=== PATIENT | female | born 1945 | race Caucasian/White ===

== ENCOUNTER 2018-02-07 07:47 | Day surgery (SDC) | payer MEDICARE ==
[2018-02-06 08:49] VITALS: BMI 29.5
--- NOTE | 2018-02-07 07:33 | P.GSHP ---
History of Present Illness H&P Date: 02/07/18 CHIEF COMPLAINT: Colon screen HISTORY OF PRESENT ILLNESS: The patient is a 72-year-old female who presents for colon screen. Lower endoscopy was offered for further evaluation and management. PAST MEDICAL HISTORY: Please see list. PAST SURGICAL HISTORY: Please see list. MEDICATIONS: Please see list. ALLERGIES: Please see list. SOCIAL HISTORY: No illicit drug use FAMILY HISTORY: No reports of Crohn disease or ulcerative colitis. REVIEW OF ORGAN SYSTEMS: CONSTITUTIONAL: No reports of fevers or chills. PHYSICAL EXAM: VITAL SIGNS: Stable GENERAL: Well-developed pleasant in no acute distress. HEENT: No scleral icterus. Extraocular movements grossly intact. Moist buccal mucosa. NECK: Supple without lymphadenopathy. CHEST: Unlabored respirations. Equal bilateral excursions. CARDIOVASCULAR: Regular rate and rhythm. Distal 2+ pulses. ABDOMEN: Soft, nontender, nondistended. MUSCULOSKELETAL: No clubbing, cyanosis, or edema. ASSESSMENT: 1. Colon screen. PLAN: 1. Recommend proceeding with a lower endoscopy Past Medical History Past Medical History: Atrial Fibrillation, Coronary Artery Disease (CAD), Cancer , Chest Pain / Angina, Heart Failure, Diabetes Mellitus, GI Bleed, Hyperlipidemia, Hypertension, Myocardial Infarction ([place]), Osteoarthritis (OA), Thyroid Disorder Additional Past Medical History / Comment(s): NSR since cardiac ablation for Afib, heart murmur, HODGKINS lymphoma with neck and chest radiation in 1977 and chemo in 1982, chronic kidney failure, IDDM type II, hypothyroid, colonic polyps , diverticulosis, GOUT bilateral feet, rare back pain, edema in legs particularly L leg Last Myocardial Infarction Date:: 01/25/16 History of Any Multi-Drug Resistant Organisms: None Reported Past Surgical History: Cardiac Ablation, Cholecystectomy, Coronary Bypass/CABG, Heart Catheterization, Heart Catheterization With Stent, Pacemaker, Tubal Ligation Additional Past Surgical History / Comment(s): 2003 PTCA with 1 stent, 2007 CABG -2 vessel, Aortic valve replaced,bilateral CATARACT, SINUS SURGERY, splenectomy d/t hodkins, colonoscopy, laparoscopy, D&C Past Anesthesia/Blood Transfusion Reactions: No Reported Reaction Additional Past Anesthesia/Blood Transfusion Reaction / Comment(s): Pt states with one of her surgeries her pulse went very low. She has received blood in the past without reaction. Date of Last Stent Placement:: 2003 Type of Cardiac Device: Permanent Pacemaker Device Placement Date:: 2015 Smoking Status: Never smoker - Past Family History Father Family Medical History: Myocardial Infarction ([place]) Additional Family Medical History / Comment(s): Father was healthy until he of a [place] at the age of 93 yrs. Mother Family Medical History: CVA/TIA Additional Family Medical History / Comment(s): Mother was healthy until the last couple yrs of her life. She of a CVA at the age of 94yrs. Medications and Allergies Home Medications Medication Instructions Recorded Confirmed Type Allopurinol [Zyloprim] 300 mg PO DAILY 01/19/16 02/06/18 History Aspirin 81 mg PO DAILY 01/19/16 02/06/18 History Cholecalciferol [Vitamin D3] 5,000 unit PO DAILY 01/19/16 02/06/18 History Fenofibrate Nanocrystallized 48 mg PO DAILY 01/19/16 02/06/18 History [Fenofibrate] Insulin Glargine [Lantus] 20 unit SQ BID 01/19/16 02/06/18 History Isosorbide Mononitrate ER [Imdur] 60 mg PO QAM 01/19/16 02/06/18 History Levothyroxine Sodium [Levoxyl] 112 mcg PO QAM 01/19/16 02/06/18 History Nitroglycerin Sl Tabs [Nitrostat] 0.4 mg SUBLINGUAL Q5M PRN 01/19/16 02/06/18 History Ubidecarenone [Co Q-10] 200 mg PO Q2D 01/19/16 02/06/18 History Vit C/E/Zn/Coppr/Lutein/Zeaxan 1 cap PO DAILY 01/19/16 02/06/18 History [Preservision Areds 2 Softgel] Insulin Glulisine [Apidra Solostar] 10 - 12 unit SQ AC-TID PRN 01/24/16 History Atorvastatin [Lipitor] 20 mg PO Q2D 02/14/16 02/06/18 History Docusate [Colace] 100 mg PO DAILY 02/14/16 02/06/18 History Torsemide [Demadex] 50 mg PO BID PRN 02/14/16 02/06/18 History Krill/Om-3/Dha/Epa/Phospho/Ast 1 each PO DAILY 02/06/18 02/06/18 History [[place]-3 Krill Oil 300 mg Sfgl] Lisinopril [Prinivil] 10 mg PO HS 02/06/18 02/06/18 History Metoprolol Tartrate [Lopressor] 50 mg PO TID 02/06/18 02/06/18 History cloNIDine HCL [Catapres] 0.1 mg PO TID 02/06/18 02/06/18 History hydrALAZINE HCL [Apresoline] 50 mg PO TID 02/06/18 02/06/18 History Allergies Allergy/AdvReac Type Severity Reaction Status Date / Time Iodinated Contrast- Oral and AdvReac renal Verified 02/06/18 08:33 IV Dye disease
[~2018-02-07 07:47] MED LIST: LACTATED RINGERS 1,000 ML IV SCH; LIDOCAINE 1% 20 ML VIAL (10MG/ML) FOR IV START INTRADERMA PRN; MIDAZOLAM 2 MG/2 ML VIAL IV PRN
[2018-02-07 08:54] VITALS: TEMP 97.9
[2018-02-07 09:11] LABS: Glucose,Whole Blood 114 mg/dL (75-99)
[2018-02-07] MEDS ORDERED: PROPOFOL 10 MG/ML 20 ML VIAL IV ONE (09:15)
[2018-02-07] MEDS ORDERED: ePHEDrine SULFATE/0.9% NACL/PF 50 MG/5 ML SYRINGE IV ONE (09:15)
[2018-02-07] MEDS ORDERED: LIDOCAINE 1% INJ 10MG/ML (20 ML MDV) ONE (09:15)
--- NOTE | 2018-02-07 09:57 | P.PCN ---
Date of Procedure: 02/07/18 Description of Procedure: PREOPERATIVE DIAGNOSIS: Personal history of colon polyps Ischemic cardiomyopathy POSTOPERATIVE DIAGNOSIS: Personal history of colon polyps Ischemic cardiomyopath Tubular adenoma, descending colon Hyperplastic colon, ascending colon Severe sigmoid diverticulosis Poor prep OPERATION: Colonoscopy to the ileocecal valve and appendiceal orifice. Colonoscopy with hot snare polypectomies Colonoscopy with cold forceps biopsies. SURGEON: Sonia Cunningham MD. ANESTHESIA: MAC. INDICATIONS: The patient is a 72-year-old female who presents for colonoscopy screening. Last colonoscopy was 5 years ago Benefits and risks were described and informed consent was obtained. DESCRIPTION OF PROCEDURE: The patient had undergone Gatorade, MiraLAX and Dulcolax prep. She had been brought into the operating room and laid in the left lateral decubitus position. After adequate intravenous sedation, the rectum was examined with 2% lidocaine jelly. No external hemorrhoids were encountered. The rectal tone was within normal limits. No lesions were palpated in the rectal vault. An Olympus colonoscope was advanced until the ileocecal valve and appendiceal orifice were clearly viewed. The prep was poor with solid stool obscuring the mucosal folds. Abdominal wall pressure was required to advance the scope to the ascending colon. Severe sigmoid diverticulosis was encountered with stool impaction in the diverticulum. Colonic polyps were found and cold forcep biopsy or snare polypectomy. No evidence of focal colitis was found. Retroflexion of the scope demonstrated no internal hemorrhoids. The colon was desufflated. The patient had tolerated the procedure well. Withdrawal time was over 6 minutes. FINDINGS: No internal hemorrhoids No external hemorrhoids Severe sigmoid diverticulosis with impacted stool of diverticula No arteriovenous malformations Poor prep with solid stool Tubular adenoma along sigmoid colon unable to retrieve due to tortuosity of the colon Removal of 2 polyps: - Snare polypectomy 40 cm from the anal verge, 10 mm tubulovillous adenoma polyp. - Cold forceps biopsy at ascending colon, 4 mm polyp. No focal colitis. RECOMMENDATIONS: Given severity of tubular adenomas, recommend repeat colonoscopy 1 year, 2019. Plan - Discharge Summary New Discharge Prescriptions: No Action Cholecalciferol [Vitamin D3] 5,000 unit PO DAILY Nitroglycerin Sl Tabs [Nitrostat] 0.4 mg SUBLINGUAL Q5M PRN PRN Reason: Pain Levothyroxine Sodium [Levoxyl] 112 mcg PO QAM Insulin Glargine [Lantus] 20 unit SQ BID Fenofibrate Nanocrystallized [Fenofibrate] 48 mg PO DAILY Ubidecarenone [Co Q-10] 200 mg PO Q2D Aspirin 81 mg PO DAILY Allopurinol [Zyloprim] 300 mg PO DAILY Isosorbide Mononitrate ER [Imdur] 60 mg PO QAM Vit C/E/Zn/Coppr/Lutein/Zeaxan [Preservision Areds 2 Softgel] 1 cap PO DAILY Insulin Glulisine [Apidra Solostar] 10 - 12 unit SQ AC-TID PRN PRN Reason: Blood Sugar - High Torsemide [Demadex] 50 mg PO BID PRN PRN Reason: Edema Atorvastatin [Lipitor] 20 mg PO Q2D Docusate [Colace] 100 mg PO DAILY cloNIDine HCL [Catapres] 0.1 mg PO TID hydrALAZINE HCL [Apresoline] 50 mg PO TID Krill/Om-3/Dha/Epa/Phospho/Ast [[place]-3 Krill Oil 300 mg Sfgl] 1 each PO DAILY Lisinopril [Prinivil] 10 mg PO HS Metoprolol Tartrate [Lopressor] 50 mg PO TID Discharge Medication List Allopurinol [Zyloprim] 300 mg PO DAILY 01/19/16 [History] Aspirin 81 mg PO DAILY 01/19/16 [History] Cholecalciferol [Vitamin D3] 5,000 unit PO DAILY 01/19/16 [History] Fenofibrate Nanocrystallized [Fenofibrate] 48 mg PO DAILY 01/19/16 [History] Insulin Glargine [Lantus] 20 unit SQ BID 01/19/16 [History] Isosorbide Mononitrate ER [Imdur] 60 mg PO QAM 01/19/16 [History] Levothyroxine Sodium [Levoxyl] 112 mcg PO QAM 01/19/16 [History] Nitroglycerin Sl Tabs [Nitrostat] 0.4 mg SUBLINGUAL Q5M PRN 01/19/16 [History] Ubidecarenone [Co Q-10] 200 mg PO Q2D 01/19/16 [History] Vit C/E/Zn/Coppr/Lutein/Zeaxan [Preservision Areds 2 Softgel] 1 cap PO DAILY [History] Insulin Glulisine [Apidra Solostar] 10 - 12 unit SQ AC-TID PRN 01/24/16 [History ] Atorvastatin [Lipitor] 20 mg PO Q2D 02/14/16 [History] Docusate [Colace] 100 mg PO DAILY 02/14/16 [History] Torsemide [Demadex] 50 mg PO BID PRN 02/14/16 [History] Krill/Om-3/Dha/Epa/Phospho/Ast [[place]-3 Krill Oil 300 mg Sfgl] 1 each PO DAILY 02/06/18 [History] Lisinopril [Prinivil] 10 mg PO HS 02/06/18 [History] Metoprolol Tartrate [Lopressor] 50 mg PO TID 02/06/18 [History] cloNIDine HCL [Catapres] 0.1 mg PO TID 02/06/18 [History] hydrALAZINE HCL [Apresoline] 50 mg PO TID 02/06/18 [History]
[2018-02-07 10:10] VITALS: BP 110/63; PULSE 60; RESP 18
[2018-02-07 10:19] LABS: Glucose,Whole Blood 111 mg/dL (75-99)
== END 2018-02-07 10:42 | disposition home or self-care (01) ==
LOC: ORWHC2ENDO 07:47
PROVIDERS: ATTEND Surgery Plastic and Reconstructive Surgery
DX: Z12.11 Encounter for screening for malignant neoplasm of colon (principal); D12.3 Benign neoplasm of transverse colon; D12.4 Benign neoplasm of descending colon; I13.0 Hypertensive heart and chronic kidney disease with heart failure and stage 1 through stage 4 chronic kidney disease, or unspecified chronic kidney disease; I25.5 Ischemic cardiomyopathy; K57.30 Diverticulosis of large intestine without perforation or abscess without bleeding; I48.91 Unspecified atrial fibrillation; I50.9 Heart failure, unspecified; E78.5 Hyperlipidemia, unspecified; I25.2 Old myocardial infarction; I25.119 Atherosclerotic heart disease of native coronary artery with unspecified angina pectoris; M19.90 Unspecified osteoarthritis, unspecified site; M10.9 Gout, unspecified; E03.9 Hypothyroidism, unspecified; E11.22 Type 2 diabetes mellitus with diabetic chronic kidney disease; N18.9 Chronic kidney disease, unspecified; Z79.4 Long term (current) use of insulin; Z79.82 Long term (current) use of aspirin; Z86.010 Personal history of colon polyps; Z85.72 Personal history of non-Hodgkin lymphomas; Z92.3 Personal history of irradiation; Z92.21 Personal history of antineoplastic chemotherapy; Z95.5 Presence of coronary angioplasty implant and graft; Z95.1 Presence of aortocoronary bypass graft; Z90.49 Acquired absence of other specified parts of digestive tract; Z95.0 Presence of cardiac pacemaker; Z95.2 Presence of prosthetic heart valve; Z82.49 Family history of ischemic heart disease and other diseases of the circulatory system; Z90.81 Acquired absence of spleen; Z79.899 Other long term (current) drug therapy
CPT/HCPCS: 88305; 45385; 45380; J2001; J2704

== ENCOUNTER → 2018-05-18 | Outpatient (CLI) | payer MEDICARE ==
--- NOTE | 2018-05-18 15:24 | CT ---
EXAMINATION TYPE: CT facial bones wo con DATE OF EXAM: 05/18/2018 COMPARISON: None HISTORY: sinusitis CT DLP: 532.[address] of the paranasal sinuses was performed in the axial and coronal planes. Bone and soft tissue settings are submitted. The paranasal sinuses demonstrate normal aeration and development. Mucoperiosteal thickening maxillary sinuses bilaterally is mild in degree. Changes of medial maxillar y antrectomy on the right and partial ethmoidectomy bilaterally. The osteal meatal units are patent bilaterally. The nasal septum is midline. No bony destructive changes are seen within the field of view. IMPRESSION: Chronic sinusitis. Postoperative changes as noted.
== END | disposition home or self-care (01) ==
LOC: RADCTMAIN 14:42
PROVIDERS: ATTEND Otolaryngology
DX: J32.9 Chronic sinusitis, unspecified (principal); R04.0 Epistaxis; Z98.890 Other specified postprocedural states
CPT/HCPCS: 70486

== ENCOUNTER 2019-11-24 08:32 | Inpatient (IN) | payer MEDICARE ==
[2019-11-24 12:16] LABS: Glucose,Whole Blood 187 mg/dL (75-99)
[2019-11-24] MEDS ORDERED: DOCUSATE 100 MG CAP PO PRN (13:59)
[2019-11-24] MEDS ORDERED: NITROGLYCERIN SL TABS 0.4 MG TAB SUBLINGUAL PRN (13:59)
--- NOTE | 2019-11-24 14:05 | P.NPCON ---
History of Present Illness - Reason for Consult chronic renal failure - History of Present Illness Reason for consultation: Chronic kidney disease History of present illness: Patient is a 74-year-old female seen in new consultation for chronic kidney disease. She has chronic kidney disease stage IV with baseline creatinine near 2 secondary to nephrosclerosis. Patient went to [facility] on Monday due to worsening shortness of breath and edema. Patient received IV Lasix and was subsequently transferred here due to worsening renal failure. Patient's creatinine this morning is 2.1. Patient also has long-standing history of diabetes mellitus. Patient states her edema has improved with IV diuresis. No hematuria or dysuria. Overall feels better today. She denies any fever or chills. She admits to a chronic cough with no recent changes. No vomiting or diarrhea. Oral intake has been good. She denies use of nonsteroidals. At home she does take torsemide 50 mg twice daily along with metolazone as needed. Vital signs are stable. General: The patient appeared well nourished and normally developed. HEENT: Head exam is unremarkable. Neck is without jugular venous distension. LUNGS: Lungs are clear to auscultation and percussion. Breath sounds decreased. HEART: Rate and Rhythm are regular. ABDOMEN: Abdominal exam reveals normal bowel sounds. Non-tender and non- distended. EXTREMITITES: No clubbing, cyanosis, or edema. Past Medical History Past Medical History: Atrial Fibrillation, Coronary Artery Disease (CAD), Cancer, Chest Pain / Angina, Heart Failure, Diabetes Mellitus, GI Bleed, Hyperlipidemia, Hypertension, Myocardial Infarction ([place]), Osteoarthritis (OA), Thyroid Disorder Additional Past Medical History / Comment(s): NSR since cardiac ablation for Afib, heart murmur, HODGKINS lymphoma with neck and chest radiation in 1977 and chemo in 1982, chronic kidney failure, IDDM type II, hypothyroid, colonic polyps, diverticulosis, GOUT bilateral feet, rare back pain, edema in legs particularly L leg Last Myocardial Infarction Date:: 01/25/16 History of Any Multi-Drug Resistant Organisms: None Reported Past Surgical History: Cardiac Ablation, Cholecystectomy, Coronary Bypass/CABG, Heart Catheterization, Heart Catheterization With Stent, Pacemaker, Tubal Ligation Additional Past Surgical History / Comment(s): 2003 PTCA with 1 stent, 2007 CABG-2 vessel, Aortic valve replaced,bilateral CATARACT, SINUS SURGERY, splenectomy d/t hodkins, colonoscopy, laparoscopy, D&C Past Anesthesia/Blood Transfusion Reactions: No Reported Reaction Additional Past Anesthesia/Blood Transfusion Reaction / Comment(s): Pt states with one of her surgeries her pulse went very low. She has received blood in the past without reaction. Date of Last Stent Placement:: 2003 Type of Cardiac Device: Permanent Pacemaker Device Placement Date:: 2015 Smoking Status: Never smoker - Past Family History Father Family Medical History: Myocardial Infarction ([place]) Additional Family Medical History / Comment(s): Father was healthy until he of a [place] at the age of 93 yrs. Mother Family Medical History: CVA/TIA Additional Family Medical History / Comment(s): Mother was healthy until the last couple yrs of her life. She of a CVA at the age of 94yrs. Medications and Allergies Home Medications Medication Instructions Recorded Confirmed Type Allopurinol [Zyloprim] 300 mg PO DAILY 01/19/16 11/24/19 History Aspirin 81 mg PO DAILY 01/19/16 11/24/19 History Cholecalciferol [Vitamin D3 (25 1,000 unit PO DAILY 01/19/16 11/24/19 History Mcg = 1000 Iu)] Fenofibrate Nanocrystallized 48 mg PO DAILY 01/19/16 11/24/19 History [Fenofibrate] Insulin Glargine [Lantus] 20 unit SQ DAILY 01/19/16 11/24/19 History Levothyroxine Sodium [Levoxyl] 112 mcg PO DAILY 01/19/16 11/24/19 History Nitroglycerin Sl Tabs [Nitrostat] 0.4 mg SUBLINGUAL Q5M PRN 01/19/16 11/24/19 History Ubidecarenone [Co Q-10] 100 mg PO MOWEFRSA 01/19/16 11/24/19 History Insulin Glulisine [Apidra Solostar] See Protocol SQ AC-TID 01/24/16 11/24/19 History Docusate [Colace] 100 mg PO DAILY PRN 02/14/16 11/24/19 History Torsemide [Demadex] 50 mg PO BID 02/14/16 11/24/19 History Krill/Om-3/Dha/Epa/Phospho/Ast 1 cap PO DAILY 02/06/18 11/24/19 History [[place]-3 Krill Oil 300 mg Sfgl] cloNIDine HCL [Catapres] 0.1 mg PO QID 02/06/18 11/24/19 History hydrALAZINE HCL [Apresoline] 50 mg PO QID 02/06/18 11/24/19 History Atorvastatin [Lipitor] 20 mg PO MOWEFRSA 11/24/19 11/24/19 History Insulin Glargine [Lantus] See Protocol SQ HS 11/24/19 11/24/19 History Isosorbide Mononitrate ER [Imdur] 60 mg PO DAILY 11/24/19 11/24/19 History Metolazone [Zaroxolyn] 5 mg PO DAILY PRN 11/24/19 11/24/19 History Metoprolol Succinate [Toprol XL] 50 mg PO BID 11/24/19 11/24/19 History Allergies Allergy/AdvReac Type Severity Reaction Status Date / Time Iodinated Contrast Media AdvReac renal Verified 02/06/18 08:33 disease Physical Exam Vitals: Vital Signs Temp Pulse Resp BP Pulse Ox 11/24/19 10:53 96.7 F L 67 16 145/68 99 Intake and Output 11/23/19 11/24/19 11/24/19 22:59 06:59 14:59 Other: Weight 79.4 kg Assessment and Plan Plan: Assessment: 1. Chronic kidney disease stage IV secondary to nephrosclerosis with baseline creatinine near 2. GFR near baseline. Creatinine 2.1 today. 2. Chronic diastolic CHF with moderate mitral regurgitation and pulmonary hypertension. 3. Fluid overload. Improved with IV diuresis. 4. Insulin-dependent diabetes mellitus. 5. Hyponatremia secondary to chronic kidney disease. Sodium level was 126 this morning. Plan: Hold off on diuretics today. 1500 mL free water restriction. Check urinalysis. Check serum and urine osmolality and urine sodium level. Repeat electrolytes in the morning. Thank you for the consultation. I will continue to follow the patient with you during her hospital stay.
--- NOTE | 2019-11-24 14:16 | P.HPIM ---
History of Present Illness 74-year-old pleasant female with the known history of heart failure probably diastolic dysfunction was transferred from in the hospital because of nonimprovement of her respiratory status as per the physician that requested transfer. Patient was admitted in [facility] for heart failure exacerbation was receiving 60 IV twice a day of Lasix appears to have been over diuresed baseline creatinine appears to be around 2 it went up to 2.4 because of which patient was transferred here for be evaluated by nephrology and cardio logy. Patient clinically appears to be hypovolemic doesn't have any JVD patient had elevated BNP on admission to [facility] along with pulmonary edema on the chest x-ray. Patient was requiring 2 days of lungs and presently not on any oxygen saturating well patient denied any fever chills nausea vomiting denied any chest pain. Patient does have history of chronic kidney disease stage III is actually on torsemide 50 twice a day along with metolazone as needed follows with cardiology and nephrology as an outpatient. Patient had adequate alert disease with moderate mitral regurgitation patient is status post right corneal replacement at one point of time in the previous echocardiogram patient up was low of 40-45% but the recent echocardiogram from [facility] showed normal ejection fraction. Patient appears to have moderate pulmonary hypertension. Patient presently doesn't have any symptoms of shortness of breath orthopnea or paroxysmal nocturnal dyspnea patient's serum sodium has gone down to 127. Review of Systems REVIEW OF SYSTEMS: CONSTITUTIONAL: No fever, no malaise, no fatigue. HEENT: No recent visual problems or hearing problems. Denied any sore throat. CARDIOVASCULAR: No chest pain, orthopnea, PND, no palpitations, no syncope. PULMONARY: No shortness of breath, no cough, no hemoptysis. GASTROINTESTINAL: No diarrhea, no nausea, no vomiting, no abdominal pain. NEUROLOGICAL: No headaches, no weakness, no numbness. HEMATOLOGICAL: Denies any bleeding or petechiae. GENITOURINARY: Denies any burning micturition, frequency, or urgency. MUSCULOSKELETAL/RHEUMATOLOGICAL: Denies any joint pain, swelling, or any muscle pain. ENDOCRINE: Denies any polyuria or polydipsia. The rest of the 14-point review of systems is negative. Past Medical History Past Medical History: Atrial Fibrillation, Coronary Artery Disease (CAD), Cancer, Chest Pain / Angina, Heart Failure, Diabetes Mellitus, GI Bleed, Hyperlipidemia, Hypertension, Myocardial Infarction ([place]), Osteoarthritis ([place]), Thyroid Disorder Additional Past Medical History / Comment(s): NSR since cardiac ablation for Afib, heart murmur, HODGKINS lymphoma with neck and chest radiation in 1977 and chemo in 1982, chronic kidney failure, IDDM type II, hypothyroid, colonic polyps, diverticulosis, GOUT bilateral feet, rare back pain, edema in legs particularly L leg Last Myocardial Infarction Date:: 01/25/16 History of Any Multi-Drug Resistant Organisms: None Reported Past Surgical History: Cardiac Ablation, Cholecystectomy, Coronary Bypass/CABG, Heart Catheterization, Heart Catheterization With Stent, Pacemaker, Tubal Ligation Additional Past Surgical History / Comment(s): 2003 PTCA with 1 stent, 2007 CABG-2 vessel, Aortic valve replaced,bilateral CATARACT, SINUS SURGERY, splenectomy d/t hodkins, colonoscopy, laparoscopy, D&C Past Anesthesia/Blood Transfusion Reactions: No Reported Reaction Additional Past Anesthesia/Blood Transfusion Reaction / Comment(s): Pt states with one of her surgeries her pulse went very low. She has received blood in the past without reaction. Date of Last Stent Placement:: 2003 Type of Cardiac Device: Permanent Pacemaker Device Placement Date:: 2015 Smoking Status: Never smoker - Past Family History Father Family Medical History: Myocardial Infarction ([place]) Additional Family Medical History / Comment(s): Father was healthy until he of a [place] at the age of 93 yrs. Mother Family Medical History: CVA/TIA Additional Family Medical History / Comment(s): Mother was healthy until the last couple yrs of her life. She of a CVA at the age of 94yrs. Medications and Allergies Home Medications Medication Instructions Recorded Confirmed Type Allopurinol [Zyloprim] 300 mg PO DAILY 01/19/16 11/24/19 History Aspirin 81 mg PO DAILY 01/19/16 11/24/19 History Cholecalciferol [Vitamin D3 (25 1,000 unit PO DAILY 01/19/16 11/24/19 History Mcg = 1000 Iu)] Fenofibrate Nanocrystallized 48 mg PO DAILY 01/19/16 11/24/19 History [Fenofibrate] Insulin Glargine [Lantus] 20 unit SQ DAILY 01/19/16 11/24/19 History Levothyroxine Sodium [Levoxyl] 112 mcg PO DAILY 01/19/16 11/24/19 History Nitroglycerin Sl Tabs [Nitrostat] 0.4 mg SUBLINGUAL Q5M PRN 01/19/16 11/24/19 History Ubidecarenone [Co Q-10] 100 mg PO MOWEFRSA 01/19/16 11/24/19 History Insulin Glulisine [Apidra Solostar] See Protocol SQ AC-TID 01/24/16 11/24/19 History Docusate [Colace] 100 mg PO DAILY PRN 02/14/16 11/24/19 History Torsemide [Demadex] 50 mg PO BID 02/14/16 11/24/19 History Krill/Om-3/Dha/Epa/Phospho/Ast 1 cap PO DAILY 02/06/18 11/24/19 History [[place]-3 Krill Oil 300 mg Sfgl] cloNIDine HCL [Catapres] 0.1 mg PO QID 02/06/18 11/24/19 History hydrALAZINE HCL [Apresoline] 50 mg PO QID 02/06/18 11/24/19 History Atorvastatin [Lipitor] 20 mg PO MOWEFRSA 11/24/19 11/24/19 History Insulin Glargine [Lantus] See Protocol SQ HS 11/24/19 11/24/19 History Isosorbide Mononitrate ER [Imdur] 60 mg PO DAILY 11/24/19 11/24/19 History Metolazone [Zaroxolyn] 5 mg PO DAILY PRN 11/24/19 11/24/19 History Metoprolol Succinate [Toprol XL] 50 mg PO BID 11/24/19 11/24/19 History Allergies Allergy/AdvReac Type Severity Reaction Status Date / Time Iodinated Contrast Media AdvReac renal Verified 02/06/18 08:33 disease Physical Exam Vitals: Vital Signs Temp Pulse Resp BP Pulse Ox 11/24/19 10:53 96.7 F L 67 16 145/68 99 Intake and Output 11/23/19 11/24/19 11/24/19 22:59 06:59 14:59 Other: Weight 79.4 kg PHYSICAL EXAMINATION: GENERAL: The patient is alert and oriented x3, not in any acute distress. Well developed, well nourished. HEENT: Pupils are round and equally reacting to light. EOMI. No scleral icterus. No conjunctival pallor. Normocephalic, atraumatic. No pharyngeal erythema. No thyromegaly. CARDIOVASCULAR: S1 and S2 present. No murmurs, rubs, or gallops. PULMONARY: Chest is clear to auscultation, no wheezing or crackles. ABDOMEN: Soft, nontender, nondistended, normoactive bowel sounds. No palpable organomegaly. MUSCULOSKELETAL: No joint swelling or deformity. EXTREMITIES: No cyanosis, clubbing, or pedal edema. NEUROLOGICAL: Gross neurological examination did not reveal any focal deficits. SKIN: No rashes. Results Labs: Abnormal Lab Results - Last 24 Hours (Table) 11/24/19 Range/Units 12:15 POC Glucose (mg/dL) 187 H (75-99) mg/dL Thrombosis Risk Factor Assmnt - Choose All That Apply Any of the Below Risk Factors Present?: Yes Each Factor Represents 1 point: Heart failure (<1month), Obesity (BMI >25), Swollen legs (current) Other Risk Factors: Yes Each Risk Factor Represents 3 Points: Age 75 years or older Thrombosis Risk Factor Assessment Total Risk Factor Score: 6 Thrombosis Risk Factor Assessment Level: High Risk Assessment and Plan Plan: -Hyponatremia was probably hypovolemic hyponatremia from excessive diuresis:hold Of on diuretic therapy today nephrology was consulted. -Acute renal failure on chronic kidney disease stage III: Regular failure secondary to prerenal azotemia holding of diuretics as mentioned above chronic kidney disease secondary to diabetic nephropathy -Congestive heart heart failure chronic diastolic dysfunction not in acute exacerbation patient is actually hypovolemic at this time. -Insulin-dependent diabetes mellitus continue her home regimen titrate insulin depending on her insulin requirements -Pulmonary hypertension -Carotid disease with CABG in the past -Hyperlipidemia -Hypertension -Hypothyroidism -History of aortic stenosis status post aortic valve replacement -DVT prophylaxis with subcutaneous heparin
[2019-11-24 16:50] LABS: Glucose,Whole Blood 252 mg/dL (75-99)
[2019-11-24] MEDS: INSULIN ASPART (NovoLOG) 100 UNIT/ML VIAL SQ SCH ×2 (17:18→20:28)
[2019-11-24] MEDS: hydrALAZINE HCL 50 MG TAB PO SCH ×2 (17:18→20:28)
[2019-11-24 20:11] LABS: Glucose,Whole Blood 167 mg/dL (75-99)
[2019-11-24 20:12] LABS: Appearance,Urine Cloudy (Clear); Bacteria,Urine Rare /hpf; Bilirubin,Urine Negative (Negative); Blood,Urine Negative (Negative); Color,Urine Yellow; Glucose,Urine (UA) Negative (Negative); Hyaline Casts,Urine 43 /lpf (0-2); Ketones,Urine Negative (Negative); Leukocyte Esterase,Urine Large (Negative); Mucus,Urine Rare /hpf; Nitrite,Urine Negative (Negative); Protein,Urine Negative (Negative); RBC,Urine 4 /hpf (0-5); Specific Gravity,Urine 1.014 (1.001-1.035); Squamous Epithelial Cell,Urine 1 /hpf (0-4); Urobilinogen,Urine <2.0 mg/dL (<2.0); WBC,Urine 90 /hpf (0-5)
[2019-11-24] MEDS: METOPROLOL SUCCINATE (ER) 50 MG TAB.ER.24H PO SCH (20:28)
[2019-11-24] MEDS: HEPARIN SODIUM,PORCINE 5,000 UNIT/ML 1 ML VIAL SQ SCH (20:29)
[2019-11-25 05:59] LABS: Glucose,Whole Blood 123 mg/dL (75-99)
[2019-11-25 07:06] LABS: Albumin 3.7 g/dL (3.5-5.0); Calcium 9.2 mg/dL (8.4-10.2); Magnesium 2.4 mg/dL (1.6-2.3); Potassium 4.9 mmol/L (3.5-5.1); Total Bilirubin 0.6 mg/dL (0.2-1.3); Total Protein 7.1 g/dL (6.3-8.2)
[2019-11-25] MEDS: LEVOTHYROXINE 112 MCG TAB PO SCH (07:07)
[2019-11-25] MEDS: INSULIN DETEMIR (LEVEMIR) 100 UNIT/ML SYR SQ SCH (07:07)
[2019-11-25] MEDS: INSULIN ASPART (NovoLOG) 100 UNIT/ML VIAL SQ SCH ×4 (07:08→20:54)
--- NOTE | 2019-11-25 07:45 | XR ---
EXAMINATION TYPE: XR chest 1V DATE OF EXAM: 11/25/2019 COMPARISON: Prior chest x-ray 02/14/2016 HISTORY: Congestive heart failure TECHNIQUE: Single frontal view of the chest is obtained. FINDINGS: Patient is post median sternotomy with some wire fractures, there is a generator in the le ft pectoral region, leads are present in the right atrium and ventricle. Heart is enlarged. Aorta is dense. No evident pneumothorax. Biapical pleural thickening is present. Wedge shaped area in the cale hilar location on the right shows increased attenuation within the lungs. There is blunting of the co stophrenic angle on the right. Interstitium is increased. IMPRESSION: Findings consistent with congestive heart failure. Follow-up is recommended. Difficult t o exclude small effusion. Additional findings above.
[2019-11-25] MEDS: FENOFIBRATE 54 MG TAB PO SCH (09:31)
[2019-11-25] MEDS: ALLOPURINOL 300 MG TAB PO SCH (09:31)
[2019-11-25] MEDS: ATORVASTATIN 20 MG TAB PO SCH (09:31)
[2019-11-25] MEDS: HEPARIN SODIUM,PORCINE 5,000 UNIT/ML 1 ML VIAL SQ SCH ×2 (09:32→20:55)
[2019-11-25] MEDS: hydrALAZINE HCL 50 MG TAB PO SCH ×4 (09:32→20:54)
[2019-11-25] MEDS: ASPIRIN 81 MG PO SCH (09:32)
[2019-11-25] MEDS: METOPROLOL SUCCINATE (ER) 50 MG TAB.ER.24H PO SCH ×2 (09:32→20:54)
[2019-11-25] MEDS: ISOSORBIDE MONONITRATE ER 60 MG TAB.ER.24H PO SCH (09:32)
--- NOTE | 2019-11-25 11:05 | P.CRDCN ---
History of Present Illness History of present illness: Staci Boston This is Dr. 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 She has a reduced ejection fraction from the pa st I would like to check her pacemaker to look at her pacing percentage Reassess her LV function HPI Patient transferred from [facility] with shortness of breath and edema Treated with IV Lasix Transferred here for worsening renal failure She has known chronic stage IV chronic kidney disease Long-standing history of diabetes ROS: No fever chills or rigors, no cough, phlegm or expectoration, no nausea, vomiting or diarrhea, no hematuria, dysuria, no musculoskeletal complaints, no strokes or seizures, no skin lesions. EXAMINATION: Blood pressure 136/66 mmHg pulse rate in the 60s afebrile Resting comfortably in bed no shortness of breath No lower extremity edema Ejection systolic murmur over the aortic area Breath sounds are reduced bilaterally occasional crackles at the bases REVIEW OF LABS, ECG & MEDICAL DATA Chest x-ray consistent with congestion Labs are reviewed sodium 128 BUN 86 creatinine 2.1 on GFR less than 30 ProBNP 8000 ECG from [place] shows AV sequential pacing History of coronary artery disease and prior coronary artery bypass grafting History of aortic stenosis status post TAVR Chronic kidney disease diabetes hypertension dyslipidemia Left radical ejection fraction 40-45% Prior ECG shows sinus rhythm right bundle branch block pattern left posterior fascicular block Past Medical History Past Medical History: Atrial Fibrillation, Coronary Artery Disease (CAD), Cancer, Chest Pain / Angina, Heart Failure, Diabetes Mellitus, GI Bleed, Hyperlipidemia, Hypertension, Myocardial Infarction (SD), Osteoarthritis (OA), Thyroid Disorder Additional Past Medical History / Comment(s): NSR since cardiac ablation for Afib, heart murmur, HODGKINS lymphoma with neck and chest radiation in 1977 and chemo in 1982, chronic kidney failure, IDDM type II, hypothyroid, colonic polyps, diverticulosis, GOUT bilateral feet, rare back pain, edema in legs particularly L leg Last Myocardial Infarction Date:: 01/25/16 History of Any Multi-Drug Resistant Organisms: None Reported Past Surgical History: Cardiac Ablation, Cholecystectomy, Coronary Bypass/CABG, Heart Catheterization, Heart Catheterization With Stent, Pacemaker, Tubal Ligation Additional Past Surgical History / Comment(s): 2003 PTCA with 1 stent, 2007 CABG-2 vessel, Aortic valve replaced,bilateral CATARACT, SINUS SURGERY, splenectomy d/t hodkins, colonoscopy, laparoscopy, D&C Past Anesthesia/Blood Transfusion Reactions: No Reported Reaction Additional Past Anesthesia/Blood Transfusion Reaction / Comment(s): Pt states with one of her surgeries her pulse went very low. She has received blood in the past without reaction. Date of Last Stent Placement:: 2003 Type of Cardiac Device: Permanent Pacemaker Device Placement Date:: 2015 Smoking Status: Never smoker - Past Family History Father Family Medical History: Myocardial Infarction (SD) Additional Family Medical History / Comment(s): Father was healthy until he of a SD at the age of 93 yrs. Mother Family Medical History: CVA/TIA Additional Family Medical History / Comment(s): Mother was healthy until the last couple yrs of her life. She of a CVA at the age of 94yrs. Medications and Allergies Home Medications Medication Instructions Recorded Confirmed Type Allopurinol [Zyloprim] 300 mg PO DAILY 01/19/16 11/24/19 History Aspirin 81 mg PO DAILY 01/19/16 11/24/19 History Cholecalciferol [Vitamin D3 (25 1,000 unit PO DAILY 01/19/16 11/24/19 History Mcg = 1000 Iu)] Fenofibrate Nanocrystallized 48 mg PO DAILY 01/19/16 11/24/19 History [Fenofibrate] Insulin Glargine [Lantus] 20 unit SQ DAILY 01/19/16 11/24/19 History Levothyroxine Sodium [Levoxyl] 112 mcg PO DAILY 01/19/16 11/24/19 History Nitroglycerin Sl Tabs [Nitrostat] 0.4 mg SUBLINGUAL Q5M PRN 01/19/16 11/24/19 H istory Ubidecarenone [Co Q-10] 100 mg PO MOWEFRSA 01/19/16 11/24/19 History Insulin Glulisine [Apidra Solostar] See Protocol SQ AC-TID 01/24/16 11/24/19 History Docusate [Colace] 100 mg PO DAILY PRN 02/14/16 11/24/19 History Torsemide [Demadex] 50 mg PO BID 02/14/16 11/24/19 History Krill/Om-3/Dha/Epa/Phospho/Ast 1 cap PO DAILY 02/06/18 11/24/19 History [[place]-3 Krill Oil 300 mg Sfgl] cloNIDine HCL [Catapres] 0.1 mg PO QID 02/06/18 11/24/19 History hydrALAZINE HCL [Apresoline] 50 mg PO QID 02/06/18 11/24/19 History Atorvastatin [Lipitor] 20 mg PO MOWEFRSA 11/24/19 11/24/19 History Insulin Glargine [Lantus] See Protocol SQ HS 11/24/19 11/24/19 History Isosorbide Mononitrate ER [Imdur] 60 mg PO DAILY 11/24/19 11/24/19 History Metolazone [Zaroxolyn] 5 mg PO DAILY PRN 11/24/19 11/24/19 History Metoprolol Succinate [Toprol XL] 50 mg PO BID 11/24/19 11/24/19 History Allergies Allergy/AdvReac Type Severity Reaction Status Date / Time Iodinated Contrast Media AdvReac renal Verified 02/06/18 08:33 disease Physical Exam Vitals: Vital Signs Temp Pulse Resp BP Pulse Ox 11/25/19 08:00 63 17 118/57 94 L 11/25/19 04:56 98.1 F 62 18 141/63 99 11/24/19 23:23 97.9 F 61 18 136/66 97 11/24/19 20:05 98.0 F 63 18 136/70 98 11/24/19 15:34 97.6 F 60 18 117/51 93 L Intake and Output 11/24/19 11/25/19 11/25/19 22:59 06:59 14:59 Intake Total 236 Output Total 100 500 Balance 136 -500 Intake: Oral 236 Output: Urine 100 500 Other: Voiding Method Toilet Toilet Toilet # Voids 2 Weight 79.8 kg Results 11/25/19 06:04 Cardiac Enzymes 11/25/19 Range/Units 06:04 AST 45 H (14-36) U/L Comprehensive Metabolic Panel 11/25/19 Range/Units 06:04 Sodium 128 L (137-145) mmol/L Potassium 4.9 (3.5-5.1) mmol/L Chloride 84 L (98-107) mmol/L Carbon Dioxide 33 H (22-30) mmol/L BUN 86 H (7-17) mg/dL Creatinine 2.11 H (0.52-1.04) mg/dL Glucose 114 H (74-99) mg/dL Calcium 9.2 (8.4-10.2) mg/dL AST 45 H (14-36) U/L ALT 15 (4-34) U/L Alkaline Phosphatase 61 (38-126) U/L Total Protein 7.1 (6.3-8.2) g/dL Albumin 3.7 (3.5-5.0) g/dL Current Medications Generic Name Dose Route Start Last Admin Trade Name Freq PRN Reason Stop Dose Admin Allopurinol 300 mg 11/25/19 09:00 11/25/19 09:31 Zyloprim PO 300 mg DAILY MORIS Administration Aspirin 81 mg 11/25/19 09:00 11/25/19 09:32 Aspirin PO 81 mg DAILY MORIS Administration Atorvastatin Calcium 20 mg 11/25/19 09:00 11/25/19 09:31 Lipitor PO 20 mg MOWEFRSA MORIS Administration Docusate Sodium 100 mg 11/24/19 13:59 Colace PO DAILY PRN Constipation Fenofibrate 54 mg 11/25/19 09:00 11/25/19 09:31 Lofibra PO 54 mg DAILY MORIS Administration Heparin Sodium (Porcine) 5,000 unit 11/24/19 21:00 11/25/19 09:32 Heparin SQ 5,000 unit Q12HR [facility] Administration Hydralazine HCl 50 mg 11/24/19 18:00 11/25/19 09:32 Apresoline PO 50 mg QID M[facility]IS Administration Insulin Aspart 0 unit 11/24/19 17:30 11/25/19 07:08 Novolog SQ Not Given ACHS [facility] Protocol Insulin Detemir 20 unit 11/25/19 07:00 05/25/20 07:07 Levemir SQ 20 unit DAILY@0700 [facility] Administration Isosorbide Mononitrate 60 mg 11/25/19 09:00 11/25/19 09:32 Imdur PO 60 mg DAILY [facility] Administration Levothyroxine Sodium 112 mcg 11/25/19 06:30 11/25/19 07:07 Synthroid PO 112 mcg DAILY@0630 [facility] Administration Metoprolol Succinate 50 mg 11/24/19 21:00 11/25/19 09:32 Toprol Xl PO 50 mg BID [facility] Administration Nitroglycerin 0.4 mg 11/24/19 13:59 Nitrostat SUBLINGUAL Q5M PRN Pain Intake and Output 11/24/19 11/25/19 11/25/19 22:59 06:59 14:59 Intake Total 236 Output Total 100 500 Balance 136 -500 Intake: Oral 236 Output: Urine 100 500 Other: Voiding Method Toilet Toilet Toilet # Voids 2 Weight 79.8 kg 11/25/19 06:04
[2019-11-25 11:29] LABS: Basophils # (A) 0.1 k/uL (0-0.2); Basophils % (A) 1 %; Eosinophils # (A) 0.3 k/uL (0-0.7); Eosinophils % (A) 3 %; HCT 31.9 % (34.0-46.0); HGB 10.1 gm/dL (11.4-16.0); Hypochromasia Moderate; Lymphocytes # (A) 1.7 k/uL (1.0-4.8); Lymphocytes % (A) 17 %; MCH 29.7 pg (25.0-35.0); MCHC 31.8 g/dL (31.0-37.0); MCV 93.3 fL (80.0-100.0); Mean Platelet Volume 11.4; Monocytes # (A) 0.8 k/uL (0-1.0); Monocytes % (A) 8 %; Neutrophils % (A) 70 %; Platelet Count 375 k/uL (150-450); RBC 3.42 m/uL (3.80-5.40); RDW 15.7 % (11.5-15.5); WBC 10.1 k/uL (3.8-10.6)
[2019-11-25 11:42] LABS: Glucose,Whole Blood 136 mg/dL (75-99)
[2019-11-25 11:54] VITALS: BMI 28.3
--- NOTE | 2019-11-25 12:22 | P.PN ---
Subjective 74-year-old female was transferred from [facility] after excessive diuresis for heart failure exacerbation. Patient's serum sodium was low yesterday still remains low at 128 mild improvement continue to hold diuretics monitor her basic metabolic profile no overnight events.. Constitutional: Denied any fatigue denied any fever. Cardio vascular: denied any chest pain, palpitations Gastrointestinal denied any nausea vomiting Pulmonary: Denied any shortness of breath cough Neurologic denied any new focal deficits All inpatient medications were reviewed and appropriate changes in these medications as dictated in the interval history and assessment and plan. Objective - Vital Signs Vital signs: Vital Signs Temp 98.1 F 11/25/19 04:56 Pulse 63 11/25/19 08:00 Resp 17 11/25/19 08:00 BP 118/57 11/25/19 08:00 Pulse Ox 94 L 11/25/19 08:00 Intake & Output 11/24/19 11/25/19 11/25/19 18:59 06:59 18:59 Intake Total 472 Output Total 600 Balance 472 -600 Weight 79.4 kg 79.8 kg 79.8 kg Intake: Oral 472 Output: Urine 600 Other: Voiding Method Toilet Toilet # Voids 2 - Exam PHYSICAL EXAMINATION: GENERAL: The patient is alert and oriented x3, not in any acute distress. Well developed, well nourished. HEENT: Pupils are round and equally reacting to light. EOMI. No scleral icterus. No conjunctival pallor. Normocephalic, atraumatic. No pharyngeal erythema. No thyromegaly. CARDIOVASCULAR: S1 and S2 present. No murmurs, rubs, or gallops. PULMONARY: Chest is clear to auscultation, no wheezing or crackles. ABDOMEN: Soft, nontender, nondistended, normoactive bowel sounds. No palpable organomegaly. MUSCULOSKELETAL: No joint swelling or deformity. EXTREMITIES: No cyanosis, clubbing, or pedal edema. NEUROLOGICAL: Gross neurological examination did not reveal any focal deficits. SKIN: No rashes. - Labs CBC & Chem 7: 11/25/19 06:04 11/25/19 06:04 Labs: Abnormal Lab Results - Last 24 Hours (Table) 11/24/19 11/24/19 11/24/19 Range/Units 16:49 19:55 20:10 RBC (3.80-5.40) m/uL Hgb (11.4-16.0) gm/dL Hct (34.0-46.0) % RDW (11.5-15.5) % Sodium (137-145) mmol/L Chloride (98-107) mmol/L Carbon Dioxide (22-30) mmol/L BUN (7-17) mg/dL Creatinine (0.52-1.04) mg/dL Glucose (74-99) mg/dL POC Glucose (mg/dL) 252 H 167 H (75-99) mg/dL Magnesium (1.6-2.3) mg/dL AST (14-36) U/L Urine Appearance Cloudy H (Clear) Ur Leukocyte Esterase Large H (Negative) Urine WBC 90 H (0-5) /hpf Urine Bacteria Rare H (None) /hpf Hyaline Casts 43 H (0-2) /lpf Urine Mucus Rare H (None) /hpf 11/25/19 11/25/19 11/25/19 Range/Units 05:58 06:04 06:04 RBC 3.42 L (3.80-5.40) m/uL Hgb 10.1 L (11.4-16.0) gm/dL Hct 31.9 L (34.0-46.0) % RDW 15.7 H (11.5-15.5) % Sodium 128 L (137-145) mmol/L Chloride 84 L (98-107) mmol/L Carbon Dioxide 33 H (22-30) mmol/L BUN 86 H (7-17) mg/dL Creatinine 2.11 H (0.52-1.04) mg/dL Glucose 114 H (74-99) mg/dL POC Glucose (mg/dL) 123 H (75-99) mg/dL Magnesium 2.4 H (1.6-2.3) mg/dL AST 45 H (14-36) U/L Urine Appearance (Clear) Ur Leukocyte Esterase (Negative) Urine WBC (0-5) /hpf Urine Bacteria (None) /hpf Hyaline Casts (0-2) /lpf Urine Mucus (None) /hpf 11/25/19 Range/Units 11:41 RBC (3.80-5.40) m/uL Hgb (11.4-16.0) gm/dL Hct (34.0-46.0) % RDW (11.5-15.5) % Sodium (137-145) mmol/L Chloride (98-107) mmol/L Carbon Dioxide (22-30) mmol/L BUN (7-17) mg/dL Creatinine (0.52-1.04) mg/dL Glucose (74-99) mg/dL POC Glucose (mg/dL) 136 H (75-99) mg/dL Magnesium (1.6-2.3) mg/dL AST (14-36) U/L Urine Appearance (Clear) Ur Leukocyte Esterase (Negative) Urine WBC (0-5) /hpf Urine Bacteria (None) /hpf Hyaline Casts (0-2) /lpf Urine Mucus (None) /hpf Assessment and Plan Plan: -Hyponatremia was probably hypovolemic hyponatremia from excessive diuresis:hold Of on diuretic therapy today nephrology evaluated the patient serum sodium is 138 continue to hold off diuretics -Acute renal failure on chronic kidney disease stage III: Regular failure secondary to prerenal azotemia holding of diuretics as mentioned above chronic kidney disease secondary to diabetic nephropathy -Congestive heart heart failure chronic diastolic dysfunction not in acute exacerbation patient is actually hypovolemic at this time. -Insulin-dependent diabetes mellitus continue her home regimen titrate insulin depending on her insulin requirements. Blood sugars are well controlled -Pulmonary hypertension -Carotid disease with CABG in the past -Hyperlipidemia -Hypertension -Hypothyroidism -History of aortic stenosis status post aortic valve replacement -DVT prophylaxis with subcutaneous heparin
--- NOTE | 2019-11-25 12:48 | P.PN ---
Subjective Patient is seen in follow-up for chronic kidney disease. Patient has chronic kidney disease stage IV with baseline creatinine near 2 secondary to n ephrosclerosis. She has no active complaints at this time. Denies chest pain or shortness of breath. Renal function is stable. Vital signs are stable. General: The patient appeared well nourished and normally developed. HEENT: Head exam is unremarkable. Neck is without jugular venous distension. LUNGS: Lungs are clear to auscultation and percussion. Breath sounds decreased. HEART: Rate and Rhythm are regular. ABDOMEN: Abdominal exam reveals normal bowel sounds. Non-tender and non-distended. EXTREMITITES: No clubbing, cyanosis, or edema. Objective - Vital Signs Vital signs: Vital Signs Temp 98.1 F 11/25/19 04:56 Pulse 60 11/25/19 12:00 Resp 17 11/25/19 12:00 BP 141/65 11/25/19 12:00 Pulse Ox 93 L 11/25/19 12:00 Intake & Output 11/24/19 11/25/19 11/25/19 18:59 06:59 18:59 Intake Total 472 Output Total 600 Balance 472 -600 Weight 79.4 kg 79.8 kg 79.8 kg Intake: Oral 472 Output: Urine 600 Other: Voiding Method Toilet Toilet # Voids 2 - Labs CBC & Chem 7: 11/25/19 06:04 11/25/19 06:04 Labs: Abnormal Lab Results - Last 24 Hours (Table) 11/24/19 11/24/19 11/24/19 Range/Units 16:49 19:55 20:10 RBC (3.80-5.40) m/uL Hgb (11.4-16.0) gm/dL Hct (34.0-46.0) % RDW (11.5-15.5) % Sodium (137-145) mmol/L Chloride (98-107) mmol/L Carbon Dioxide (22-30) mmol/L BUN (7-17) mg/dL Creatinine (0.52-1.04) mg/dL Glucose (74-99) mg/dL POC Glucose (mg/dL) 252 H 167 H (75-99) mg/dL Magnesium (1.6-2.3) mg/dL AST (14-36) U/L Urine Appearance Cloudy H (Clear) Ur Leukocyte Esterase Large H (Negative) Urine WBC 90 H (0-5) /hpf Urine Bacteria Rare H (None) /hpf Hyaline Casts 43 H (0-2) /lpf Urine Mucus Rare H (None) /hpf 11/25/19 11/25/19 11/25/19 Range/Units 05:58 06:04 06:04 RBC 3.42 L (3.80-5.40) m/uL Hgb 10.1 L (11.4-16.0) gm/dL Hct 31.9 L (34.0-46.0) % RDW 15.7 H (11.5-15.5) % Sodium 128 L (137-145) mmol/L Chloride 84 L (98-107) mmol/L Carbon Dioxide 33 H (22-30) mmol/L BUN 86 H (7-17) mg/dL Creatinine 2.11 H (0.52-1.04) mg/dL Glucose 114 H (74-99) mg/dL POC Glucose (mg/dL) 123 H (75-99) mg/dL Magnesium 2.4 H (1.6-2.3) mg/dL AST 45 H (14-36) U/L Urine Appearance (Clear) Ur Leukocyte Esterase (Negative) Urine WBC (0-5) /hpf Urine Bacteria (None) /hpf Hyaline Casts (0-2) /lpf Urine Mucus (None) /hpf 11/25/19 Range/Units 11:41 RBC (3.80-5.40) m/uL Hgb (11.4-16.0) gm/dL Hct (34.0-46.0) % RDW (11.5-15.5) % Sodium (137-145) mmol/L Chloride (98-107) mmol/L Carbon Dioxide (22-30) mmol/L BUN (7-17) mg/dL Creatinine (0.52-1.04) mg/dL Glucose (74-99) mg/dL POC Glucose (mg/dL) 136 H (75-99) mg/dL Magnesium (1.6-2.3) mg/dL AST (14-36) U/L Urine Appearance (Clear) Ur Leukocyte Esterase (Negative) Urine WBC (0-5) /hpf Urine Bacteria (None) /hpf Hyaline Casts (0-2) /lpf Urine Mucus (None) /hpf Assessment and Plan Plan: Assessment: 1. Chronic kidney disease stage IV secondary to nephrosclerosis with baseline creatinine near 2. GFR near baseline. Creatinine 2.1 today. No proteinuria on UA. 2. Chronic diastolic CHF with moderate mitral regurgitation and pulmonary hypertension. 3. Fluid overload. Improved with IV diuresis. 4. Insulin-dependent diabetes mellitus. 5. Hyponatremia secondary to chronic kidney disease. Sodium level was 128 this morning. Urine osmolality 329. Plan: Start Demadex 40 mg once daily. 1500 mL free water restriction. Repeat electrolytes in the morning.
[2019-11-25] MEDS: TORSEMIDE 20 MG TAB PO SCH (14:26)
[2019-11-25 16:39] LABS: Glucose,Whole Blood 225 mg/dL (75-99)
[2019-11-25 20:37] LABS: Glucose,Whole Blood 157 mg/dL (75-99)
[2019-11-26 06:25] LABS: Glucose,Whole Blood 128 mg/dL (75-99)
[2019-11-26] MEDS: INSULIN DETEMIR (LEVEMIR) 100 UNIT/ML SYR SQ SCH (06:46)
[2019-11-26] MEDS: LEVOTHYROXINE 112 MCG TAB PO SCH (06:46)
[2019-11-26] MEDS: INSULIN ASPART (NovoLOG) 100 UNIT/ML VIAL SQ SCH ×4 (07:01→21:46)
[2019-11-26 07:48] LABS: Calcium 8.9 mg/dL (8.4-10.2)
[2019-11-26] MEDS: FENOFIBRATE 54 MG TAB PO SCH (08:53)
[2019-11-26] MEDS: HEPARIN SODIUM,PORCINE 5,000 UNIT/ML 1 ML VIAL SQ SCH ×2 (08:53→21:46)
[2019-11-26] MEDS: ALLOPURINOL 300 MG TAB PO SCH (08:53)
[2019-11-26] MEDS: ASPIRIN 81 MG PO SCH (08:53)
[2019-11-26] MEDS: ISOSORBIDE MONONITRATE ER 60 MG TAB.ER.24H PO SCH (08:54)
[2019-11-26] MEDS: TORSEMIDE 20 MG TAB PO SCH (08:54)
[2019-11-26] MEDS: METOPROLOL SUCCINATE (ER) 50 MG TAB.ER.24H PO SCH ×2 (08:54→21:46)
[2019-11-26] MEDS: hydrALAZINE HCL 50 MG TAB PO SCH ×4 (08:54→21:45)
[2019-11-26 12:14] LABS: Glucose,Whole Blood 132 mg/dL (75-99)
[2019-11-26] MEDS ORDERED: FUROSEMIDE 10 MG/ML 4 ML VIAL IV STA (12:20)
--- NOTE | 2019-11-26 13:14 | P.PN ---
Subjective Patient is seen in follow-up for chronic kidney disease. Patient has chronic kidney disease stage IV with baseline creatinine near 2 secondary to n ephrosclerosis. She has no active complaints at this time. Denies chest pain or shortness of breath. Renal function is stable. Sodium level still low at 127. Vital signs are stable. General: The patient appeared well nourished and normally developed. HEENT: Head exam is unremarkable. Neck is without jugular venous distension. LUNGS: Lungs are clear to auscultation and percussion. Breath sounds decreased. HEART: Rate and Rhythm are regular. ABDOMEN: Abdominal exam reveals normal bowel sounds. Non-tender and non- distended. EXTREMITITES: Trace edema. Objective - Vital Signs Vital signs: Vital Signs Temp 97.7 F 11/26/19 08:00 Pulse 78 11/26/19 12:00 Resp 16 11/26/19 12:00 BP 156/70 11/26/19 12:00 Pulse Ox 90 L 11/26/19 12:00 Intake & Output 11/25/19 11/26/19 11/26/19 18:59 06:59 18:59 Intake Total 300 Output Total 800 Balance -500 Weight 79.8 kg 80 kg Intake: Oral 300 Output: Urine 800 Other: Voiding Method Toilet Toilet # Voids 1 0 # Bowel Movements 0 - Labs CBC & Chem 7: 11/25/19 06:04 11/26/19 06:41 Labs: Abnormal Lab Results - Last 24 Hours (Table) 11/25/19 11/25/19 11/26/19 Range/Units 16:38 20:22 06:24 Sodium (137-145) mmol/L Chloride (98-107) mmol/L BUN (7-17) mg/dL Creatinine (0.52-1.04) mg/dL Glucose (74-99) mg/dL POC Glucose (mg/dL) 225 H 157 H 128 H (75-99) mg/dL 11/26/19 11/26/19 Range/Units 06:41 12:08 Sodium 127 L (137-145) mmol/L Chloride 86 L (98-107) mmol/L BUN 91 H (7-17) mg/dL Creatinine 1.92 H (0.52-1.04) mg/dL Glucose 108 H (74-99) mg/dL POC Glucose (mg/dL) 132 H (75-99) mg/dL Assessment and Plan Plan: Assessment: 1. Chronic kidney disease stage IV secondary to nephrosclerosis with baseline creatinine near 2. GFR near baseline. Creatinine 1.92 today. No proteinuria on UA. 2. Chronic diastolic CHF with moderate mitral regurgitation and pulmonary hypertension. 3. Fluid overload. Improved with IV diuresis. 4. Insulin-dependent diabetes mellitus. 5. Hyponatremia secondary to chronic kidney disease. Sodium level was 127 this morning. Urine osmolality 329. Urine sodium less than 10. Plan: Maintain Demadex 40 mg once daily. Lasix 40 mg IV once today. 1500 mL free water restriction. Encouraged oral intake, particularly protein. Add ensure. Repeat electrolytes in the morning.
--- NOTE | 2019-11-26 15:40 | P.PN ---
Subjective Progress Note Date: 11/26/19 This is a 74-year-old patient transferred from [facility] with symptoms of shortness of breath and edema, IV Lasix was initiated, patient was transferred here because of worsening renal failure. She has known chronic stage IV chronic kidney disease and long-standing history of diabetes, hypertension, hyperlipidemia. Has a known history of coronary artery disease with prior bypass surgery as well as severe aortic stenosis status post TAVR. Patient also has a permanent pacemaker with reduced ejection fraction. Her device was interrogated today as requested by Dr. Sethi, to look at her pacing percentage and reassess her LV function. Overall the patient feels well, she is quite eager to be discharged home. Blood pressure 132/60 with a heart rate of 60, 98% on 2 L of oxygen. Sodium 127, potassium 5.0, BUN 91, creatinine 1.9. Patient was given a one-time dose of IV Lasix today by Dr. Rodriguez. Objective - Vital Signs Vital signs: Vital Signs Temp 97.7 F 11/26/19 08:00 Pulse 78 11/26/19 12:00 Resp 16 11/26/19 12:00 BP 156/70 11/26/19 12:00 Pulse Ox 90 L 11/26/19 12:00 Intake & Output 11/25/19 11/26/19 11/26/19 18:59 06:59 18:59 Intake Total 420 Output Total 800 Balance -380 Weight 79.8 kg 80 kg Intake: Oral 420 Output: Urine 800 Other: Voiding Method Toilet Toilet # Voids 1 0 # Bowel Movements 0 - Exam Vital signs are stable. General: The patient appeared well nourished and normally developed. HEENT: Head exam is unremarkable. Neck is without jugular venous distension. LUNGS: Lungs are clear to auscultation and percussion. Breath sounds decreased. HEART: Rate and Rhythm are regular. ABDOMEN: Abdominal exam reveals normal bowel sounds. Non-tender and non- distended. EXTREMITITES: Trace edema. - Labs CBC & Chem 7: 11/25/19 06:04 11/26/19 06:41 Labs: Abnormal Lab Results - Last 24 Hours (Table) 11/25/19 11/25/19 11/26/19 Range/Units 16:38 20:22 06:24 Sodium (137-145) mmol/L Chloride (98-107) mmol/L BUN (7-17) mg/dL Creatinine (0.52-1.04) mg/dL Glucose (74-99) mg/dL POC Glucose (mg/dL) 225 H 157 H 128 H (75-99) mg/dL 11/26/19 11/26/19 Range/Units 06:41 12:08 Sodium 127 L (137-145) mmol/L Chloride 86 L (98-107) mmol/L BUN 91 H (7-17) mg/dL Creatinine 1.92 H (0.52-1.04) mg/dL Glucose 108 H (74-99) mg/dL POC Glucose (mg/dL) 132 H (75-99) mg/dL Assessment and Plan Plan: Assessment: 1. Chronic kidney disease stage IV , creatinine 1.9 today 2. Chronic diastolic CHF with moderate mitral regurgitation and pulmonary hypertension. 3. Fluid overload. Improved with IV diuresis. 4. Insulin-dependent diabetes mellitus. 5. Hyponatremia secondary to chronic kidney disease. 6. Permanent pacemaker Plan We will review the patient's echocardiogram with Doppler study. Continue metoprolol and hydralazine along with atorvastatin, aspirin, and Imdur, her pa cemaker was interrogated today to look at her pacing percentage and reassess her LV function, we will speak with Dr. Sethi regarding the results. DNP note has been reviewed, I agree with a documented findings and plan of care. Patient was seen and examined.
[2019-11-26 17:07] LABS: Glucose,Whole Blood 182 mg/dL (75-99)
[2019-11-26 20:41] LABS: Glucose,Whole Blood 167 mg/dL (75-99)
[2019-11-27 05:43] LABS: Glucose,Whole Blood 132 mg/dL (75-99)
[2019-11-27] MEDS: LEVOTHYROXINE 112 MCG TAB PO SCH (06:21)
[2019-11-27] MEDS: INSULIN DETEMIR (LEVEMIR) 100 UNIT/ML SYR SQ SCH (06:21)
[2019-11-27] MEDS: INSULIN ASPART (NovoLOG) 100 UNIT/ML VIAL SQ SCH ×2 (06:22→11:58)
[2019-11-27 07:55] LABS: Calcium 9.2 mg/dL (8.4-10.2); Magnesium 2.5 mg/dL (1.6-2.3); Potassium 4.8 mmol/L (3.5-5.1)
[2019-11-27 08:35] VITALS: RESP 16; TEMP 97.4
[2019-11-27] MEDS: FENOFIBRATE 54 MG TAB PO SCH (08:35)
[2019-11-27] MEDS: ALLOPURINOL 300 MG TAB PO SCH (08:36)
[2019-11-27] MEDS: ISOSORBIDE MONONITRATE ER 60 MG TAB.ER.24H PO SCH (08:36)
[2019-11-27] MEDS: ASPIRIN 81 MG PO SCH (08:36)
[2019-11-27] MEDS: TORSEMIDE 20 MG TAB PO SCH (08:36)
[2019-11-27] MEDS: HEPARIN SODIUM,PORCINE 5,000 UNIT/ML 1 ML VIAL SQ SCH (08:36)
[2019-11-27] MEDS: METOPROLOL SUCCINATE (ER) 50 MG TAB.ER.24H PO SCH (08:36)
[2019-11-27] MEDS: hydrALAZINE HCL 50 MG TAB PO SCH ×2 (08:37→13:19)
[2019-11-27] MEDS: ATORVASTATIN 20 MG TAB PO SCH (10:33)
[2019-11-27 11:35] LABS: Glucose,Whole Blood 145 mg/dL (75-99)
[2019-11-27 11:58] VITALS: BP 124/69; PULSE 60
--- NOTE | 2019-11-27 12:29 | P.PN ---
Subjective Progress Note Date: 11/26/19 74-year-old female was transferred from [facility] after excessive diuresis for heart failure exacerbation. Patient's serum sodium was low yesterday still remains low at 128 mild improvement continue to hold diuretics monitor her basic metabolic profile no overnight events.. 11/26/2019 Patient's serum sodium remains low patient received IV Lasix today on Demadex as today. Because of unstable serum sodium and in and out of the CHF patient will need 1 more day of hospitalization and patient is agreeable to stay Constitutional: Denied any fatigue denied any fever. Cardio vascular: denied any chest pain, palpitations Gastrointestinal denied any nausea vomiting Pulmonary: Denied any shortness of breath cough Neurologic denied any new focal deficits All inpatient medications were reviewed and appropriate changes in these medications as dictated in the interval history and assessment and plan. Objective - Vital Signs Vital signs: Vital Signs Temp 97.4 F L 11/27/19 08:00 Pulse 60 11/27/19 11:52 Resp 16 11/27/19 11:52 BP 124/69 11/27/19 11:52 Pulse Ox 94 L 11/27/19 11:52 Intake & Output 11/26/19 11/27/19 11/27/19 18:59 06:59 18:59 Intake Total 540 740 225 Output Total 1600 Balance -1060 740 225 Weight 79.4 kg Intake: Oral 540 740 225 Output: Urine 1600 Other: # Voids 1 # Bowel Movements 0 - Exam PHYSICAL EXAMINATION: GENERAL: The patient is alert and oriented x3, not in any acute distress. Well developed, well nourished. HEENT: Pupils are round and equally reacting to light. EOMI. No scleral icterus. No conjunctival pallor. Normocephalic, atraumatic. No pharyngeal erythema. No thyromegaly. CARDIOVASCULAR: S1 and S2 present. No murmurs, rubs, or gallops. PULMONARY: Chest is clear to auscultation, no wheezing or crackles. ABDOMEN: Soft, nontender, nondistended, normoactive bowel sounds. No palpable organomegaly. MUSCULOSKELETAL: No joint swelling or deformity. EXTREMITIES: No cyanosis, clubbing, or pedal edema. NEUROLOGICAL: Gross neurological examination did not reveal any focal deficits. SKIN: No rashes. - Labs CBC & Chem 7: 11/25/19 06:04 11/27/19 07:04 Labs: Abnormal Lab Results - Last 24 Hours (Table) 11/26/19 11/26/19 11/27/19 Range/Units 17:04 20:40 05:42 Sodium (137-145) mmol/L Chloride (98-107) mmol/L Carbon Dioxide (22-30) mmol/L BUN (7-17) mg/dL Creatinine (0.52-1.04) mg/dL Glucose (74-99) mg/dL POC Glucose (mg/dL) 182 H 167 H 132 H (75-99) mg/dL Magnesium (1.6-2.3) mg/dL 11/27/19 11/27/19 Range/Units 07:04 11:34 Sodium 129 L (137-145) mmol/L Chloride 86 L (98-107) mmol/L Carbon Dioxide 32 H (22-30) mmol/L BUN 87 H (7-17) mg/dL Creatinine 1.84 H (0.52-1.04) mg/dL Glucose 136 H (74-99) mg/dL POC Glucose (mg/dL) 145 H (75-99) mg/dL Magnesium 2.5 H (1.6-2.3) mg/dL Assessment and Plan Plan: -Hyponatremia: nephrology evaluated the patient serum sodium 127 today patient was resumed on diuretics as patient is going back into heart failure patient initially has hypovolemic hyponatremia than hypervolemic hyponatremia -Acute renal failure on chronic kidney disease stage III: Regular failure secondary to prerenal azotemia holding of diuretics as mentioned above chronic kidney disease secondary to diabetic nephropathy, actually improving with diuretics -Congestive heart heart failure chronic diastolic dysfunction not in acute exacerbation patient is actually hypovolemic at this time. -Insulin-dependent diabetes mellitus continue her home regimen -Pulmonary hypertension -Carotid disease with CABG in the past -Hyperlipidemia -Hypertension -Hypothyroidism -History of aortic stenosis status post aortic valve replacement -DVT prophylaxis with subcutaneous heparin
--- NOTE | 2019-11-27 12:31 | P.DS ---
Providers Date of admission: 11/24/19 10:41 Attending physician: Liana Denson Consults: 11/24/19 12:44 Consult Physician Routine Consulting Provider: Jas Sethi Consult Reason/Comments: CHF Do you want consulting provider notified?: Yes Consult Physician Routine Consulting Provider: Johanny Reynolds Consult Reason/Comments: elevated BUN and CR, known to pt Do you want consulting provider notified?: Yes Primary care physician: Stated None Hospital Course: 74-year-old female was transferred from [facility] after excessive diuresis for heart failure exacerbation. Patient's serum sodium was low yesterday still remains low at 128 mild improvement continue to hold diuretics monitor her basic metabolic profile no overnight events.. 11/26/2019 Patient's serum sodium remains low patient received IV Lasix today on Demadex as today. Because of unstable serum sodium and in and out of the CHF patient will need 1 more day of hospitalization and patient is agreeable to stay 11/27/2019 Patient's serum sodium improved marginally to 128 discussed at length with nephrology and the patient will be discharged on 40 twice a day of Demadex and metolazone as needed will be discontinued repeat basic metabolic profile will be IN 3 DAYS, PATIENT FLUID BALANCE IS VERY LAB I'LL AND HIGH RISK FOR READMISSION PATIENT WILL NEED CLOSE FOLLOW-UP WITH THE HER MANAGER CULINARY AND CONTRACTING OFFICER AN OUTPATIENT. PHYSICAL EXAMINATION: GENERAL: The patient is alert and oriented x3, not in any acute distress. Well developed, well nourished. HEENT: Pupils are round and equally reacting to light. EOMI. No scleral icterus. No conjunctival pallor. Normocephalic, atraumatic. No pharyngeal erythema. No thyromegaly. CARDIOVASCULAR: S1 and S2 present. No murmurs, rubs, or gallops. PULMONARY: Chest is clear to auscultation, no wheezing or crackles. ABDOMEN: Soft, nontender, nondistended, normoactive bowel sounds. No palpable organomegaly. MUSCULOSKELETAL: No joint swelling or deformity. EXTREMITIES: No cyanosis, clubbing, or pedal edema. NEUROLOGICAL: Gross neurological examination did not reveal any focal deficits. SKIN: No rashes. Assessment and Plan Plan: -Hyponatremia: Improved marginally, initially hypovolemic than hypervolemic -Acute renal failure on chronic kidney disease stage III: Patient's serum creatinine is close to her baseline and is 1.7 now improved with diuretics. -Congestive heart heart failure chronic diastolic dysfunction not in acute exacerbation patient is fairly euvolemic at this time -Insulin-dependent diabetes mellitus continue her home regimen -Pulmonary hypertension -Carotid disease with CABG in the past -Hyperlipidemia -Hypertension -Hypothyroidism -History of aortic stenosis status post aortic valve replacement Plan - Discharge Summary Discharge Rx Participant: Yes New Discharge Prescriptions: New Torsemide [Demadex] 40 mg PO BID #60 tab Continue Cholecalciferol [Vitamin D3 (25 Mcg = 1000 Iu)] 1,000 unit PO DAILY Nitroglycerin Sl Tabs [Nitrostat] 0.4 mg SUBLINGUAL Q5M PRN PRN Reason: Pain Levothyroxine Sodium [Levoxyl] 112 mcg PO DAILY Insulin Glargine [Lantus] 20 unit SQ DAILY Fenofibrate Nanocrystallized [Fenofibrate] 48 mg PO DAILY Ubidecarenone [Co Q-10] 100 mg PO MOWEFRSA Aspirin 81 mg PO DAILY Allopurinol [Zyloprim] 300 mg PO DAILY Insulin Glulisine [Apidra Solostar] See Protocol SQ AC-TID Docusate [Colace] 100 mg PO DAILY PRN PRN Reason: Constipation hydrALAZINE HCL [Apresoline] 50 mg PO QID Krill/Om-3/Dha/Epa/Phospho/Ast [[place]-3 Krill Oil 300 mg Sfgl] 1 cap PO DAILY Metoprolol Succinate [Toprol XL] 50 mg PO BID Atorvastatin [Lipitor] 20 mg PO MOWEFRSA Insulin Glargine [Lantus] See Protocol SQ HS Isosorbide Mononitrate ER [Imdur] 60 mg PO DAILY Discontinued Torsemide [Demadex] 50 mg PO BID cloNIDine HCL [Catapres] 0.1 mg PO QID Metolazone [Zaroxolyn] 5 mg PO DAILY PRN PRN Reason: Edema Discharge Medication List Allopurinol [Zyloprim] 300 mg PO DAILY 01/19/16 [History] Aspirin 81 mg PO DAILY 01/19/16 [History] Cholecalciferol [Vitamin D3 (25 Mcg = 1000 Iu)] 1,000 unit PO DAILY 01/19/16 [History] Fenofibrate Nanocrystallized [Fenofibrate] 48 mg PO DAILY 01/19/16 [History] Insulin Glargine [Lantus] 20 unit SQ DAILY 01/19/16 [History] Levothyroxine Sodium [Levoxyl] 112 mcg PO DAILY 01/19/16 [History] Nitroglycerin Sl Tabs [Nitrostat] 0.4 mg SUBLINGUAL Q5M PRN 01/19/16 [History] Ubidecarenone [Co Q-10] 100 mg PO MOWEFRSA 01/19/16 [History] Insulin Glulisine [Apidra Solostar] See Protocol SQ AC-TID 01/24/16 [History] Docusate [Colace] 100 mg PO DAILY PRN 02/14/16 [History] Krill/Om-3/Dha/Epa/Phospho/Ast [[place]-3 Krill Oil 300 mg Sfgl] 1 cap PO DAILY 02/06/18 [History] hydrALAZINE HCL [Apresoline] 50 mg PO QID 02/06/18 [History] Atorvastatin [Lipitor] 20 mg PO MOWEFRSA 11/24/19 [History] Insulin Glargine [Lantus] See Protocol SQ HS 11/24/19 [History] Isosorbide Mononitrate ER [Imdur] 60 mg PO DAILY 11/24/19 [History] Metoprolol Succinate [Toprol XL] 50 mg PO BID 11/24/19 [History] Torsemide [Demadex] 40 mg PO BID #60 tab 11/27/19 [Rx] Follow up Appointment(s)/Referral(s): Johanny Reynolds MD [STAFF PHYSICIAN] - 1 Week (Unable to get through. Please call to schedule appointment) Nain Torres MD [STAFF PHYSICIAN] - 12/13/19 3:45 pm (Monday at [place] office) Elise Holly NPC [REFERRING] - 12/04/19 2:30 pm (Monday) Ambulatory/Diagnostic Orders: Basic Metabolic Panel [LAB.AMB] Time Frame: 3 Days, Location: None Selected Magnesium [LAB.AMB] Location: None Selected Patient Instructions/Handouts: Heart Failure (DC), Acute Kidney Injury (DC) Discharge Disposition: HOME SELF-CARE
--- NOTE | 2019-11-27 12:46 | P.PN ---
Subjective Patient is seen in follow-up for chronic kidney disease. Patient has chronic kidney disease stage IV with baseline creatinine near 2 secondary to n ephrosclerosis. She has no active complaints at this time. Denies chest pain or shortness of breath. Renal function is stable. Sodium level better. Vital signs are stable. General: The patient appeared well nourished and normally developed. HEENT: Head exam is unremarkable. Neck is without jugular venous distension. LUNGS: Lungs are clear to auscultation and percussion. Breath sounds decreased. HEART: Rate and Rhythm are regular. ABDOMEN: Abdominal exam reveals normal bowel sounds. Non-tender and non- distended. EXTREMITITES: Trace edema. Objective - Vital Signs Vital signs: Vital Signs Temp 97.4 F L 11/27/19 08:00 Pulse 60 11/27/19 11:52 Resp 16 11/27/19 11:52 BP 124/69 11/27/19 11:52 Pulse Ox 94 L 11/27/19 11:52 Intake & Output 11/26/19 11/27/19 11/27/19 18:59 06:59 18:59 Intake Total 540 740 225 Output Total 1600 Balance -1060 740 225 Weight 79.4 kg Intake: Oral 540 740 225 Output: Urine 1600 Other: # Voids 1 # Bowel Movements 0 - Labs CBC & Chem 7: 11/25/19 06:04 11/27/19 07:04 Labs: Abnormal Lab Results - Last 24 Hours (Table) 11/26/19 11/26/19 11/27/19 Range/Units 17:04 20:40 05:42 Sodium (137-145) mmol/L Chloride (98-107) mmol/L Carbon Dioxide (22-30) mmol/L BUN (7-17) mg/dL Creatinine (0.52-1.04) mg/dL Glucose (74-99) mg/dL POC Glucose (mg/dL) 182 H 167 H 132 H (75-99) mg/dL Magnesium (1.6-2.3) mg/dL 11/27/19 11/27/19 Range/Units 07:04 11:34 Sodium 129 L (137-145) mmol/L Chloride 86 L (98-107) mmol/L Carbon Dioxide 32 H (22-30) mmol/L BUN 87 H (7-17) mg/dL Creatinine 1.84 H (0.52-1.04) mg/dL Glucose 136 H (74-99) mg/dL POC Glucose (mg/dL) 145 H (75-99) mg/dL Magnesium 2.5 H (1.6-2.3) mg/dL Assessment and Plan Plan: Assessment: 1. Chronic kidney disease stage IV secondary to nephrosclerosis with baseline creatinine near 2. GFR near baseline. Creatinine 1.84 today. No proteinuria on UA. 2. Acute on chronic diastolic CHF with moderate mitral regurgitation and pulmonary hypertension. 3. Fluid overload. Improved with IV diuresis. 4. Insulin-dependent diabetes mellitus. 5. Hyponatremia secondary to chronic kidney disease. Sodium level was 129 this morning. Urine osmolality 329. Urine sodium less than 10. Plan: Maintain Demadex 40 mg once daily. Repeat Lasix 40 mg IV once today. 1500 mL free water restriction. Encouraged oral intake, particularly protein. Added ensure. Anticipate discharge soon. I have advised her to take Demadex to 40 mg twice daily at home. She was also advised to monitor her weight closely at home and to call if gains more than 3 pounds. Follow up outpatient in 1-2 weeks. Repeat BMP and magnesium level 2-3 days post discharge.
[2019-11-27] MEDS: FUROSEMIDE 10 MG/ML 4 ML VIAL IV STA ×2 (13:20→13:24)
--- NOTE | 2019-11-27 16:32 | P.PN ---
Subjective Progress Note Date: 11/27/19 This is a 74-year-old patient transferred from [facility] with symptoms of shortness of breath and edema, IV Lasix was initiated, patient was transferred here because of worsening renal failure. She has known chronic stage IV chronic kidney disease and long-standing history of diabetes, hypertension, hyperlipidemia. Has a known history of coronary artery disease with prior bypass surgery as well as severe aortic stenosis status post TAVR. Patient also has a permanent pacemaker with reduced ejection fraction. Her device was interrogated today as requested by Dr. Sethi, to look at her pacing percentage and reassess her LV function. Overall the patient feels well, she is quite eager to be discharged home. Blood pressure 132/60 with a heart rate of 60, 98% on 2 L of oxygen. Sodium 127, potassium 5.0, BUN 91, creatinine 1.9. Patient was given a one-time dose of IV Lasix today by Dr. Rodriguez. 02/27/2020 Patient seen and examined this morning, hemodynamically stable. Anticipating discharge home today. Objective - Vital Signs Vital signs: Vital Signs Temp 97.4 F L 11/27/19 08:00 Pulse 60 11/27/19 11:52 Resp 16 11/27/19 11:52 BP 124/69 11/27/19 11:52 Pulse Ox 94 L 11/27/19 11:52 Intake & Output 11/26/19 11/27/19 11/27/19 18:59 06:59 18:59 Intake Total 540 740 345 Output Total 1600 Balance -1060 740 345 Weight 79.4 kg Intake: Oral 540 740 345 Output: Urine 1600 Other: # Voids 1 3 # Bowel Movements 0 - Exam Vital signs are stable. General: The patient appeared well nourished and normally developed. HEENT: Head exam is unremarkable. Neck is without jugular venous distension. LUNGS: Lungs are clear to auscultation and percussion. Breath sounds decreased. HEART: Rate and Rhythm are regular. ABDOMEN: Abdominal exam reveals normal bowel sounds. Non-tender and non- distended. EXTREMITITES: Trace edema. - Labs CBC & Chem 7: 11/25/19 06:04 11/27/19 07:04 Labs: Abnormal Lab Results - Last 24 Hours (Table) 11/26/19 11/26/19 11/27/19 Range/Units 17:04 20:40 05:42 Sodium (137-145) mmol/L Chloride (98-107) mmol/L Carbon Dioxide (22-30) mmol/L BUN (7-17) mg/dL Creatinine (0.52-1.04) mg/dL Glucose (74-99) mg/dL POC Glucose (mg/dL) 182 H 167 H 132 H (75-99) mg/dL Magnesium (1.6-2.3) mg/dL 11/27/19 11/27/19 Range/Units 07:04 11:34 Sodium 129 L (137-145) mmol/L Chloride 86 L (98-107) mmol/L Carbon Dioxide 32 H (22-30) mmol/L BUN 87 H (7-17) mg/dL Creatinine 1.84 H (0.52-1.04) mg/dL Glucose 136 H (74-99) mg/dL POC Glucose (mg/dL) 145 H (75-99) mg/dL Magnesium 2.5 H (1.6-2.3) mg/dL Assessment and Plan Plan: Assessment: 1. Chronic kidney disease stage IV , creatinine 1.9 today 2. Chronic diastolic CHF with moderate mitral regurgitation and pulmonary hypertension. 3. Fluid overload. Improved with IV diuresis. 4. Insulin-dependent diabetes mellitus. 5. Hyponatremia secondary to chronic kidney disease. 6. Permanent pacemaker Plan Patient may be discharged home today from cardiology's perspective, we'll make her a follow-up appointment to see Dr. Ardon in the office post discharge. DNP note has been reviewed, I agree with a documented findings and plan of care. Patient was seen and examined.
--- NOTE | 2019-11-27 20:58 | ECHOF ---
Referral Reason:Shortness of breath MEASUREMENTS -------- HEIGHT: 167.6 cm WEIGHT: 79.8 kg BP: IVSd: 1.5 cm (0.6 - 1.1) LVIDd: 4.0 cm (3.9 - 5.3) LVPWd: 1.6 cm (0.6 - 1.1) IVSs: 2.0 cm LVIDs: 2.3 cm LVPWs: 1.9 cm RVIDd: 3.2 cm (< 3.3) LAESV Index (A-L): 22.25 ml/m EPSS: 0.7 cm MV E Mat: 1.50 m/s MV DecT: 340 ms MV A Mat: 0.57 m/s MV E/A Ratio: 2.66 RAP: 20.00 mmHg RVSP: 70.37 mmHg %FS: 0.00 % IVSd: 2.25 cm (0.6 - 1.1) MV EF SLOPE: 81.38 mm/s (70 - 150) MV EXCURSION: 12.04 mm (> 18.000) FINDINGS -------- Sinus rhythm. This was a technically difficult study with suboptimal apical views. The left ventricular size is normal. There is moderate concentric left ventricular hypertrophy. O verall left ventricular systolic function is mildly impaired with, an EF between 45 - 50 %. Septal wall motion is delayed and consistent with prior cardiac surgery. The right ventricle is mildly enlarged. Normal LA size by volume 22+/-6 ml/m2. The right atrium was not well visualized. Lumason used Interatrial and interventricular septum intact. Peak/mean gradient across the Aortic Valve is {AV maxPG} / {AV meanPG}. Normally functioning biopro sthetic valve. Moderate mitral annular calcification present. Mild mitral regurgitation is present. [id number] rate mitral stenosis , with a MVA of 2.1cm (by PHT) Moderate to severe tricuspid regurgitation present. There is severe pulmonary hypertension. The r ight ventricular systolic pressure, as measured by Doppler, is 70.37mmHg. Trace/mild (physiologic) pulmonic regurgitation. The aortic root size is normal. The inferior vena cava is dilated with no significant inspiratory collapse which is consistent estima adrián right atrial pressure of >20 mmHg. There is no pericardial effusion. CONCLUSIONS -------- 1. Sinus rhythm. 2. This was a technically difficult study with suboptimal apical views. 3. The left ventricular size is normal. 4. There is moderate concentric left ventricular hypertrophy. 5. Overall left ventricular systolic function is mildly impaired with, an EF between 45 - 50 %. 6. Septal wall motion is delayed and consistent with prior cardiac surgery. 7. The right ventricle is mildly enlarged. 8. Normal LA size by volume 22+/-6 ml/m2. 9. The right atrium was not well visualized. 10. Lumason used 11. Interatrial and interventricular septum intact. 12. Peak/mean gradient across the Aortic Valve is {AV maxPG} / {AV meanPG}. 13. Normally functioning bioprosthetic valve. 14. Moderate mitral annular calcification present. 15. Mild mitral regurgitation is present. 16. [id number]-yobqyclq mitral stenosis. 17. , with a MVA of 2.1cm (by PHT) 18. Moderate to severe tricuspid regurgitation present. 19. There is severe pulmonary hypertension. 20. The right ventricular systolic pressure, as measured by Doppler, is 70.37mmHg. 21. Trace/mild (physiologic) pulmonic regurgitation. 22. The aortic root size is normal. 23. The inferior vena cava is dilated with no significant inspiratory collapse which is consistent es timated right atrial pressure of >20 mmHg. 24. There is no pericardial effusion. REFRIGERATION REPAIR SUPERVISOR: Althea Harmon RDCS
== END 2019-11-27 14:37 | disposition home or self-care (01) | DRG 640 ==
LOC: 3SCARD 10:41
PROVIDERS: ADMIT Internal Medicine; ATTEND Internal Medicine
DX: E87.1 Hypo-osmolality and hyponatremia (principal); I50.33 Acute on chronic diastolic (congestive) heart failure; N17.9 Acute kidney failure, unspecified; I13.0 Hypertensive heart and chronic kidney disease with heart failure and stage 1 through stage 4 chronic kidney disease, or unspecified chronic kidney disease; N18.4 Chronic kidney disease, stage 4 (severe); I45.2 Bifascicular block; I27.29 Other secondary pulmonary hypertension; E11.22 Type 2 diabetes mellitus with diabetic chronic kidney disease; I48.91 Unspecified atrial fibrillation; Z79.4 Long term (current) use of insulin; I25.10 Atherosclerotic heart disease of native coronary artery without angina pectoris; E86.1 Hypovolemia; E78.5 Hyperlipidemia, unspecified; I34.0 Nonrheumatic mitral (valve) insufficiency; M19.90 Unspecified osteoarthritis, unspecified site; E03.9 Hypothyroidism, unspecified; M10.9 Gout, unspecified; K57.90 Diverticulosis of intestine, part unspecified, without perforation or abscess without bleeding; I25.2 Old myocardial infarction; Z71.3 Dietary counseling and surveillance; Z79.899 Other long term (current) drug therapy; Z79.82 Long term (current) use of aspirin; Z79.890 Hormone replacement therapy; Z98.42 Cataract extraction status, left eye; Z98.41 Cataract extraction status, right eye; Z90.81 Acquired absence of spleen; Z94.7 Corneal transplant status; Z87.19 Personal history of other diseases of the digestive system; Z92.3 Personal history of irradiation; Z92.21 Personal history of antineoplastic chemotherapy; Z85.71 Personal history of Hodgkin lymphoma; Z90.49 Acquired absence of other specified parts of digestive tract; Z98.890 Other specified postprocedural states; Z95.1 Presence of aortocoronary bypass graft; Z95.5 Presence of coronary angioplasty implant and graft; Z98.51 Tubal ligation status; Z95.0 Presence of cardiac pacemaker; Z95.2 Presence of prosthetic heart valve; Z91.041 Radiographic dye allergy status; Z82.49 Family history of ischemic heart disease and other diseases of the circulatory system; Z82.3 Family history of stroke
CPT/HCPCS: 71045; 80048; 80053; 81001; 83735; 83880; 83930; 83935; 84300; 84443; 85025; 93306

== ENCOUNTER 2019-12-23 00:29 | Inpatient (IN) | payer MEDICARE ==
--- NOTE | 2019-12-23 00:40 | ED ---
SOB HPI - General Chief Complaint: Shortness of Breath Stated Complaint: SOB Time Seen by Provider: 12/23/19 00:35 Source: patient, EMS Mode of arrival: EMS - History of Present Illness Initial Comments: This patient is 74-year-old woman with history of congestive heart failure, hypertension, diabetes who presents with complaint that she has been having worsening shortness of breath and edema for probably a bit over a week. I addition the patient had been admitted here in the hospital, being discharged November 26 with a CHF exacerbation. The patient had gone to [facility] which is local to her home for these symptoms and then the workup showed that she was having another CHF exacerbation and patient transferred here. She denies any chest pain. No fever or chills noted. She has had a little bit of cough with some clear sputum. Patient also has had bilateral leg and hand edema. She thinks that she has gained about 11 pounds since her discharge. Patient's studies from the other hospital revealed white count 9.7 thousand, hemoglobin 10, platelets 390 BUN 108, creatinine 2.6. Glucose 109. The BNP was 9120. Troponin 0.062. MD Complaint: shortness of breath Onset/Timin -: week(s) Severity scale (1-10): 0 Consistency: constant Improves With: oxygen Worsens With: lying flat Known History Of: congestive heart failure Associated Symptoms: cough, other (Edema) Treatments Prior to Arrival: diuretics - Related Data Home Oxygen Therapy: No Home Medications Medication Instructions Recorded Confirmed Allopurinol [Zyloprim] 300 mg PO DAILY 01/19/16 12/23/19 Aspirin 81 mg PO DAILY 01/19/16 12/23/19 Cholecalciferol [Vitamin D3 (25 1,000 unit PO DAILY 01/19/16 12/23/19 Mcg = 1000 Iu)] Fenofibrate Nanocrystallized 48 mg PO DAILY 01/19/16 12/23/19 [Fenofibrate] Levothyroxine Sodium [Levoxyl] 112 mcg PO DAILY 01/19/16 12/23/19 Nitroglycerin Sl Tabs [Nitrostat] 0.4 mg SUBLINGUAL Q5M PRN 01/19/16 12/23/19 Ubidecarenone [Co Q-10] 100 mg PO MOWEFR 01/19/16 12/23/19 Docusate [Colace] 100 mg PO DAILY 02/14/16 12/23/19 Krill/Om-3/Dha/Epa/Phospho/Ast 1 cap PO DAILY 02/06/18 12/23/19 [[place]-3 Krill Oil 300 mg Sfgl] hydrALAZINE HCL [Apresoline] 50 mg PO QID 02/06/18 12/23/19 Atorvastatin [Lipitor] 20 mg PO MOWEFRSA 11/24/19 12/23/19 Isosorbide Mononitrate ER [Imdur] 60 mg PO DAILY 11/24/19 12/23/19 Metoprolol Succinate [Toprol XL] 50 mg PO BID 11/24/19 12/23/19 Metolazone [Zaroxolyn] 5 mg PO DIRECTED 12/23/19 12/23/19 Previous Rx's Medication Instructions Recorded Famotidine [Pepcid] 20 mg PO DAILY #30 tab 01/01/20 Insulin Glargine [Lantus] 20 unit SQ DAILY #0 01/01/20 Insulin Glulisine [Apidra] 3 unit SQ AC-TID #0 01/01/20 Torsemide [Demadex] 40 mg PO BID #60 tablet 01/01/20 Allergies Allergy/AdvReac Type Severity Reaction Status Date / Time Iodinated Contrast Media AdvReac renal Verified 12/23/19 06:27 disease Review of Systems ROS Statement: Those systems with pertinent positive or pertinent negative responses have been documented in the HPI. ROS Other: All systems not noted in ROS Statement are negative. Constitutional: Denies: fever, chills Respiratory: Reports: cough, dyspnea. Denies: wheezes, hemoptysis Cardiovascular: Reports: orthopnea, edema. Denies: chest pain, palpitations, syncope Gastrointestinal: Denies: abdominal pain, vomiting, diarrhea, melena, hematochezia Genitourinary: Denies: dysuria, hematuria Musculoskeletal: Denies: back pain Skin: Denies: rash Neurological: Denies: headache, weakness, numbness Past Medical History Past Medical History: Atrial Fibrillation, Coronary Artery Disease (CAD), Cancer, Chest Pain / Angina, Heart Failure, Diabetes Mellitus, GI Bleed, Hyperlipidemia, Hypertension, Myocardial Infarction (PR), Osteoarthritis (OA), Thyroid Disorder Additional Past Medical History / Comment(s): NSR since cardiac ablation for Afib, heart murmur, HODGKINS lymphoma with neck and chest radiation in 1977 and chemo in 1982, chronic kidney failure, IDDM type II, hypothyroid, colonic polyps, diverticulosis, GOUT bilateral feet, rare back pain, edema in legs particularly L leg Last Myocardial Infarction Date:: 01/25/16 History of Any Multi-Drug Resistant Organisms: None Reported Past Surgical History: Cardiac Ablation, Cholecystectomy, Coronary Bypass/CABG, Heart Catheterization, Heart Catheterization With Stent, Pacemaker, Tubal Ligation Additional Past Surgical History / Comment(s): 2003 PTCA with 1 stent, 2007 CABG-2 vessel, Aortic valve replaced,bilateral CATARACT, SINUS SURGERY, splenectomy d/t hodkins, colonoscopy, laparoscopy, D&C Past Anesthesia/Blood Transfusion Reactions: No Reported Reaction Additional Past Anesthesia/Blood Transfusion Reaction / Comment(s): Pt states with one of her surgeries her pulse went very low. She has received blood in the past without reaction. Date of Last Stent Placement:: 2003 Type of Cardiac Device: Permanent Pacemaker Device Placement Date:: 2015 Past Psychological History: No Psychological Hx Reported Smoking Status: Never smoker Past Alcohol Use History: None Reported Past Drug Use History: None Reported - Past Family History Father Family Medical History: Myocardial Infarction (PR) Additional Family Medical History / Comment(s): Father was healthy until he of a PR at the age of 93 yrs. Mother Family Medical History: CVA/TIA Additional Family Medical History / Comment(s): Mother was healthy until the las t couple yrs of her life. She of a CVA at the age of 94yrs. General Exam General appearance: alert, in no apparent distress Head exam: Present: atraumatic, normocephalic Eye exam: Present: normal appearance. Absent: scleral icterus, conjunctival injection ENT exam: Present: normal oropharynx Neck exam: Present: normal inspection Respiratory exam: Present: rales (Bilateral bases). Absent: respiratory distress, wheezes, rhonchi, stridor, accessory muscle use Cardiovascular Exam: Present: regular rate, normal rhythm, systolic murmur. Absent: diastolic murmur, rubs, gallop GI/Abdominal exam: Present: soft. Absent: distended, tenderness, guarding, rebound, rigid, mass Extremities exam: Present: normal capillary refill, pedal edema. Absent: calf tenderness Back exam: Present: normal inspection. Absent: CVA tenderness (R), CVA tenderness (L) Neurological exam: Present: alert Skin exam: Present: warm, dry, intact, normal color. Absent: rash Course Vital Signs 12/23/19 12/23/19 12/23/19 00:30 00:39 04:30 Temperature 97.6 F 97.5 F L Pulse Rate 84 61 Respiratory 16 16 16 Rate Blood Pressure 152/81 132/55 O2 Sat by Pulse 97 97 Oximetry 12/23/19 12/23/19 12/23/19 06:52 08:26 09:37 Temperature Pulse Rate 60 60 60 Respiratory 16 18 18 Rate Blood Pressure 110/41 140/58 119/54 O2 Sat by Pulse 96 97 Oximetry 12/23/19 12/23/19 10:59 13:00 Temperature Pulse Rate 60 60 Respiratory 18 16 Rate Blood Pressure 127/58 126/56 O2 Sat by Pulse 97 98 Oximetry Medical Decision Making - Lab Data Result diagrams: 01/01/20 06:35 01/01/20 06:35 - EKG Data -: EKG Interpreted by Me EKG shows normal: axis (Consistent with paced rhythm), intervals (UT interval 184 ms, QRS duration 218 ms, QTC 587 ms), QRS complexes (Consistent with paced rhythm), ST-T waves (Consistent with paced rhythm) Interpretation: other (Patient has an AV paced rhythm rate 76 bpm) Critical Care Time Critical Care Time: Yes (35 minutes) Disposition Clinical Impression: CHF (congestive heart failure), Chronic kidney disease, Myocardial infarction Disposition: ADMITTED IP TO THIS [facility] Condition: Serious
[2019-12-23] MEDS ORDERED: NITROGLYCERIN SL TABS 0.4 MG TAB SUBLINGUAL PRN (01:27)
[2019-12-23] MEDS ORDERED: DOCUSATE 100 MG CAP PO PRN (01:27)
[2019-12-23] MEDS ORDERED: NON FORMULARY DRUG (Ubidecarenone [Co Q-10] 100 MG) PO SCH (01:30)
[2019-12-23] MEDS: FUROSEMIDE 10 MG/ML 4 ML VIAL IV SCH ×2 (01:51→13:02)
[2019-12-23 08:32] LABS: Glucose,Whole Blood 121 mg/dL (75-99)
[2019-12-23] MEDS: INSULIN DETEMIR (LEVEMIR) 100 UNIT/ML SYR SQ SCH (08:33)
[2019-12-23] MEDS: LEVOTHYROXINE 112 MCG TAB PO SCH (08:33)
[2019-12-23] MEDS ORDERED: ALLOPURINOL 300 MG TAB PO SCH (09:00)
[2019-12-23] MEDS: ATORVASTATIN 20 MG TAB PO SCH (09:39)
[2019-12-23] MEDS: ASPIRIN 81 MG PO SCH (09:39)
[2019-12-23] MEDS: CHOLECALCIFEROL 1,000 UNIT TAB PO SCH (09:39)
[2019-12-23] MEDS: hydrALAZINE HCL 50 MG TAB PO SCH ×4 (09:40→20:43)
[2019-12-23] MEDS: FENOFIBRATE 54 MG TAB PO SCH (09:40)
[2019-12-23] MEDS: METOPROLOL SUCCINATE (ER) 50 MG TAB.ER.24H PO SCH ×2 (09:40→20:43)
[2019-12-23] MEDS: TORSEMIDE 20 MG TAB PO SCH ×2 (09:41→21:15)
[2019-12-23] MEDS: NITROGLYCERIN OINT 1 INCH/GM PACKET TOPICAL SCH ×4 (09:43→20:44)
[2019-12-23] MEDS: ISOSORBIDE MONONITRATE ER 60 MG TAB.ER.24H PO SCH (10:59)
[2019-12-23 11:48] LABS: Anisocytosis Slight; Basophils % (A) 1 %; Eosinophils # (A) 0.2 k/uL (0-0.7); Eosinophils % (A) 2 %; HCT 30.5 % (34.0-46.0); HGB 9.6 gm/dL (11.4-16.0); Hypochromasia Marked; Lymphocytes # (A) 1.5 k/uL (1.0-4.8); Lymphocytes % (A) 18 %; MCH 28.7 pg (25.0-35.0); MCHC 31.4 g/dL (31.0-37.0); MCV 91.4 fL (80.0-100.0); Mean Platelet Volume 10.9; Monocytes # (A) 0.5 k/uL (0-1.0); Monocytes % (A) 6 %; Neutrophils # (A) 6.3 k/uL (1.3-7.7); Neutrophils % (A) 72 %; Platelet Count 346 k/uL (150-450); Poikilocytosis Slight; RBC 3.33 m/uL (3.80-5.40); RDW 16.1 % (11.5-15.5); WBC 8.7 k/uL (3.8-10.6)
--- NOTE | 2019-12-23 12:05 | P.HPIM ---
History of Present Illness this is a pleasant 74 years old female with past medical history of heart failure, atrial fibrillation status post pacemaker, coronary artery disease, diabetes mellitus, hypertension, hyperlipidemia, osteoarthritis, hypothyroidism, GI bleed, CKD stage III, she follows up with Dr. 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 Reynolds for her kidney disease. Presents because of worsening dyspnea over one month, about that time she was discharged from the hospital for acute CHF exacerbation as well. Also she complained from leg swelling and increased weight. No chest pain or abdominal pain, no nausea vomiting. Also she is coughing and have some atrial flutter She denies smoking alcohol or illicit drugs vitals are stable and she is saturating 96% to 97% on 2 L oxygen via nasal cannula, troponin is elevated at 0.669 and proBNP is elevated at 7910. Review of Systems CONSTITUTIONAL: No fever, no malaise, no fatigue. HEENT: No recent visual problems or hearing problems. Denied any sore throat. CARDIOVASCULAR: no palpitations, no syncope. PULMONARY: no hemoptysis. GASTROINTESTINAL: No diarrhea, no nausea, no vomiting, no abdominal pain. Normoactive bowel sounds. NEUROLOGICAL: No headaches, no weakness, no numbness. HEMATOLOGICAL: Denies any bleeding or petechiae. GENITOURINARY: Denies any burning micturition, frequency, or urgency. MUSCULOSKELETAL/RHEUMATOLOGICAL: Denies any joint pain, swelling, or any muscle pain. ENDOCRINE: Denies any polyuria or polydipsia. Past Medical History Past Medical History: Atrial Fibrillation, Coronary Artery Disease (CAD), Cancer, Chest Pain / Angina, Heart Failure, Diabetes Mellitus, GI Bleed, Hyperlipidemia, Hypertension, Myocardial Infarction (NH), Osteoarthritis (OA), Renal Disease, Thyroid Disorder Additional Past Medical History / Comment(s): Pt recently admitted to [facility] on 11/24/19 with exacerbation CHF/hyponatremia. Other hx: IDDM type II, neuropathy bilateral hands/feet, CKD stage III, bilateral leg edema and pt has L arm/hand edema at this time as well, cardiac murmur, 1977 hodgkins lymphoma tx with radiation to chest/neck, 1982 chemotherapy, lower GI bleed, benign colon polyps, diverticular disease, arthritis in R knee and bilateral hands/fingers, gout in bilateral feet, hypothyroid, pt states current sore on L leg. Last Myocardial Infarction Date:: 01/25/16 History of Any Multi-Drug Resistant Organisms: None Reported Past Surgical History: Cardiac Ablation, Cardiac Valve Replacement, Cholecystectomy, Coronary Bypass/CABG, Heart Catheterization, Heart Catheterization With Stent, Pacemaker, Tubal Ligation Additional Past Surgical History / Comment(s): 2003 PTCA with 1 stent, 2007 CABG-2 vessel, LUCY, 2015 Aortic valve replaced/pacemaker insertion, ,bilateral cataract removal/lens implants,sinus surgery, splenectomy d/t hodkins, colonoscopy/polypectomy, laparoscopy, D&C Past Anesthesia/Blood Transfusion Reactions: No Reported Reaction Additional Past Anesthesia/Blood Transfusion Reaction / Comment(s): Pt states with one of her surgeries her pulse went very low. She has received blood in the past without reaction. Date of Last Stent Placement:: 2003 Type of Cardiac Device: Permanent Pacemaker Device Placement Date:: 2015 Smoking Status: Never smoker - Past Family History Father Family Medical History: Myocardial Infarction (NH) Additional Family Medical History / Comment(s): Father was healthy until he of a NH at the age of 93 yrs. Mother Family Medical History: CVA/TIA Additional Family Medical History / Comment(s): Mother was healthy until the la st couple yrs of her life. She of a CVA at the age of 94yrs. Medications and Allergies Home Medications Medication Instructions Recorded Confirmed Type Allopurinol [Zyloprim] 300 mg PO DAILY 01/19/16 12/23/19 History Aspirin 81 mg PO DAILY 01/19/16 12/23/19 History Cholecalciferol [Vitamin D3 (25 1,000 unit PO DAILY 01/19/16 12/23/19 History Mcg = 1000 Iu)] Fenofibrate Nanocrystallized 48 mg PO DAILY 01/19/16 12/23/19 History [Fenofibrate] Insulin Glargine [Lantus] 25 unit SQ DAILY 01/19/16 12/23/19 History Levothyroxine Sodium [Levoxyl] 112 mcg PO DAILY 01/19/16 12/23/19 History Nitroglycerin Sl Tabs [Nitrostat] 0.4 mg SUBLINGUAL Q5M PRN 01/19/16 12/23/19 History Ubidecarenone [Co Q-10] 100 mg PO MOWEFR 01/19/16 12/23/19 History Docusate [Colace] 100 mg PO DAILY 02/14/16 12/23/19 History Krill/Om-3/Dha/Epa/Phospho/Ast 1 cap PO DAILY 02/06/18 12/23/19 History [[place]-3 Krill Oil 300 mg Sfgl] hydrALAZINE HCL [Apresoline] 50 mg PO QID 02/06/18 12/23/19 History Atorvastatin [Lipitor] 20 mg PO MOWEFRSA 11/24/19 12/23/19 History Isosorbide Mononitrate ER [Imdur] 60 mg PO DAILY 11/24/19 12/23/19 History Metoprolol Succinate [Toprol XL] 50 mg PO BID 11/24/19 12/23/19 History Insulin Glulisine [Apidra] 20 unit SQ AC-TID 12/23/19 12/23/19 History Metolazone [Zaroxolyn] 5 mg PO DIRECTED 12/23/19 12/23/19 History Torsemide [Demadex] 50 mg PO BID 12/23/19 12/23/19 History Allergies Allergy/AdvReac Type Severity Reaction Status Date / Time Iodinated Contrast Media AdvReac renal Verified 12/23/19 06:27 disease Physical Exam Vitals: Vital Signs Temp Pulse Resp BP Pulse Ox 12/23/19 10:59 60 18 127/58 97 12/23/19 09:37 60 18 119/54 12/23/19 08:26 60 18 140/58 97 12/23/19 06:52 60 16 110/41 96 12/23/19 04:30 97.5 F L 61 16 132/55 97 12/23/19 00:39 16 12/23/19 00:30 97.6 F 84 16 152/81 97 Intake and Output 12/22/19 12/23/19 12/23/19 22:59 06:59 14:59 Other: Weight 85.729 kg 85.729 kg GENERAL: The patient is alert and oriented x3, not in any acute distress. Well developed, well nourished. HEENT: Pupils are round and equally reacting to light. EOMI. No scleral icterus. No conjunctival pallor. Normocephalic, atraumatic. No pharyngeal erythema. No thyromegaly. CARDIOVASCULAR: S1 and S2 present. No murmurs, rubs, or gallops. -PULMONARY: Chest is clear to auscultation, no wheezing. Bilateral basal crepitation ABDOMEN: Soft, nontender, nondistended, normoactive bowel sounds. No palpable organomegaly. MUSCULOSKELETAL: No joint swelling or deformity. -EXTREMITIES: No cyanosis, clubbing,. Bilateral leg edema. NEUROLOGICAL: Gross neurological examination did not reveal any focal deficits. SKIN: No rashes. No petechiae Results CBC & Chem 7: 12/23/19 07:43 Labs: Abnormal Lab Results - Last 24 Hours (Table) 12/23/19 12/23/19 Range/Units 07:43 08:30 POC Glucose (mg/dL) 121 H (75-99) mg/dL Troponin I 0.669 H* (0.000-0.034) ng/mL Thrombosis Risk Factor Assmnt - Choose All That Apply Any of the Below Risk Factors Present?: Yes Each Factor Represents 1 point: Heart failure (<1month), Obesity (BMI >25), Swollen legs (current) Other Risk Factors: Yes Each Risk Factor Represents 2 Points: Malignancy Each Risk Factor Represents 3 Points: Age 75 years or older Other congenital or acquired thrombophilia - If yes, enter type in comment: No Thrombosis Risk Factor Assessment Total Risk Factor Score: 8 Thrombosis Risk Factor Assessment Level: High Risk Assessment and Plan Assessment: acute on chronic heart failure atrial fibrillation,status post pacemaker. not on anticoagulation diabetes mellitus Hypertension Hyperlipidemia CTD, stage III Osteoarthritis Hypothyroidism History of GI bleed Plan: this is a pleasant 74 years old female who presents with CHF. Continue with diuretics. Cardiology consult. Monitor electrolytes, weight and kidney function Labs and medication were reviewed.. Continue same treatment. Continue with symptomatic treatment. Resume home medication. Monitor lytes and vitals. DVT and GI prophylaxis. Further recommendations of the clinical course of the patient DVT prophylaxis: Subcutaneous heparin GI Prophylaxis: Pepcid PT/OT: Pending Prognosis is guarded
[2019-12-23 12:19] LABS: Calcium 8.6 mg/dL (8.4-10.2); Potassium 3.1 mmol/L (3.5-5.1)
[2019-12-23] MEDS: HEPARIN SODIUM,PORCINE 5,000 UNIT/ML 1 ML VIAL SQ SCH ×2 (13:02→20:43)
[2019-12-23] MEDS ORDERED: Potassium Replacement Protocol 1 EACH MISC MISCELLANE PRN ×2 (14:33→18:30)
--- NOTE | 2019-12-23 14:50 | CONS ---
CONSULTATION CHIEF COMPLAINT: Shortness of breath, leg edema and weight gain. Staci is a 74-year-old lady with history of coronary artery disease, status post CABG, severe aortic stenosis, status post MR, chronic diastolic heart failure and chronic renal insufficiency and sick sinus syndrome status post permanent pacemaker, who presented to hospital complaining of bilateral leg edema and shortness of breath. She was discharged home on November 26 following admission at that time and in fact had been seen by me not too long ago. She comes in complaining of worsening shortness of breath and leg edema for a week's duration. When I last evaluated her a little over a week ago, I added Zaroxolyn to the Demadex that she was on. Patient tells me that the Zaroxolyn did not make any difference. If anything, her symptoms have gotten worse. Her admission BNP is elevated at 9120. Troponin is at 0.062. Hemoglobin was 10. EKG showed paced rhythm. The patient at the time of her admission was on Demadex 50 mg b.i.d., Toprol-XL 50 b.i.d., Zaroxolyn, Imdur, insulin, Lipitor and aspirin. The patient's clinical presentation is consistent with acute exacerbation of chronic congestive heart failure which is due to a combination of systolic and diastolic dysfunction. Recent echocardiogram showed an ejection fraction of 45-50 percent and fairly normally functioning bioprosthetic valve in aortic position. There was severe pulmonary hypertension and mitral stenosis. PAST MEDICAL HISTORY: Significant for coronary artery disease status post CABG, aortic stenosis, status post aortic valve replacement, hypertension, diabetes, hypothyroidism and dyslipidemia. CURRENT MEDICATIONS: Include aspirin, Zyloprim, Lipitor 20 daily, fenofibrate, insulin, Imdur 60 daily, Toprol-XL 50 b.i.d., hydralazine 50 q.i.d., Demadex 50 b.i.d. The patient is allergic to IV dye. FAMILY HISTORY: Negative for premature coronary artery disease. SOCIAL HISTORY: Negative for current smoking, EtOH abuse, or drug abuse. REVIEW OF SYSTEMS: HEENT is unremarkable. Cardiac as described above. Respiratory as described above. GI negative. Genitourinary negative. Allergy none. Skin negative. Musculoskeletal significant for arthritis. Psychosocial negative. Endocrine: Negative. DERM: Negative. ONCOLOGICAL: Negative INTEGRATED MARKETING MANAGER negative. Rest of the system review is not relevant. EXAM: Patient is comfortable at rest. O2 saturation is 97% on 2 L. Afebrile. Heart rate is 60 beats per minute. Blood pressure is 117/62. Respirations 18. There is no jugular venous distention. Chest exam reveals good air entry bilaterally. Heart exam reveals first and second heart sounds. No gallop. Has an ejection systolic murmur in the aortic area. ABDOMEN: Soft. Exam of extremities reveals bilateral 1+ edema. ASSESSMENT: 1. Acute exacerbation of chronic congestive heart failure due to combination of systolic and diastolic dysfunction. 2. Coronary artery disease, status post coronary artery bypass grafting. 3. Aortic stenosis status post aortic valve replacement. 4. Status post permanent pacemaker. 5. Mild troponin elevation. PLAN: I am going to obtain CBC, lytes, creatinine. The elevated troponin could be related to the renal insufficiency that she had. I will treat the patient with IV Lasix. Continue her current medications for optimal blood pressure control including the hydralazine and Toprol. I will adjust her medications as needed depending upon how she responds. MMODL / IJN: [id number] /
[2019-12-23 16:43] LABS: Glucose,Whole Blood 157 mg/dL (75-99)
[2019-12-23] MEDS: POTASSIUM CHLORIDE ER 20 MEQ TAB.ER PO SCH ×2 (16:55→17:44)
[2019-12-23] MEDS ORDERED: Magnesium Replacement Protocol 1 EACH MISC MISCELLANE PRN (18:30)
[2019-12-23 20:37] LABS: Glucose,Whole Blood 223 mg/dL (75-99)
[2019-12-23] MEDS: FAMOTIDINE 20 MG/2 ML VIAL IV SCH (20:43)
[2019-12-23] MEDS ORDERED: FAMOTIDINE 20 MG/2 ML VIAL IV SCH (21:00)
[2019-12-24] MEDS: FUROSEMIDE 10 MG/ML 4 ML VIAL IV SCH ×3 (02:05→20:22)
[2019-12-24 06:15] LABS: Glucose,Whole Blood 142 mg/dL (75-99)
[2019-12-24] MEDS: LEVOTHYROXINE 112 MCG TAB PO SCH (06:15)
[2019-12-24] MEDS: INSULIN DETEMIR (LEVEMIR) 100 UNIT/ML SYR SQ SCH (06:15)
[2019-12-24] MEDS: FAMOTIDINE 20 MG/2 ML VIAL IV SCH (08:14)
[2019-12-24] MEDS: HEPARIN SODIUM,PORCINE 5,000 UNIT/ML 1 ML VIAL SQ SCH ×2 (08:14→20:22)
[2019-12-24] MEDS: ATORVASTATIN 20 MG TAB PO SCH (08:15)
[2019-12-24] MEDS: NITROGLYCERIN OINT 1 INCH/GM PACKET TOPICAL SCH ×4 (08:15→20:22)
[2019-12-24] MEDS: ALLOPURINOL 100 MG TAB PO SCH (08:15)
[2019-12-24] MEDS: METOPROLOL SUCCINATE (ER) 50 MG TAB.ER.24H PO SCH ×2 (08:15→20:22)
[2019-12-24] MEDS: ASPIRIN 81 MG PO SCH (08:15)
[2019-12-24] MEDS: ISOSORBIDE MONONITRATE ER 60 MG TAB.ER.24H PO SCH (08:15)
[2019-12-24] MEDS: hydrALAZINE HCL 50 MG TAB PO SCH ×4 (08:16→20:22)
[2019-12-24] MEDS: FENOFIBRATE 54 MG TAB PO SCH (08:16)
[2019-12-24] MEDS: CHOLECALCIFEROL 1,000 UNIT TAB PO SCH (08:16)
--- NOTE | 2019-12-24 08:54 | P.PN ---
Subjective Patient is a 86-year-old male with a known history of hypertension, hyperlipidemia, emphysema, previous history of smoking quit several years ago, h istory of prostate cancer and had prostate seeded came to ER with the complaints of coughing up bright red blood which he noticed that this morning. Patient was also having exertional dyspnea which is getting worse. Denies any sputum production. No fever no chills. Denies any hematemesis or melena. No headache or dizziness or lightheadedness. no leg swelling. Patient states that he lost about 15 to 20 pounds in the last couple of months. Chest x-ray showed interval development of a large right-sided pleural effusion KUB x-ray showed increased opacity of the right hemothorax keeping with the right-sided effusion. No definite acute intra-abdominal abnormality. EKG showed sinus rhythm with first-degree AV block Chest ultrasound was done complex right pleural effusion Laboratory data reviewed BUN 18 and creatinine 1.4 troponin less than 0.012 and proBNP 731 UA negative 12/22/2019 Patient is currently lying in bed comfortably. Blood pressure is uncontrolled and will be started on lisinopril and Lasix 20 mg daily. Patient was seen by pulmonary and is status post right thoracentesis CT chest was ordered. No complaints of chest pain or worsening shortness of air. No nausea vomiting or abdominal pain. No diarrhea. No other acute overnight issues. Follow-up fluid analysis and cytology. Subjective 12/23/2019 This is a pleasant 86 years old male who presents on 12/20 because of hemoptysis and coughing. He underwent thoracocentesis by Dr. Harrison yesterday. Also CAT scan of the chest was showing right main bronchus occlusion with a mucous/lesion, with possible right lung mass and mediastinal lymphadenopathy This morning he is alert and awake, no dyspnea. Little cough. No other complaints. Vitals are stable, blood pressure on the high side 172/74 Creatinine is 1.4. Odontogenic labs this morning. His on Cardizem 180 mg, lisinopril 20 mg, we going to add hydralazine, no beta saad because of bradycardia 12/24/2019 Patient is breathing quietly, no other symptoms, no chest pain or dyspnea. This fully awake and oriented. His CAT scan showing right lung mass and is planned to go for bronchoscopy today, his aspirin and Plavix are on hold. Urine culture is growing enterococci however no signs symptoms of UTI, no UTI. Urine analysis, it looks like colonization and no need for antibiotic. Blood pressure still on the high side 181/84, we going to increase his hydralazine to 50 mg twice daily Cytology for pleural fluid is a still pending Objective - Vital Signs Vital signs: Vital Signs Temp 97.2 F L 12/24/19 03:19 Pulse 64 12/24/19 03:19 Resp 18 12/24/19 03:19 BP 138/62 12/24/19 03:19 Pulse Ox 98 12/24/19 07:21 Intake & Output 12/23/19 12/24/19 12/24/19 18:59 06:59 18:59 Intake Total 360 240 Output Total 400 600 300 Balance -40 -600 -60 Weight 85.729 kg 87.3 kg Intake: Oral 360 240 Output: Urine 400 600 300 Other: Voiding Method Bedside Commode # Voids 1 2 # Bowel Movements 1 - Exam GENERAL: The patient is alert and oriented x3, not in any acute distress. Well developed, well nourished. HEENT: Pupils are round and equally reacting to light. EOMI. No scleral icterus. No conjunctival pallor. Normocephalic, atraumatic. No pharyngeal erythema. No thyromegaly. CARDIOVASCULAR: S1 and S2 present. No murmurs, rubs, or gallops. PULMONARY: Chest is clear to auscultation, no wheezing or crackles. ABDOMEN: Soft, nontender, nondistended, normoactive bowel sounds. No palpable organomegaly. MUSCULOSKELETAL: No joint swelling or deformity. EXTREMITIES: No cyanosis, clubbing, or pedal edema. NEUROLOGICAL: Gross neurological examination did not reveal any focal deficits. SKIN: No rashes. no petechiae. - Labs CBC & Chem 7: 12/23/19 07:43 12/23/19 07:43 Labs: Abnormal Lab Results - Last 24 Hours (Table) 12/23/19 12/23/19 12/23/19 Range/Units 07:43 07:43 13:13 RBC 3.33 L (3.80-5.40) m/uL Hgb 9.6 L (11.4-16.0) gm/dL Hct 30.5 L (34.0-46.0) % RDW 16.1 H (11.5-15.5) % Sodium 134 L (137-145) mmol/L Potassium 3.1 L (3.5-5.1) mmol/L Chloride 92 L (98-107) mmol/L Carbon Dioxide 32 H (22-30) mmol/L BUN 111 H* (7-17) mg/dL Creatinine 2.34 H (0.52-1.04) mg/dL Glucose 116 H (74-99) mg/dL POC Glucose (mg/dL) (75-99) mg/dL Troponin I 0.740 H* (0.000-0.034) ng/mL 12/23/19 12/23/19 12/24/19 Range/Units 16:41 20:33 06:12 RBC (3.80-5.40) m/uL Hgb (11.4-16.0) gm/dL Hct (34.0-46.0) % RDW (11.5-15.5) % Sodium (137-145) mmol/L Potassium (3.5-5.1) mmol/L Chloride (98-107) mmol/L Carbon Dioxide (22-30) mmol/L BUN (7-17) mg/dL Creatinine (0.52-1.04) mg/dL Glucose (74-99) mg/dL POC Glucose (mg/dL) 157 H 223 H 142 H (75-99) mg/dL Troponin I (0.000-0.034) ng/mL Assessment and Plan Assessment: acute on chronic heart failure atrial fibrillation,status post pacemaker. not on anticoagulation diabetes mellitus Hypertension Hyperlipidemia CTD, stage III Osteoarthritis Hypothyroidism History of GI bleed Plan: this is a pleasant 74 years old female who presents with CHF. Continue with diuretics. Cardiology consult. Monitor electrolytes, weight and kidney function Labs and medication were reviewed.. Continue same treatment. Continue with symptomatic treatment. Resume home medication. Monitor lytes and vitals. DVT and GI prophylaxis. Further recommendations of the clinical course of the patient DVT prophylaxis: Subcutaneous heparin GI Prophylaxis: Pepcid PT/OT: Pending Prognosis is guarded
[2019-12-24 09:00] LABS: Anisocytosis Slight; Basophils % (A) 0 %; Eosinophils # (A) 0.1 k/uL (0-0.7); Eosinophils % (A) 2 %; HCT 30.3 % (34.0-46.0); HGB 9.5 gm/dL (11.4-16.0); Hypochromasia Marked; Lymphocytes # (A) 1.3 k/uL (1.0-4.8); Lymphocytes % (A) 17 %; MCH 28.5 pg (25.0-35.0); MCHC 31.3 g/dL (31.0-37.0); MCV 90.9 fL (80.0-100.0); Mean Platelet Volume 9.9; Monocytes # (A) 0.4 k/uL (0-1.0); Monocytes % (A) 5 %; Neutrophils # (A) 6.1 k/uL (1.3-7.7); Neutrophils % (A) 75 %; Platelet Count 373 k/uL (150-450); Poikilocytosis Slight; RBC 3.33 m/uL (3.80-5.40); RDW 16.1 % (11.5-15.5); WBC 8.1 k/uL (3.8-10.6)
[2019-12-24 09:14] LABS: Calcium 8.7 mg/dL (8.4-10.2); Magnesium 2.4 mg/dL (1.6-2.3); Potassium 4.1 mmol/L (3.5-5.1)
--- NOTE | 2019-12-24 09:32 | P.NPCON ---
History of Present Illness - Reason for Consult acute renal failure, chronic renal failure - History of Present Illness Reason for consultation: Acute kidney injury on chronic kidney disease History of present illness: The patient is a 74-year-old female seen in renal consultation for acute kidney injury on chronic kidney disease. Patient has chronic kidney disease stage IV with baseline creatinine in the range of 1.8-2. Etiology is nephrosclerosis and cardiorenal syndrome. Patient states she was t aking Demadex 50 mg orally twice daily at home but came to the hospital due to progressive worsening of swelling in the lower extremities. Patient states she has gained about 10-15 pounds in the last month or so. She admits to good urine output. No vomiting or diarrhea. Denies use of nonsteroidals. Patient states blood sugars have been fairly controlled. No chest pain but does admit to dyspn ea especially with exertion. No fever or chills. Denies cough. Recent echocardiogram revealed ejection fraction of 45-50% with mild to moderate mitral stenosis and moderate to severe tricuspid regurgitation. She was also noted to have severe pulmonary hypertension. Vital signs are stable. General: The patient appeared well nourished and normally developed. HEENT: Head exam is unremarkable. Neck is without jugular venous distension. LUNGS: Lungs are clear to auscultation and percussion. Breath sounds decreased. HEART: Rate and Rhythm are regular. Murmur present. ABDOMEN: Soft, nontender. EXTREMITITES: 2+ edema. Past Medical History Past Medical History: Atrial Fibrillation, Coronary Artery Disease (CAD), Cancer, Chest Pain / Angina, Heart Failure, Diabetes Mellitus, GI Bleed, Hyperlipidemia, Hypertension, Myocardial Infarction (NE), Osteoarthritis (OA), Renal Disease, Thyroid Disorder Additional Past Medical History / Comment(s): Pt recently admitted to [facility] on 11/24/19 with exacerbation CHF/hyponatremia. Other hx: IDDM type II, neuropathy bilateral hands/feet, CKD stage III, bilateral leg edema and pt has L arm/hand edema at this time as well, cardiac murmur, 1977 hodgkins lymphoma tx with radiation to chest/neck, 1982 chemotherapy, lower GI bleed, benign colon polyps, diverticular disease, arthritis in R knee and bilateral hands/fingers, gout in bilateral feet, hypothyroid, pt states current sore on L leg. Last Myocardial Infarction Date:: 01/25/16 History of Any Multi-Drug Resistant Organisms: None Reported Past Surgical History: Cardiac Ablation, Cardiac Valve Replacement, Cholecystectomy, Coronary Bypass/CABG, Heart Catheterization, Heart Catheterization With Stent, Pacemaker, Tubal Ligation Additional Past Surgical History / Comment(s): 2003 PTCA with 1 stent, 2007 CABG-2 vessel, LUCY, 2015 Aortic valve replaced/pacemaker insertion, ,bilateral cataract removal/lens implants,sinus surgery, splenectomy d/t hodkins, colonoscopy/polypectomy, laparoscopy, D&C Past Anesthesia/Blood Transfusion Reactions: No Reported Reaction Additional Past Anesthesia/Blood Transfusion Reaction / Comment(s): Pt states with one of her surgeries her pulse went very low. She has received blood in the past without reaction. Date of Last Stent Placement:: 2003 Type of Cardiac Device: Permanent Pacemaker Device Placement Date:: 2015 Smoking Status: Never smoker - Past Family History Father Family Medical History: Myocardial Infarction (NE) Additional Family Medical History / Comment(s): Father was healthy until he of a NE at the age of 93 yrs. Mother Family Medical History: CVA/TIA Additional Family Medical History / Comment(s): Mother was healthy until the last couple yrs of her life. She of a CVA at the age of 94yrs. Medications and Allergies Home Medications Medication Instructions Recorded Confirmed Type Allopurinol [Zyloprim] 300 mg PO DAILY 01/19/16 12/23/19 History Aspirin 81 mg PO DAILY 01/19/16 12/23/19 History Cholecalciferol [Vitamin D3 (25 1,000 unit PO DAILY 01/19/16 12/23/19 History Mcg = 1000 Iu)] Fenofibrate Nanocrystallized 48 mg PO DAILY 01/19/16 12/23/19 History [Fenofibrate] Insulin Glargine [Lantus] 25 unit SQ DAILY 01/19/16 12/23/19 History Levothyroxine Sodium [Levoxyl] 112 mcg PO DAILY 01/19/16 12/23/19 History Nitroglycerin Sl Tabs [Nitrostat] 0.4 mg SUBLINGUAL Q5M PRN 01/19/16 12/23/19 History Ubidecarenone [Co Q-10] 100 mg PO MOWEFR 01/19/16 12/23/19 History Docusate [Colace] 100 mg PO DAILY 02/14/16 12/23/19 History Krill/Om-3/Dha/Epa/Phospho/Ast 1 cap PO DAILY 02/06/18 12/23/19 History [[place]-3 Krill Oil 300 mg Sfgl] hydrALAZINE HCL [Apresoline] 50 mg PO QID 02/06/18 12/23/19 History Atorvastatin [Lipitor] 20 mg PO MOWEFRSA 11/24/19 12/23/19 History Isosorbide Mononitrate ER [Imdur] 60 mg PO DAILY 11/24/19 12/23/19 History Metoprolol Succinate [Toprol XL] 50 mg PO BID 11/24/19 12/23/19 History Insulin Glulisine [Apidra] 20 unit SQ AC-TID 12/23/19 12/23/19 History Metolazone [Zaroxolyn] 5 mg PO DIRECTED 12/23/19 12/23/19 History Torsemide [Demadex] 50 mg PO BID 12/23/19 12/23/19 History Allergies Allergy/AdvReac Type Severity Reaction Status Date / Time Iodinated Contrast Media AdvReac renal Verified 12/23/19 06:27 disease Physical Exam Vitals: Vital Signs Temp Pulse Pulse Pulse Resp BP BP 12/24/19 07:21 12/24/19 03:19 97.2 F L 64 68 18 138/62 12/23/19 23:11 64 62 18 142/55 12/23/19 20:00 97.5 F L 64 60 18 151/74 12/23/19 16:45 98.4 F 58 L 19 146/50 12/23/19 13:45 97.5 F L 64 64 19 116/47 12/23/19 13:00 60 16 126/56 12/23/19 10:59 60 18 127/58 12/23/19 09:37 60 18 119/54 Pulse Ox 12/24/19 07:21 98 12/24/19 03:19 97 12/23/19 23:11 96 12/23/19 20:00 97 12/23/19 16:45 97 12/23/19 13:45 98 12/23/19 13:00 98 12/23/19 10:59 97 12/23/19 09:37 Intake and Output 12/23/19 12/24/19 12/24/19 22:59 06:59 14:59 Intake Total 360 240 Output Total 400 600 300 Balance -40 -600 -60 Intake: Oral 360 240 Output: Urine 400 600 300 Other: Voiding Method Bedside Commode # Voids 1 2 # Bowel Movements 1 Weight 87.3 kg Results - Lab Results Most recent lab results Calcium 8.6 mg/dL (8.4-10.2) 12/23/19 07:43 12/24/19 08:17 12/23/19 07:43 Assessment and Plan Plan: Assessment: 1. Acute kidney injury mostly prerenal secondary to cardiorenal syndrome. Creatinine 2.34 on admission. 2. Chronic kidney disease stage IV secondary to nephrosclerosis and cardiorenal syndrome with baseline creatinine near 2. 3. Volume overload. 4. Acute on chronic systolic CHF ejection fraction of 45-50% with multiple moderate mitral stenosis, moderate to severe tricuspid regurgitation. 5. Severe pulmonary hypertension. 6. Hypokalemia secondary to diuresis. 7. Insulin-dependent diabetes mellitus. 8. Anemia of chronic kidney disease. Rule out iron deficiency. Plan: I will increase Lasix to 60 mg IV twice daily. Add metolazone 5 mg once daily. Potassium was replaced. Morning labs pending. 1200 mL fluid restriction and low-salt diet. Check iron studies. Daily weights. Follow-up echocardiogram. Thank you for the consultation. I will continue to follow the patient with you during her hospital stay.
[2019-12-24] MEDS: METOLAZONE 5 MG TAB PO SCH (10:31)
--- NOTE | 2019-12-24 10:47 | P.PN ---
Subjective this is a pleasant 74 years old female with past medical history of heart failure, atrial fibrillation status post pacemaker, coronary artery disease, diabetes mellitus, hypertension, hyperlipidemia, osteoarthritis, hypothyroidism, GI bleed, CKD stage III, she follows up with Dr. Galvan operator control room and Dr. Reynolds for her kidney disease. Presents because of worsening dyspnea over one month, about that time she was discharged from the hospital for acute CHF exacerbation as well. Also she complained from leg swelling and increased weight. No chest pain or abdominal pain, no nausea vomiting. Also she is coughing and have some atrial flutter She denies smoking alcohol or illicit drugs vitals are stable and she is saturating 96% to 97% on 2 L oxygen via nasal cannula, troponin is elevated at 0.669 and proBNP is elevated at 7910. 12/24/2019 Patient is slightly improving she still feeling dyspnea with no chest pain, she still have some coughing. no fever and she is saturating 95% in 2 L oxygen, she presents rate of 16-18/m, she is afebrile. CBC and BMP is stable, creatinine 2.3 and BUN is 106. She is currently on Lasix 40 mg IV twice daily, also she is on torsemide 40 mg twice daily Cardiology and nephrology consult Review of Systems CONSTITUTIONAL: No fever, no malaise, no fatigue. HEENT: No recent visual problems or hearing problems. Denied any sore throat. CARDIOVASCULAR: no palpitations, no syncope. PULMONARY: no hemoptysis. GASTROINTESTINAL: No diarrhea, no nausea, no vomiting, no abdominal pain. Normoactive bowel sounds. NEUROLOGICAL: No headaches, no weakness, no numbness. HEMATOLOGICAL: Denies any bleeding or petechiae. GENITOURINARY: Denies any burning micturition, frequency, or urgency. MUSCULOSKELETAL/RHEUMATOLOGICAL: Denies any joint pain, swelling, or any muscle pain. ENDOCRINE: Denies any polyuria or polydipsia. Active Medications Generic Name Dose Route Start Last Admin Trade Name Freq PRN Reason Stop Dose Admin Allopurinol 200 mg 12/24/19 09:00 12/24/19 08:15 Zyloprim PO 200 mg DAILY MORIS Administration Aspirin 81 mg 12/23/19 09:00 12/24/19 08:15 Aspirin PO 81 mg DAILY MORIS Administration Atorvastatin Calcium 20 mg 12/23/19 09:00 12/24/19 08:15 Lipitor PO 20 mg [id number]@0900 MORIS Administration Cholecalciferol 1,000 unit 12/23/19 09:00 12/24/19 08:16 Vitamin D3 (25 Mcg = 1000 Iu) PO 1,000 unit DAILY MORIS Administration Docusate Sodium 100 mg 12/23/19 01:27 Colace PO DAILY PRN Constipation Famotidine 20 mg 12/23/19 21:00 12/24/19 08:14 Pepcid IV 20 mg DAILY MORIS Administration Fenofibrate 54 mg 12/23/19 09:00 12/24/19 08:16 Lofibra PO 54 mg DAILY MORIS Administration Furosemide 60 mg 12/24/19 09:30 12/24/19 10:24 Lasix IV 60 mg Q12H [facility] Administration Heparin Sodium (Porcine) 5,000 unit 12/23/19 12:15 12/24/19 08:14 Heparin SQ 5,000 unit Q12HR MORIS Administration Hydralazine HCl 50 mg 12/23/19 09:00 12/24/19 08:16 Apresoline PO 50 mg QID [facility] Administration Insulin Detemir 20 unit 12/23/19 07:00 12/24/19 06:15 Levemir SQ 20 unit DAILY@0700 [facility] Administration Isosorbide Mononitrate 60 mg 12/23/19 09:00 12/24/19 08:15 Imdur PO 60 mg DAILY [facility] Administration Levothyroxine Sodium 112 mcg 12/23/19 06:30 12/24/19 06:15 Synthroid PO 112 mcg DAILY@0630 [facility] Administration Metolazone 5 mg 12/24/19 09:30 12/24/19 10:31 Zaroxolyn PO Not Given DAILY [facility] Metoprolol Succinate 50 mg 12/23/19 09:00 12/24/19 08:15 Toprol Xl PO 50 mg BID MORIS Administration Miscellaneous Information 1 each 12/23/19 14:33 Potassium Per Protocol MISCELLANE DAILY PRN Per Protocol Protocol Miscellaneous Information 1 each 12/23/19 18:30 Potassium Per Protocol MISCELLANE DAILY PRN Per Protocol Protocol Miscellaneous Information 1 each 12/23/19 18:30 Magnesium Per Protocol MISCELLANE DAILY PRN Per Protocol Protocol Nitroglycerin 0.5 inch 12/23/19 09:00 12/24/19 08:15 Nitro-Bid Oint TOPICAL 0.5 inch QID MORIS Administration Nitroglycerin 0.4 mg 12/23/19 01:27 Nitrostat SUBLINGUAL Q5M PRN Pain Sodium Chloride 10 ml 12/23/19 09:00 12/24/19 08:33 Saline Flush IV 10 ml BID MORIS Administration Objective - Vital Signs Vital signs: Vital Signs Temp 97.4 F L 12/24/19 08:00 Pulse 62 12/24/19 08:00 Resp 16 12/24/19 08:00 BP 145/75 12/24/19 08:00 Pulse Ox 95 12/24/19 08:00 Intake & Output 12/23/19 12/24/19 12/24/19 18:59 06:59 18:59 Intake Total 360 240 Output Total 400 600 300 Balance -40 -600 -60 Weight 85.729 kg 87.3 kg Intake: Oral 360 240 Output: Urine 400 600 300 Other: Voiding Method Bedside Commode # Voids 1 2 # Bowel Movements 1 - Exam GENERAL: The patient is alert and oriented x3, not in any acute distress. Well developed, well nourished. HEENT: Pupils are round and equally reacting to light. EOMI. No scleral icterus. No conjunctival pallor. Normocephalic, atraumatic. No pharyngeal erythema. No thyromegaly. CARDIOVASCULAR: S1 and S2 present. No murmurs, rubs, or gallops. PULMONARY: Chest is clear to auscultation, no wheezing bilateral basal crepitation ABDOMEN: Soft, nontender, nondistended, normoactive bowel sounds. No palpable organomegaly. MUSCULOSKELETAL: No joint swelling or deformity. EXTREMITIES: No cyanosis, clubbing,. Bilateral leg edema NEUROLOGICAL: Gross neurological examination did not reveal any focal deficits. SKIN: No rashes. no petechiae. - Labs CBC & Chem 7: 12/24/19 08:17 12/24/19 08:17 Labs: Abnormal Lab Results - Last 24 Hours (Table) 12/23/19 12/23/19 12/23/19 Range/Units 07:43 07:43 13:13 RBC 3.33 L (3.80-5.40) m/uL Hgb 9.6 L (11.4-16.0) gm/dL Hct 30.5 L (34.0-46.0) % RDW 16.1 H (11.5-15.5) % Sodium 134 L (137-145) mmol/L Potassium 3.1 L (3.5-5.1) mmol/L Chloride 92 L (98-107) mmol/L Carbon Dioxide 32 H (22-30) mmol/L BUN 111 H* (7-17) mg/dL Creatinine 2.34 H (0.52-1.04) mg/dL Glucose 116 H (74-99) mg/dL POC Glucose (mg/dL) (75-99) mg/dL Magnesium (1.6-2.3) mg/dL Troponin I 0.740 H* (0.000-0.034) ng/mL 12/23/19 12/23/19 12/24/19 Range/Units 16:41 20:33 06:12 RBC (3.80-5.40) m/uL Hgb (11.4-16.0) gm/dL Hct (34.0-46.0) % RDW (11.5-15.5) % Sodium (137-145) mmol/L Potassium (3.5-5.1) mmol/L Chloride (98-107) mmol/L Carbon Dioxide (22-30) mmol/L BUN (7-17) mg/dL Creatinine (0.52-1.04) mg/dL Glucose (74-99) mg/dL POC Glucose (mg/dL) 157 H 223 H 142 H (75-99) mg/dL Magnesium (1.6-2.3) mg/dL Troponin I (0.000-0.034) ng/mL 12/24/19 12/24/19 Range/Units 08:17 08:17 RBC 3.33 L (3.80-5.40) m/uL Hgb 9.5 L (11.4-16.0) gm/dL Hct 30.3 L (34.0-46.0) % RDW 16.1 H (11.5-15.5) % Sodium 134 L (137-145) mmol/L Potassium (3.5-5.1) mmol/L Chloride 91 L (98-107) mmol/L Carbon Dioxide 34 H (22-30) mmol/L BUN 106 H* (7-17) mg/dL Creatinine 2.38 H (0.52-1.04) mg/dL Glucose 187 H (74-99) mg/dL POC Glucose (mg/dL) (75-99) mg/dL Magnesium 2.4 H (1.6-2.3) mg/dL Troponin I (0.000-0.034) ng/mL Assessment and Plan Assessment: acute on chronic heart failure atrial fibrillation,status post pacemaker. not on anticoagulation diabetes mellitus Hypertension Hyperlipidemia CTD, stage III Osteoarthritis Hypothyroidism History of GI bleed Plan: this is a pleasant 74 years old female who presents with CHF. Continue with diuretics. Cardiology consult. Monitor electrolytes, weight and kidney function Labs and medication were reviewed.. Continue same treatment. Continue with symptomatic treatment. Resume home medication. Monitor lytes and vitals. DVT and GI prophylaxis. Further recommendations of the clinical course of the patient DVT prophylaxis: Subcutaneous heparin GI Prophylaxis: Pepcid PT/OT: Pending Prognosis is guarded
--- NOTE | 2019-12-24 11:37 | P.PN ---
Subjective Progress Note Date: 12/24/19 This is a 74-year-old female with history of coronary artery disease and prior bypass surgery, severe aortic stenosis,s/p AVR, chronic diastolic congestive heart failure, chronic renal insufficiency, sick sinus syndrome status post prior pacemaker who initially presented to the hospital with symptoms of pr ogressively worsening shortness of breath and bilateral lower extremity edema. She was initiated on IV Lasix and diuresed moderately well through the night last night, continues to have bilateral lower extremity edema, left greater than the right and decreased breath sounds bilaterally. Her echocardiogram with Doppler study has been performed but is yet pending. She did have a recent echo which showed an ejection fraction of 45-50% with fairly normally functioning bioprosthetic valve in the aortic position. There was severe pulmonary hypertension and mitral stenosis. Blood pressure 144/70 with a heart rate in the 60s, 95% on 2 L of oxygen. White blood cell count 8.1, hemoglobin 9.5, pl atelet count 373. Sodium 134, potassium 4.1, BUN 106, creatinine 2.3. Magnesium 2.4 today, TSH 1.7. Objective - Vital Signs Vital signs: Vital Signs Temp 97.4 F L 12/24/19 08:00 Pulse 62 12/24/19 08:00 Resp 16 12/24/19 08:00 BP 145/75 12/24/19 08:00 Pulse Ox 95 12/24/19 08:00 Intake & Output 12/23/19 12/24/19 12/24/19 18:59 06:59 18:59 Intake Total 360 240 Output Total 400 600 300 Balance -40 -600 -60 Weight 85.729 kg 87.3 kg Intake: Oral 360 240 Output: Urine 400 600 300 Other: Voiding Method Bedside Commode # Voids 1 2 # Bowel Movements 1 - Exam PHYSICAL EXAMINATION: GENERAL: 74-year-old female patient in no acute distress at the time of my examination HEENT: Head is atraumatic, normocephalic. Pupils equal, round. Sclera anicteric. Conjunctiva are clear. Mucous membranes of the mouth are moist. Neck is supple. There is no elevated jugular venous pressure.No carotid bruit is heard. HEART EXAMINATION: Heart S1 and S2 systolic ejection murmur is heard in the aortic area CHEST EXAMINATION:'s reveal diminished air entry bilaterally ABDOMEN: Soft, nontender. Bowel sounds are heard. No organomegaly noted. EXTREMITIES: 2+ peripheral pulses with 1+ evidence of peripheral edema and no calf tenderness noted. NEUROLOGIC patient is awake, alert and oriented 3 . . - Labs CBC & Chem 7: 12/24/19 08:17 12/24/19 08:17 Labs: Abnormal Lab Results - Last 24 Hours (Table) 12/23/19 12/23/19 12/23/19 Range/Units 07:43 07:43 13:13 RBC 3.33 L (3.80-5.40) m/uL Hgb 9.6 L (11.4-16.0) gm/dL Hct 30.5 L (34.0-46.0) % RDW 16.1 H (11.5-15.5) % Sodium 134 L (137-145) mmol/L Potassium 3.1 L (3.5-5.1) mmol/L Chloride 92 L (98-107) mmol/L Carbon Dioxide 32 H (22-30) mmol/L BUN 111 H* (7-17) mg/dL Creatinine 2.34 H (0.52-1.04) mg/dL Glucose 116 H (74-99) mg/dL POC Glucose (mg/dL) (75-99) mg/dL Magnesium (1.6-2.3) mg/dL Troponin I 0.740 H* (0.000-0.034) ng/mL 12/23/19 12/23/19 12/24/19 Range/Units 16:41 20:33 06:12 RBC (3.80-5.40) m/uL Hgb (11.4-16.0) gm/dL Hct (34.0-46.0) % RDW (11.5-15.5) % Sodium (137-145) mmol/L Potassium (3.5-5.1) mmol/L Chloride (98-107) mmol/L Carbon Dioxide (22-30) mmol/L BUN (7-17) mg/dL Creatinine (0.52-1.04) mg/dL Glucose (74-99) mg/dL POC Glucose (mg/dL) 157 H 223 H 142 H (75-99) mg/dL Magnesium (1.6-2.3) mg/dL Troponin I (0.000-0.034) ng/mL 12/24/19 12/24/19 Range/Units 08:17 08:17 RBC 3.33 L (3.80-5.40) m/uL Hgb 9.5 L (11.4-16.0) gm/dL Hct 30.3 L (34.0-46.0) % RDW 16.1 H (11.5-15.5) % Sodium 134 L (137-145) mmol/L Potassium (3.5-5.1) mmol/L Chloride 91 L (98-107) mmol/L Carbon Dioxide 34 H (22-30) mmol/L BUN 106 H* (7-17) mg/dL Creatinine 2.38 H (0.52-1.04) mg/dL Glucose 187 H (74-99) mg/dL POC Glucose (mg/dL) (75-99) mg/dL Magnesium 2.4 H (1.6-2.3) mg/dL Troponin I (0.000-0.034) ng/mL Assessment and Plan Plan: Assessment and plan #1 congestive heart failure, combination of systolic and diastolic, acute on chronic. #2 acute on chronic kidney disease stage IV #3 severe pulmonary hypertension #4 diabetes #5 hypertension #6 anemia of chronic disease #7 severe aortic stenosis status post aortic valve replacement #8 coronary artery disease with prior bypass surgery #9 hyperlipidemia #10 hypothyroidism Plan From cardiology's perspective, we'll recommend to continue current dose of IV Lasix, continue to monitor intake and output along with daily weights and daily lytes BUN and creatinine. DNP note has been reviewed, I agree with a documented findings and plan of care. Patient was seen and examined.
[2019-12-24 12:00] LABS: Glucose,Whole Blood 145 mg/dL (75-99)
[2019-12-24 16:49] LABS: Glucose,Whole Blood 206 mg/dL (75-99)
[2019-12-24 17:52] LABS: % Iron Saturation 11.5 (12.00-45.00)
[2019-12-24 18:00] LABS: Ferritin 29.4 ng/mL (10.0-291.0)
[2019-12-24 20:45] LABS: Glucose,Whole Blood 188 mg/dL (75-99)
[2019-12-25 06:07] LABS: Glucose,Whole Blood 142 mg/dL (75-99)
[2019-12-25] MEDS: LEVOTHYROXINE 112 MCG TAB PO SCH (06:12)
[2019-12-25] MEDS: INSULIN DETEMIR (LEVEMIR) 100 UNIT/ML SYR SQ SCH (06:13)
[2019-12-25 07:50] LABS: Calcium 8.7 mg/dL (8.4-10.2); Magnesium 2.4 mg/dL (1.6-2.3); Potassium 4.2 mmol/L (3.5-5.1)
[2019-12-25] MEDS: ALLOPURINOL 100 MG TAB PO SCH (10:08)
[2019-12-25] MEDS: ISOSORBIDE MONONITRATE ER 60 MG TAB.ER.24H PO SCH (10:08)
[2019-12-25] MEDS: FENOFIBRATE 54 MG TAB PO SCH (10:08)
[2019-12-25] MEDS: CHOLECALCIFEROL 1,000 UNIT TAB PO SCH (10:09)
[2019-12-25] MEDS: METOLAZONE 5 MG TAB PO SCH ×2 (10:09→12:57)
[2019-12-25] MEDS: NITROGLYCERIN OINT 1 INCH/GM PACKET TOPICAL SCH ×4 (10:09→21:15)
[2019-12-25] MEDS: METOPROLOL SUCCINATE (ER) 50 MG TAB.ER.24H PO SCH ×2 (10:09→21:05)
[2019-12-25] MEDS: ASPIRIN 81 MG PO SCH (10:09)
[2019-12-25] MEDS: FAMOTIDINE 20 MG TAB PO SCH (10:09)
[2019-12-25] MEDS: hydrALAZINE HCL 50 MG TAB PO SCH ×4 (10:09→21:05)
[2019-12-25] MEDS: FUROSEMIDE 10 MG/ML 4 ML VIAL IV SCH ×2 (10:10→21:05)
--- NOTE | 2019-12-25 10:45 | P.PN ---
Subjective this is a pleasant 74 years old female with past medical history of heart failure, atrial fibrillation status post pacemaker, coronary artery disease, diabetes mellitus, hypertension, hyperlipidemia, osteoarthritis, hypothyroidism, GI bleed, CKD stage III, she follows up with Dr. Galvan color specialist and Dr. Reynolds for her kidney disease. Presents because of worsening dyspnea over one month, about that time she was discharged from the hospital for acute CHF exacerbation as well. Also she complained from leg swelling and increased weight. No chest pain or abdominal pain, no nausea vomiting. Also she is coughing and have some atrial flutter She denies smoking alcohol or illicit drugs vitals are stable and she is saturating 96% to 97% on 2 L oxygen via nasal cannula, troponin is elevated at 0.669 and proBNP is elevated at 7910. 12/24/2019 Patient is slightly improving she still feeling dyspnea with no chest pain, she still have some coughing. no fever and she is saturating 95% in 2 L oxygen, she presents rate of 16-18/m, she is afebrile. CBC and BMP is stable, creatinine 2.3 and BUN is 106. She is currently on Lasix 40 mg IV twice daily, also she is on torsemide 40 mg twice daily Cardiology and nephrology consult 12/25/2019 Patient is fully awake and oriented. Her dyspnea is significantly improved although she is little bit still short of breath, leg swelling is improving but not resolved completely. She still have some basal crepitation. Hemodynamically she is a stable period and labs are stable, creatinine went up s lightly 2.3 up to 2.7, sugars controlled. Nephrology on the case. She is currently on Lasix 60 mg twice daily and metolazone 5 mg daily with fluid restriction 1200 per day. She has good urine output yesterday more than 2 L. She saturating 96% on 2 L oxygen via nasal cannula. TSH is within normal limits at 1.7. Physical therapy: Pending Objective - Vital Signs Vital signs: Vital Signs Temp 97.6 F 12/25/19 03:35 Pulse 64 12/25/19 03:35 Resp 18 12/25/19 03:35 BP 138/62 12/25/19 03:35 Pulse Ox 96 12/25/19 03:35 Intake & Output 12/24/19 12/25/19 12/25/19 18:59 06:59 18:59 Intake Total 370 Output Total 300 2300 Balance 70 -2300 Weight 87.3 kg 86 kg Intake: IV 10 0.9 10 Oral 360 Output: Urine 300 2300 - Exam GENERAL: The patient is alert and oriented x3, not in any acute distress. Well developed, well nourished. HEENT: Pupils are round and equally reacting to light. EOMI. No scleral icterus. No conjunctival pallor. Normocephalic, atraumatic. No pharyngeal erythema. No thyromegaly. CARDIOVASCULAR: S1 and S2 present. No murmurs, rubs, or gallops. PULMONARY: Chest is clear to auscultation, no wheezing bilateral basal crepitation ABDOMEN: Soft, nontender, nondistended, normoactive bowel sounds. No palpable organomegaly. MUSCULOSKELETAL: No joint swelling or deformity. EXTREMITIES: No cyanosis, clubbing,. Bilateral leg edema NEUROLOGICAL: Gross neurological examination did not reveal any focal deficits. SKIN: No rashes. no petechiae. - Labs CBC & Chem 7: 12/24/19 08:17 12/25/19 06:08 Labs: Abnormal Lab Results - Last 24 Hours (Table) 12/24/19 12/24/19 12/24/19 Range/Units 08:17 11:53 16:46 Sodium (137-145) mmol/L Chloride (98-107) mmol/L Carbon Dioxide (22-30) mmol/L BUN (7-17) mg/dL Creatinine (0.52-1.04) mg/dL Glucose (74-99) mg/dL POC Glucose (mg/dL) 145 H 206 H (75-99) mg/dL Magnesium (1.6-2.3) mg/dL TIBC 487 H (228-460) ug/dL % Saturation 11.50 L (12.00-45.00) 12/24/19 12/25/19 12/25/19 Range/Units 20:44 06:05 06:08 Sodium 135 L (137-145) mmol/L Chloride 92 L (98-107) mmol/L Carbon Dioxide 33 H (22-30) mmol/L BUN 116 H* (7-17) mg/dL Creatinine 2.76 H (0.52-1.04) mg/dL Glucose 123 H (74-99) mg/dL POC Glucose (mg/dL) 188 H 142 H (75-99) mg/dL Magnesium 2.4 H (1.6-2.3) mg/dL TIBC (228-460) ug/dL % Saturation (12.00-45.00) Assessment and Plan Assessment: acute on chronic heart failure atrial fibrillation,status post pacemaker. not on anticoagulation diabetes mellitus Hypertension Hyperlipidemia CTD, stage III Osteoarthritis Hypothyroidism History of GI bleed Plan: this is a pleasant 74 years old female who presents with CHF. Continue with diuretics. Cardiology consult. Monitor electrolytes, weight and kidney function Labs and medication were reviewed.. Continue same treatment. Continue with symptomatic treatment. Resume home medication. Monitor lytes and vitals. DVT and GI prophylaxis. Further recommendations of the clinical course of the patient DVT prophylaxis: Subcutaneous heparin GI Prophylaxis: Pepcid PT/OT: Pending Prognosis is guarded
[2019-12-25 11:36] LABS: Glucose,Whole Blood 209 mg/dL (75-99)
--- NOTE | 2019-12-25 11:36 | ECHOF ---
Referral Reason:chf MEASUREMENTS -------- HEIGHT: 167.6 cm WEIGHT: 87.1 kg BP: 138/62 RVIDd: 3.5 cm (< 3.3) IVSd: 1.1 cm (0.6 - 1.1) LVIDd: 3.9 cm (3.9 - 5.3) LVPWd: 1.4 cm (0.6 - 1.1) IVSs: 1.7 cm LVIDs: 2.3 cm LVPWs: 1.9 cm LAESV Index (A-L): 31.01 ml/m MV EXCURSION: 14.056 mm (> 18.000) MV EF SLOPE: 54 mm/s (70 - 150) EPSS: 0.6 cm RAP: 5.00 mmHg RVSP: 47.69 mmHg FINDINGS -------- This was a technically difficult study with suboptimal apical views. The left ventricular size is normal. There is mild concentric left ventricular hypertrophy. Overa ll left ventricular systolic function is low-normal with, an EF between 50 - 55 %. Septal wall brittni on is delayed and consistent with prior cardiac surgery. The right ventricle is mildly enlarged. LA is midly dilated 29-33ml/m2. The right atrium was not well visualized. xx ml of Lumason was utilized for enhancement of images. Interatrial and interventricular septum intact. Normally functioning bioprosthetic valve. Mild mitral regurgitation is present. Moderate to severe tricuspid regurgitation present. There is moderate pulmonary hypertension. The right ventricular systolic pressure, as measured by Doppler, is 47.69mmHg. The pulmonic valve was not well visualized. The aortic root size is normal. IVC Not well visulized. There is no pericardial effusion. CONCLUSIONS -------- 1. This was a technically difficult study with suboptimal apical views. 2. The left ventricular size is normal. 3. There is mild concentric left ventricular hypertrophy. 4. Overall left ventricular systolic function is low-normal with, an EF between 50 - 55 %. 5. Septal wall motion is delayed and consistent with prior cardiac surgery. 6. The right ventricle is mildly enlarged. 7. LA is midly dilated 29-33ml/m2. 8. The right atrium was not well visualized. 9. xx ml of Lumason was utilized for enhancement of images. 10. Interatrial and interventricular septum intact. 11. Normally functioning bioprosthetic valve. 12. Mild mitral regurgitation is present. 13. Moderate to severe tricuspid regurgitation present. 14. There is moderate pulmonary hypertension. 15. The right ventricular systolic pressure, as measured by Doppler, is 47.69mmHg. 16. The pulmonic valve was not well visualized. 17. The aortic root size is normal. 18. IVC Not well visulized. 19. There is no pericardial effusion. [employer]KER: Althea Harmon RDCS
--- NOTE | 2019-12-25 12:22 | P.PN ---
Subjective Progress Note Date: 12/25/19 This is a 74-year-old female with history of coronary artery disease and prior bypass surgery, severe aortic stenosis,s/p AVR, chronic diastolic congestive heart failure, chronic renal insufficiency, sick sinus syndrome status post prior pacemaker who initially presented to the hospital with symptoms of pr ogressively worsening shortness of breath and bilateral lower extremity edema. She was initiated on IV Lasix and diuresed moderately well through the night last night, continues to have bilateral lower extremity edema, left greater than the right and decreased breath sounds bilaterally. Her echocardiogram with Doppler study has been performed but is yet pending. She did have a recent echo which showed an ejection fraction of 45-50% with fairly normally functioning bioprosthetic valve in the aortic position. There was severe pulmonary hypertension and mitral stenosis. Blood pressure 144/70 with a heart rate in the 60s, 95% on 2 L of oxygen. White blood cell count 8.1, hemoglobin 9.5, pl atelet count 373. Sodium 134, potassium 4.1, BUN 106, creatinine 2.3. Magnesium 2.4 today, TSH 1.7. 12/25/2019 Patient was seen and examined this morning, breathing is improving, continues to have peripheral edema. Creatinine today is 2.7. Her weight is down 1 kg. Spoke with nephrology this morning, recommendation is to continue current dose of IV Lasix. Objective - Vital Signs Vital signs: Vital Signs Temp 97.6 F 12/25/19 08:15 Pulse 67 12/25/19 08:15 Resp 18 12/25/19 08:15 BP 130/59 12/25/19 08:15 Pulse Ox 91 L 12/25/19 08:15 Intake & Output 12/24/19 12/25/19 12/25/19 18:59 06:59 18:59 Intake Total 370 Output Total 300 2300 Balance 70 -2300 Weight 87.3 kg 86 kg Intake: IV 10 0.9 10 Oral 360 Output: Urine 300 2300 - Exam PHYSICAL EXAMINATION: GENERAL: 74-year-old female patient in no acute distress at the time of my examination HEENT: Head is atraumatic, normocephalic. Pupils equal, round. Sclera anicteric. Conjunctiva are clear. Mucous membranes of the mouth are moist. Neck is supple. There is no elevated jugular venous pressure.No carotid bruit is heard. HEART EXAMINATION: Heart S1 and S2 systolic ejection murmur is heard in the aortic area CHEST EXAMINATION:'s reveal diminished air entry bilaterally ABDOMEN: Soft, nontender. Bowel sounds are heard. No organomegaly noted. EXTREMITIES: 2+ peripheral pulses with 1+ evidence of peripheral edema and no calf tenderness noted. NEUROLOGIC patient is awake, alert and oriented 3 . . - Labs CBC & Chem 7: 12/24/19 08:17 12/25/19 06:08 Labs: Abnormal Lab Results - Last 24 Hours (Table) 12/24/19 12/24/19 12/24/19 Range/Units 08:17 16:46 20:44 Sodium (137-145) mmol/L Chloride (98-107) mmol/L Carbon Dioxide (22-30) mmol/L BUN (7-17) mg/dL Creatinine (0.52-1.04) mg/dL Glucose (74-99) mg/dL POC Glucose (mg/dL) 206 H 188 H (75-99) mg/dL Magnesium (1.6-2.3) mg/dL TIBC 487 H (228-460) ug/dL % Saturation 11.50 L (12.00-45.00) 12/25/19 12/25/19 12/25/19 Range/Units 06:05 06:08 11:34 Sodium 135 L (137-145) mmol/L Chloride 92 L (98-107) mmol/L Carbon Dioxide 33 H (22-30) mmol/L BUN 116 H* (7-17) mg/dL Creatinine 2.76 H (0.52-1.04) mg/dL Glucose 123 H (74-99) mg/dL POC Glucose (mg/dL) 142 H 209 H (75-99) mg/dL Magnesium 2.4 H (1.6-2.3) mg/dL TIBC (228-460) ug/dL % Saturation (12.00-45.00) Assessment and Plan Plan: Assessment and plan #1 congestive heart failure, combination of systolic and diastolic, acute on chronic. #2 acute on chronic kidney disease stage IV #3 severe pulmonary hypertension #4 diabetes #5 hypertension #6 anemia of chronic disease #7 severe aortic stenosis status post aortic valve replacement #8 coronary artery disease with prior bypass surgery #9 hyperlipidemia #10 hypothyroidism Plan From cardiology's perspective, we'll recommend to continue current dose of IV Lasix, continue to monitor intake and output along with daily weights and daily lytes BUN and creatinine. DNP note has been reviewed, I agree with a documented findings and plan of care. Patient was seen and examined.
[2019-12-25] MEDS: METOLAZONE 2.5 MG TAB PO SCH (12:34)
[2019-12-25] MEDS: HEPARIN SODIUM,PORCINE 5,000 UNIT/ML 1 ML VIAL SQ SCH ×2 (12:34→21:14)
[2019-12-25 16:35] LABS: Glucose,Whole Blood 204 mg/dL (75-99)
--- NOTE | 2019-12-25 16:49 | P.PN ---
Subjective Patient is seen in follow for acute kidney injury on chronic kidney disease. Patient has chronic kidney disease stage IV with baseline creatinine in the range of 1.8-2. Renal function a little worse today which is due to diuresis. Urine output near 2 L in the last 24 hours. Edema improving. Vital signs are stable. General: The patient appeared well nourished and normally developed. HEENT: Head exam is unremarkable. Neck is without jugular venous distension. LUNGS: Lungs are clear to auscultation and percussion. Breath sounds decreased. HEART: Rate and Rhythm are regular. ABDOMEN: Soft, nontender. EXTREMITITES: 2+ edema. Objective - Vital Signs Vital signs: Vital Signs Temp 97.8 F 12/25/19 16:00 Pulse 67 12/25/19 16:00 Resp 18 12/25/19 16:00 BP 111/49 12/25/19 16:00 Pulse Ox 92 L 12/25/19 16:00 Intake & Output 12/24/19 12/25/19 12/25/19 18:59 06:59 18:59 Intake Total 370 240 Output Total 300 2300 250 Balance 70 -2300 -10 Weight 87.3 kg 86 kg Intake: IV 10 0.9 10 Oral 360 240 Output: Urine 300 2300 250 - Labs CBC & Chem 7: 12/24/19 08:17 12/25/19 06:08 Labs: Abnormal Lab Results - Last 24 Hours (Table) 12/24/19 12/24/19 12/24/19 Range/Units 08:17 16:46 20:44 Sodium (137-145) mmol/L Chloride (98-107) mmol/L Carbon Dioxide (22-30) mmol/L BUN (7-17) mg/dL Creatinine (0.52-1.04) mg/dL Glucose (74-99) mg/dL POC Glucose (mg/dL) 206 H 188 H (75-99) mg/dL Magnesium (1.6-2.3) mg/dL TIBC 487 H (228-460) ug/dL % Saturation 11.50 L (12.00-45.00) 12/25/19 12/25/19 12/25/19 Range/Units 06:05 06:08 11:34 Sodium 135 L (137-145) mmol/L Chloride 92 L (98-107) mmol/L Carbon Dioxide 33 H (22-30) mmol/L BUN 116 H* (7-17) mg/dL Creatinine 2.76 H (0.52-1.04) mg/dL Glucose 123 H (74-99) mg/dL POC Glucose (mg/dL) 142 H 209 H (75-99) mg/dL Magnesium 2.4 H (1.6-2.3) mg/dL TIBC (228-460) ug/dL % Saturation (12.00-45.00) 12/25/19 Range/Units 16:34 Sodium (137-145) mmol/L Chloride (98-107) mmol/L Carbon Dioxide (22-30) mmol/L BUN (7-17) mg/dL Creatinine (0.52-1.04) mg/dL Glucose (74-99) mg/dL POC Glucose (mg/dL) 204 H (75-99) mg/dL Magnesium (1.6-2.3) mg/dL TIBC (228-460) ug/dL % Saturation (12.00-45.00) Assessment and Plan Plan: Assessment: 1. Acute kidney injury mostly prerenal secondary to cardiorenal syndrome. Creatinine 2.34 on admission and is 2.76 today. Renal function little worse due to diuresis. 2. Chronic kidney disease stage IV secondary to nephrosclerosis and cardiorenal syndrome with baseline creatinine near 2. 3. Volume overload. 4. Acute on chronic diastolic CHF with moderate to severe tricuspid regurgitation and moderate pulmonary hypertension. 5. Severe pulmonary hypertension. 6. Hypokalemia secondary to diuresis. Better. 7. Insulin-dependent diabetes mellitus. 8. Anemia of chronic kidney disease. Iron deficiency noted. Plan: Maintain Lasix 60 mg IV twice daily. Patient refused metolazone yesterday but is willing to try 2.5 mg today. 1200 mL fluid restriction and low-salt diet. IV iron 3 doses. First dose today. Daily weights.
[2019-12-25] MEDS: SODIUM FERRIC GLUCONAT-SUCROSE 125 MG in SODIUM CHLORIDE 0.9% 100 ML IVPB SCH (18:47)
[2019-12-25 20:36] LABS: Glucose,Whole Blood 233 mg/dL (75-99)
[2019-12-26 06:20] LABS: Glucose,Whole Blood 147 mg/dL (75-99)
[2019-12-26] MEDS: INSULIN DETEMIR (LEVEMIR) 100 UNIT/ML SYR SQ SCH (06:44)
[2019-12-26] MEDS: LEVOTHYROXINE 112 MCG TAB PO SCH (06:44)
[2019-12-26 08:06] LABS: Calcium 8.6 mg/dL (8.4-10.2); Magnesium 2.5 mg/dL (1.6-2.3); Potassium 3.7 mmol/L (3.5-5.1)
[2019-12-26] MEDS: FAMOTIDINE 20 MG TAB PO SCH (09:00)
[2019-12-26] MEDS: ASPIRIN 81 MG PO SCH (09:00)
[2019-12-26] MEDS: CHOLECALCIFEROL 1,000 UNIT TAB PO SCH (09:00)
[2019-12-26] MEDS: hydrALAZINE HCL 50 MG TAB PO SCH ×4 (09:01→21:05)
[2019-12-26] MEDS: ALLOPURINOL 100 MG TAB PO SCH (09:01)
[2019-12-26] MEDS: METOLAZONE 2.5 MG TAB PO SCH (09:01)
[2019-12-26] MEDS: METOPROLOL SUCCINATE (ER) 50 MG TAB.ER.24H PO SCH ×2 (09:01→21:05)
[2019-12-26] MEDS: ISOSORBIDE MONONITRATE ER 60 MG TAB.ER.24H PO SCH (09:01)
[2019-12-26] MEDS: HEPARIN SODIUM,PORCINE 5,000 UNIT/ML 1 ML VIAL SQ SCH ×2 (09:01→21:06)
[2019-12-26] MEDS: FENOFIBRATE 54 MG TAB PO SCH (09:01)
[2019-12-26] MEDS: FUROSEMIDE 10 MG/ML 4 ML VIAL IV SCH (09:02)
[2019-12-26] MEDS: NITROGLYCERIN OINT 1 INCH/GM PACKET TOPICAL SCH ×4 (09:02→21:05)
[2019-12-26] MEDS: SODIUM FERRIC GLUCONAT-SUCROSE 125 MG in SODIUM CHLORIDE 0.9% 100 ML IVPB SCH (09:14)
--- NOTE | 2019-12-26 09:16 | P.PN ---
Subjective this is a pleasant 74 years old female with past medical history of heart failure, atrial fibrillation status post pacemaker, coronary artery disease, diabetes mellitus, hypertension, hyperlipidemia, osteoarthritis, hypothyroidism, GI bleed, CKD stage III, she follows up with Dr. Galvan social work program coordinator and Dr. Reynolds for her kidney disease. Presents because of worsening dyspnea over one month, about that time she was discharged from the hospital for acute CHF exacerbation as well. Also she complained from leg swelling and increased weight. No chest pain or abdominal pain, no nausea vomiting. Also she is coughing and have some atrial flutter She denies smoking alcohol or illicit drugs vitals are stable and she is saturating 96% to 97% on 2 L oxygen via nasal cannula, troponin is elevated at 0.669 and proBNP is elevated at 7910. 12/24/2019 Patient is slightly improving she still feeling dyspnea with no chest pain, she still have some coughing. no fever and she is saturating 95% in 2 L oxygen, she presents rate of 16-18/m, she is afebrile. CBC and BMP is stable, creatinine 2.3 and BUN is 106. She is currently on Lasix 40 mg IV twice daily, also she is on torsemide 40 mg twice daily Cardiology and nephrology consult 12/25/2019 Patient is fully awake and oriented. Her dyspnea is significantly improved although she is little bit still short of breath, leg swelling is improving but not resolved completely. She still have some basal crepitation. Hemodynamically she is a stable period and labs are stable, creatinine went up s lightly 2.3 up to 2.7, sugars controlled. Nephrology on the case. She is currently on Lasix 60 mg twice daily and metolazone 5 mg daily with fluid restriction 1200 per day. She has good urine output yesterday more than 2 L. She saturating 96% on 2 L oxygen via nasal cannula. TSH is within normal limits at 1.7. Physical therapy: Pending 12/26/2019 Patient with no dyspnea, she still have some leg swelling but is improving. She is walking to the restroom [id number] with no difficulty or exertional dyspnea. No chest pain or coughing. Patient herself thinks she can go home today. Her vitals are stable. Her creatinine is slightly worse at 3.3, knees and 2.5, yesterday she has a negative villous about 1.8 L. Patient remains on Lasix 60 mg twice daily and metolazone and fluid restriction. Objective - Vital Signs Vital signs: Vital Signs Temp 97.2 F L 12/26/19 04:00 Pulse 62 12/26/19 04:00 Resp 18 12/26/19 04:00 BP 133/60 12/26/19 04:00 Pulse Ox 97 12/26/19 04:00 Intake & Output 12/25/19 12/26/19 12/26/19 18:59 06:59 18:59 Intake Total 480 300 240 Output Total 250 240 Balance 230 60 240 Weight 87.815 kg Intake: Oral 480 300 240 Output: Urine 250 240 Other: Voiding Method Toilet Bedside Commode - Exam GENERAL: The patient is alert and oriented x3, not in any acute distress. Well developed, well nourished. HEENT: Pupils are round and equally reacting to light. EOMI. No scleral icterus. No conjunctival pallor. Normocephalic, atraumatic. No pharyngeal erythema. No thyromegaly. CARDIOVASCULAR: S1 and S2 present. No murmurs, rubs, or gallops. PULMONARY: Chest is clear to auscultation, no wheezing bilateral basal crepitation ABDOMEN: Soft, nontender, nondistended, normoactive bowel sounds. No palpable organomegaly. MUSCULOSKELETAL: No joint swelling or deformity. EXTREMITIES: No cyanosis, clubbing,. Bilateral leg edema NEUROLOGICAL: Gross neurological examination did not reveal any focal deficits. SKIN: No rashes. no petechiae. - Labs CBC & Chem 7: 12/24/19 08:17 12/26/19 06:33 Labs: Abnormal Lab Results - Last 24 Hours (Table) 12/25/19 12/25/19 12/25/19 Range/Units 11:34 16:34 20:35 Sodium (137-145) mmol/L Chloride (98-107) mmol/L Carbon Dioxide (22-30) mmol/L BUN (7-17) mg/dL Creatinine (0.52-1.04) mg/dL Glucose (74-99) mg/dL POC Glucose (mg/dL) 209 H 204 H 233 H (75-99) mg/dL Magnesium (1.6-2.3) mg/dL 06/25/20 06/25/20 Range/Units 06:19 06:33 Sodium 135 L (137-145) mmol/L Chloride 93 L (98-107) mmol/L Carbon Dioxide 33 H (22-30) mmol/L BUN 115 H* (7-17) mg/dL Creatinine 3.37 H (0.52-1.04) mg/dL Glucose 135 H (74-99) mg/dL POC Glucose (mg/dL) 147 H (75-99) mg/dL Magnesium 2.5 H (1.6-2.3) mg/dL Assessment and Plan Assessment: acute on chronic heart failure atrial fibrillation,status post pacemaker. not on anticoagulation diabetes mellitus Hypertension Hyperlipidemia CTD, stage III Osteoarthritis Hypothyroidism History of GI bleed Plan: this is a pleasant 74 years old female who presents with CHF. Continue with diuretics. Cardiology consult. Monitor electrolytes, weight and kidney function Labs and medication were reviewed.. Continue same treatment. Continue with s ymptomatic treatment. Resume home medication. Monitor lytes and vitals. DVT and GI prophylaxis. Further recommendations of the clinical course of the patient DVT prophylaxis: Subcutaneous heparin GI Prophylaxis: Pepcid PT/OT: Pending Prognosis is guarded
--- NOTE | 2019-12-26 10:18 | P.PN ---
Subjective Patient is seen in follow for acute kidney injury on chronic kidney disease. Patient has chronic kidney disease stage IV with baseline creatinine in the range of 1.8-2. Renal function continues to worsen. Creatinine 3.37 today. Remains edematous. Urine output 2.6 L in the last 24 hours. Vital signs are stable. General: The patient appeared well nourished and normally developed. HEENT: Head exam is unremarkable. Neck is without jugular venous distension. LUNGS: Lungs are clear to auscultation and percussion. Breath sounds decreased. HEART: Rate and Rhythm are regular. ABDOMEN: Soft, nontender. EXTREMITITES: 2+ edema. Objective - Vital Signs Vital signs: Vital Signs Temp 97.6 F 12/26/19 08:00 Pulse 63 12/26/19 08:00 Resp 16 12/26/19 08:00 BP 116/50 12/26/19 08:00 Pulse Ox 97 12/26/19 08:00 Intake & Output 12/25/19 12/26/19 12/26/19 18:59 06:59 18:59 Intake Total 480 300 240 Output Total 250 240 200 Balance 230 60 40 Weight 87.815 kg Intake: Oral 480 300 240 Output: Urine 250 240 200 Other: Voiding Method Toilet Toilet Bedside Commode Bedside Commode - Labs CBC & Chem 7: 12/24/19 08:17 12/26/19 06:33 Labs: Abnormal Lab Results - Last 24 Hours (Table) 12/25/19 12/25/19 12/25/19 Range/Units 11:34 16:34 20:35 Sodium (137-145) mmol/L Chloride (98-107) mmol/L Carbon Dioxide (22-30) mmol/L BUN (7-17) mg/dL Creatinine (0.52-1.04) mg/dL Glucose (74-99) mg/dL POC Glucose (mg/dL) 209 H 204 H 233 H (75-99) mg/dL Magnesium (1.6-2.3) mg/dL 12/26/19 12/26/19 Range/Units 06:19 06:33 Sodium 135 L (137-145) mmol/L Chloride 93 L (98-107) mmol/L Carbon Dioxide 33 H (22-30) mmol/L BUN 115 H* (7-17) mg/dL Creatinine 3.37 H (0.52-1.04) mg/dL Glucose 135 H (74-99) mg/dL POC Glucose (mg/dL) 147 H (75-99) mg/dL Magnesium 2.5 H (1.6-2.3) mg/dL Assessment and Plan Plan: Assessment: 1. Acute kidney injury mostly prerenal secondary to cardiorenal syndrome. Creatinine 2.34 on admission and is 3.37 today. 2. Chronic kidney disease stage IV secondary to nephrosclerosis and cardiorenal syndrome with baseline creatinine near 2. 3. Volume overload. 4. Acute on chronic diastolic CHF with moderate to severe tricuspid regurgitation and moderate pulmonary hypertension. 5. Severe pulmonary hypertension. 6. Hypokalemia secondary to diuresis. Better. 7. Insulin-dependent diabetes mellitus. 8. Anemia of chronic kidney disease. Iron deficiency noted. Plan: Stop IV push Lasix. Start Lasix drip at 10 mL an hour. Maintain metolazone. 1200 mL fluid restriction and low-salt diet. IV iron 3 doses. Second dose today. Daily weights. I did discuss with patient the potential need to start renal replacement therapy at this admission if no improvement in renal function and volume status. Patient is reluctant but will think about it.
[2019-12-26 11:37] LABS: Glucose,Whole Blood 170 mg/dL (75-99)
[2019-12-26] MEDS: FUROSEMIDE 100 MG in SODIUM CHLORIDE 0.9% 90 ML IV SCH ×2 (11:59→21:06)
--- NOTE | 2019-12-26 12:18 | P.PN ---
Subjective Progress Note Date: 12/26/19 This is a 74-year-old female with history of coronary artery disease and prior bypass surgery, severe aortic stenosis,s/p AVR, chronic diastolic congestive heart failure, chronic renal insufficiency, sick sinus syndrome status post prior pacemaker who initially presented to the hospital with symptoms of pr ogressively worsening shortness of breath and bilateral lower extremity edema. She was initiated on IV Lasix and diuresed moderately well through the night last night, continues to have bilateral lower extremity edema, left greater than the right and decreased breath sounds bilaterally. Her echocardiogram with Doppler study has been performed but is yet pending. She did have a recent echo which showed an ejection fraction of 45-50% with fairly normally functioning bioprosthetic valve in the aortic position. There was severe pulmonary hypertension and mitral stenosis. Blood pressure 144/70 with a heart rate in the 60s, 95% on 2 L of oxygen. White blood cell count 8.1, hemoglobin 9.5, pl atelet count 373. Sodium 134, potassium 4.1, BUN 106, creatinine 2.3. Magnesium 2.4 today, TSH 1.7. 12/25/2019 Patient was seen and examined this morning, breathing is improving, continues to have peripheral edema. Creatinine today is 2.7. Her weight is down 1 kg. Spoke with nephrology this morning, recommendation is to continue current dose of IV Lasix. 12/26/2019 Patient was seen and examined this morning, sitting up in the chair at bedside, she continues to have significant bilateral lower extremity edema but her lungs today are clear. She also has persistent swelling in the left hand. IV push Lasix was discontinued today by nephrology and the patient was started on a Lasix drip at 10 mg per hour, we're also continuing the metolazone at this time. She will receive IV iron 3 doses. Blood pressure 116/50 with a heart rate of 60, 97% on 2 L of oxygen. Sodium 135, potassium 3.7, BUN 1:15, creatinine 3.3, magnesium 2.5 Objective - Vital Signs Vital signs: Vital Signs Temp 97.6 F 12/26/19 08:00 Pulse 63 12/26/19 08:00 Resp 16 12/26/19 08:00 BP 116/50 12/26/19 08:00 Pulse Ox 97 12/26/19 08:00 Intake & Output 12/25/19 12/26/19 12/26/19 18:59 06:59 18:59 Intake Total 480 300 240 Output Total 250 240 400 Balance 230 60 -160 Weight 87.815 kg Intake: Oral 480 300 240 Output: Urine 250 240 400 Other: Voiding Method Toilet Toilet Bedside Commode Bedside Commode - Exam PHYSICAL EXAMINATION: GENERAL: 74-year-old female patient in no acute distress at the time of my examination HEENT: Head is atraumatic, normocephalic. Pupils equal, round. Sclera anicteric. Conjunctiva are clear. Mucous membranes of the mouth are moist. Neck is supple. There is no elevated jugular venous pressure.No carotid bruit is heard. HEART EXAMINATION: Heart S1 and S2 systolic ejection murmur is heard in the ao rtic area CHEST EXAMINATION: Lungs are clear to auscultation ABDOMEN: Soft, nontender. Bowel sounds are heard. No organomegaly noted. EXTREMITIES: 2+ peripheral pulses with 2+ evidence of peripheral edema and no calf tenderness noted. Significant swelling of the left hand also noted. NEUROLOGIC patient is awake, alert and oriented 3 . . - Labs CBC & Chem 7: 12/24/19 08:17 12/26/19 06:33 Labs: Abnormal Lab Results - Last 24 Hours (Table) 12/25/19 12/25/19 12/26/19 Range/Units 16:34 20:35 06:19 Sodium (137-145) mmol/L Chloride (98-107) mmol/L Carbon Dioxide (22-30) mmol/L BUN (7-17) mg/dL Creatinine (0.52-1.04) mg/dL Glucose (74-99) mg/dL POC Glucose (mg/dL) 204 H 233 H 147 H (75-99) mg/dL Magnesium (1.6-2.3) mg/dL 12/26/19 12/26/19 Range/Units 06:33 11:35 Sodium 135 L (137-145) mmol/L Chloride 93 L (98-107) mmol/L Carbon Dioxide 33 H (22-30) mmol/L BUN 115 H* (7-17) mg/dL Creatinine 3.37 H (0.52-1.04) mg/dL Glucose 135 H (74-99) mg/dL POC Glucose (mg/dL) 170 H (75-99) mg/dL Magnesium 2.5 H (1.6-2.3) mg/dL Assessment and Plan Plan: Assessment and plan #1 congestive heart failure, combination of systolic and diastolic, acute on chronic. #2 acute on chronic kidney disease stage IV #3 severe pulmonary hypertension #4 diabetes #5 hypertension #6 anemia of chronic disease #7 severe aortic stenosis status post aortic valve replacement #8 coronary artery disease with prior bypass surgery #9 hyperlipidemia #10 hypothyroidism Plan From cardiology's perspective, IV Lasix was discontinued today by nephrology and patient was initiated on an IV Lasix drip. We will continue to monitor the patient's intake and output along with daily weights.Daily BMP. DNP note has been reviewed, I agree with a documented findings and plan of care. Patient was seen and examined.
[2019-12-26 16:52] LABS: Glucose,Whole Blood 188 mg/dL (75-99)
[2019-12-26 20:08] LABS: Glucose,Whole Blood 185 mg/dL (75-99)
[2019-12-27 06:08] LABS: Glucose,Whole Blood 142 mg/dL (75-99)
[2019-12-27] MEDS: LEVOTHYROXINE 112 MCG TAB PO SCH (07:08)
[2019-12-27] MEDS: FUROSEMIDE 100 MG in SODIUM CHLORIDE 0.9% 90 ML IV SCH ×4 (07:08→21:06)
[2019-12-27 07:15] LABS: Glucose,Whole Blood 127 mg/dL (75-99)
[2019-12-27 07:49] LABS: Albumin 3.2 g/dL (3.5-5.0); Calcium 8.7 mg/dL (8.4-10.2); Magnesium 2.5 mg/dL (1.6-2.3); Potassium 4.1 mmol/L (3.5-5.1); Total Bilirubin 0.5 mg/dL (0.2-1.3); Total Protein 6.4 g/dL (6.3-8.2)
--- NOTE | 2019-12-27 08:18 | P.PN ---
Subjective this is a pleasant 74 years old female with past medical history of heart failure, atrial fibrillation status post pacemaker, coronary artery disease, diabetes mellitus, hypertension, hyperlipidemia, osteoarthritis, hypothyroidism, GI bleed, CKD stage III, she follows up with Dr. Galvan administrative dietitian and Dr. Reynolds for her kidney disease. Presents because of worsening dyspnea over one month, about that time she was discharged from the hospital for acute CHF exacerbation as well. Also she complained from leg swelling and increased weight. No chest pain or abdominal pain, no nausea vomiting. Also she is coughing and have some atrial flutter She denies smoking alcohol or illicit drugs vitals are stable and she is saturating 96% to 97% on 2 L oxygen via nasal cannula, troponin is elevated at 0.669 and proBNP is elevated at 7910. 12/24/2019 Patient is slightly improving she still feeling dyspnea with no chest pain, she still have some coughing. no fever and she is saturating 95% in 2 L oxygen, she presents rate of 16-18/m, she is afebrile. CBC and BMP is stable, creatinine 2.3 and BUN is 106. She is currently on Lasix 40 mg IV twice daily, also she is on torsemide 40 mg twice daily Cardiology and nephrology consult 12/25/2019 Patient is fully awake and oriented. Her dyspnea is significantly improved although she is little bit still short of breath, leg swelling is improving but not resolved completely. She still have some basal crepitation. Hemodynamically she is a stable period and labs are stable, creatinine went up s lightly 2.3 up to 2.7, sugars controlled. Nephrology on the case. She is currently on Lasix 60 mg twice daily and metolazone 5 mg daily with fluid restriction 1200 per day. She has good urine output yesterday more than 2 L. She saturating 96% on 2 L oxygen via nasal cannula. TSH is within normal limits at 1.7. Physical therapy: Pending 12/26/2019 Patient with no dyspnea, she still have some leg swelling but is improving. She is walking to the restroom [id number] with no difficulty or exertional dyspnea. No chest pain or coughing. Patient herself thinks she can go home today. Her vitals are stable. Her creatinine is slightly worse at 3.3, knees and 2.5, yesterday she has a negative villous about 1.8 L. Patient remains on Lasix 60 mg twice daily and metolazone and fluid restriction. 12/27/2019 Patient awake, she is breathing quietly. No basal crepitation. Patient has orthopnea when she lies down she has breathing difficulty. However she still have significant leg swelling Yesterday she was started on Lasix drip. Her creatinine is stable since yesterday at 3.4. She weights this morning 88 kg compared to 87 kg 3 days ago, yesterday has negative pollens about 350 mL per records Continue with Lasix drip for now Objective - Vital Signs Vital signs: Vital Signs Temp 97.9 F 12/27/19 04:00 Pulse 61 12/27/19 04:00 Resp 17 12/27/19 04:00 BP 111/53 12/27/19 04:00 Pulse Ox 97 12/27/19 04:00 Intake & Output 12/26/19 12/27/19 12/27/19 18:59 06:59 18:59 Intake Total 240 91.167 100 Output Total 600 500 Balance -360 -408.833 100 Weight 81.3 kg 88.36 kg Intake: Intake, IV Titration 91.167 100 Amount Furosemide 100 mg In 91.167 100 Sodium Chloride 0.9% 90 ml @ 10 MG/HR 10 mls/hr IV .Q10H [facility] Rx#: [id number] Oral 240 Output: Urine 600 500 Other: Voiding Method Toilet Toilet Bedside Commode # Voids 2 # Bowel Movements 1 - Exam GENERAL: The patient is alert and oriented x3, not in any acute distress. Well developed, well nourished. HEENT: Pupils are round and equally reacting to light. EOMI. No scleral icterus. No conjunctival pallor. Normocephalic, atraumatic. No pharyngeal erythema. No thyromegaly. CARDIOVASCULAR: S1 and S2 present. No murmurs, rubs, or gallops. PULMONARY: Chest is clear to auscultation, no wheezing bilateral basal crepitation ABDOMEN: Soft, nontender, nondistended, normoactive bowel sounds. No palpable organomegaly. MUSCULOSKELETAL: No joint swelling or deformity. EXTREMITIES: No cyanosis, clubbing,. Bilateral leg edema NEUROLOGICAL: Gross neurological examination did not reveal any focal deficits. SKIN: No rashes. no petechiae. - Labs CBC & Chem 7: 06/23/20 08:17 12/27/19 06:59 Labs: Abnormal Lab Results - Last 24 Hours (Table) 12/26/19 12/26/19 12/26/19 Range/Units 06:33 11:35 16:51 Sodium 135 L (137-145) mmol/L Chloride 93 L (98-107) mmol/L Carbon Dioxide 33 H (22-30) mmol/L BUN 115 H* (7-17) mg/dL Creatinine 3.37 H (0.52-1.04) mg/dL Glucose 135 H (74-99) mg/dL POC Glucose (mg/dL) 170 H 188 H (75-99) mg/dL Magnesium 2.5 H (1.6-2.3) mg/dL Albumin (3.5-5.0) g/dL 12/26/19 12/27/19 12/27/19 Range/Units 20:07 06:06 06:59 Sodium 135 L (137-145) mmol/L Chloride 92 L (98-107) mmol/L Carbon Dioxide 31 H (22-30) mmol/L BUN 119 H* (7-17) mg/dL Creatinine 3.42 H (0.52-1.04) mg/dL Glucose 120 H (74-99) mg/dL POC Glucose (mg/dL) 185 H 142 H (75-99) mg/dL Magnesium 2.5 H (1.6-2.3) mg/dL Albumin 3.2 L (3.5-5.0) g/dL 12/27/19 Range/Units 07:10 Sodium (137-145) mmol/L Chloride (98-107) mmol/L Carbon Dioxide (22-30) mmol/L BUN (7-17) mg/dL Creatinine (0.52-1.04) mg/dL Glucose (74-99) mg/dL POC Glucose (mg/dL) 127 H (75-99) mg/dL Magnesium (1.6-2.3) mg/dL Albumin (3.5-5.0) g/dL Assessment and Plan Assessment: acute on chronic heart failure atrial fibrillation,status post pacemaker. not on anticoagulation diabetes mellitus Hypertension Hyperlipidemia CTD, stage III Osteoarthritis Hypothyroidism History of GI bleed Plan: this is a pleasant 74 years old female who presents with CHF. Continue with diuretics. Cardiology consult. Monitor electrolytes, weight and kidney function Labs and medication were reviewed.. Continue same treatment. Continue with symptomatic treatment. Resume home medication. Monitor lytes and vitals. DVT and GI prophylaxis. Further recommendations of the clinical course of the adela ent DVT prophylaxis: Subcutaneous heparin GI Prophylaxis: Pepcid PT/OT: Pending Prognosis is guarded
[2019-12-27] MEDS: INSULIN DETEMIR (LEVEMIR) 100 UNIT/ML SYR SQ SCH (08:26)
[2019-12-27] MEDS: CHOLECALCIFEROL 1,000 UNIT TAB PO SCH (08:27)
[2019-12-27] MEDS: FAMOTIDINE 20 MG TAB PO SCH (08:27)
[2019-12-27] MEDS: hydrALAZINE HCL 50 MG TAB PO SCH ×4 (08:27→20:49)
[2019-12-27] MEDS: METOPROLOL SUCCINATE (ER) 50 MG TAB.ER.24H PO SCH ×2 (08:27→20:50)
[2019-12-27] MEDS: METOLAZONE 2.5 MG TAB PO SCH (08:27)
[2019-12-27] MEDS: FENOFIBRATE 54 MG TAB PO SCH (08:27)
[2019-12-27] MEDS: ISOSORBIDE MONONITRATE ER 60 MG TAB.ER.24H PO SCH (08:27)
[2019-12-27] MEDS: ALLOPURINOL 100 MG TAB PO SCH (08:27)
[2019-12-27] MEDS: ASPIRIN 81 MG PO SCH (08:28)
[2019-12-27] MEDS: HEPARIN SODIUM,PORCINE 5,000 UNIT/ML 1 ML VIAL SQ SCH ×2 (08:28→20:49)
[2019-12-27] MEDS: ATORVASTATIN 20 MG TAB PO SCH (08:28)
[2019-12-27] MEDS: NITROGLYCERIN OINT 1 INCH/GM PACKET TOPICAL SCH ×4 (08:28→20:50)
[2019-12-27] MEDS: SODIUM FERRIC GLUCONAT-SUCROSE 125 MG in SODIUM CHLORIDE 0.9% 100 ML IVPB SCH (09:11)
--- NOTE | 2019-12-27 10:01 | P.PN ---
Subjective Patient is seen in follow for acute kidney injury on chronic kidney disease. Patient has chronic kidney disease stage IV with baseline creatinine in the range of 1.8-2. Renal function is fairly stable. Remains edematous. Also complains of shortness of breath. Vital signs are stable. General: The patient appeared well nourished and normally developed. HEENT: Head exam is unremarkable. Neck is without jugular venous distension. LUNGS: Lungs are clear to auscultation and percussion. Breath sounds decreased. HEART: Rate and Rhythm are regular. ABDOMEN: Soft, nontender. EXTREMITITES: 2+ edema. Objective - Vital Signs Vital signs: Vital Signs Temp 97.9 F 12/27/19 08:00 Pulse 61 12/27/19 08:00 Resp 17 12/27/19 08:00 BP 139/61 12/27/19 08:00 Pulse Ox 95 12/27/19 08:00 Intake & Output 12/26/19 12/27/19 12/27/19 18:59 06:59 18:59 Intake Total 240 91.167 100 Output Total 600 500 Balance -360 -408.833 100 Weight 81.3 kg 88.36 kg Intake: Intake, IV Titration 91.167 100 Amount Furosemide 100 mg In 91.167 100 Sodium Chloride 0.9% 90 ml @ 10 MG/HR 10 mls/hr IV .Q10H [facility] Rx#: [id number] Oral 240 Output: Urine 600 500 Other: Voiding Method Toilet Toilet Toilet Bedside Commode # Voids 2 # Bowel Movements 1 - Labs CBC & Chem 7: 12/24/19 08:17 12/27/19 06:59 Labs: Abnormal Lab Results - Last 24 Hours (Table) 12/26/19 12/26/19 12/26/19 Range/Units 11:35 16:51 20:07 Sodium (137-145) mmol/L Chloride (98-107) mmol/L Carbon Dioxide (22-30) mmol/L BUN (7-17) mg/dL Creatinine (0.52-1.04) mg/dL Glucose (74-99) mg/dL POC Glucose (mg/dL) 170 H 188 H 185 H (75-99) mg/dL Magnesium (1.6-2.3) mg/dL Albumin (3.5-5.0) g/dL 12/27/19 12/27/19 12/27/19 Range/Units 06:06 06:59 07:10 Sodium 135 L (137-145) mmol/L Chloride 92 L (98-107) mmol/L Carbon Dioxide 31 H (22-30) mmol/L BUN 119 H* (7-17) mg/dL Creatinine 3.42 H (0.52-1.04) mg/dL Glucose 120 H (74-99) mg/dL POC Glucose (mg/dL) 142 H 127 H (75-99) mg/dL Magnesium 2.5 H (1.6-2.3) mg/dL Albumin 3.2 L (3.5-5.0) g/dL Assessment and Plan Plan: Assessment: 1. Acute kidney injury mostly prerenal secondary to cardiorenal syndrome. Creatinine 2.34 on admission - fairly stable at 3.42 today. 2. Chronic kidney disease stage IV secondary to nephrosclerosis and cardiorenal syndrome with baseline creatinine near 2. 3. Volume overload. 4. Acute on chronic diastolic CHF with moderate to severe tricuspid regurgitation and moderate pulmonary hypertension. 5. Severe pulmonary hypertension. 6. Hypokalemia secondary to diuresis. Better. 7. Insulin-dependent diabetes mellitus. 8. Anemia of chronic kidney disease. Iron deficiency noted. Plan: Increase Lasix drip to 15 mL an hour. Maintain metolazone. 1200 mL fluid restriction and low-salt diet. IV iron 3 doses. Third dose today. Daily weights. I did discuss with patient the potential need to start renal replacement therapy at this admission if no improvement in renal function and volume status. She is agreeable now. Consult vascular surgery for dialysis catheter placement. Plan for first treatment of hemodialysis tomorrow. Check chest x-ray. franchise manager to help facilitate outpatient hemodialysis set up.
--- NOTE | 2019-12-27 10:24 | XR ---
EXAMINATION TYPE: XR chest 1V DATE OF EXAM: 12/27/2019 COMPARISON: 11/25/2019 INDICATION: Short of breath TECHNIQUE: Single frontal view of the chest is obtained. FINDINGS: The heart size is moderately prominent. The pulmonary vasculature is slightly prominent. Small right pleural effusion is present. There is thickening along the minor fissure on the right whi ch may be related to fluid. Left lower lobe infiltrate is present. Left diaphragm is not well visuali zed. Some minimal left pleural effusion is present. Pacemaker overlies left chest. Sternotomy wires are present from prior cardiac valve surgery. IMPRESSION: 1. Clinical correlation recommended for congestive heart failure. 2. Bilateral pleural effusions, greater on the right
--- NOTE | 2019-12-27 11:03 | P.PN ---
Subjective Progress Note Date: 12/27/19 This is a 74-year-old female with history of coronary artery disease and prior bypass surgery, severe aortic stenosis,s/p AVR, chronic diastolic congestive heart failure, chronic renal insufficiency, sick sinus syndrome status post prior pacemaker who initially presented to the hospital with symptoms of pr ogressively worsening shortness of breath and bilateral lower extremity edema. She was initiated on IV Lasix and diuresed moderately well through the night last night, continues to have bilateral lower extremity edema, left greater than the right and decreased breath sounds bilaterally. Her echocardiogram with Doppler study has been performed but is yet pending. She did have a recent echo which showed an ejection fraction of 45-50% with fairly normally functioning bioprosthetic valve in the aortic position. There was severe pulmonary hypertension and mitral stenosis. Blood pressure 144/70 with a heart rate in the 60s, 95% on 2 L of oxygen. White blood cell count 8.1, hemoglobin 9.5, pl atelet count 373. Sodium 134, potassium 4.1, BUN 106, creatinine 2.3. Magnesium 2.4 today, TSH 1.7. 12/25/2019 Patient was seen and examined this morning, breathing is improving, continues to have peripheral edema. Creatinine today is 2.7. Her weight is down 1 kg. Spoke with nephrology this morning, recommendation is to continue current dose of IV Lasix. 12/26/2019 Patient was seen and examined this morning, sitting up in the chair at bedside, she continues to have significant bilateral lower extremity edema but her lungs today are clear. She also has persistent swelling in the left hand. IV push Lasix was discontinued today by nephrology and the patient was started on a Lasix drip at 10 mg per hour, we're also continuing the metolazone at this time. She will receive IV iron 3 doses. Blood pressure 116/50 with a heart rate of 60, 97% on 2 L of oxygen. Sodium 135, potassium 3.7, BUN 1:15, creatinine 3.3, magnesium 2.5. 12/27/2019 Patient was seen and examined this morning, she does feel more short of breath today. Dr. Rodriguez did have a discussion with the patient and the plan is to start her on hemodialysis. She will go for a port placement either today or tomorrow. Objective - Vital Signs Vital signs: Vital Signs Temp 97.9 F 12/27/19 08:00 Pulse 61 12/27/19 08:00 Resp 17 12/27/19 08:00 BP 139/61 12/27/19 08:00 Pulse Ox 95 12/27/19 08:00 Intake & Output 12/26/19 12/27/19 12/27/19 18:59 06:59 18:59 Intake Total 240 91.167 100 Output Total 600 500 Balance -360 -408.833 100 Weight 81.3 kg 88.36 kg Intake: Intake, IV Titration 91.167 100 Amount Furosemide 100 mg In 91.167 100 Sodium Chloride 0.9% 90 ml @ 10 MG/HR 10 mls/hr IV .Q10H [facility] Rx#: [id number] Oral 240 Output: Urine 600 500 Other: Voiding Method Toilet Toilet Toilet Bedside Commode # Voids 2 # Bowel Movements 1 - Exam PHYSICAL EXAMINATION: GENERAL: 74-year-old female patient in no acute distress at the time of my examination HEENT: Head is atraumatic, normocephalic. Pupils equal, round. Sclera anicteric. Conjunctiva are clear. Mucous membranes of the mouth are moist. Neck is supple. There is no elevated jugular venous pressure.No carotid bruit is heard. HEART EXAMINATION: Heart S1 and S2 systolic ejection murmur is heard in the aortic area CHEST EXAMINATION: Lungs reveal fine rales to bilateral bases ABDOMEN: Soft, nontender. Bowel sounds are heard. No organomegaly noted. EXTREMITIES: 2+ peripheral pulses with 2+ evidence of peripheral edema and no calf tenderness noted. Significant swelling of the left hand also noted. NEUROLOGIC patient is awake, alert and oriented 3 . . - Labs CBC & Chem 7: 12/24/19 08:17 12/27/19 06:59 Labs: Abnormal Lab Results - Last 24 Hours (Table) 12/26/19 12/26/19 12/26/19 Range/Units 11:35 16:51 20:07 Sodium (137-145) mmol/L Chloride (98-107) mmol/L Carbon Dioxide (22-30) mmol/L BUN (7-17) mg/dL Creatinine (0.52-1.04) mg/dL Glucose (74-99) mg/dL POC Glucose (mg/dL) 170 H 188 H 185 H (75-99) mg/dL Magnesium (1.6-2.3) mg/dL Albumin (3.5-5.0) g/dL 12/27/19 12/27/19 12/27/19 Range/Units 06:06 06:59 07:10 Sodium 135 L (137-145) mmol/L Chloride 92 L (98-107) mmol/L Carbon Dioxide 31 H (22-30) mmol/L BUN 119 H* (7-17) mg/dL Creatinine 3.42 H (0.52-1.04) mg/dL Glucose 120 H (74-99) mg/dL POC Glucose (mg/dL) 142 H 127 H (75-99) mg/dL Magnesium 2.5 H (1.6-2.3) mg/dL Albumin 3.2 L (3.5-5.0) g/dL Assessment and Plan Plan: Assessment and plan #1 congestive heart failure, combination of systolic and diastolic, acute on chronic. #2 acute on chronic kidney disease stage IV #3 severe pulmonary hypertension #4 diabetes #5 hypertension #6 anemia of chronic disease #7 severe aortic stenosis status post aortic valve replacement #8 coronary artery disease with prior bypass surgery #9 hyperlipidemia #10 hypothyroidism Plan Patient has agreed to be initiated on dialysis, she will go for a port placement either today or tomorrow. DNP note has been reviewed, I agree with a documented findings and plan of care. Patient was seen and examined.
[2019-12-27 11:41] LABS: Glucose,Whole Blood 219 mg/dL (75-99)
[2019-12-27] MEDS ORDERED: SODIUM CHLORIDE 0.9% 250 ML IV ONE (14:00)
[2019-12-27] MEDS ORDERED: MIDAZOLAM 2 MG/2 ML VIAL IV ONE (14:07)
[2019-12-27] MEDS ORDERED: LIDOCAINE 1% INJ 10MG/ML (20 ML MDV) SQ ONE ×2 (14:09)
--- NOTE | 2019-12-27 14:34 | P.GSCN ---
History of Present Illness History of present illness: 74-year-old white female, I was consulted for placement dialysis catheter, patient has history of chronic renal failure, congestive heart failure, pulmonary hypertension, atrial fibrillation, patient also has a history of pacemaker placement Neck examination neck is supple no bruit appreciated Chest chest is clear good entry both lungs Abdomen abdomen soft nontender Vascular brachial radial femoral pulses are present Plan is placement of a dialysis catheter risk and complication discussed Past Medical History Past Medical History: Atrial Fibrillation, Coronary Artery Disease (CAD), Cancer, Chest Pain / Angina, Heart Failure, Diabetes Mellitus, GI Bleed, Hyperlipidemia, Hypertension, Myocardial Infarction (AZ), Osteoarthritis (OA), Renal Disease, Thyroid Disorder Additional Past Medical History / Comment(s): Pt recently admitted to [facility] on 11/24/19 with exacerbation CHF/hyponatremia. Other hx: IDDM type II, neuropathy bilateral hands/feet, CKD stage III, bilateral leg edema and pt has L arm/hand edema at this time as well, cardiac murmur, 1977 hodgkins lymphoma tx with radiation to chest/neck, 1982 chemotherapy, lower GI bleed, benign colon polyps, diverticular disease, arthritis in R knee and bilateral hands/fingers, gout in bilateral feet, hypothyroid, pt states current sore on L leg. Last Myocardial Infarction Date:: 01/25/16 History of Any Multi-Drug Resistant Organisms: None Reported Past Surgical History: Cardiac Ablation, Cardiac Valve Replacement, Cholecystectomy, Coronary Bypass/CABG, Heart Catheterization, Heart Catheterization With Stent, Pacemaker, Tubal Ligation Additional Past Surgical History / Comment(s): 2003 PTCA with 1 stent, 2007 CABG-2 vessel, LUCY, 2015 Aortic valve replaced/pacemaker insertion, ,bilateral cataract removal/lens implants,sinus surgery, splenectomy d/t hodkins, colonoscopy/polypectomy, laparoscopy, D&C Past Anesthesia/Blood Transfusion Reactions: No Reported Reaction Additional Past Anesthesia/Blood Transfusion Reaction / Comm: Pt states with one of her surgeries her pulse went very low. She has received blood in the past without reaction. Date of Last Stent Placement:: 2003 Type of Cardiac Device: Permanent Pacemaker Device Placement Date:: 2015 Smoking Status: Never smoker - Past Family History Father Family Medical History: Myocardial Infarction (AZ) Additional Family Medical History / Comment(s): Father was healthy until he of a AZ at the age of 93 yrs. Mother Family Medical History: CVA/TIA Additional Family Medical History / Comment(s): Mother was healthy until the last couple yrs of her life. She of a CVA at the age of 94yrs. Medications and Allergies Home Medications Medication Instructions Recorded Confirmed Type Allopurinol [Zyloprim] 300 mg PO DAILY 01/19/16 12/23/19 History Aspirin 81 mg PO DAILY 01/19/16 12/23/19 History Cholecalciferol [Vitamin D3 (25 1,000 unit PO DAILY 01/19/16 12/23/19 History Mcg = 1000 Iu)] Fenofibrate Nanocrystallized 48 mg PO DAILY 01/19/16 12/23/19 History [Fenofibrate] Insulin Glargine [Lantus] 25 unit SQ DAILY 01/19/16 12/23/19 History Levothyroxine Sodium [Levoxyl] 112 mcg PO DAILY 01/19/16 12/23/19 History Nitroglycerin Sl Tabs [Nitrostat] 0.4 mg SUBLINGUAL Q5M PRN 01/19/16 12/23/19 History Ubidecarenone [Co Q-10] 100 mg PO MOWEFR 01/19/16 12/23/19 History Docusate [Colace] 100 mg PO DAILY 02/14/16 12/23/19 History Krill/Om-3/Dha/Epa/Phospho/Ast 1 cap PO DAILY 02/06/18 12/23/19 History [[place]-3 Krill Oil 300 mg Sfgl] hydrALAZINE HCL [Apresoline] 50 mg PO QID 02/06/18 12/23/19 History Atorvastatin [Lipitor] 20 mg PO MOWEFRSA 11/24/19 12/23/19 History Isosorbide Mononitrate ER [Imdur] 60 mg PO DAILY 11/24/19 12/23/19 History Metoprolol Succinate [Toprol XL] 50 mg PO BID 11/24/19 12/23/19 History Insulin Glulisine [Apidra] 20 unit SQ AC-TID 12/23/19 12/23/19 History Metolazone [Zaroxolyn] 5 mg PO DIRECTED 12/23/19 12/23/19 History Torsemide [Demadex] 50 mg PO BID 12/23/19 12/23/19 History Allergies Allergy/AdvReac Type Severity Reaction Status Date / Time Iodinated Contrast Media AdvReac renal Verified 12/23/19 06:27 disease Surgical - Exam Vital Signs Temp Pulse Resp BP Pulse Ox 97.6 F 84 16 152/81 97 12/23/19 00:30 12/23/19 00:30 12/23/19 00:30 12/23/19 00:30 12/23/19 00:30 Results - Labs 12/24/19 08:17 12/27/19 06:59 Abnormal Lab Results - Last 24 Hours (Table) 12/26/19 12/26/19 12/27/19 Range/Units 16:51 20:07 06:06 Sodium (137-145) mmol/L Chloride (98-107) mmol/L Carbon Dioxide (22-30) mmol/L BUN (7-17) mg/dL Creatinine (0.52-1.04) mg/dL Glucose (74-99) mg/dL POC Glucose (mg/dL) 188 H 185 H 142 H (75-99) mg/dL Magnesium (1.6-2.3) mg/dL Albumin (3.5-5.0) g/dL 12/27/19 12/27/19 12/27/19 Range/Units 06:59 07:10 11:40 Sodium 135 L (137-145) mmol/L Chloride 92 L (98-107) mmol/L Carbon Dioxide 31 H (22-30) mmol/L BUN 119 H* (7-17) mg/dL Creatinine 3.42 H (0.52-1.04) mg/dL Glucose 120 H (74-99) mg/dL POC Glucose (mg/dL) 127 H 219 H (75-99) mg/dL Magnesium 2.5 H (1.6-2.3) mg/dL Albumin 3.2 L (3.5-5.0) g/dL Diabetes panel 12/27/19 Range/Units 06:59 Sodium 135 L (137-145) mmol/L Potassium 4.1 (3.5-5.1) mmol/L Chloride 92 L (98-107) mmol/L Carbon Dioxide 31 H (22-30) mmol/L BUN 119 H* (7-17) mg/dL Creatinine 3.42 H (0.52-1.04) mg/dL Glucose 120 H (74-99) mg/dL Calcium 8.7 (8.4-10.2) mg/dL AST 35 (14-36) U/L ALT 12 (4-34) U/L Alkaline Phosphatase 51 (38-126) U/L Total Protein 6.4 (6.3-8.2) g/dL Albumin 3.2 L (3.5-5.0) g/dL Calcium panel 12/27/19 Range/Units 06:59 Calcium 8.7 (8.4-10.2) mg/dL Albumin 3.2 L (3.5-5.0) g/dL Pituitary panel 12/27/19 Range/Units 06:59 Sodium 135 L (137-145) mmol/L Potassium 4.1 (3.5-5.1) mmol/L Chloride 92 L (98-107) mmol/L Carbon Dioxide 31 H (22-30) mmol/L BUN 119 H* (7-17) mg/dL Creatinine 3.42 H (0.52-1.04) mg/dL Glucose 120 H (74-99) mg/dL Calcium 8.7 (8.4-10.2) mg/dL Adrenal panel 12/27/19 Range/Units 06:59 Sodium 135 L (137-145) mmol/L Potassium 4.1 (3.5-5.1) mmol/L Chloride 92 L (98-107) mmol/L Carbon Dioxide 31 H (22-30) mmol/L BUN 119 H* (7-17) mg/dL Creatinine 3.42 H (0.52-1.04) mg/dL Glucose 120 H (74-99) mg/dL Calcium 8.7 (8.4-10.2) mg/dL Total Bilirubin 0.5 (0.2-1.3) mg/dL AST 35 (14-36) U/L ALT 12 (4-34) U/L Alkaline Phosphatase 51 (38-126) U/L Total Protein 6.4 (6.3-8.2) g/dL Albumin 3.2 L (3.5-5.0) g/dL
--- NOTE | 2019-12-27 14:36 | P.PCN ---
Description of Procedure: Preoperative diagnoses is acute chronic renal failure posterior gravis same Procedure placement of a dialysis catheter ultrasound-guided 23 cm jugular approach #2 is ulceration time is 25 minutes Procedure patient brought to the Technology Development Intern right side of the chest and neck was prepped and draped applied sterile manner under local IV sedation ultrasound guided micropuncture introduced right jugular vein micropuncture guidewire was passed without any resistance. After that tendon was created We Brought 23 Same Dialysis Catheter to the Neck Area and Sheath Was Advanced on the Top of Guidewire to Guide Was Parked in the Inferior Vena Cava Then We Introduced the Os Calcis through the Sheath and Sheath Was Removed Tip of Catheter the Superior Vena Cava and [place] Flush with Heparin Saline and Hep-Lock Secured with 3-year-old Nylon Applied Patient for the Procedure Well Thank You
--- NOTE | 2019-12-27 15:05 | XR ---
EXAMINATION TYPE: XR chest 1V portable DATE OF EXAM: 12/27/2019 COMPARISON: 12/27/2019 INDICATION: Post dialysis catheter insertion TECHNIQUE: Single frontal view of the chest is obtained. FINDINGS: The heart size is mildly prominent. The pulmonary vasculature is normal. There is streak opacity through the right perihilar region. Small right pleural effusion is present. Minimal left pleural effusion is present. Double-lumen catheter is present on the right with the tips in the superior vena cava region. No pneu mothorax is evident. IMPRESSION: 1. Small right pleural effusion with minimal left pleural effusion. 2. Cardiomegaly
--- NOTE | 2019-12-27 15:11 | IR ---
EXAMINATION TYPE: IR cvc insert central tunneled DATE OF EXAM: 12/27/2019 COMPARISON: NONE HISTORY: Fluoroscopy time. Fluoroscopy was provided to the referring clinician.
[2019-12-27 16:31] LABS: Hepatitis B Surface Antigen Non-Reactive (Non-Reactive)
[2019-12-27 16:54] LABS: Glucose,Whole Blood 112 mg/dL (75-99)
[2019-12-27 20:17] LABS: Glucose,Whole Blood 150 mg/dL (75-99)
[2019-12-28] MEDS ORDERED: ALBUTEROL NEBULIZED 2.5 MG/3 ML INHALATION SCH
[2019-12-28] MEDS ORDERED: ALBUTEROL NEBULIZED 2.5 MG/3 ML INHALATION PRN (01:14)
[2019-12-28] MEDS: FUROSEMIDE 100 MG in SODIUM CHLORIDE 0.9% 90 ML IV SCH (02:25)
[2019-12-28 05:59] LABS: Glucose,Whole Blood 124 mg/dL (75-99)
[2019-12-28] MEDS: INSULIN DETEMIR (LEVEMIR) 100 UNIT/ML SYR SQ SCH (06:34)
[2019-12-28] MEDS: LEVOTHYROXINE 112 MCG TAB PO SCH (06:34)
[2019-12-28] MEDS: hydrALAZINE HCL 50 MG TAB PO SCH ×4 (08:06→21:24)
[2019-12-28] MEDS: ALBUTEROL NEBULIZED 2.5 MG/3 ML INHALATION SCH ×4 (08:15→20:32)
[2019-12-28] MEDS: ASPIRIN 81 MG PO SCH (08:32)
[2019-12-28] MEDS: ALLOPURINOL 100 MG TAB PO SCH (08:33)
[2019-12-28] MEDS: METOPROLOL SUCCINATE (ER) 50 MG TAB.ER.24H PO SCH ×2 (08:33→21:23)
[2019-12-28] MEDS: CHOLECALCIFEROL 1,000 UNIT TAB PO SCH (08:35)
[2019-12-28] MEDS: FAMOTIDINE 20 MG TAB PO SCH (08:35)
[2019-12-28] MEDS: ATORVASTATIN 20 MG TAB PO SCH (08:35)
[2019-12-28] MEDS: METOLAZONE 2.5 MG TAB PO SCH (08:35)
[2019-12-28] MEDS: FENOFIBRATE 54 MG TAB PO SCH (08:35)
[2019-12-28] MEDS: ISOSORBIDE MONONITRATE ER 60 MG TAB.ER.24H PO SCH (08:35)
[2019-12-28] MEDS: HEPARIN SODIUM,PORCINE 5,000 UNIT/ML 1 ML VIAL SQ SCH ×2 (08:37→21:23)
--- NOTE | 2019-12-28 08:37 | P.PN ---
Subjective Patient is seen in follow for acute kidney injury on chronic kidney disease. Patient has chronic kidney disease stage IV with baseline creatinine in the range of 1.8-2. Renal function has been fairly stable. Remains edematous. dyspnea stable. She is maintained on Lasix drip. Urine output about 2 L in the last 24 hours. Permacath was placed yesterday. Vital signs are stable. General: The patient appeared well nourished and normally developed. HEENT: Head exam is unremarkable. Neck is without jugular venous distension. LUNGS: Lungs are clear to auscultation and percussion. Breath sounds decreased. HEART: Rate and Rhythm are regular. ABDOMEN: Soft, nontender. EXTREMITITES: 2+ edema. Objective - Vital Signs Vital signs: Vital Signs Temp 97.2 F L 12/28/19 07:54 Pulse 61 12/28/19 08:15 Resp 18 12/28/19 07:54 BP 123/60 12/28/19 07:54 Pulse Ox 96 12/28/19 07:54 Intake & Output 12/27/19 12/28/19 12/28/19 18:59 06:59 18:59 Intake Total 952.667 136.583 120 Output Total 600 150 250 Balance 352.667 -13.417 -130 Weight 88.2 kg Intake: IV 50 Intake, IV Titration 282.667 136.583 Amount Furosemide 100 mg In 182.667 136.583 Sodium Chloride 0.9% 90 ml @ 15 MG/HR 15 mls/hr IV .Q6H40M [facility] Rx#: [id number] Sodium Ferric Gluconat- 100 Sucrose 125 mg In Sodium Chloride 0.9% 100 ml @ 100 mls/hr IVPB DAILY [facility] Rx#:[id number] Oral 620 120 Output: Urine 600 150 250 Other: Voiding Method Toilet Toilet # Voids 2 - Labs CBC & Chem 7: 12/24/19 08:17 12/27/19 06:59 Labs: Abnormal Lab Results - Last 24 Hours (Table) 12/27/19 12/27/19 12/27/19 Range/Units 11:40 16:53 20:14 POC Glucose (mg/dL) 219 H 112 H 150 H (75-99) mg/dL 12/28/19 Range/Units 05:58 POC Glucose (mg/dL) 124 H (75-99) mg/dL Assessment and Plan Plan: Assessment: 1. Acute kidney injury mostly prerenal secondary to cardiorenal syndrome. Creatinine 2.34 on admission - fairly stable at 3.42 as of yesterday. 2. Chronic kidney disease stage IV secondary to nephrosclerosis and cardiorenal syndrome with baseline creatinine near 2. 3. Volume overload. 4. Acute on chronic diastolic CHF with moderate to severe tricuspid regurgitation and moderate pulmonary hypertension. 5. Severe pulmonary hypertension. 6. Hypokalemia secondary to diuresis. Better. 7. Insulin-dependent diabetes mellitus. 8. Anemia of chronic kidney disease. Iron deficiency noted - status post 3 doses of IV iron and completed December 26. Plan: Discontinue Lasix drip. Lasix 80 mg orally twice daily. Maintain metolazone. 1200 mL fluid restriction and low-salt diet. Despite Lasix drip, no significant improvement and volume status. Permacath placed December 26. Plan for first treatment of hemodialysis today. Second treatment tomorrow. Check phosphorus level. truck rental manager to help facilitate outpatient hemodialysis set up.
[2019-12-28] MEDS: NITROGLYCERIN OINT 1 INCH/GM PACKET TOPICAL SCH ×4 (08:48→21:23)
[2019-12-28 09:03] LABS: Calcium 8.5 mg/dL (8.4-10.2); Magnesium 2.5 mg/dL (1.6-2.3); Potassium 4.8 mmol/L (3.5-5.1)
[2019-12-28] MEDS: SODIUM FERRIC GLUCONAT-SUCROSE 125 MG in SODIUM CHLORIDE 0.9% 100 ML IVPB SCH (11:31)
[2019-12-28] MEDS: FUROSEMIDE 80 MG TAB PO SCH ×2 (11:31→16:32)
--- NOTE | 2019-12-28 11:33 | P.PN ---
Subjective this is a pleasant 74 years old female with past medical history of heart failure, atrial fibrillation status post pacemaker, coronary artery disease, diabetes mellitus, hypertension, hyperlipidemia, osteoarthritis, hypothyroidism, GI bleed, CKD stage III, she follows up with Dr. Galvan regulatory submissions specialist and Dr. Reynolds for her kidney disease. Presents because of worsening dyspnea over one month, about that time she was discharged from the hospital for acute CHF exacerbation as well. Also she complained from leg swelling and increased weight. No chest pain or abdominal pain, no nausea vomiting. Also she is coughing and have some atrial flutter She denies smoking alcohol or illicit drugs vitals are stable and she is saturating 96% to 97% on 2 L oxygen via nasal cannula, troponin is elevated at 0.669 and proBNP is elevated at 7910. 12/24/2019 Patient is slightly improving she still feeling dyspnea with no chest pain, she still have some coughing. no fever and she is saturating 95% in 2 L oxygen, she presents rate of 16-18/m, she is afebrile. CBC and BMP is stable, creatinine 2.3 and BUN is 106. She is currently on Lasix 40 mg IV twice daily, also she is on torsemide 40 mg twice daily Cardiology and nephrology consult 12/25/2019 Patient is fully awake and oriented. Her dyspnea is significantly improved although she is little bit still short of breath, leg swelling is improving but not resolved completely. She still have some basal crepitation. Hemodynamically she is a stable period and labs are stable, creatinine went up s lightly 2.3 up to 2.7, sugars controlled. Nephrology on the case. She is currently on Lasix 60 mg twice daily and metolazone 5 mg daily with fluid restriction 1200 per day. She has good urine output yesterday more than 2 L. She saturating 96% on 2 L oxygen via nasal cannula. TSH is within normal limits at 1.7. Physical therapy: Pending 12/26/2019 Patient with no dyspnea, she still have some leg swelling but is improving. She is walking to the restroom [id number] with no difficulty or exertional dyspnea. No chest pain or coughing. Patient herself thinks she can go home today. Her vitals are stable. Her creatinine is slightly worse at 3.3, knees and 2.5, yesterday she has a negative villous about 1.8 L. Patient remains on Lasix 60 mg twice daily and metolazone and fluid restriction. 12/27/2019 Patient awake, she is breathing quietly. No basal crepitation. Patient has orthopnea when she lies down she has breathing difficulty. However she still have significant leg swelling Yesterday she was started on Lasix drip. Her creatinine is stable since yesterday at 3.4. She weights this morning 88 kg compared to 87 kg 3 days ago, yesterday has negative pollens about 350 mL per records Continue with Lasix drip for now Patient is awake and alert, no respiratory distress however she still have significant in tense bilateral leg swelling. She is in the fluid overload status that failed Lasix therapy and her Lasix drip was stopped, dialysis catheter was placed in the right upper chest and she planned for hemodialysis upon recommendation and management by manager of sustainability. I discussed with the patient and looks like she agreeable to go for dialysis. Vitals and labs are stable. Creatinine 3.4 She is currently on by mouth Lasix 80 mg twice daily and metolazone had fluid restriction Objective - Vital Signs Vital signs: Vital Signs Temp 97.2 F L 12/28/19 07:54 Pulse 62 12/28/19 08:25 Resp 18 12/28/19 07:54 BP 123/60 12/28/19 07:54 Pulse Ox 96 12/28/19 07:54 Intake & Output 12/27/19 12/28/19 12/28/19 18:59 06:59 18:59 Intake Total 952.667 136.583 120 Output Total 600 150 250 Balance 352.667 -13.417 -130 Weight 88.2 kg Intake: IV 50 Intake, IV Titration 282.667 136.583 Amount Furosemide 100 mg In 182.667 136.583 Sodium Chloride 0.9% 90 ml @ 15 MG/HR 15 mls/hr IV .Q6H40M [facility] Rx#: [id number] Sodium Ferric Gluconat- 100 Sucrose 125 mg In Sodium Chloride 0.9% 100 ml @ 100 mls/hr IVPB DAILY [facility] Rx#:[id number] Oral 620 120 Output: Urine 600 150 250 Other: Voiding Method Toilet Toilet # Voids 2 - Exam GENERAL: The patient is alert and oriented x3, not in any acute distress. Well developed, well nourished. HEENT: Pupils are round and equally reacting to light. EOMI. No scleral icterus. No conjunctival pallor. Normocephalic, atraumatic. No pharyngeal erythema. No thyromegaly. CARDIOVASCULAR: S1 and S2 present. No murmurs, rubs, or gallops. PULMONARY: Chest is clear to auscultation, no wheezing bilateral basal crepitation ABDOMEN: Soft, nontender, nondistended, normoactive bowel sounds. No palpable organomegaly. MUSCULOSKELETAL: No joint swelling or deformity. EXTREMITIES: No cyanosis, clubbing,. Bilateral leg edema NEUROLOGICAL: Gross neurological examination did not reveal any focal deficits. SKIN: No rashes. no petechiae. - Labs CBC & Chem 7: 12/24/19 08:17 12/28/19 07:51 Labs: Abnormal Lab Results - Last 24 Hours (Table) 12/27/19 12/27/19 12/27/19 Range/Units 11:40 16:53 20:14 Sodium (137-145) mmol/L Chloride (98-107) mmol/L BUN (7-17) mg/dL Creatinine (0.52-1.04) mg/dL Glucose (74-99) mg/dL POC Glucose (mg/dL) 219 H 112 H 150 H (75-99) mg/dL Magnesium (1.6-2.3) mg/dL 12/28/19 12/28/19 Range/Units 05:58 07:51 Sodium 134 L (137-145) mmol/L Chloride 91 L (98-107) mmol/L BUN 126 H* (7-17) mg/dL Creatinine 3.48 H (0.52-1.04) mg/dL Glucose 132 H (74-99) mg/dL POC Glucose (mg/dL) 124 H (75-99) mg/dL Magnesium 2.5 H (1.6-2.3) mg/dL Assessment and Plan Assessment: Fluid overload secondary to advanced kidney disease, stage IV, going into stage V. Failed Lasix therapy and started on hemodialysis. atrial fibrillation,status post pacemaker. not on anticoagulation diabetes mellitus Hypertension Hyperlipidemia CTD, stage III Osteoarthritis Hypothyroidism History of GI bleed Plan: this is a pleasant 74 years old female who presents with CHF. Continue with diuretics. Cardiology consult. Monitor electrolytes, weight and kidney function. Patient is an oral Lasix. Patient initiated by hemodialysis by nephrology team Labs and medication were reviewed.. Continue same treatment. Continue with symptomatic treatment. Resume home medication. Monitor lytes and vitals. DVT and GI prophylaxis. Further recommendations of the clinical course of the patient DVT prophylaxis: Subcutaneous heparin GI Prophylaxis: Pepcid PT/OT: Pending Prognosis is guarded
[2019-12-28 11:59] LABS: Glucose,Whole Blood 159 mg/dL (75-99)
--- NOTE | 2019-12-28 12:18 | P.PN ---
Subjective Progress Note Date: 12/28/19 This is a 74-year-old female with history of coronary artery disease and prior bypass surgery, severe aortic stenosis,s/p AVR, chronic diastolic congestive heart failure, chronic renal insufficiency, sick sinus syndrome status post prior pacemaker who initially presented to the hospital with symptoms of pr ogressively worsening shortness of breath and bilateral lower extremity edema. She was initiated on IV Lasix and diuresed moderately well through the night last night, continues to have bilateral lower extremity edema, left greater than the right and decreased breath sounds bilaterally. Her echocardiogram with Doppler study has been performed but is yet pending. She did have a recent echo which showed an ejection fraction of 45-50% with fairly normally functioning bioprosthetic valve in the aortic position. There was severe pulmonary hypertension and mitral stenosis. Blood pressure 144/70 with a heart rate in the 60s, 95% on 2 L of oxygen. White blood cell count 8.1, hemoglobin 9.5, pl atelet count 373. Sodium 134, potassium 4.1, BUN 106, creatinine 2.3. Magnesium 2.4 today, TSH 1.7. 12/25/2019 Patient was seen and examined this morning, breathing is improving, continues to have peripheral edema. Creatinine today is 2.7. Her weight is down 1 kg. Spoke with nephrology this morning, recommendation is to continue current dose of IV Lasix. 12/26/2019 Patient was seen and examined this morning, sitting up in the chair at bedside, she continues to have significant bilateral lower extremity edema but her lungs today are clear. She also has persistent swelling in the left hand. IV push Lasix was discontinued today by nephrology and the patient was started on a Lasix drip at 10 mg per hour, we're also continuing the metolazone at this time. She will receive IV iron 3 doses. Blood pressure 116/50 with a heart rate of 60, 97% on 2 L of oxygen. Sodium 135, potassium 3.7, BUN 1:15, creatinine 3.3, magnesium 2.5. 12/27/2019 Patient was seen and examined this morning, she does feel more short of breath today. Dr. Rodriguez did have a discussion with the patient and the plan is to start her on hemodialysis. She will go for a port placement either today or tomorrow. 12/28/2019 Patient seen and examined this morning, sitting up in chair bedside, overall doing well. She did have a port placed and is scheduled to undergo dialysis at some point today. Her BUN today is 126 with a creatinine of 3.4. Objective - Vital Signs Vital signs: Vital Signs Temp 97.2 F L 12/28/19 07:54 Pulse 62 12/28/19 08:25 Resp 18 12/28/19 07:54 BP 123/60 12/28/19 07:54 Pulse Ox 96 12/28/19 07:54 Intake & Output 12/27/19 12/28/19 12/28/19 18:59 06:59 18:59 Intake Total 952.667 136.583 120 Output Total 600 150 350 Balance 352.667 -13.417 -230 Weight 88.2 kg Intake: IV 50 Intake, IV Titration 282.667 136.583 Amount Furosemide 100 mg In 182.667 136.583 Sodium Chloride 0.9% 90 ml @ 15 MG/HR 15 mls/hr IV .Q6H40M [facility] Rx#: [id number] Sodium Ferric Gluconat- 100 Sucrose 125 mg In Sodium Chloride 0.9% 100 ml @ 100 mls/hr IVPB DAILY [facility] Rx#:[id number] Oral 620 120 Output: Urine 600 150 350 Other: Voiding Method Toilet Toilet # Voids 2 - Exam PHYSICAL EXAMINATION: GENERAL: 74-year-old female patient in no acute distress at the time of my examination HEENT: Head is atraumatic, normocephalic. Pupils equal, round. Sclera anicteric. Conjunctiva are clear. Mucous membranes of the mouth are moist. Neck is supple. There is no elevated jugular venous pressure.No carotid bruit is heard. HEART EXAMINATION: Heart S1 and S2 systolic ejection murmur is heard in the aortic area CHEST EXAMINATION: Lungs reveal fine rales to bilateral bases ABDOMEN: Soft, nontender. Bowel sounds are heard. No organomegaly noted. EXTREMITIES: 2+ peripheral pulses with 2+ evidence of peripheral edema and no calf tenderness noted. Significant swelling of the left hand also noted. NEUROLOGIC patient is awake, alert and oriented 3 . . - Labs CBC & Chem 7: 12/24/19 08:17 12/28/19 07:51 Labs: Abnormal Lab Results - Last 24 Hours (Table) 12/27/19 12/27/19 12/28/19 Range/Units 16:53 20:14 05:58 Sodium (137-145) mmol/L Chloride (98-107) mmol/L BUN (7-17) mg/dL Creatinine (0.52-1.04) mg/dL Glucose (74-99) mg/dL POC Glucose (mg/dL) 112 H 150 H 124 H (75-99) mg/dL Magnesium (1.6-2.3) mg/dL 12/28/19 12/28/19 Range/Units 07:51 11:52 Sodium 134 L (137-145) mmol/L Chloride 91 L (98-107) mmol/L BUN 126 H* (7-17) mg/dL Creatinine 3.48 H (0.52-1.04) mg/dL Glucose 132 H (74-99) mg/dL POC Glucose (mg/dL) 159 H (75-99) mg/dL Magnesium 2.5 H (1.6-2.3) mg/dL Assessment and Plan Plan: Assessment and plan #1 congestive heart failure, combination of systolic and diastolic, acute on chronic. #2 acute on chronic kidney disease stage IV #3 severe pulmonary hypertension #4 diabetes #5 hypertension #6 anemia of chronic disease #7 severe aortic stenosis status post aortic valve replacement #8 coronary artery disease with prior bypass surgery #9 hyperlipidemia #10 hypothyroidism Plan We will continue with current medications, patient scheduled to be initiated on dialysis today. DNP note has been reviewed, I agree with a documented findings and plan of care. Patient was seen and examined.
[2019-12-28 16:55] LABS: Glucose,Whole Blood 190 mg/dL (75-99)
[2019-12-28 20:45] LABS: Glucose,Whole Blood 216 mg/dL (75-99)
[2019-12-29] MEDS: ALBUTEROL NEBULIZED 2.5 MG/3 ML INHALATION SCH ×6 (00:01→20:43)
[2019-12-29 06:14] LABS: Glucose,Whole Blood 175 mg/dL (75-99)
[2019-12-29] MEDS: LEVOTHYROXINE 112 MCG TAB PO SCH (06:28)
[2019-12-29] MEDS: INSULIN DETEMIR (LEVEMIR) 100 UNIT/ML SYR SQ SCH (06:28)
[2019-12-29 07:36] LABS: Calcium 8.6 mg/dL (8.4-10.2); Magnesium 2.5 mg/dL (1.6-2.3); Phosphorus 5.1 mg/dL (2.5-4.5); Potassium 4.5 mmol/L (3.5-5.1)
--- NOTE | 2019-12-29 08:43 | P.PN ---
Subjective Patient is seen in follow for acute kidney injury on chronic kidney disease. Patient has chronic kidney disease stage IV with baseline creatinine in the range of 1.8-2. Renal function has been fairly stable however patient remained edematous despite Lasix drip. She was started on dialysis December 27 and tolerated 2 L ultrafiltration yesterday. Vital signs are stable. General: The patient appeared well nourished and normally developed. HEENT: Head exam is unremarkable. Neck is without jugular venous distension. LUNGS: Lungs are clear to auscultation and percussion. Breath sounds decreased. HEART: Rate and Rhythm are regular. ABDOMEN: Soft, nontender. EXTREMITITES: 1+ edema. Objective - Vital Signs Vital signs: Vital Signs Temp 97.6 F 12/29/19 04:00 Pulse 68 12/29/19 03:50 Resp 16 12/29/19 04:00 BP 132/68 12/29/19 04:00 Pulse Ox 97 12/29/19 04:00 Intake & Output 12/28/19 12/29/19 12/29/19 18:59 06:59 18:59 Intake Total 460 450 120 Output Total 2675 300 Balance -2215 150 120 Weight 87.9 kg Intake: Intake, IV Titration 100 Amount Sodium Ferric Gluconat- 100 Sucrose 125 mg In Sodium Chloride 0.9% 100 ml @ 100 mls/hr IVPB DAILY [facility] Rx#:[id number] Oral 360 450 120 Output: Urine 775 300 Hemodialysis 1900 Other: Voiding Method Toilet Toilet # Voids 1 - Labs CBC & Chem 7: 12/24/19 08:17 12/29/19 07:00 Labs: Abnormal Lab Results - Last 24 Hours (Table) 12/28/19 12/28/19 12/28/19 Range/Units 07:51 11:52 16:51 Sodium 134 L (137-145) mmol/L Chloride 91 L (98-107) mmol/L BUN 126 H* (7-17) mg/dL Creatinine 3.48 H (0.52-1.04) mg/dL Glucose 132 H (74-99) mg/dL POC Glucose (mg/dL) 159 H 190 H (75-99) mg/dL Phosphorus (2.5-4.5) mg/dL Magnesium 2.5 H (1.6-2.3) mg/dL 12/28/19 12/29/19 12/29/19 Range/Units 20:29 06:08 07:00 Sodium 135 L (137-145) mmol/L Chloride 94 L (98-107) mmol/L BUN 99 H (7-17) mg/dL Creatinine 3.47 H (0.52-1.04) mg/dL Glucose 148 H (74-99) mg/dL POC Glucose (mg/dL) 216 H 175 H (75-99) mg/dL Phosphorus 5.1 H (2.5-4.5) mg/dL Magnesium 2.5 H (1.6-2.3) mg/dL Assessment and Plan Plan: Assessment: 1. Acute kidney injury mostly prerenal secondary to cardiorenal syndrome. Renal function worsened with diuresis. Started on hemodialysis December 27 for volume overload. 2. Chronic kidney disease stage IV secondary to nephrosclerosis and cardiorenal syndrome with baseline creatinine near 2. 3. Volume overload. Improving with ultrafiltration. 4. Acute on chronic diastolic CHF with moderate to severe tricuspid regurgitation and moderate pulmonary hypertension. 5. Severe pulmonary hypertension. 6. Hypokalemia secondary to diuresis. Better. 7. Insulin-dependent diabetes mellitus. 8. Anemia of chronic kidney disease. Iron deficiency noted - status post 3 doses of IV iron and completed December 26. Plan: Second treatment of hemodialysis tomorrow. Lasix 80 mg IV twice daily. Continue metolazone. 1200 mL fluid restriction and low-salt diet. Outpatient dialysis is being set up.
[2019-12-29] MEDS: METOPROLOL SUCCINATE (ER) 50 MG TAB.ER.24H PO SCH ×2 (10:20→20:33)
[2019-12-29] MEDS: ISOSORBIDE MONONITRATE ER 60 MG TAB.ER.24H PO SCH (10:20)
[2019-12-29] MEDS: ALLOPURINOL 100 MG TAB PO SCH (10:20)
[2019-12-29] MEDS: FAMOTIDINE 20 MG TAB PO SCH (10:20)
[2019-12-29] MEDS: HEPARIN SODIUM,PORCINE 5,000 UNIT/ML 1 ML VIAL SQ SCH ×2 (10:21→20:33)
[2019-12-29] MEDS: ASPIRIN 81 MG PO SCH (10:21)
[2019-12-29] MEDS: FUROSEMIDE 10 MG/ML 10 ML VIAL IV SCH ×2 (10:22→20:33)
[2019-12-29] MEDS: hydrALAZINE HCL 50 MG TAB PO SCH ×4 (10:22→22:19)
[2019-12-29] MEDS: METOLAZONE 2.5 MG TAB PO SCH (10:23)
[2019-12-29] MEDS: FENOFIBRATE 54 MG TAB PO SCH (10:24)
[2019-12-29] MEDS: CHOLECALCIFEROL 1,000 UNIT TAB PO SCH (10:36)
[2019-12-29] MEDS: NITROGLYCERIN OINT 1 INCH/GM PACKET TOPICAL SCH ×2 (10:51→11:46)
[2019-12-29 12:00] LABS: Glucose,Whole Blood 218 mg/dL (75-99)
--- NOTE | 2019-12-29 12:03 | P.PN ---
Subjective Progress Note Date: 12/29/19 This is a 74-year-old female with history of coronary artery disease and prior bypass surgery, severe aortic stenosis,s/p AVR, chronic diastolic congestive heart failure, chronic renal insufficiency, sick sinus syndrome status post prior pacemaker who initially presented to the hospital with symptoms of pr ogressively worsening shortness of breath and bilateral lower extremity edema. She was initiated on IV Lasix and diuresed moderately well through the night last night, continues to have bilateral lower extremity edema, left greater than the right and decreased breath sounds bilaterally. Her echocardiogram with Doppler study has been performed but is yet pending. She did have a recent echo which showed an ejection fraction of 45-50% with fairly normally functioning bioprosthetic valve in the aortic position. There was severe pulmonary hypertension and mitral stenosis. Blood pressure 144/70 with a heart rate in the 60s, 95% on 2 L of oxygen. White blood cell count 8.1, hemoglobin 9.5, pl atelet count 373. Sodium 134, potassium 4.1, BUN 106, creatinine 2.3. Magnesium 2.4 today, TSH 1.7. 12/25/2019 Patient was seen and examined this morning, breathing is improving, continues to have peripheral edema. Creatinine today is 2.7. Her weight is down 1 kg. Spoke with nephrology this morning, recommendation is to continue current dose of IV Lasix. 12/26/2019 Patient was seen and examined this morning, sitting up in the chair at bedside, she continues to have significant bilateral lower extremity edema but her lungs today are clear. She also has persistent swelling in the left hand. IV push Lasix was discontinued today by nephrology and the patient was started on a Lasix drip at 10 mg per hour, we're also continuing the metolazone at this time. She will receive IV iron 3 doses. Blood pressure 116/50 with a heart rate of 60, 97% on 2 L of oxygen. Sodium 135, potassium 3.7, BUN 1:15, creatinine 3.3, magnesium 2.5. 12/27/2019 Patient was seen and examined this morning, she does feel more short of breath today. Dr. Rodriguez did have a discussion with the patient and the plan is to start her on hemodialysis. She will go for a port placement either today or tomorrow. 12/28/2019 Patient seen and examined this morning, sitting up in chair bedside, overall doing well. She did have a port placed and is scheduled to undergo dialysis at some point today. Her BUN today is 126 with a creatinine of 3.4. 12/29/2019 Patient was seen and examined this morning, sitting up in chair bedside. She underwent dialysis yesterday and overall states that she's feeling okay. She still continues to have significant swelling in her left upper extremity, double the size of her right. We will get an ultrasound of that arm today to rule out any possibility of a DVT. Sodium this morning was 135. Potassium of 4.5, BUN 99, creatinine 3.4, magnesium 2.5. Objective - Vital Signs Vital signs: Vital Signs Temp 97.6 F 12/29/19 10:06 Pulse 60 12/29/19 10:06 Resp 18 12/29/19 10:06 BP 114/65 12/29/19 10:06 Pulse Ox 97 12/29/19 10:06 Intake & Output 12/28/19 12/29/19 12/29/19 18:59 06:59 18:59 Intake Total 460 450 120 Output Total 2675 300 100 Balance -2215 150 20 Weight 87.9 kg Intake: Intake, IV Titration 100 Amount Sodium Ferric Gluconat- 100 Sucrose 125 mg In Sodium Chloride 0.9% 100 ml @ 100 mls/hr IVPB DAILY [facility] Rx#:[id number] Oral 360 450 120 Output: Urine 775 300 100 Hemodialysis 1900 Other: Voiding Method Toilet Toilet Toilet Bedside Commode # Voids 1 - Exam PHYSICAL EXAMINATION: GENERAL: 74-year-old female patient in no acute distress at the time of my examination HEENT: Head is atraumatic, normocephalic. Pupils equal, round. Sclera anicteric. Conjunctiva are clear. Mucous membranes of the mouth are moist. Ne ck is supple. There is no elevated jugular venous pressure.No carotid bruit is heard. HEART EXAMINATION: Heart S1 and S2 systolic ejection murmur is heard in the aortic area CHEST EXAMINATION: Lungs reveal fine rales to bilateral bases ABDOMEN: Soft, nontender. Bowel sounds are heard. No organomegaly noted. EXTREMITIES: 2+ peripheral pulses with 2+ evidence of peripheral edema and no calf tenderness noted. Significant swelling of the left hand and arm also noted. NEUROLOGIC patient is awake, alert and oriented 3 . . - Labs CBC & Chem 7: 12/24/19 08:17 12/29/19 07:00 Labs: Abnormal Lab Results - Last 24 Hours (Table) 12/28/19 12/28/19 12/29/19 Range/Units 16:51 20:29 06:08 Sodium (137-145) mmol/L Chloride (98-107) mmol/L BUN (7-17) mg/dL Creatinine (0.52-1.04) mg/dL Glucose (74-99) mg/dL POC Glucose (mg/dL) 190 H 216 H 175 H (75-99) mg/dL Phosphorus (2.5-4.5) mg/dL Magnesium (1.6-2.3) mg/dL 12/29/19 12/29/19 Range/Units 07:00 11:56 Sodium 135 L (137-145) mmol/L Chloride 94 L (98-107) mmol/L BUN 99 H (7-17) mg/dL Creatinine 3.47 H (0.52-1.04) mg/dL Glucose 148 H (74-99) mg/dL POC Glucose (mg/dL) 218 H (75-99) mg/dL Phosphorus 5.1 H (2.5-4.5) mg/dL Magnesium 2.5 H (1.6-2.3) mg/dL Assessment and Plan Plan: Assessment and plan #1 congestive heart failure, combination of systolic and diastolic, acute on chronic. #2 acute on chronic kidney disease stage IV #3 severe pulmonary hypertension #4 diabetes #5 hypertension #6 anemia of chronic disease #7 severe aortic stenosis status post aortic valve replacement #8 coronary artery disease with prior bypass surgery #9 hyperlipidemia #10 hypothyroidism Plan We will obtain an ultrasound of the left upper extremity because of significant swelling. Continue the rest of the patient's medications. DNP note has been reviewed, I agree with a documented findings and plan of care. Patient was seen and examined.
--- NOTE | 2019-12-29 12:13 | P.PN ---
Subjective this is a pleasant 74 years old female with past medical history of heart failure, atrial fibrillation status post pacemaker, coronary artery disease, diabetes mellitus, hypertension, hyperlipidemia, osteoarthritis, hypothyroidism, GI bleed, CKD stage III, she follows up with Dr. Galvan flour mixer helper and Dr. Reynolds for her kidney disease. Presents because of worsening dyspnea over one month, about that time she was discharged from the hospital for acute CHF exacerbation as well. Also she complained from leg swelling and increased weight. No chest pain or abdominal pain, no nausea vomiting. Also she is coughing and have some atrial flutter She denies smoking alcohol or illicit drugs vitals are stable and she is saturating 96% to 97% on 2 L oxygen via nasal cannula, troponin is elevated at 0.669 and proBNP is elevated at 7910. 12/24/2019 Patient is slightly improving she still feeling dyspnea with no chest pain, she still have some coughing. no fever and she is saturating 95% in 2 L oxygen, she presents rate of 16-18/m, she is afebrile. CBC and BMP is stable, creatinine 2.3 and BUN is 106. She is currently on Lasix 40 mg IV twice daily, also she is on torsemide 40 mg twice daily Cardiology and nephrology consult 12/25/2019 Patient is fully awake and oriented. Her dyspnea is significantly improved although she is little bit still short of breath, leg swelling is improving but not resolved completely. She still have some basal crepitation. Hemodynamically she is a stable period and labs are stable, creatinine went up s lightly 2.3 up to 2.7, sugars controlled. Nephrology on the case. She is currently on Lasix 60 mg twice daily and metolazone 5 mg daily with fluid restriction 1200 per day. She has good urine output yesterday more than 2 L. She saturating 96% on 2 L oxygen via nasal cannula. TSH is within normal limits at 1.7. Physical therapy: Pending 12/26/2019 Patient with no dyspnea, she still have some leg swelling but is improving. She is walking to the restroom [id number] with no difficulty or exertional dyspnea. No chest pain or coughing. Patient herself thinks she can go home today. Her vitals are stable. Her creatinine is slightly worse at 3.3, knees and 2.5, yesterday she has a negative villous about 1.8 L. Patient remains on Lasix 60 mg twice daily and metolazone and fluid restriction. 12/27/2019 Patient awake, she is breathing quietly. No basal crepitation. Patient has orthopnea when she lies down she has breathing difficulty. However she still have significant leg swelling Yesterday she was started on Lasix drip. Her creatinine is stable since yesterday at 3.4. She weights this morning 88 kg compared to 87 kg 3 days ago, yesterday has negative pollens about 350 mL per records Continue with Lasix drip for now Patient is awake and alert, no respiratory distress however she still have significant in tense bilateral leg swelling. She is in the fluid overload status that failed Lasix therapy and her Lasix drip was stopped, dialysis catheter was placed in the right upper chest and she planned for hemodialysis upon recommendation and management by surgical elastic knitter. I discussed with the patient and looks like she agreeable to go for dialysis. Vitals and labs are stable. Creatinine 3.4 She is currently on by mouth Lasix 80 mg twice daily and metolazone had fluid restriction 12/29/2019 Patient was lying in bed fully awake and oriented. She was complaining of from some dyspnea this morning with coughing and colorless phlegm. No chest pain but her left upper extremity is swollen as well. She was getting hemodialysis and the planned for a second dialysis tomorrow. Her legs are still swollen, her weight is still on the same 87-88 kg. Left upper extremity is swollen. Ultrasound is ordered and the result is pending Also check chest x-ray. Sugar is controlled and labs and vitals are stable Objective - Vital Signs Vital signs: Vital Signs Temp 97.6 F 12/29/19 10:06 Pulse 60 12/29/19 10:06 Resp 18 12/29/19 10:06 BP 114/65 12/29/19 10:06 Pulse Ox 97 12/29/19 10:06 Intake & Output 12/28/19 12/29/19 12/29/19 18:59 06:59 18:59 Intake Total 460 450 120 Output Total 2675 300 100 Balance -2215 150 20 Weight 87.9 kg Intake: Intake, IV Titration 100 Amount Sodium Ferric Gluconat- 100 Sucrose 125 mg In Sodium Chloride 0.9% 100 ml @ 100 mls/hr IVPB DAILY [facility] Rx#:[id number] Oral 360 450 120 Output: Urine 775 300 100 Hemodialysis 1900 Other: Voiding Method Toilet Toilet Toilet Bedside Commode # Voids 1 - Exam GENERAL: The patient is alert and oriented x3, not in any acute distress. Well developed, well nourished. HEENT: Pupils are round and equally reacting to light. EOMI. No scleral icterus. No conjunctival pallor. Normocephalic, atraumatic. No pharyngeal erythema. No thyromegaly. CARDIOVASCULAR: S1 and S2 present. No murmurs, rubs, or gallops. PULMONARY: Chest is clear to auscultation, no wheezing bilateral basal crepitation ABDOMEN: Soft, nontender, nondistended, normoactive bowel sounds. No palpable organomegaly. MUSCULOSKELETAL: No joint swelling or deformity. EXTREMITIES: No cyanosis, clubbing,. Bilateral leg edema NEUROLOGICAL: Gross neurological examination did not reveal any focal deficits. SKIN: No rashes. no petechiae. - Labs CBC & Chem 7: 12/24/19 08:17 12/29/19 07:00 Labs: Abnormal Lab Results - Last 24 Hours (Table) 12/28/19 12/28/19 12/29/19 Range/Units 16:51 20:29 06:08 Sodium (137-145) mmol/L Chloride (98-107) mmol/L BUN (7-17) mg/dL Creatinine (0.52-1.04) mg/dL Glucose (74-99) mg/dL POC Glucose (mg/dL) 190 H 216 H 175 H (75-99) mg/dL Phosphorus (2.5-4.5) mg/dL Magnesium (1.6-2.3) mg/dL 12/29/19 12/29/19 Range/Units 07:00 11:56 Sodium 135 L (137-145) mmol/L Chloride 94 L (98-107) mmol/L BUN 99 H (7-17) mg/dL Creatinine 3.47 H (0.52-1.04) mg/dL Glucose 148 H (74-99) mg/dL POC Glucose (mg/dL) 218 H (75-99) mg/dL Phosphorus 5.1 H (2.5-4.5) mg/dL Magnesium 2.5 H (1.6-2.3) mg/dL Assessment and Plan Assessment: Fluid overload secondary to advanced kidney disease, stage IV, going into stage V. Failed Lasix therapy and started on hemodialysis. atrial fibrillation,status post pacemaker. not on anticoagulation Left upper extremity swollen diabetes mellitus Hypertension Hyperlipidemia CTD, stage III Osteoarthritis Hypothyroidism History of GI bleed Plan: this is a pleasant 74 years old female who presents with CHF. Continue with diuretics. Cardiology consult. Monitor electrolytes, weight and kidney function. Patient is an oral Lasix. Patient initiated by hemodialysis by nephrology team. Check left upper extremity ultrasound Labs and medication were reviewed.. Continue same treatment. Continue with symptomatic treatment. Resume home medication. Monitor lytes and vitals. DVT and GI prophylaxis. Further recommendations of the clinical course of the patient DVT prophylaxis: Subcutaneous heparin GI Prophylaxis: Pepcid PT/OT: Pending Prognosis is guarded
--- NOTE | 2019-12-29 12:42 | US ---
EXAMINATION TYPE: US venous doppler duplex UE DATE OF EXAM: 12/29/2019 COMPARISON: NONE CLINICAL HISTORY: r/o dvt. left arm edema SIDE PERFORMED: Left IJV, subclavian, axilla, brachial, basilic, cephalic, radial, and ulnar veins patent. Left Arm: Negative for DVT IMPRESSION: THIS EXAMINATION IS NEGATIVE FOR DVT WITHIN THE LEFT ARM.
--- NOTE | 2019-12-29 12:48 | XR ---
EXAMINATION TYPE: XR chest 1V DATE OF EXAM: 12/29/2019 HISTORY: f/u. REFERENCE: Previous study dated 12/27/2019. FINDINGS: There has been a midline sternotomy. There is a bipolar pacemaker place on the left. There is a large-bore, double-lumen catheter in place via a right subclavian approach. Its tip is at the ca voatrial junction. There appears to be a tiny apical pneumothorax. The heart is enlarged. There is a small right-sided effusion. There is bibasilar airspace disease whi ch may represent a pneumonia or atelectasis. IMPRESSION: 1. TINY RIGHT APICAL PNEUMOTHORAX. 2. CARDIOMEGALY. 3. RIGHT-SIDED PLEURAL EFFUSION. 4. BIBASILAR AIRSPACE DISEASE. A Yellow level critical message alert has been initiated for [employer] via the [employer] on 12/29/2019 12:46 PM. This message alert has been sent to [employer] via the preferences provided by the clinician for the receipt of Radiology Critical Findings. Message ID [id number].
[2019-12-29 17:00] LABS: Glucose,Whole Blood 175 mg/dL (75-99)
[2019-12-29 20:49] LABS: Glucose,Whole Blood 186 mg/dL (75-99)
--- NOTE | 2019-12-29 22:39 | US ---
EXAMINATION TYPE: US chest DATE OF EXAM: 12/29/2019 COMPARISON: CXR CLINICAL HISTORY: right pleural effusion . Right effusion TECHNIQUE: Targeted ultrasound of the posterior lower right hemithorax EXAM MEASUREMENTS: Right Pleural Effusion pocket size: 11.6 cm Right skin surface to fluid distance: 3.2 cm Right side marked for possible thoracentesis outside the dept. Pulmonologists are able to review the images in the patient?s EMR. IMPRESSIONS: There is demonstration of large right pleural effusion.
[2019-12-30] MEDS: ALBUTEROL NEBULIZED 2.5 MG/3 ML INHALATION SCH ×6 (02:17→21:10)
[2019-12-30 06:50] LABS: Calcium 8.6 mg/dL (8.4-10.2)
[2019-12-30] MEDS: LEVOTHYROXINE 112 MCG TAB PO SCH (06:50)
[2019-12-30 06:52] LABS: Anisocytosis Slight; Basophils % (A) 0 %; Eosinophils # (A) 0.3 k/uL (0-0.7); Eosinophils % (A) 3 %; HCT 30.1 % (34.0-46.0); HGB 9.3 gm/dL (11.4-16.0); Hypochromasia Marked; Lymphocytes # (A) 2.3 k/uL (1.0-4.8); Lymphocytes % (A) 23 %; MCH 28.8 pg (25.0-35.0); MCV 92.8 fL (80.0-100.0); Mean Platelet Volume 11.1; Monocytes # (A) 0.7 k/uL (0-1.0); Monocytes % (A) 7 %; Neutrophils # (A) 6.5 k/uL (1.3-7.7); Neutrophils % (A) 65 %; Platelet Count 307 k/uL (150-450); Poikilocytosis Slight; RBC 3.25 m/uL (3.80-5.40); RDW 17.3 % (11.5-15.5); WBC 10.1 k/uL (3.8-10.6)
[2019-12-30 07:09] LABS: Potassium 5.6 mmol/L (3.5-5.1)
--- NOTE | 2019-12-30 07:24 | XR ---
EXAMINATION TYPE: XR chest 1V DATE OF EXAM: 12/30/2019 COMPARISON: 12/29/2019 HISTORY: 74-year-old female right pleural effusion TECHNIQUE: Single frontal view of the chest is obtained. FINDINGS: Median sternotomy wires and post-CABG clips. Endovascular aortic valve replacement. Right-sided doubl e-lumen hemodialysis catheter with tips at the cavoatrial junction. Left anterior chest wall pacemake r generator with right atrial and right ventricular leads. Mild diffuse interstitial density persists . Small right pleural effusion. Thick band of opacity continues to project obliquely from the right h eart margin to the periphery of the midlung. Patchy right basilar opacity remains. A curvilinear edge projecting at the right apex measuring 3 mm from the apical margin. IMPRESSION: 1. Possible tiny 3 mm right apical pneumothorax remains unchanged. 2. Continued small to moderate right pleural effusion with right lower lung patchy atelectasis and/or consolidation. 3. Continued thick band of opacity projecting from the right heart margin suspected to represent pleu ral fluid tracking along the fissure.
--- NOTE | 2019-12-30 08:36 | P.PN ---
Subjective this is a pleasant 74 years old female with past medical history of heart failure, atrial fibrillation status post pacemaker, coronary artery disease, diabetes mellitus, hypertension, hyperlipidemia, osteoarthritis, hypothyroidism, GI bleed, CKD stage III, she follows up with Dr. Galvan hospital orderly and Dr. Reynolds for her kidney disease. Presents because of worsening dyspnea over one month, about that time she was discharged from the hospital for acute CHF exacerbation as well. Also she complained from leg swelling and increased weight. No chest pain or abdominal pain, no nausea vomiting. Also she is coughing and have some atrial flutter She denies smoking alcohol or illicit drugs vitals are stable and she is saturating 96% to 97% on 2 L oxygen via nasal cannula, troponin is elevated at 0.669 and proBNP is elevated at 7910. 12/24/2019 Patient is slightly improving she still feeling dyspnea with no chest pain, she still have some coughing. no fever and she is saturating 95% in 2 L oxygen, she presents rate of 16-18/m, she is afebrile. CBC and BMP is stable, creatinine 2.3 and BUN is 106. She is currently on Lasix 40 mg IV twice daily, also she is on torsemide 40 mg twice daily Cardiology and nephrology consult 12/25/2019 Patient is fully awake and oriented. Her dyspnea is significantly improved although she is little bit still short of breath, leg swelling is improving but not resolved completely. She still have some basal crepitation. Hemodynamically she is a stable period and labs are stable, creatinine went up s lightly 2.3 up to 2.7, sugars controlled. Nephrology on the case. She is currently on Lasix 60 mg twice daily and metolazone 5 mg daily with fluid restriction 1200 per day. She has good urine output yesterday more than 2 L. She saturating 96% on 2 L oxygen via nasal cannula. TSH is within normal limits at 1.7. Physical therapy: Pending 12/26/2019 Patient with no dyspnea, she still have some leg swelling but is improving. She is walking to the restroom [id number] with no difficulty or exertional dyspnea. No chest pain or coughing. Patient herself thinks she can go home today. Her vitals are stable. Her creatinine is slightly worse at 3.3, knees and 2.5, yesterday she has a negative villous about 1.8 L. Patient remains on Lasix 60 mg twice daily and metolazone and fluid restriction. 12/27/2019 Patient awake, she is breathing quietly. No basal crepitation. Patient has orthopnea when she lies down she has breathing difficulty. However she still have significant leg swelling Yesterday she was started on Lasix drip. Her creatinine is stable since yesterday at 3.4. She weights this morning 88 kg compared to 87 kg 3 days ago, yesterday has negative pollens about 350 mL per records Continue with Lasix drip for now Patient is awake and alert, no respiratory distress however she still have significant in tense bilateral leg swelling. She is in the fluid overload status that failed Lasix therapy and her Lasix drip was stopped, dialysis catheter was placed in the right upper chest and she planned for hemodialysis upon recommendation and management by sack filler. I discussed with the patient and looks like she agreeable to go for dialysis. Vitals and labs are stable. Creatinine 3.4 She is currently on by mouth Lasix 80 mg twice daily and metolazone had fluid restriction 12/29/2019 Patient was lying in bed fully awake and oriented. She was complaining of from some dyspnea this morning with coughing and colorless phlegm. No chest pain but her left upper extremity is swollen as well. She was getting hemodialysis and the planned for a second dialysis tomorrow. Her legs are still swollen, her weight is still on the same 87-88 kg. Left upper extremity is swollen. Ultrasound is ordered and the result is pending Also check chest x-ray. Sugar is controlled and labs and vitals are stable 12/30/2019 Patient is fully awake and oriented. Yesterday her chest x-ray was showing pleural effusion and small pneumothorax on the right side, could be related to her dialysis catheter placement. However this morning she was breathing easily and quietly, patient was found standing in the restroom brushing her teeth with no respiratory distress. No coughing or chest pain. However she still have leg edema and swelling. Vitals are stable and she saturating 97% on 2 L oxygen via nasal cannula. Chest ultrasound: Large right pleural effusion 11.6 cm, repeat chest x-ray this mornin mm apical right pneumothorax, unchanged from yesterday. left upper extremity ultrasound: No DVT Her sodium 131, potassium 5.6, creatinine 3.6.He normal 10.1 K, hemoglobin stable 9.3. Patient is planned for going for hemodialysis today Objective - Vital Signs Vital signs: Vital Signs Temp 97.8 F 12/30/19 04:00 Pulse 64 12/30/19 05:06 Resp 18 12/30/19 04:00 BP 129/61 12/30/19 04:00 Pulse Ox 97 12/30/19 04:00 Intake & Output 12/29/19 12/30/19 12/30/19 18:59 06:59 18:59 Intake Total 240 Output Total 200 540 Balance 40 -540 Weight 88.4 kg Intake: Oral 240 Output: Urine 200 540 Other: Voiding Method Toilet Toilet # Voids 2 - Exam GENERAL: The patient is alert and oriented x3, not in any acute distress. Well developed, well nourished. HEENT: Pupils are round and equally reacting to light. EOMI. No scleral icterus. No conjunctival pallor. Normocephalic, atraumatic. No pharyngeal erythema. No thyromegaly. CARDIOVASCULAR: S1 and S2 present. No murmurs, rubs, or gallops. PULMONARY: Chest is clear to auscultation, no wheezing bilateral basal crepitati on ABDOMEN: Soft, nontender, nondistended, normoactive bowel sounds. No palpable organomegaly. MUSCULOSKELETAL: No joint swelling or deformity. EXTREMITIES: No cyanosis, clubbing,. Bilateral leg edema NEUROLOGICAL: Gross neurological examination did not reveal any focal deficits. SKIN: No rashes. no petechiae. - Labs CBC & Chem 7: 12/30/19 05:41 12/30/19 05:41 Labs: Abnormal Lab Results - Last 24 Hours (Table) 12/29/19 12/29/19 12/29/19 Range/Units 11:56 16:51 20:40 RBC (3.80-5.40) m/uL Hgb (11.4-16.0) gm/dL Hct (34.0-46.0) % RDW (11.5-15.5) % Sodium (137-145) mmol/L Potassium (3.5-5.1) mmol/L Chloride (98-107) mmol/L BUN (7-17) mg/dL Creatinine (0.52-1.04) mg/dL Glucose (74-99) mg/dL POC Glucose (mg/dL) 218 H 175 H 186 H (75-99) mg/dL 12/30/19 12/30/19 Range/Units 05:41 05:41 RBC 3.25 L (3.80-5.40) m/uL Hgb 9.3 L (11.4-16.0) gm/dL Hct 30.1 L (34.0-46.0) % RDW 17.3 H (11.5-15.5) % Sodium 131 L (137-145) mmol/L Potassium 5.6 H (3.5-5.1) mmol/L Chloride 94 L (98-107) mmol/L BUN 112 H* (7-17) mg/dL Creatinine 3.66 H (0.52-1.04) mg/dL Glucose 112 H (74-99) mg/dL POC Glucose (mg/dL) (75-99) mg/dL Assessment and Plan Assessment: Fluid overload secondary to advanced kidney disease, stage IV, going into stage V. Failed Lasix therapy and started on hemodialysis. 3 mm right apical pneumothorax, could be related to catheter placement large right pleural effusion atrial fibrillation,status post pacemaker. not on anticoagulation Left upper extremity swollen diabetes mellitus Hypertension Hyperlipidemia CTD, stage III Osteoarthritis Hypothyroidism History of GI bleed Plan: this is a pleasant 74 years old female who presents with CHF. Continue with diuretics. Cardiology consult. Monitor electrolytes, weight and kidney function. Patient is an oral Lasix. Patient initiated by hemodialysis by nephrology team. Consult pulmonary for possible thoracocentesis and pneumothorax. Monitor Labs and medication were reviewed.. Continue same treatment. Continue with symptomatic treatment. Resume home medication. Monitor lytes and vitals. DVT and GI prophylaxis. Further recommendations of the clinical course of the patient DVT prophylaxis: Subcutaneous heparin GI Prophylaxis: Pepcid PT/OT: Pending Prognosis is guarded
[2019-12-30] MEDS: hydrALAZINE HCL 50 MG TAB PO SCH ×4 (09:05→21:01)
[2019-12-30] MEDS: CHOLECALCIFEROL 1,000 UNIT TAB PO SCH (09:05)
[2019-12-30] MEDS: ATORVASTATIN 20 MG TAB PO SCH (09:06)
[2019-12-30] MEDS: ISOSORBIDE MONONITRATE ER 60 MG TAB.ER.24H PO SCH (09:06)
[2019-12-30] MEDS: METOPROLOL SUCCINATE (ER) 50 MG TAB.ER.24H PO SCH ×2 (09:06→21:01)
[2019-12-30] MEDS: FAMOTIDINE 20 MG TAB PO SCH (09:06)
[2019-12-30] MEDS: ALLOPURINOL 100 MG TAB PO SCH (09:07)
[2019-12-30] MEDS: METOLAZONE 2.5 MG TAB PO SCH (09:07)
[2019-12-30] MEDS: INSULIN DETEMIR (LEVEMIR) 100 UNIT/ML SYR SQ SCH (09:07)
[2019-12-30] MEDS: ASPIRIN 81 MG PO SCH (09:07)
[2019-12-30] MEDS: FENOFIBRATE 54 MG TAB PO SCH (09:07)
[2019-12-30] MEDS: FUROSEMIDE 10 MG/ML 10 ML VIAL IV SCH ×2 (09:08→21:01)
[2019-12-30] MEDS: HEPARIN SODIUM,PORCINE 5,000 UNIT/ML 1 ML VIAL SQ SCH ×2 (09:08→21:01)
[2019-12-30 09:16] VITALS: BMI 31.4
--- NOTE | 2019-12-30 10:52 | P.PN ---
Subjective Progress Note Date: 12/30/19 This is a 74-year-old female with history of coronary artery disease and prior bypass surgery, severe aortic stenosis,s/p AVR, chronic diastolic congestive heart failure, chronic renal insufficiency, sick sinus syndrome status post prior pacemaker who initially presented to the hospital with symptoms of pr ogressively worsening shortness of breath and bilateral lower extremity edema. She was initiated on IV Lasix and diuresed moderately well through the night last night, continues to have bilateral lower extremity edema, left greater than the right and decreased breath sounds bilaterally. Her echocardiogram with Doppler study has been performed but is yet pending. She did have a recent echo which showed an ejection fraction of 45-50% with fairly normally functioning bioprosthetic valve in the aortic position. There was severe pulmonary hypertension and mitral stenosis. Blood pressure 144/70 with a heart rate in the 60s, 95% on 2 L of oxygen. White blood cell count 8.1, hemoglobin 9.5, pl atelet count 373. Sodium 134, potassium 4.1, BUN 106, creatinine 2.3. Magnesium 2.4 today, TSH 1.7. 12/25/2019 Patient was seen and examined this morning, breathing is improving, continues to have peripheral edema. Creatinine today is 2.7. Her weight is down 1 kg. Spoke with nephrology this morning, recommendation is to continue current dose of IV Lasix. 12/26/2019 Patient was seen and examined this morning, sitting up in the chair at bedside, she continues to have significant bilateral lower extremity edema but her lungs today are clear. She also has persistent swelling in the left hand. IV push Lasix was discontinued today by nephrology and the patient was started on a Lasix drip at 10 mg per hour, we're also continuing the metolazone at this time. She will receive IV iron 3 doses. Blood pressure 116/50 with a heart rate of 60, 97% on 2 L of oxygen. Sodium 135, potassium 3.7, BUN 1:15, creatinine 3.3, magnesium 2.5. 12/27/2019 Patient was seen and examined this morning, she does feel more short of breath today. Dr. Rodriguez did have a discussion with the patient and the plan is to start her on hemodialysis. She will go for a port placement either today or tomorrow. 12/28/2019 Patient seen and examined this morning, sitting up in chair bedside, overall doing well. She did have a port placed and is scheduled to undergo dialysis at some point today. Her BUN today is 126 with a creatinine of 3.4. 12/29/2019 Patient was seen and examined this morning, sitting up in chair bedside. She underwent dialysis yesterday and overall states that she's feeling okay. She still continues to have significant swelling in her left upper extremity, double the size of her right. We will get an ultrasound of that arm today to rule out any possibility of a DVT. Sodium this morning was 135. Potassium of 4.5, BUN 99, creatinine 3.4, magnesium 2.5. 12/30/2019 patient seen and examined this morning, lying comfortably in bed, breathing is overall stable but patient states she doesn't feel significantly better. Venous duplex study was negative for DVT in the left arm, patient also has a reddened site in her right forearm area where there was a prior IV and ap pears to have a thrombophlebitis there. Chest x-ray shows pleural effusion on the right, then ultrasound was performed at marked 11.6 cm. White blood cell count 10.1, hemoglobin 9.3, platelet count 307. Sodium 131, potassium 5.6, BUN 112, creatinine 3.6. Objective - Vital Signs Vital signs: Vital Signs Temp 97.6 F 12/30/19 08:00 Pulse 64 12/30/19 08:00 Resp 18 12/30/19 08:00 BP 121/61 12/30/19 08:00 Pulse Ox 96 12/30/19 08:00 Intake & Output 12/29/19 12/30/19 12/30/19 18:59 06:59 18:59 Intake Total 240 180 Output Total 200 540 Balance 40 -540 180 Weight 88.4 kg 88.4 kg Intake: Oral 240 180 Output: Urine 200 540 Other: Voiding Method Toilet Toilet Toilet # Voids 2 - Exam PHYSICAL EXAMINATION: GENERAL: 74-year-old female patient in no acute distress at the time of my examination HEENT: Head is atraumatic, normocephalic. Pupils equal, round. Sclera anicteric. Conjunctiva are clear. Mucous membranes of the mouth are moist. Neck is supple. There is no elevated jugular venous pressure.No carotid bruit is heard. HEART EXAMINATION: Heart S1 and S2 systolic ejection murmur is heard in the aortic area CHEST EXAMINATION: Lungs reveal fine rales to bilateral bases ABDOMEN: Soft, nontender. Bowel sounds are heard. No organomegaly noted. EXTREMITIES: 2+ peripheral pulses with 2+ evidence of peripheral edema and no calf tenderness noted. Significant swelling of the left hand and arm also not ed. Area of firmness and redness noted in the area of the right forearm NEUROLOGIC patient is awake, alert and oriented 3 . . - Labs CBC & Chem 7: 12/30/19 05:41 12/30/19 05:41 Labs: Abnormal Lab Results - Last 24 Hours (Table) 12/29/19 12/29/19 12/29/19 Range/Units 11:56 16:51 20:40 RBC (3.80-5.40) m/uL Hgb (11.4-16.0) gm/dL Hct (34.0-46.0) % RDW (11.5-15.5) % Sodium (137-145) mmol/L Potassium (3.5-5.1) mmol/L Chloride (98-107) mmol/L BUN (7-17) mg/dL Creatinine (0.52-1.04) mg/dL Glucose (74-99) mg/dL POC Glucose (mg/dL) 218 H 175 H 186 H (75-99) mg/dL 12/30/19 12/30/19 Range/Units 05:41 05:41 RBC 3.25 L (3.80-5.40) m/uL Hgb 9.3 L (11.4-16.0) gm/dL Hct 30.1 L (34.0-46.0) % RDW 17.3 H (11.5-15.5) % Sodium 131 L (137-145) mmol/L Potassium 5.6 H (3.5-5.1) mmol/L Chloride 94 L (98-107) mmol/L BUN 112 H* (7-17) mg/dL Creatinine 3.66 H (0.52-1.04) mg/dL Glucose 112 H (74-99) mg/dL POC Glucose (mg/dL) (75-99) mg/dL Assessment and Plan Plan: Assessment and plan #1 congestive heart failure, combination of systolic and diastolic, acute on chronic. #2 acute on chronic kidney disease stage IV #3 severe pulmonary hypertension #4 diabetes #5 hypertension #6 anemia of chronic disease #7 severe aortic stenosis status post aortic valve replacement #8 coronary artery disease with prior bypass surgery #9 hyperlipidemia #10 hypothyroidism Plan From cardiology's perspective, we'll continue the patient on her current medications. I requested the nurse apply warm compresses to the right inner forearm, area prior IV. Further recommendations to follow. DNP note has been reviewed, I agree with a documented findings and plan of care. Patient was seen and examined.
[2019-12-30 11:37] LABS: Glucose,Whole Blood 202 mg/dL (75-99)
--- NOTE | 2019-12-30 15:07 | P.PN ---
Subjective Progress Note Date: 12/30/19 Principal diagnosis: Acute exacerbation of CHF, bilateral pleural effusions, right greater than left 74-year-old white female patient with known history of chronic congestive heart failure, chronic atrial fibrillation status post pacemaker insertion, coronary artery disease with previous history of PTCA and stenting, and two-vessel bypass in 2007, valvular heart disease with history of aortic valve replacement,, diabetes mellitus type 2, hypertension, hyperlipidemia, osteoarthritis, hypothyroidism, previous history of GI bleeding, Hodgkin's lymphoma with radiation of the neck and chest and chemotherapy, CKD when she presented with complaints of shortness of breath, bilateral lower and upper extremity edema, some limited cough and clear phlegm production. Her BNP on admission was 9120, troponin was 0.062. No fever or chills on presentation, no complaints of chest pain. Echocardiogram revealed EF between 50-55%, normally functioning bioprosthetic aortic valve, mild MR, moderate to severe TR, with moderate pulmonary hypertension and right-sided pressures of 47 mmHg. Patient had significant worsening of renal function with symptoms of fluid overload, and bilateral pleural effusions. She was started on hemodialysis per nephrology. She had hemodialysis treatment on 12/28/2019 with removal of 1.9 L of fluid. Follow-up chest x-ray on 12/21/2019 showed a tiny right apical pneumothorax, right-sided pleural effusion and bibasilar airspace disease, ultrasound of the chest showed 11.6 cm fluid pocket on the right, and we're asked to see the patient for possibly of right-sided thoracentesis. At the time of our evaluation patient is calm and comfortable, she is ambulating to the bathroom, currently on room air, lung sounds reveal diminished breath sounds over right base, no complaints of chest pain, she still has significant lower extremity edema, she is expected to get another hemodialysis treatment today Objective - Vital Signs Vital signs: Vital Signs Temp 97.6 F 12/30/19 12:00 Pulse 97 12/30/19 12:00 Resp 18 12/30/19 12:00 BP 121/60 12/30/19 12:00 Pulse Ox 96 12/30/19 08:00 Intake & Output 12/29/19 12/30/19 12/30/19 18:59 06:59 18:59 Intake Total 240 240 Output Total 200 540 350 Balance 40 -540 -110 Weight 88.4 kg 88.4 kg Intake: Oral 240 240 Output: Urine 200 540 350 Other: Voiding Method Toilet Toilet Toilet # Voids 2 - Exam GENERAL EXAM: Alert, very pleasant, 74-year-old white female, on room air, ambulate into the bathroom, no acute distress, comfortable in no apparent distress. HEAD: Normocephalic/atraumatic. EYES: Normal reaction of pupils, equal size. Conjunctiva pink, sclera white. NOSE: Clear with pink turbinates. THROAT: No erythema or exudates. NECK: No masses, no JVD, no thyroid enlargement, no adenopathy. CHEST: No chest wall deformity. Symmetrical expansion. LUNGS: Equal air entry with no crackles, wheeze, rhonchi or dullness. CVS: Regular rate and rhythm, normal S1 and S2, no gallops, no murmurs, no rubs ABDOMEN: Soft, nontender. No hepatosplenomegaly, normal bowel sounds, no guarding or rigidity. EXTREMITIES: No clubbing, 2+ lower extremity edema, involving ankles and pedal edema, no cyanosis, 2+ pulses and upper and lower extremities. MUSCULOSKELETAL: Muscle strength and tone normal. SPINE: No scoliosis or deformity SKIN: No rashes CENTRAL NERVOUS SYSTEM: Alert and oriented -3. No focal deficits, tone is normal in all 4 extremities. PSYCHIATRIC: Alert and oriented -3. Appropriate affect. Intact judgment and insight. - Labs CBC & Chem 7: 12/30/19 05:41 12/30/19 05:41 Labs: Abnormal Lab Results - Last 24 Hours (Table) 12/29/19 12/29/19 12/30/19 Range/Units 16:51 20:40 05:41 RBC 3.25 L (3.80-5.40) m/uL Hgb 9.3 L (11.4-16.0) gm/dL Hct 30.1 L (34.0-46.0) % RDW 17.3 H (11.5-15.5) % Sodium (137-145) mmol/L Potassium (3.5-5.1) mmol/L Chloride (98-107) mmol/L BUN (7-17) mg/dL Creatinine (0.52-1.04) mg/dL Glucose (74-99) mg/dL POC Glucose (mg/dL) 175 H 186 H (75-99) mg/dL 12/30/19 12/30/19 Range/Units 05:41 11:35 RBC (3.80-5.40) m/uL Hgb (11.4-16.0) gm/dL Hct (34.0-46.0) % RDW (11.5-15.5) % Sodium 131 L (137-145) mmol/L Potassium 5.6 H (3.5-5.1) mmol/L Chloride 94 L (98-107) mmol/L BUN 112 H* (7-17) mg/dL Creatinine 3.66 H (0.52-1.04) mg/dL Glucose 112 H (74-99) mg/dL POC Glucose (mg/dL) 202 H (75-99) mg/dL Assessment and Plan Plan: Assessment: #1. Acute exacerbation of chronic congestive heart failure with a low normal EF, 50-55%, normally functioning bioprosthetic aortic valve, mild MR, moderate to severe TR, moderate pulmonary hypertension with right-sided pressures of 47.6 Millers of mercury #2. Bilateral pleural effusions, appeared to be improved on today's chest x- ray, ultrasound of the chest performed yesterday on 12/29/2019 showed 11.6 cm pleural fluid pocket on the right. Asymptomatic, on room air #3. Acute on chronic kidney disease, patient has been initiated on hemodialysis, she had her first treatment on 12/28/2019 would removal of 1.9 L of fluid, and she is anticipated to have another hemodialysis treatment today #4. Valvular heart disease, with previous history of aortic valve replacement w ith a bioprosthetic valve for history of severe aortic stenosis #5. Coronary artery disease with prior bypass surgery and prior PTCA and stenting #6. Hypertension #7. Diabetes mellitus type 2 #8. Anemia of chronic disease #9. Hypothyroidism #10. Hyperlipidemia #11. Tiny right apical pneumothorax, unchanged, patient is asymptomatic Plan: Repeat chest x-ray has been reviewed, showing small to moderate right pleural effusion and right lower lung patchy atelectasis, patient is expected to have another hemodialysis treatment. Continue hemodialysis, will obtain follow-up ultrasound of the chest in the morning, continue IV diuretics, and consider right-sided thoracentesis if patient's symptoms worsen or if she has persistent right-sided pleural effusion despite the diuretics and hemodialysis. I performed a history & physical examination of the patient and discussed their management with my nurse practitioner, Diana Carlisle. I reviewed the nurse practitioner's note and agree with the documented findings and plan of care. Lung sounds are positive for diminished breath sounds. The findings and the impression was discussed with the patient. I attest to the documentation by the nurse practitioner. Time with Patient: Greater than 30
--- NOTE | 2019-12-30 15:17 | PN ---
PROGRESS NOTE Patient is seen for followup for acute kidney injury on top of chronic kidney disease. Patient was started on dialysis this admission, as she had significant volume overload with worsening renal function. She will have a second treatment today. She states she is feeling slightly better, although she continues to have significant edema in the lower extremities. The patient will be going to [facility] on a Monday, Monday, Monday schedule for hemodialysis. PHYSICAL EXAMINATION: On examination today, blood pressure is 121/60, heart rate 97 per minute. Patient is afebrile. EXAMINATION OF THE HEART: S1 and S2. Examination shows significant edema, about 3 to 4+, bilateral lower extremities. Patient is volume-overloaded. [employer] exam is grossly intact. She is moving all 4 extremities. LABS: Labs show sodium 131, potassium 5.6, chloride 94, BUN 112, serum creatinine 3.6. ASSESSMENT: 1. Acute kidney injury, currently hemodialysis-dependent. Patient will be dialyzed at [facility] and we will continue to monitor for possible recovery of renal function. 2. Hyperkalemia. Expect improvement with dialysis. 3. Severe volume overload. Expect further improvement with ongoing dialysis. 4. Chronic kidney disease, stage 4, secondary to nephrosclerosis and cardiorenal syndrome. Baseline creatinine near 2. 5. Diastolic congestive heart failure. 6. Severe pulmonary hypertension. 7. Anemia of chronic disease. 8. Iron deficiency, status post 3 doses of IV iron. 9. Acute kidney injury, mainly cardiorenal. 10.Hypokalemia secondary to diuresis, improved; currently hyperkalemic. PLAN: Hemodialysis today and then again in a.m. if patient is still in the hospital. Otherwise, she can start outpatient dialysis on a Monday, Monday, Monday schedule. Patient states that she has had some nausea from Zaroxolyn. Therefore she will be maintained on Lasix alone. I will discontinue the Zaroxolyn. MMODL / IJN: [id number] /
[2019-12-30 16:24] LABS: Glucose,Whole Blood 145 mg/dL (75-99)
[2019-12-30 20:21] LABS: Glucose,Whole Blood 185 mg/dL (75-99)
[2019-12-30] MEDS: INSULIN ASPART (NovoLOG) 100 UNIT/ML VIAL SQ SCH (21:33)
[2019-12-31] MEDS: ALBUTEROL NEBULIZED 2.5 MG/3 ML INHALATION SCH ×7 (00:21→22:42)
[2019-12-31 06:17] LABS: Glucose,Whole Blood 105 mg/dL (75-99)
[2019-12-31] MEDS: LEVOTHYROXINE 112 MCG TAB PO SCH (06:40)
[2019-12-31] MEDS: INSULIN ASPART (NovoLOG) 100 UNIT/ML VIAL SQ SCH ×4 (06:40→20:19)
[2019-12-31] MEDS: INSULIN DETEMIR (LEVEMIR) 100 UNIT/ML SYR SQ SCH (06:43)
[2019-12-31] MEDS: ASPIRIN 81 MG PO SCH (08:59)
[2019-12-31] MEDS: ISOSORBIDE MONONITRATE ER 60 MG TAB.ER.24H PO SCH (08:59)
[2019-12-31] MEDS: CHOLECALCIFEROL 1,000 UNIT TAB PO SCH (08:59)
[2019-12-31] MEDS: METOPROLOL SUCCINATE (ER) 50 MG TAB.ER.24H PO SCH ×2 (08:59→20:20)
[2019-12-31] MEDS: FAMOTIDINE 20 MG TAB PO SCH (08:59)
[2019-12-31] MEDS: ALLOPURINOL 100 MG TAB PO SCH (09:00)
[2019-12-31] MEDS: FUROSEMIDE 10 MG/ML 10 ML VIAL IV SCH (09:00)
[2019-12-31] MEDS: HEPARIN SODIUM,PORCINE 5,000 UNIT/ML 1 ML VIAL SQ SCH ×2 (09:00→20:20)
[2019-12-31] MEDS: hydrALAZINE HCL 50 MG TAB PO SCH ×2 (09:00→20:20)
[2019-12-31 09:14] LABS: Calcium 8.7 mg/dL (8.4-10.2); Potassium 5.1 mmol/L (3.5-5.1)
--- NOTE | 2019-12-31 09:41 | US ---
EXAMINATION TYPE: US chest DATE OF EXAM: 12/31/2019 COMPARISON: NONE CLINICAL HISTORY: follow up. Follow up to previous TECHNIQUE: Targeted ultrasound of the posterior lower right hemithorax EXAM MEASUREMENTS: Right Pleural Effusion pocket size: 8.2 cm Right skin surface to fluid distance: 1.9 cm Lung tissue visualized 1 cm in fluid pocket. Right side marked for possible thoracentesis outside the dept. Pulmonologists are able to review the images in the patient?s EMR. IMPRESSIONS: As above
[2019-12-31 09:46] LABS: Anisocytosis Slight; HGB 9.4 gm/dL (11.4-16.0); Hypochromasia Marked; MCH 28.2 pg (25.0-35.0); MCHC 30.5 g/dL (31.0-37.0); MCV 92.5 fL (80.0-100.0); Mean Platelet Volume 11.7; Platelet Count 256 k/uL (150-450); RBC 3.35 m/uL (3.80-5.40); RDW 18.1 % (11.5-15.5); WBC 8.2 k/uL (3.8-10.6)
[2019-12-31] MEDS: FENOFIBRATE 54 MG TAB PO SCH (09:56)
--- NOTE | 2019-12-31 11:36 | P.PN ---
Subjective Progress Note Date: 12/31/19 This is a 74-year-old female with history of coronary artery disease and prior bypass surgery, severe aortic stenosis,s/p AVR, chronic diastolic congestive heart failure, chronic renal insufficiency, sick sinus syndrome status post prior pacemaker who initially presented to the hospital with symptoms of pr ogressively worsening shortness of breath and bilateral lower extremity edema. She was initiated on IV Lasix and diuresed moderately well through the night last night, continues to have bilateral lower extremity edema, left greater than the right and decreased breath sounds bilaterally. Her echocardiogram with Doppler study has been performed but is yet pending. She did have a recent echo which showed an ejection fraction of 45-50% with fairly normally functioning bioprosthetic valve in the aortic position. There was severe pulmonary hypertension and mitral stenosis. Blood pressure 144/70 with a heart rate in the 60s, 95% on 2 L of oxygen. White blood cell count 8.1, hemoglobin 9.5, pl atelet count 373. Sodium 134, potassium 4.1, BUN 106, creatinine 2.3. Magnesium 2.4 today, TSH 1.7. 12/25/2019 Patient was seen and examined this morning, breathing is improving, continues to have peripheral edema. Creatinine today is 2.7. Her weight is down 1 kg. Spoke with nephrology this morning, recommendation is to continue current dose of IV Lasix. 12/26/2019 Patient was seen and examined this morning, sitting up in the chair at bedside, she continues to have significant bilateral lower extremity edema but her lungs today are clear. She also has persistent swelling in the left hand. IV push Lasix was discontinued today by nephrology and the patient was started on a Lasix drip at 10 mg per hour, we're also continuing the metolazone at this time. She will receive IV iron 3 doses. Blood pressure 116/50 with a heart rate of 60, 97% on 2 L of oxygen. Sodium 135, potassium 3.7, BUN 1:15, creatinine 3.3, magnesium 2.5. 12/27/2019 Patient was seen and examined this morning, she does feel more short of breath today. Dr. Rodriguez did have a discussion with the patient and the plan is to start her on hemodialysis. She will go for a port placement either today or tomorrow. 12/28/2019 Patient seen and examined this morning, sitting up in chair bedside, overall doing well. She did have a port placed and is scheduled to undergo dialysis at some point today. Her BUN today is 126 with a creatinine of 3.4. 12/29/2019 Patient was seen and examined this morning, sitting up in chair bedside. She underwent dialysis yesterday and overall states that she's feeling okay. She still continues to have significant swelling in her left upper extremity, double the size of her right. We will get an ultrasound of that arm today to rule out any possibility of a DVT. Sodium this morning was 135. Potassium of 4.5, BUN 99, creatinine 3.4, magnesium 2.5. 12/30/2019 patient seen and examined this morning, lying comfortably in bed, breathing is overall stable but patient states she doesn't feel significantly better. Venous duplex study was negative for DVT in the left arm, patient also has a reddened site in her right forearm area where there was a prior IV and ap pears to have a thrombophlebitis there. Chest x-ray shows pleural effusion on the right, then ultrasound was performed at marked 11.6 cm. White blood cell count 10.1, hemoglobin 9.3, platelet count 307. Sodium 131, potassium 5.6, BUN 112, creatinine 3.6. 12/31/2019 Patient seen and examined this morning, sitting up at bedside, this is her best day so far according to her, her breathing feels much improved. A repeat ultrasound of the chest was performed this morning, the right pleural effusion measuring 8.2 cm. The patient will be reevaluated by pulmonary today, if no thoracentesis will be performed, we are anticipating that she may be discharged home. Objective - Vital Signs Vital signs: Vital Signs Temp 97.8 F 12/31/19 08:00 Pulse 60 12/31/19 11:33 Resp 18 12/31/19 08:00 BP 125/52 12/31/19 08:00 Pulse Ox 97 12/31/19 08:17 Intake & Output 12/30/19 12/31/19 12/31/19 18:59 06:59 18:59 Intake Total 320 240 Output Total 5550 450 Balance -5230 -450 240 Weight 88.4 kg 85.9 kg Intake: Oral 320 240 Output: Urine 350 450 Hemodialysis 2600 Other 2600 Other: Voiding Method Toilet Toilet # Voids 1 - Exam PHYSICAL EXAMINATION: GENERAL: 74-year-old female patient in no acute distress at the time of my examination HEENT: Head is atraumatic, normocephalic. Pupils equal, round. Sclera anict yady. Conjunctiva are clear. Mucous membranes of the mouth are moist. Neck is supple. There is no elevated jugular venous pressure.No carotid bruit is heard. HEART EXAMINATION: Heart S1 and S2 systolic ejection murmur is heard in the aortic area CHEST EXAMINATION: Lungs clear with diminished air entry to the bases, right greater than left ABDOMEN: Soft, nontender. Bowel sounds are heard. No organomegaly noted. EXTREMITIES: 2+ peripheral pulses with 1+ evidence of peripheral edema and no calf tenderness noted. Significant swelling of the left hand and arm also noted. Area of firmness and redness noted in the area of the right forearm NEUROLOGIC patient is awake, alert and oriented 3 . . - Labs CBC & Chem 7: 12/31/19 07:57 12/31/19 07:57 Labs: Abnormal Lab Results - Last 24 Hours (Table) 12/30/19 12/30/19 12/30/19 Range/Units 11:35 16:22 20:19 RBC (3.80-5.40) m/uL Hgb (11.4-16.0) gm/dL Hct (34.0-46.0) % MCHC (31.0-37.0) g/dL RDW (11.5-15.5) % Sodium (137-145) mmol/L Chloride (98-107) mmol/L BUN (7-17) mg/dL Creatinine (0.52-1.04) mg/dL Glucose (74-99) mg/dL POC Glucose (mg/dL) 202 H 145 H 185 H (75-99) mg/dL 12/31/19 12/31/19 12/31/19 Range/Units 06:15 07:57 07:57 RBC 3.35 L (3.80-5.40) m/uL Hgb 9.4 L (11.4-16.0) gm/dL Hct 31.0 L (34.0-46.0) % MCHC 30.5 L (31.0-37.0) g/dL RDW 18.1 H (11.5-15.5) % Sodium 131 L (137-145) mmol/L Chloride 94 L (98-107) mmol/L BUN 67 H (7-17) mg/dL Creatinine 2.90 H (0.52-1.04) mg/dL Glucose 154 H (74-99) mg/dL POC Glucose (mg/dL) 105 H (75-99) mg/dL Assessment and Plan Plan: Assessment and plan #1 congestive heart failure, combination of systolic and diastolic, acute on chronic. #2 acute on chronic kidney disease stage IV #3 severe pulmonary hypertension #4 diabetes #5 hypertension #6 anemia of chronic disease #7 severe aortic stenosis status post aortic valve replacement #8 coronary artery disease with prior bypass surgery #9 hyperlipidemia #10 hypothyroidism Plan From cardiology's perspective, we'll continue the patient on her current medications. Discharged once cleared by pulmonary and primary. DNP note has been reviewed, I agree with a documented findings and plan of care. Patient was seen and examined.
[2019-12-31 11:48] LABS: Glucose,Whole Blood 112 mg/dL (75-99)
[2019-12-31 11:59] LABS: Lymphocytes # (M) 0.82 k/uL (1.0-4.8); Monocytes # (M) 0.41 k/uL (0-1.0); Neutrophils # (M) 6.97 k/uL (1.3-7.7); Neutrophils % (M) 85 %; Nucleated Red Blood Cells 0 /100 WBC (0-0); Total Cells Counted 100
[2019-12-31 12:00] LABS: Poikilocytosis (M) Present
--- NOTE | 2019-12-31 13:13 | PN ---
PROGRESS NOTE The patient is seen for chronic kidney disease and acute kidney injury. Currently hemodialysis dependent. Patient was admitted with CHF volume overload. Renal function continue to worsen and she remained significantly volume overloaded and was therefore started on dialysis. The patient had her second treatment yesterday. We had about 2.6 L of fluid removed. She is feeling better. No significant chest pains or shortness of breath. On examination today, blood pressure was 125/52, heart rate 64 per minute, patient is afebrile. Examination of the heart S1, S2. Examination of the lungs, bilateral breath sounds are heard. Decreased breath sounds at bases. Abdomen is soft, nontender. Examination of lower extremities shows edema 3 to 4+ bilaterally. [employer]LECTION [employer]IATE exam grossly intact. Labs show sodium 131, potassium 5.1, chloride 94, CO2 26, BUN 67, creatinine 2.9, hemoglobin 9.4 g/dL. ASSESSMENT: 1. Chronic kidney disease with progressive renal failure and volume overload started on dialysis. The patient will be maintained on a Monday, Monday, Monday schedule as outpatient. We will continue to monitor for possible recovery of renal function. 2. Chronic kidney disease stage 3B to 4 with previous creatinine around 1.8-2 mg/dL. 3. Severe pulmonary hypertension. 4. Diastolic congestive heart failure. 5. Hyperkalemia, currently improved with dialysis. 6. Iron deficiency, status post IV iron. 7. Hypokalemia on initial admission currently hyperkalemic. PLAN: Repeat hemodialysis today for about 2 hours prior to discharge. The patient will continue on a Monday, Monday, Monday schedule as outpatient at [place]. Continue with the Lasix which will be switched to p.o. on discharge. The patient was on Demadex prior to admission. Therefore, we can switch her back to her home dose of Demadex which was 50 mg b.i.d. MMODL / IJN: [id number] /
[2019-12-31] MEDS: ACETAMINOPHEN TAB 325 MG TAB PO PRN (13:53)
--- NOTE | 2019-12-31 14:35 | P.PN ---
Subjective Progress Note Date: 12/31/19 Principal diagnosis: Acute exacerbation of CHF, bilateral pleural effusions, right greater than left 74-year-old white female patient with known history of chronic congestive heart failure, chronic atrial fibrillation status post pacemaker insertion, coronary artery disease with previous history of PTCA and stenting, and two-vessel bypass in 2007, valvular heart disease with history of aortic valve replacement,, diabetes mellitus type 2, hypertension, hyperlipidemia, osteoarthritis, hypothyroidism, previous history of GI bleeding, Hodgkin's lymphoma with radiation of the neck and chest and chemotherapy, CKD when she presented with complaints of shortness of breath, bilateral lower and upper extremity edema, some limited cough and clear phlegm production. Her BNP on admission was 9120, troponin was 0.062. No fever or chills on presentation, no complaints of chest pain. Echocardiogram revealed EF between 50-55%, normally functioning bioprosthetic aortic valve, mild MR, moderate to severe TR, with moderate pulmonary hypertension and right-sided pressures of 47 mmHg. Patient had significant worsening of renal function with symptoms of fluid overload, and bilateral pleural effusions. She was started on hemodialysis per nephrology. She had hemodialysis treatment on 12/28/2019 with removal of 1.9 L of fluid. Follow-up chest x-ray on 12/21/2019 showed a tiny right apical pneumothorax, right-sided pleural effusion and bibasilar airspace disease, ultrasound of the chest showed 11.6 cm fluid pocket on the right, and we're asked to see the patient for possibly of right-sided thoracentesis. At the time of our evaluation patient is calm and comfortable, she is ambulating to the bathroom, currently on room air, lung sounds reveal diminished breath sounds over right base, no complaints of chest pain, she still has significant lower extremity edema, she is expected to get another hemodialysis treatment today On 12/31/2019 patient seen in follow-up on [facility] care unit. She had a hemodialysis treatment yesterday with removal of 2.2 L of fluid, she is due for another hemodialysis treatment today, denies any worsening dyspnea, breathing is very comfortable, she is currently on room air, lung sounds are diminished at the bases, no crackles nor rhonchi. pulse 99% on room air, hemodynamically stable, no complaints of chest pain, lower extremity edema is improving, still has some residual 1+ edema involving bilateral lower extremities. Today's chest ultrasound showed 8.2 cm right pleural effusion pocket however there was lung tissue 1cm deep in the fluid pocket. Likely patient is asymptomatic, breathing is comfortable, she is maintaining stable O2 saturations, no plans for thoracentesis at this time Objective - Vital Signs Vital signs: Vital Signs Temp 97.5 F L 12/31/19 12:00 Pulse 60 12/31/19 12:00 Resp 18 12/31/19 12:00 BP 116/53 12/31/19 12:00 Pulse Ox 99 12/31/19 12:00 Intake & Output 12/30/19 12/31/19 12/31/19 18:59 06:59 18:59 Intake Total 320 240 Output Total 5550 450 Balance -5230 -450 240 Weight 88.4 kg 85.9 kg Intake: Oral 320 240 Output: Urine 350 450 Hemodialysis 2600 Other 2600 Other: Voiding Method Toilet Toilet # Voids 1 - Exam GENERAL EXAM: Alert, very pleasant, 74-year-old white female, on room air, with a pulse ox of 99%, ambulate into the bathroom, no acute distress, comfortable in no apparent distress. HEAD: Normocephalic/atraumatic. EYES: Normal reaction of pupils, equal size. Conjunctiva pink, sclera white. NOSE: Clear with pink turbinates. THROAT: No erythema or exudates. NECK: No masses, no JVD, no thyroid enlargement, no adenopathy. CHEST: No chest wall deformity. Symmetrical expansion. LUNGS: Equal air entry with no crackles, wheeze, rhonchi or dullness. CVS: Regular rate and rhythm, normal S1 and S2, no gallops, no murmurs, no rubs ABDOMEN: Soft, nontender. No hepatosplenomegaly, normal bowel sounds, no guarding or rigidity. EXTREMITIES: No clubbing, 1+ lower extremity edema, involving ankles and pedal edema, no cyanosis, 2+ pulses and upper and lower extremities. MUSCULOSKELETAL: Muscle strength and tone normal. SPINE: No scoliosis or deformity SKIN: No rashes CENTRAL NERVOUS SYSTEM: Alert and oriented -3. No focal deficits, tone is normal in all 4 extremities. PSYCHIATRIC: Alert and oriented -3. Appropriate affect. Intact judgment and insight. - Labs CBC & Chem 7: 12/31/19 07:57 12/31/19 07:57 Labs: Abnormal Lab Results - Last 24 Hours (Table) 12/30/19 12/30/19 12/31/19 Range/Units 16:22 20:19 06:15 RBC (3.80-5.40) m/uL Hgb (11.4-16.0) gm/dL Hct (34.0-46.0) % MCHC (31.0-37.0) g/dL RDW (11.5-15.5) % Lymphocytes # (Manual) (1.0-4.8) k/uL Sodium (137-145) mmol/L Chloride (98-107) mmol/L BUN (7-17) mg/dL Creatinine (0.52-1.04) mg/dL Glucose (74-99) mg/dL POC Glucose (mg/dL) 145 H 185 H 105 H (75-99) mg/dL 12/31/19 12/31/19 12/31/19 Range/Units 07:57 07:57 11:39 RBC 3.35 L (3.80-5.40) m/uL Hgb 9.4 L (11.4-16.0) gm/dL Hct 31.0 L (34.0-46.0) % MCHC 30.5 L (31.0-37.0) g/dL RDW 18.1 H (11.5-15.5) % Lymphocytes # (Manual) 0.82 L (1.0-4.8) k/uL Sodium 131 L (137-145) mmol/L Chloride 94 L (98-107) mmol/L BUN 67 H (7-17) mg/dL Creatinine 2.90 H (0.52-1.04) mg/dL Glucose 154 H (74-99) mg/dL POC Glucose (mg/dL) 112 H (75-99) mg/dL Assessment and Plan Plan: Assessment: #1. Acute exacerbation of chronic congestive heart failure with a low normal EF, 50-55%, normally functioning bioprosthetic aortic valve, mild MR, moderate to severe TR, moderate pulmonary hypertension with right-sided pressures of 47.6 [place] #2. Bilateral pleural effusions, appeared to be improved on today's chest x- ray, ultrasound of the chest performed yesterday on 12/29/2019 showed 11.6 cm pleural fluid pocket on the right. Asymptomatic, on room air #3. Acute on chronic kidney disease, patient has been initiated on hemodialysis, she had her first treatment on 12/28/2019 would removal of 1.9 L of fluid, and she is anticipated to have another hemodialysis treatment today #4. Valvular heart disease, with previous history of aortic valve replacement with a bioprosthetic valve for history of severe aortic stenosis #5. Coronary artery disease with prior bypass surgery and prior PTCA and stenting #6. Hypertension #7. Diabetes mellitus type 2 #8. Anemia of chronic disease #9. Hypothyroidism #10. Hyperlipidemia #11. Tiny right apical pneumothorax, unchanged, patient is asymptomatic Plan: Today's ultrasound of the chest has been reviewed, showing 8.2 cm pleural fluid pocket on the right, however there is 1.9 cm lung tissue floating 1 cm deep in the pleural fluid. Clinically patient is stable, she is maintaining stable O2 saturations on room air, she is expected to have another hemodialysis treatment, she is on oral diuretics, denies any dyspnea, breathing is quite comfortable, from pulmonary perspective would continue medical treatment and hemodialysis, no plans for thoracentesis. Patient is anticipated to be discharged home following her hemodialysis treatment I performed a history & physical examination of the patient and discussed their management with my nurse practitioner, Diana Carlisle. I reviewed the nurse practitioner's note and agree with the documented findings and plan of care. Lung sounds are positive for diminished breath sounds. The findings and the impression was discussed with the patient. I attest to the documentation by the nurse practitioner. Time with Patient: Less than 30
[2019-12-31 17:00] LABS: Glucose,Whole Blood 192 mg/dL (75-99)
--- NOTE | 2019-12-31 19:21 | P.PN ---
Progress Note - Text Progress Note Date: 12/31/19 Presenting complaint: Shortness of breath Interval history:: This is a 74-year-old patient of Dr. Cruz. Chronic stable medical conditions include atrial fibrillation, coronary artery disease, diabetes, hyperlipidemia, hypertension, peripheral neuropathy, Hodgkin's lymphoma treated with radiation, diverticulosis, arthritis hypothyroid. Admitted with-acute CHF exacerbation. Started on IV Lasix. Also felt to have acute kidney injury predominantly from's cardiorenal syndrome. On December 26 hem odialysis catheter was placed by Dr. Ortiz. And patient started on hemodialysis. On December 27. Today-patient's breathing is better. Laying in bed. Getting hemodialyzed. Did tolerate some diet. Had a bowel movement yesterday. No chest pain. Review of systems: Was done for constitutional, cardiovascular, GI, pulmonary. relevant finding as above Active Medications Acetaminophen (Tylenol Tab) 325 mg PO Q6HR PRN PRN Reason: Headache Last Admin: 12/31/19 13:53 Dose: 325 mg Documented by: Albuterol Sulfate (Ventolin Nebulized) 2.5 mg INHALATION RT-Q4H [facility] Last Admin: 12/31/19 15:50 Dose: 2.5 mg Documented by: Allopurinol (Zyloprim) 200 mg PO DAILY [facility] Last Admin: 12/31/19 09:00 Dose: 200 mg Documented by: Aspirin (Aspirin) 81 mg PO DAILY [facility] Last Admin: 12/31/19 08:59 Dose: 81 mg Documented by: Atorvastatin Calcium (Lipitor) 20 mg PO MoWeFrSa@0900 [facility] Last Admin: 12/30/19 09:06 Dose: 20 mg Documented by: Cholecalciferol (Vitamin D3 (25 Mcg = 1000 Iu)) 1,000 unit PO DAILY [facility] Last Admin: 12/31/19 08:59 Dose: 1,000 unit Documented by: Docusate Sodium (Colace) 100 mg PO DAILY PRN PRN Reason: Constipation Famotidine (Pepcid) 20 mg PO DAILY [facility] Last Admin: 12/31/19 08:59 Dose: 20 mg Documented by: Fenofibrate (Lofibra) 54 mg PO DAILY [facility] Last Admin: 12/31/19 09:56 Dose: 54 mg Documented by: Heparin Sodium (Porcine) (Heparin) 5,000 unit SQ Q12HR [facility] Last Admin: 12/31/19 09:00 Dose: 5,000 unit Documented by: Hydralazine HCl (Apresoline) 50 mg PO BID [facility] Insulin Aspart (Novolog) 0 unit SQ ACHS [facility]; Protocol Last Admin: 12/31/19 18:01 Dose: 2 unit Documented by: Insulin Detemir (Levemir) 20 unit SQ DAILY@0700 [facility] Last Admin: 12/31/19 06:43 Dose: 20 unit Documented by: Isosorbide Mononitrate (Imdur) 60 mg PO DAILY [facility] Last Admin: 12/31/19 08:59 Dose: 60 mg Documented by: Levothyroxine Sodium (Synthroid) 112 mcg PO DAILY@0630 [facility] Last Admin: 12/31/19 06:40 Dose: 112 mcg Documented by: Metoprolol Succinate (Toprol Xl) 50 mg PO BID [facility] Last Admin: 12/31/19 08:59 Dose: 50 mg Documented by: Miscellaneous Information (Potassium Per Protocol) 1 each MISCELLANE DAILY PRN; Protocol PRN Reason: Per Protocol Miscellaneous Information (Potassium Per Protocol) 1 each MISCELLANE DAILY PRN; Protocol PRN Reason: Per Protocol Miscellaneous Information (Magnesium Per Protocol) 1 each MISCELLANE DAILY PRN; Protocol PRN Reason: Per Protocol Nitroglycerin (Nitrostat) 0.4 mg SUBLINGUAL Q5M PRN PRN Reason: Pain Sodium Chloride (Saline Flush) 10 ml IV BID [facility] Last Admin: 12/31/19 09:08 Dose: 10 ml Documented by: Torsemide (Demadex) 40 mg PO BID [facility] On examination: VITAL SIGNS: 97.5, 60, 18, 160/53, 99% on room air GENERAL APPEARANCE: BMI 30.6, laying in bed, comfortable. HEENT: Normal external appearance of nose and ear. Oral cavity normal EYES: Pupils equal. Conjunctiva normal. NECK: JVD not raised. Mass not palpable. RESPIRATORY: Respiratory effort increased Lungs decreased breath sounds CARDIOVASCULAR: First and second sounds normal. Mild edema. ABDOMEN: Soft. Liver and spleen not palpable. No tenderness. No mass palpable. PSYCHIATRY: Alert and oriented x3. Mood and affect normal. INVESTIGATIONS, reviewed in the clinical context: White count 8.2 hemoglobin 9.4 potassium 5.1 bun 67 creatinine 2.90 Previous testing: White count 8.7 hemoglobin 9.6 potassium 3.1 bun 111, creatinine 2.34 line troponin I 0.0669, 0.740 2-D echocardiogram-EF 50-55%, moderate to severe tricuspid regurgitation, moderate pulmonary hypertension EKG shows AV dual paced rhythm Chest x-ray shows CHF and bilateral pleural effusion Assessment: -Acute on chronic congestive heart failure exacerbation from diastolic dysfunction EF 50-55% -Acute kidney injury mostly prerenal secondary to cardiorenal syndrome. -Chronic kidney disease stage IV secondary to nephrosclerosis and cardiorenal syndrome. -Moderate secondary pulmonary hypertension due to CHF -Moderate to severe tricuspid regurgitation, nontraumatic -Dual chamber pacemaker -Anemia of chronic kidney disease secondary to renal failure -Iron deficiency anemia-patient received IV iron -Troponin leak in the setting of renal failure. No acute coronary syndrome -Essential hypertension -Hypothyroid -Diabetes mellitus type 2 chronically on insulin -Persistent atrial fibrillation -Coronary artery disease with a prior bypass and stent -Spell likely due to Hodgkin's disease -Diabetic peripheral neuropathy -Colonic diverticulosis -Primary osteoarthritis multiple joints -Chronic gout Plan: Continue current medication treatment plan. Patient overall seems to be improving. Hopefully Discharge in next 24 hours. We'll discuss with consultants. Discussed with the patient.
[2019-12-31 20:14] LABS: Glucose,Whole Blood 180 mg/dL (75-99)
[2019-12-31] MEDS: TORSEMIDE 20 MG TAB PO SCH (20:21)
[2019-12-31] MEDS ORDERED: ALBUTEROL NEBULIZED 2.5 MG/3 ML INHALATION PRN (22:41)
[2020-01-01] MEDS: LEVOTHYROXINE 112 MCG TAB PO SCH (05:46)
[2020-01-01 06:29] LABS: Glucose,Whole Blood 124 mg/dL (75-99)
[2020-01-01] MEDS: INSULIN ASPART (NovoLOG) 100 UNIT/ML VIAL SQ SCH ×2 (06:43→12:39)
[2020-01-01] MEDS: INSULIN DETEMIR (LEVEMIR) 100 UNIT/ML SYR SQ SCH (06:44)
[2020-01-01 07:11] LABS: Anisocytosis Slight; Basophils % (A) 0 %; Eosinophils # (A) 0.2 k/uL (0-0.7); Eosinophils % (A) 2 %; HCT 31.3 % (34.0-46.0); HGB 9.3 gm/dL (11.4-16.0); Hypochromasia Marked; Lymphocytes # (A) 1.3 k/uL (1.0-4.8); Lymphocytes % (A) 16 %; MCH 27.4 pg (25.0-35.0); MCHC 29.7 g/dL (31.0-37.0); MCV 92.4 fL (80.0-100.0); Macrocytosis Slight; Mean Platelet Volume 10.8; Monocytes # (A) 0.5 k/uL (0-1.0); Monocytes % (A) 6 %; Neutrophils # (A) 6.1 k/uL (1.3-7.7); Neutrophils % (A) 73 %; Platelet Count 240 k/uL (150-450); RBC 3.39 m/uL (3.80-5.40); RDW 18.4 % (11.5-15.5); WBC 8.3 k/uL (3.8-10.6)
[2020-01-01 07:24] LABS: Calcium 8.5 mg/dL (8.4-10.2); Potassium 4.8 mmol/L (3.5-5.1)
[2020-01-01] MEDS: ALBUTEROL NEBULIZED 2.5 MG/3 ML INHALATION SCH ×2 (07:44→11:18)
[2020-01-01 08:31] VITALS: RESP 18
[2020-01-01] MEDS: ALLOPURINOL 100 MG TAB PO SCH (08:46)
[2020-01-01] MEDS: ASPIRIN 81 MG PO SCH (08:46)
[2020-01-01] MEDS: ATORVASTATIN 20 MG TAB PO SCH (08:46)
[2020-01-01] MEDS: FAMOTIDINE 20 MG TAB PO SCH (08:46)
[2020-01-01] MEDS: CHOLECALCIFEROL 1,000 UNIT TAB PO SCH (08:46)
[2020-01-01] MEDS: HEPARIN SODIUM,PORCINE 5,000 UNIT/ML 1 ML VIAL SQ SCH (08:47)
[2020-01-01] MEDS: FENOFIBRATE 54 MG TAB PO SCH (08:47)
[2020-01-01] MEDS: ISOSORBIDE MONONITRATE ER 60 MG TAB.ER.24H PO SCH (08:47)
[2020-01-01] MEDS: hydrALAZINE HCL 50 MG TAB PO SCH (08:47)
[2020-01-01] MEDS: METOPROLOL SUCCINATE (ER) 50 MG TAB.ER.24H PO SCH (08:48)
[2020-01-01] MEDS: TORSEMIDE 20 MG TAB PO SCH (08:48)
[2020-01-01] MEDS: ACETAMINOPHEN TAB 325 MG TAB PO PRN (10:10)
--- NOTE | 2020-01-01 10:50 | P.PN ---
Subjective Progress Note Date: 01/01/20 This is a 74-year-old female with history of coronary artery disease and prior bypass surgery, severe aortic stenosis,s/p AVR, chronic diastolic congestive heart failure, chronic renal insufficiency, sick sinus syndrome status post prior pacemaker who initially presented to the hospital with symptoms of pr ogressively worsening shortness of breath and bilateral lower extremity edema. She was initiated on IV Lasix and diuresed moderately well through the night last night, continues to have bilateral lower extremity edema, left greater than the right and decreased breath sounds bilaterally. Her echocardiogram with Doppler study has been performed but is yet pending. She did have a recent echo which showed an ejection fraction of 45-50% with fairly normally functioning bioprosthetic valve in the aortic position. There was severe pulmonary hypertension and mitral stenosis. Blood pressure 144/70 with a heart rate in the 60s, 95% on 2 L of oxygen. White blood cell count 8.1, hemoglobin 9.5, pl atelet count 373. Sodium 134, potassium 4.1, BUN 106, creatinine 2.3. Magnesium 2.4 today, TSH 1.7. 12/25/2019 Patient was seen and examined this morning, breathing is improving, continues to have peripheral edema. Creatinine today is 2.7. Her weight is down 1 kg. Spoke with nephrology this morning, recommendation is to continue current dose of IV Lasix. 12/26/2019 Patient was seen and examined this morning, sitting up in the chair at bedside, she continues to have significant bilateral lower extremity edema but her lungs today are clear. She also has persistent swelling in the left hand. IV push Lasix was discontinued today by nephrology and the patient was started on a Lasix drip at 10 mg per hour, we're also continuing the metolazone at this time. She will receive IV iron 3 doses. Blood pressure 116/50 with a heart rate of 60, 97% on 2 L of oxygen. Sodium 135, potassium 3.7, BUN 1:15, creatinine 3.3, magnesium 2.5. 12/27/2019 Patient was seen and examined this morning, she does feel more short of breath today. Dr. Rodriguez did have a discussion with the patient and the plan is to start her on hemodialysis. She will go for a port placement either today or tomorrow. 12/28/2019 Patient seen and examined this morning, sitting up in chair bedside, overall doing well. She did have a port placed and is scheduled to undergo dialysis at some point today. Her BUN today is 126 with a creatinine of 3.4. 12/29/2019 Patient was seen and examined this morning, sitting up in chair bedside. She underwent dialysis yesterday and overall states that she's feeling okay. She still continues to have significant swelling in her left upper extremity, double the size of her right. We will get an ultrasound of that arm today to rule out any possibility of a DVT. Sodium this morning was 135. Potassium of 4.5, BUN 99, creatinine 3.4, magnesium 2.5. 12/30/2019 patient seen and examined this morning, lying comfortably in bed, breathing is overall stable but patient states she doesn't feel significantly better. Venous duplex study was negative for DVT in the left arm, patient also has a reddened site in her right forearm area where there was a prior IV and ap pears to have a thrombophlebitis there. Chest x-ray shows pleural effusion on the right, then ultrasound was performed at marked 11.6 cm. White blood cell count 10.1, hemoglobin 9.3, platelet count 307. Sodium 131, potassium 5.6, BUN 112, creatinine 3.6. 12/31/2019 Patient seen and examined this morning, sitting up at bedside, this is her best day so far according to her, her breathing feels much improved. A repeat ultrasound of the chest was performed this morning, the right pleural effusion measuring 8.2 cm. The patient will be reevaluated by pulmonary today, if no thoracentesis will be performed, we are anticipating that she may be discharged home. 01/01/2020 Patient was seen and examined this morning, feels well overall, quite anxious to be discharged home today. Blood pressure 110/50 with a heart rate in the 60s, 97% on 2 L of oxygen. White blood cell count 8.3, hemoglobin 9.3, platelet count 240. Sodium 131, potassium 4.8, BUN 51 and creatinine 2.7. Objective - Vital Signs Vital signs: Vital Signs Temp 97.6 F 01/01/20 08:30 Pulse 60 01/01/20 08:30 Resp 18 01/01/20 08:30 BP 110/50 01/01/20 08:30 Pulse Ox 97 01/01/20 08:30 Intake & Output 12/31/19 01/01/20 01/01/20 18:59 06:59 18:59 Intake Total 360 118 Balance 360 118 Weight 84.6 kg Intake: Oral 360 118 Other: Voiding Method Toilet Toilet # Voids 1 1 # Bowel Movements 0 - Exam PHYSICAL EXAMINATION: GENERAL: 74-year-old female patient in no acute distress at the time of my examination HEENT: Head is atraumatic, normocephalic. Pupils equal, round. Sclera anicteric. Conjunctiva are clear. Mucous membranes of the mouth are moist. Neck is supple. There is no elevated jugular venous pressure.No carotid bruit is heard. HEART EXAMINATION: Heart S1 and S2 systolic ejection murmur is heard in the aortic area CHEST EXAMINATION: Lungs clear with diminished air entry to the bases, right greater than left ABDOMEN: Soft, nontender. Bowel sounds are heard. No organomegaly noted. EXTREMITIES: 2+ peripheral pulses with 1+ evidence of peripheral edema and no calf tenderness noted. Significant swelling of the left hand and arm also noted. Area of firmness and redness noted in the area of the right forearm NEUROLOGIC patient is awake, alert and oriented 3 . . - Labs CBC & Chem 7: 01/01/20 06:35 01/01/20 06:35 Labs: Abnormal Lab Results - Last 24 Hours (Table) 12/31/19 12/31/19 12/31/19 Range/Units 07:57 11:39 16:47 RBC (3.80-5.40) m/uL Hgb (11.4-16.0) gm/dL Hct (34.0-46.0) % MCHC (31.0-37.0) g/dL RDW (11.5-15.5) % Lymphocytes # (Manual) 0.82 L (1.0-4.8) k/uL Sodium (137-145) mmol/L BUN (7-17) mg/dL Creatinine (0.52-1.04) mg/dL Glucose (74-99) mg/dL POC Glucose (mg/dL) 112 H 192 H (75-99) mg/dL 12/31/19 01/01/20 01/01/20 Range/Units 20:13 06:27 06:35 RBC 3.39 L (3.80-5.40) m/uL Hgb 9.3 L (11.4-16.0) gm/dL Hct 31.3 L (34.0-46.0) % MCHC 29.7 L (31.0-37.0) g/dL RDW 18.4 H (11.5-15.5) % Lymphocytes # (Manual) (1.0-4.8) k/uL Sodium (137-145) mmol/L BUN (7-17) mg/dL Creatinine (0.52-1.04) mg/dL Glucose (74-99) mg/dL POC Glucose (mg/dL) 180 H 124 H (75-99) mg/dL 01/01/20 Range/Units 06:35 RBC (3.80-5.40) m/uL Hgb (11.4-16.0) gm/dL Hct (34.0-46.0) % MCHC (31.0-37.0) g/dL RDW (11.5-15.5) % Lymphocytes # (Manual) (1.0-4.8) k/uL Sodium 131 L (137-145) mmol/L BUN 51 H (7-17) mg/dL Creatinine 2.75 H (0.52-1.04) mg/dL Glucose 113 H (74-99) mg/dL POC Glucose (mg/dL) (75-99) mg/dL Assessment and Plan Plan: Assessment and plan #1 congestive heart failure, combination of systolic and diastolic, acute on chronic. #2 acute on chronic kidney disease stage IV #3 severe pulmonary hypertension #4 diabetes #5 hypertension #6 anemia of chronic disease #7 severe aortic stenosis status post aortic valve replacement #8 coronary artery disease with prior bypass surgery #9 hyperlipidemia #10 hypothyroidism Plan From cardiology's perspective, we'll continue the patient on her current medications. Discharged once cleared by pulmonary and primary. We will make her a follow-up appointment in the office post discharge DNP note has been reviewed, I agree with a documented findings and plan of care. Patient was seen and examined.
[2020-01-01 12:04] LABS: Glucose,Whole Blood 103 mg/dL (75-99)
--- NOTE | 2020-01-01 12:28 | PN ---
PROGRESS NOTE The patient is seen for acute kidney injury on top of chronic kidney disease. Patient has been started on dialysis mainly secondary to severe volume overload and worsening renal function. She does not have much urine output. The patient was dialyzed yesterday. We had about 2.6 L of fluid removed. She will be dialyzed again today. She will be maintained on a Monday, Monday, Monday schedule for dialysis as outpatient at [facility]. PHYSICAL EXAMINATION: On examination, blood pressure 110/50, heart rate 60 per minute, she is afebrile. Examination of the heart S1, S2. Examination of the lungs, bilateral breath sounds are heard. Abdomen is soft, nontender. Examination of lower extremities shows edema 2+ bilaterally. DIRECTOR STRATEGIC ACCOUNT MANAGEMENT exam grossly intact. LABS: Show sodium 131, potassium 4.8, chloride of 98, BUN 51, creatinine 2.75, hemoglobin 9.3. ASSESSMENT: 1. Acute kidney injury on top of chronic kidney disease, currently hemodialysis dependent, mainly cardiorenal versus progression of underlying kidney disease. We will continue to maintain the patient on hemodialysis. Her urine output is on the lower side. Continue to monitor for recovery of renal function as outpatient. 2. Volume overload slowly improving. 3. Congestive heart failure, acute on top of chronic, mainly diastolic congestive heart failure. 4. Chronic kidney disease stage IIIB. Previous creatinine 1.8-2 mg/dL. 5. Hyperkalemia improved with dialysis. 6. Hyperuricemia maintained on Zyloprim. PLAN: Repeat hemodialysis today. Patient can be discharged post dialysis. She will follow up as outpatient on Monday for dialysis at [facility]. KORINA / RUSSELL: [id number] /
[2020-01-01 12:52] VITALS: BP 107/55; PULSE 60; TEMP 97.3
--- NOTE | 2020-01-01 23:27 | P.DS ---
Providers Date of admission: 12/23/19 00:59 Expected date of discharge: 01/01/20 Attending physician: Ramakrishna Hill Consults: 12/23/19 00:59 Consult Physician Routine Consulting Provider: Koffi Donnelly Consult Reason/Comments: CHF exacerbation Do you want consulting provider notified?: Yes 12/23/19 14:28 Consult Physician Routine Consulting Provider: Bubba Rodriguez Consult Reason/Comments: chronic kidney disease/elevated BUN and CR Do you want consulting provider notified?: Yes 12/27/19 09:36 Consult Physician Routine Consulting Provider: Jaime Noriega Consult Reason/Comments: P cath placement Do you want consulting provider notified?: Yes 12/29/19 21:19 Consult Physician Urgent Consulting Provider: Parish Soriano Consult Reason/Comments: pleural effusion, tiny pneumothorax Do you want consulting provider notified?: Yes Primary care physician: [facility] Course: Presenting complaint: Shortness of breath Interval history:: This is a 74-year-old patient of Dr. Cruz. Chronic stable medical conditions include atrial fibrillation, coronary artery disease, diabetes, hyperlipidemia, hypertension, peripheral neuropathy, Hodgkin's lymphoma treated with radiation, diverticulosis, arthritis hypothyroid. Admitted with-acute CHF exacerbation. Started on IV Lasix. Also felt to have acute kidney injury predominantly from's cardiorenal syndrome. On December 26 hemodialysis catheter was placed by Dr. Ortiz. And patient started on hemodialysis. On December 27. Today-patient received hemodialysis today. Breathing is well. Ambulating. Patient scheduled for hemodialysis Monday and Monday. Questions were answered. Consultation: Dr. Reynolds from nephrology Dr. David Torres from cardiology Dr. Blood from pulmonary On examination: VITAL SIGNS: 97.3, 60, 18, 107/75, 91% on room air GENERAL APPEARANCE: BMI 30.6, laying in bed, comfortable. HEENT: Normal external appearance of nose and ear. Oral cavity normal EYES: Pupils equal. Conjunctiva normal. NECK: JVD not raised. Mass not palpable. RESPIRATORY: Respiratory effort increased Lungs decreased breath sounds CARDIOVASCULAR: First and second sounds normal. Mild edema. ABDOMEN: Soft. Liver and spleen not palpable. No tenderness. No mass palpable. PSYCHIATRY: Alert and oriented x3. Mood and affect normal. INVESTIGATIONS, reviewed in the clinical context: White count 8.3 hemoglobin 9.3 potassium 4.8 creatinine 2.75 Previous testing: White count 8.7 hemoglobin 9.6 potassium 3.1 bun 111, creatinine 2.34 line troponin I 0.0669, 0.740 2-D echocardiogram-EF 50-55%, moderate to severe tricuspid regurgitation, moderate pulmonary hypertension EKG shows AV dual paced rhythm Chest x-ray shows CHF and bilateral pleural effusion Assessment: -Acute on chronic congestive heart failure exacerbation from diastolic dysfunction EF 50-55%, POA -Acute kidney injury mostly prerenal secondary to cardiorenal syndrome. About POA -Chronic kidney disease stage IV secondary to nephrosclerosis and cardiorenal syndrome. -Moderate secondary pulmonary hypertension due to CHF -Moderate to severe tricuspid regurgitation, nontraumatic -Dual chamber pacemaker -Anemia of chronic kidney disease secondary to renal failure -Iron deficiency anemia-patient received IV iron -Troponin leak in the setting of renal failure. 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 -Colonic diverticulosis -Primary osteoarthritis multiple joints -Chronic gout Disposition: Home Patient Condition at Discharge: Stable Plan - Discharge Summary Discharge Rx Participant: No New Discharge Prescriptions: New Famotidine [Pepcid] 20 mg PO DAILY #30 tab Torsemide [Demadex] 40 mg PO BID #60 tablet Continue Cholecalciferol [Vitamin D3 (25 Mcg = 1000 Iu)] 1,000 unit PO DAILY Nitroglycerin Sl Tabs [Nitrostat] 0.4 mg SUBLINGUAL Q5M PRN PRN Reason: Pain Levothyroxine Sodium [Levoxyl] 112 mcg PO DAILY Fenofibrate Nanocrystallized [Fenofibrate] 48 mg PO DAILY Ubidecarenone [Co Q-10] 100 mg PO MOWEFR Aspirin 81 mg PO DAILY Allopurinol [Zyloprim] 300 mg PO DAILY Docusate [Colace] 100 mg PO DAILY hydrALAZINE HCL [Apresoline] 50 mg PO QID Krill/Om-3/Dha/Epa/Phospho/Ast [Sadler-3 Krill Oil 300 mg Sfgl] 1 cap PO DAILY Metoprolol Succinate [Toprol XL] 50 mg PO BID Atorvastatin [Lipitor] 20 mg PO MOWEFRSA Isosorbide Mononitrate ER [Imdur] 60 mg PO DAILY Metolazone [Zaroxolyn] 5 mg PO DIRECTED Changed Insulin Glulisine [Apidra] 3 unit SQ AC-TID #0 Insulin Glargine [Lantus] 20 unit SQ DAILY #0 Discontinued Torsemide [Demadex] 50 mg PO BID Discharge Medication List Allopurinol [Zyloprim] 300 mg PO DAILY 01/19/16 [History] Aspirin 81 mg PO DAILY 01/19/16 [History] Cholecalciferol [Vitamin D3 (25 Mcg = 1000 Iu)] 1,000 unit PO DAILY 01/19/16 [History] Fenofibrate Nanocrystallized [Fenofibrate] 48 mg PO DAILY 01/19/16 [History] Levothyroxine Sodium [Levoxyl] 112 mcg PO DAILY 01/19/16 [History] Nitroglycerin Sl Tabs [Nitrostat] 0.4 mg SUBLINGUAL Q5M PRN 01/19/16 [History] Ubidecarenone [Co Q-10] 100 mg PO MOWEFR 01/19/16 [History] Docusate [Colace] 100 mg PO DAILY 02/14/16 [History] Krill/Om-3/Dha/Epa/Phospho/Ast [Sadler-3 Krill Oil 300 mg Sfgl] 1 cap PO DAILY 02/06/18 [History] hydrALAZINE HCL [Apresoline] 50 mg PO QID 02/06/18 [History] Atorvastatin [Lipitor] 20 mg PO MOWEFRSA 11/24/19 [History] Isosorbide Mononitrate ER [Imdur] 60 mg PO DAILY 11/24/19 [History] Metoprolol Succinate [Toprol XL] 50 mg PO BID 11/24/19 [History] Metolazone [Zaroxolyn] 5 mg PO DIRECTED 12/23/19 [History] Famotidine [Pepcid] 20 mg PO DAILY #30 tab 01/01/20 [Rx] Insulin Glargine [Lantus] 20 unit SQ DAILY #0 01/01/20 [Rx] Insulin Glulisine [Apidra] 3 unit SQ AC-TID #0 01/01/20 [Rx] Torsemide [Demadex] 40 mg PO BID #60 tablet 01/01/20 [Rx] Follow up Appointment(s)/Referral(s): Ayo Cruz MD [Primary Care Provider] - 01/07/20 11:00 am ([facility]-[phone] Cruz) Bubba Rodriguez DO [STAFF PHYSICIAN] - 1 Week (Teaching Aide will see you at the dialysis clinic.) Nain Torres MD [STAFF PHYSICIAN] - 01/17/20 3:00 pm ([facility] ) Patient Instructions/Handouts: Heart Failure (DC), Chronic Kidney Disease (DC) Activity/Diet/Wound Care/Special Instructions: Hemodialysis at [facility] - chair time M,W,F @ noon - report for first session on Monday01/03/2020 @1130 - please take all of your medications including over the counter medications. Discharge Disposition: HOME SELF-CARE
== END 2020-01-01 13:35 | disposition home or self-care (01) | DRG 291 ==
LOC: EC 00:29 → 3SCARD 00:59
PROVIDERS: ADMIT Hospitalist; ATTEND Hospitalist
PROC: 0JH63XZ Insertion of Tunneled Vascular Access Device into Chest Subcutaneous Tissue and Fascia, Percutaneous Approach (ICD-10-PCS; principal; 2019-12-27 16:10)
PROC: 02HV33Z Insertion of Infusion Device into Superior Vena Cava, Percutaneous Approach (ICD-10-PCS; principal; 2019-12-27 16:10)
DX: I13.0 Hypertensive heart and chronic kidney disease with heart failure and stage 1 through stage 4 chronic kidney disease, or unspecified chronic kidney disease (principal); I50.43 Acute on chronic combined systolic (congestive) and diastolic (congestive) heart failure; N18.4 Chronic kidney disease, stage 4 (severe); N17.9 Acute kidney failure, unspecified; I48.19 Other persistent atrial fibrillation; C81.90 Hodgkin lymphoma, unspecified, unspecified site; J93.83 Other pneumothorax; E03.9 Hypothyroidism, unspecified; D63.1 Anemia in chronic kidney disease; D50.9 Iron deficiency anemia, unspecified; E11.42 Type 2 diabetes mellitus with diabetic polyneuropathy; T50.2X5A Adverse effect of carbonic-anhydrase inhibitors, benzothiadiazides and other diuretics, initial encounter; I49.5 Sick sinus syndrome; I08.3 Combined rheumatic disorders of mitral, aortic and tricuspid valves; E87.5 Hyperkalemia; E87.6 Hypokalemia; I27.29 Other secondary pulmonary hypertension; Z20.828 Contact with and (suspected) exposure to other viral communicable diseases; K57.30 Diverticulosis of large intestine without perforation or abscess without bleeding; M1A.9XX0 Chronic gout, unspecified, without tophus (tophi); J43.9 Emphysema, unspecified; I44.0 Atrioventricular block, first degree; I25.10 Atherosclerotic heart disease of native coronary artery without angina pectoris; E78.5 Hyperlipidemia, unspecified; Z96.1 Presence of intraocular lens; M89.49 Other hypertrophic osteoarthropathy, multiple sites; E11.22 Type 2 diabetes mellitus with diabetic chronic kidney disease; Z92.3 Personal history of irradiation; Z79.899 Other long term (current) drug therapy; Z79.82 Long term (current) use of aspirin; Z91.041 Radiographic dye allergy status; I25.2 Old myocardial infarction; Z79.890 Hormone replacement therapy; Z79.4 Long term (current) use of insulin; Z95.0 Presence of cardiac pacemaker; Z95.1 Presence of aortocoronary bypass graft; Z98.51 Tubal ligation status; Z95.5 Presence of coronary angioplasty implant and graft; Z98.42 Cataract extraction status, left eye; Z98.41 Cataract extraction status, right eye; Z98.890 Other specified postprocedural states; Z86.010 Personal history of colon polyps; Z90.81 Acquired absence of spleen; Z82.49 Family history of ischemic heart disease and other diseases of the circulatory system; Z82.3 Family history of stroke; Z87.19 Personal history of other diseases of the digestive system; Z86.72 Personal history of thrombophlebitis; Z90.49 Acquired absence of other specified parts of digestive tract; Z92.21 Personal history of antineoplastic chemotherapy; Z95.3 Presence of xenogenic heart valve; Z99.2 Dependence on renal dialysis
CPT/HCPCS: 36558; 71045; 76604; 76937; 77001; 80048; 80053; 82728; 83540; 83550; 83735; 83880; 84100; 84443; 84484; 85025; 86704; 86707; 87340; 90935; 93306; 94640; 94760; 96372; 96374; 96375; 99285

== ENCOUNTER 2020-04-16 11:01 | Day surgery (SDC) | payer MEDICARE ==
[2020-04-14 13:27] VITALS: BMI 28.2
[~2020-04-16 11:01] MED LIST changes: +ACETAMINOPHEN TAB 500 MG TAB PO ONE; +DEXAMETHASONE SOD PHOSPHATE 10 MG/ML 1 ML VIAL IV ONE; +HEPARIN SODIUM,PORCINE 5,000 UNIT/ML 1 ML VIAL SQ ONE; +HYDROmorphone 0.5 MG/0.5 ML SYRINGE IVP PRN; -LIDOCAINE 1% 20 ML VIAL (10MG/ML) FOR IV START INTRADERMA PRN; +ONDANSETRON 4 MG/2 ML VIAL IVP ONE
[2020-04-16 11:24] VITALS: TEMP 97.8
[2020-04-16] MEDS ORDERED: SODIUM CHLORIDE 0.9% 1,000 ML IV ONE (11:30)
[2020-04-16 11:34] LABS: Glucose,Whole Blood 124 mg/dL (75-99)
[2020-04-16] MEDS ORDERED: LIDOCAINE 1% (10MG/ML) FOR IV START INTRADERMA ONE (11:46)
[2020-04-16 12:01] LABS: Potassium 4.9 mmol/L (3.5-5.1)
[2020-04-16] MEDS ORDERED: MINERAL OIL 1 APPLIC/ML OIL TOPICAL ONE ×2 (12:35)
[2020-04-16] MEDS ORDERED: BUPIVACAINE (PF) 0.25% 30 ML VIAL SQ ONE ×2 (12:36)
[2020-04-16] MEDS ORDERED: KETAMINE 10 MG/ML 20 ML VIAL ONE (12:37)
[2020-04-16] MEDS ORDERED: fentaNYL (PF) 50 MCG/ML 2 ML AMP ONE (12:37)
[2020-04-16] MEDS ORDERED: MIDAZOLAM 2 MG/2 ML VIAL ONE (12:37)
[2020-04-16] MEDS ORDERED: PROPOFOL 10 MG/ML 20 ML VIAL IV ONE (12:37)
[2020-04-16] MEDS ORDERED: HYDROcodone/APAP 5-325MG 1 EACH TAB PO PRN (13:29)
[2020-04-16] MEDS ORDERED: NALOXONE 0.4 MG/ML 1 ML VIAL IV PRN (13:29)
--- NOTE | 2020-04-16 13:32 | P.OP ---
Date of Procedure: 04/16/20 Procedure(s) Performed: PREOPERATIVE DIAGNOSIS: Renal failure POSTOPERATIVE DIAGNOSIS: Same PROCEDURE: Peritoneal dialysis catheter insertion SURGEON: Wm EBL: Minimal ANESTHESIA: Sedation plus local COMPLICATIONS: None OPERATIVE PROCEDURE: The patient was placed in the operative table in the supine position. Her abdomen was prepped and draped in usual sterile fashion. A small vertical incision was made in the left periumbilical location. Dissection down through the subcutaneous tissues took place using electrocautery. The anterior rectus was divided vertically using the scalpel. The rectus was bluntly. The posterior rectus was visualized. An 0 Vicryl pursestring was placed. A small opening in the posterior rectus fascia and peritoneum took place using a Metzenbaum scissors. There were no adhesions to the suture that was placed. The pigtail catheter was advanced into the pelvis over a stylette. No resistance was met. The inner cuff was secured to the fascia using the 0 Vicryl pursestring that was placed. The catheter was tunneled to an exit site in the left lateral lower quadrant. The catheter was connected to the 1 L bag of saline and approximated 800 mL of saline was easily introduced into the peritoneal cavity. The fluid was then allowed to evacuate. The majority of the fluid was returned. The anterior rectus fascia was then reapproximated using a running 0 Vicryl stitch. The subcutaneous tissues reprepped using 3-0 Vicryl sutures and the skin using 4-0 Monocryl sutures. The outpatient dialysis adapter was applied to the end of the catheter. A sterile dressings then applied after Steri-Strips were placed over the incision. DISPOSITION: Stable to recovery room
[2020-04-16 14:03] VITALS: BP 140/65; PULSE 60; RESP 16
== END 2020-04-16 14:25 | disposition home or self-care (01) ==
LOC: OR 11:01
PROVIDERS: ATTEND Surgery
DX: I13.0 Hypertensive heart and chronic kidney disease with heart failure and stage 1 through stage 4 chronic kidney disease, or unspecified chronic kidney disease (principal); E11.22 Type 2 diabetes mellitus with diabetic chronic kidney disease; N18.9 Chronic kidney disease, unspecified; I50.9 Heart failure, unspecified; I25.10 Atherosclerotic heart disease of native coronary artery without angina pectoris; E78.5 Hyperlipidemia, unspecified; Z95.0 Presence of cardiac pacemaker; M19.90 Unspecified osteoarthritis, unspecified site; Z79.899 Other long term (current) drug therapy; Z79.82 Long term (current) use of aspirin; Z98.51 Tubal ligation status; Z95.1 Presence of aortocoronary bypass graft; Z95.4 Presence of other heart-valve replacement; Z98.890 Other specified postprocedural states; C81.90 Hodgkin lymphoma, unspecified, unspecified site; D50.9 Iron deficiency anemia, unspecified; E03.9 Hypothyroidism, unspecified; E55.9 Vitamin D deficiency, unspecified; M10.9 Gout, unspecified; Z85.820 Personal history of malignant melanoma of skin; Z98.49 Cataract extraction status, unspecified eye; Z90.49 Acquired absence of other specified parts of digestive tract; Z92.21 Personal history of antineoplastic chemotherapy; Z82.3 Family history of stroke; Z80.8 Family history of malignant neoplasm of other organs or systems; Z83.3 Family history of diabetes mellitus; Z82.49 Family history of ischemic heart disease and other diseases of the circulatory system; Z80.49 Family history of malignant neoplasm of other genital organs
CPT/HCPCS: 82565; 84132; 84520; 49421; C1752; J2250; J1644; J1100; J0690; J2405; J3010; J2704

== ENCOUNTER 2021-07-01 13:52 | Inpatient (IN) | payer MEDICARE ==
[2021-07-01 15:34] LABS: Anisocytosis Slight; Basophils % (A) 0 %; Eosinophils % (A) 0 %; HCT 38.3 % (34.0-46.0); HGB 12.4 gm/dL (11.4-16.0); Lymphocytes % (A) 5 %; MCH 33.6 pg (25.0-35.0); MCHC 32.5 g/dL (31.0-37.0); MCV 103.3 fL (80.0-100.0); Macrocytosis Moderate; Mean Platelet Volume 9.5; Monocytes # (A) 0.3 k/uL (0-1.0); Monocytes % (A) 2 %; Neutrophils # (A) 18.9 k/uL (1.3-7.7); Neutrophils % (A) 93 %; Platelet Count 438 k/uL (150-450); Poikilocytosis Slight; RBC 3.71 m/uL (3.80-5.40); RDW 16.1 % (11.5-15.5); WBC 20.3 k/uL (3.8-10.6)
[2021-07-01 15:39] LABS: Albumin 2.7 g/dL (3.5-5.0); Total Bilirubin 0.7 mg/dL (0.2-1.3); Total Protein 6.3 g/dL (6.3-8.2)
[2021-07-01 15:40] LABS: Potassium 2.9 mmol/L (3.5-5.1)
[2021-07-01 16:07] LABS: Glucose,Whole Blood 48 mg/dL (75-99)
[2021-07-01] MEDS ORDERED: DEXTROSE 50% SYRINGE 50 ML IVP STA (16:14)
[2021-07-01] MEDS ORDERED: SODIUM CHLORIDE 0.9% 500 ML 500 ML IV ONE (16:15)
[2021-07-01] MEDS ORDERED: SODIUM CHLORIDE 0.9% 1,000 ML IV ONE (16:15)
[2021-07-01] MEDS ORDERED: ONDANSETRON 4 MG/2 ML VIAL IVP STA (16:23)
[2021-07-01] MEDS ORDERED: MORPHINE SULFATE 2 MG/ML SYRINGE IVP STA (16:23)
--- NOTE | 2021-07-01 16:38 | ED ---
Abdominal Pain HPI - General Chief Complaint: Abdominal Pain Stated Complaint: Vomiting, Abdominal Pain Time Seen by Provider: 07/01/21 16:10 Source: patient Mode of arrival: ambulatory Limitations: physical limitation - History of Present Illness Initial Comments: 75-year-old female patient with past medical history significant for diabetes, A. fib, coronary artery disease, heart failure, end stage renal disease with peritoneal dialysis, Hodgkins Lymphoma with splenectomy, and hypertension presents for evaluation of lower abdominal pain and vomiting. Patient states symptoms started about a week ago. States she has been able to keep down very little food or fluids. Last dialysis exchange was through the night last night. She denies any fever or chills. Denies any hematuria, dysuria, urinary urgency, or frequency. She denies constipation or diarrhea. Reports history of cholecystectomy and exploratory laparotomy. Patient denies any recent rash, cough, shortness of breath, chest pain, back pain, numbness, tingling, dizziness, weakness, headache, visual changes, or any other complaints. - Related Data Home Medications Medication Instructions Recorded Confirmed Allopurinol [Zyloprim] 300 mg PO DAILY 01/19/16 07/01/21 Fenofibrate Nanocrystallized 48 mg PO DAILY 01/19/16 07/01/21 [Fenofibrate] Levothyroxine Sodium [Levoxyl] 112 mcg PO DAILY 01/19/16 07/01/21 Ubidecarenone [Co Q-10] 100 mg PO DAILY 01/19/16 07/01/21 Docusate [Colace] 100 mg PO DAILY PRN 02/14/16 07/01/21 Atorvastatin [Lipitor] 20 mg PO MOWEFRSA 11/24/19 07/01/21 Isosorbide Mononitrate ER [Imdur] 60 mg PO DAILY 11/24/19 07/01/21 Calcium Acetate [Phoslo] 1,134 - 2,001 mg PO TID 04/14/20 07/01/21 Insulin Glargine [Lantus Vial] 10 - 20 unit SQ DAILY 04/14/20 07/01/21 Biotin [Biotin Disolve] 5,000 mcg PO DAILY 07/01/21 07/01/21 Famotidine [Pepcid] 20 mg PO DAILY PRN 07/01/21 07/01/21 Multivitamins, Thera [Multivitamin 1 tab PO DAILY 07/01/21 07/01/21 (formulary)] Prorenal + D 1 tab PO DAILY 07/01/21 07/01/21 Sennosides/Docusate Sodium 1 tab PO DAILY 07/01/21 07/01/21 [Senna-S 8.6-50 mg Tablet] traMADol HCL [Ultram] 50 mg PO BID 07/01/21 07/01/21 Allergies Allergy/AdvReac Type Severity Reaction Status Date / Time Iodinated Contrast Media AdvReac renal Verified 07/01/21 17:09 disease Review of Systems ROS Statement: Those systems with pertinent positive or pertinent negative responses have been documented in the HPI. ROS Other: All systems not noted in ROS Statement are negative. Past Medical History Past Medical History: Atrial Fibrillation, Coronary Artery Disease (CAD), Cancer, Chest Pain / Angina, Heart Failure, Diabetes Mellitus, GI Bleed, Hyperlipidemia, Hypertension, Myocardial Infarction (ND), Osteoarthritis (OA), Renal Disease, Thyroid Disorder Additional Past Medical History / Comment(s): heart murmur, HODGKINS lymphoma with neck and chest radiation in 1977 and chemo in 1982, chronic kidney failure, IDDM type II, hypothyroid, colonic polyps, diverticulosis, GOUT bilateral feet, rare back pain, edema in legs particularly L leg, rt upper chest hemodialysis port- receives dialysis monday,monday,monday Last Myocardial Infarction Date:: 01/25/16 History of Any Multi-Drug Resistant Organisms: None Reported Past Surgical History: Cardiac Ablation, Cholecystectomy, Coronary Bypass/CABG, Heart Catheterization, Heart Catheterization With Stent, Pacemaker, Tubal Ligation Additional Past Surgical History / Comment(s): 2003 PTCA with 1 stent, 2007 CABG-2 vessel, Aortic valve replaced,bilateral CATARACT, SINUS SURGERY, splenectomy d/t hodgkins, colonoscopy, laparoscopy, D&C Past Anesthesia/Blood Transfusion Reactions: No Reported Reaction Additional Past Anesthesia/Blood Transfusion Reaction / Comment(s): Pt states with one of her surgeries her pulse went very low. She has received blood in the past without reaction. Date of Last Stent Placement:: 2003 Type of Cardiac Device: Permanent Pacemaker Device Placement Date:: 2015 Past Psychological History: No Psychological Hx Reported Smoking Status: Never smoker - Past Family History Father Family Medical History: Myocardial Infarction (ND) Additional Family Medical History / Comment(s): Father was healthy until he of a ND at the age of 93 yrs. Mother Family Medical History: CVA/TIA Additional Family Medical History / Comment(s): Mother was healthy until the last couple yrs of her life. She of a CVA at the age of 94yrs. General Exam Limitations: physical limitation General appearance: alert, in no apparent distress, other (This is a well- developed, well-nourished adult female in no acute distress.) Eye exam: Present: normal appearance, PERRL, EOMI. Absent: scleral icterus, conjunctival injection, periorbital swelling ENT exam: Present: normal exam, normal oropharynx, mucous membranes moist Respiratory exam: Present: normal lung sounds bilaterally. Absent: respiratory distress, wheezes, rales, rhonchi, stridor Cardiovascular Exam: Present: regular rate, normal rhythm, normal heart sounds. Absent: systolic murmur, diastolic murmur, rubs, gallop, clicks GI/Abdominal exam: Present: soft, normal bowel sounds. Absent: distended, tenderness, guarding, rebound, rigid Neurological exam: Present: alert, oriented X3, CN II-XII intact Psychiatric exam: Present: normal affect, normal mood Skin exam: Present: warm, dry, intact, normal color. Absent: rash Course Vital Signs 07/01/21 07/01/21 14:41 20:10 Temperature 97.5 F L Pulse Rate 62 60 Respiratory 18 18 Rate Blood Pressure 96/48 107/51 O2 Sat by Pulse 98 99 Oximetry Medical Decision Making - Medical Decision Making 75-year-old female patient with past medical history significant for Hodgkin's lymphoma, end-stage renal disease with peritoneal dialysis, diabetes, hypertension presents for evaluation of generalized abdominal pain and vomiting for the last week. Physical examination did reveal generalized abdominal tenderness. She states about normal vital signs. Labs reviewed and did reveal elevated white blood cell count at 20,000. Increased creatinine from baseline. She did have a low glucose of 48, she was given juice, blood sugar remained low so she was given IV dextrose. Initial lactic acid was 2.7. CT abdomen and pelvis was obtained and showed evidence for free air in the abdomen. I discussed the case with surgeon Dr. Martinez who believes this is most likely from peritoneal dialysis. She was given a dose of Zosyn. I also spoke to the cattle sticker refuses most likely related to peritonitis. He wanted peritoneal fluid cultures and cell count. He ordered intraperitoneal vancomycin and Fortaz. When in obtaining the peritoneal fluid sample, she did admit that she has been getting intraperitoneal Fortaz for the last week. Did still send the fluid. She is admitted to the hospital for further evaluation and monitoring. She is agreeeable with this plan. My attending is Dr. Jay. - Lab Data Result diagrams: 07/01/21 15:04 07/01/21 15:04 Lab Results 07/01/21 07/01/21 07/01/21 Range/Units 15:04 15:04 16:05 WBC 20.3 H (3.8-10.6) k/uL RBC 3.71 L (3.80-5.40) m/uL Hgb 12.4 (11.4-16.0) gm/dL Hct 38.3 (34.0-46.0) % MCV 103.3 H (80.0-100.0) fL MCH 33.6 (25.0-35.0) pg MCHC 32.5 (31.0-37.0) g/dL RDW 16.1 H (11.5-15.5) % Plt Count 438 (150-450) k/uL MPV 9.5 Neutrophils % 93 % Lymphocytes % 5 % Monocytes % 2 % Eosinophils % 0 % Basophils % 0 % Neutrophils # 18.9 H (1.3-7.7) k/uL Lymphocytes # 1.0 (1.0-4.8) k/uL Monocytes # 0.3 (0-1.0) k/uL Eosinophils # 0.0 (0-0.7) k/uL Basophils # 0.0 (0-0.2) k/uL Poikilocytosis Slight Anisocytosis Slight Macrocytosis Moderate Sodium 128 L (137-145) mmol/L Potassium 2.9 L (3.5-5.1) mmol/L Chloride 87 L (98-107) mmol/L Carbon Dioxide 27 (22-30) mmol/L Anion Gap 14 mmol/L BUN 37 H (7-17) mg/dL Creatinine 5.58 H (0.52-1.04) mg/dL Est GFR (CKD-EPI)AfAm 8 (>60 ml/min/1.73 sqM) Est GFR (CKD-EPI)NonAf 7 (>60 ml/min/1.73 sqM) Glucose 47 L* (74-99) mg/dL POC Glucose (mg/dL) 48 L (75-99) mg/dL POC Glu Garden Consultant ID Priscilla العلي Lactic Ac Sepsis Rflx Plasma Lactic Acid Ck (0.7-2.0) mmol/L Calcium 8.0 L (8.4-10.2) mg/dL Total Bilirubin 0.7 (0.2-1.3) mg/dL AST 39 H (14-36) U/L ALT 16 (4-34) U/L Alkaline Phosphatase 76 (38-126) U/L Total Protein 6.3 (6.3-8.2) g/dL Albumin 2.7 L (3.5-5.0) g/dL Coronavirus (PCR) (Not Detectd) 07/01/21 07/01/21 07/01/21 Range/Units 16:33 16:33 17:33 WBC (3.8-10.6) k/uL RBC (3.80-5.40) m/uL Hgb (11.4-16.0) gm/dL Hct (34.0-46.0) % MCV (80.0-100.0) fL MCH (25.0-35.0) pg MCHC (31.0-37.0) g/dL RDW (11.5-15.5) % Plt Count (150-450) k/uL MPV Neutrophils % % Lymphocytes % % Monocytes % % Eosinophils % % Basophils % % Neutrophils # (1.3-7.7) k/uL Lymphocytes # (1.0-4.8) k/uL Monocytes # (0-1.0) k/uL Eosinophils # (0-0.7) k/uL Basophils # (0-0.2) k/uL Poikilocytosis Anisocytosis Macrocytosis Sodium (137-145) mmol/L Potassium (3.5-5.1) mmol/L Chloride (98-107) mmol/L Carbon Dioxide (22-30) mmol/L Anion Gap mmol/L BUN (7-17) mg/dL Creatinine (0.52-1.04) mg/dL Est GFR (CKD-EPI)AfAm (>60 ml/min/1.73 sqM) Est GFR (CKD-EPI)NonAf (>60 ml/min/1.73 sqM) Glucose (74-99) mg/dL POC Glucose (mg/dL) (75-99) mg/dL POC Glu Garden Consultant ID Lactic Ac Sepsis Rflx Y Plasma Lactic Acid Ck 2.7 H* (0.7-2.0) mmol/L Calcium (8.4-10.2) mg/dL Total Bilirubin (0.2-1.3) mg/dL AST (14-36) U/L ALT (4-34) U/L Alkaline Phosphatase (38-126) U/L Total Protein (6.3-8.2) g/dL Albumin (3.5-5.0) g/dL Coronavirus (PCR) Not Detected (Not Detectd) 07/01/21 Range/Units 18:40 WBC (3.8-10.6) k/uL RBC (3.80-5.40) m/uL Hgb (11.4-16.0) gm/dL Hct (34.0-46.0) % MCV (80.0-100.0) fL MCH (25.0-35.0) pg MCHC (31.0-37.0) g/dL RDW (11.5-15.5) % Plt Count (150-450) k/uL MPV Neutrophils % % Lymphocytes % % Monocytes % % Eosinophils % % Basophils % % Neutrophils # (1.3-7.7) k/uL Lymphocytes # (1.0-4.8) k/uL Monocytes # (0-1.0) k/uL Eosinophils # (0-0.7) k/uL Basophils # (0-0.2) k/uL Poikilocytosis Anisocytosis Macrocytosis Sodium (137-145) mmol/L Potassium (3.5-5.1) mmol/L Chloride (98-107) mmol/L Carbon Dioxide (22-30) mmol/L Anion Gap mmol/L BUN (7-17) mg/dL Creatinine (0.52-1.04) mg/dL Est GFR (CKD-EPI)AfAm (>60 ml/min/1.73 sqM) Est GFR (CKD-EPI)NonAf (>60 ml/min/1.73 sqM) Glucose (74-99) mg/dL POC Glucose (mg/dL) 126 H (75-99) mg/dL POC Glu Garden Consultant ID Mike Christina Lactic Ac Sepsis Rflx Plasma Lactic Acid Ck (0.7-2.0) mmol/L Calcium (8.4-10.2) mg/dL Total Bilirubin (0.2-1.3) mg/dL AST (14-36) U/L ALT (4-34) U/L Alkaline Phosphatase (38-126) U/L Total Protein (6.3-8.2) g/dL Albumin (3.5-5.0) g/dL Coronavirus (PCR) (Not Detectd) - Radiology Data Radiology results: report reviewed, image reviewed CT abdomen and pelvis without contrast was obtained. Report was reviewed in its entirety. Impression by Dr. Oliva shows mild pelvic free fluid explained by the parent tail dialysis catheter. However, further clinical correlation is needed for the source of the mild free air within the peritoneal cavity. Multiple foci are present in the left subphrenic region an additional foci are present along the transverse colon. No clear origin for the free air is seen. Correlate for the possibility of air and verbally introduced by the peritoneal dialysis catheter. Signs of an acute abdomen, pelvis perforation should be considered. Small right pleural effusion. Prominent fluid filled small bowel loops in the lower abdomen and pelvis could represent and ileus or enteritis. S igmoid diverticulosis, no clear findings of acute diverticulitis. Disposition Clinical Impression: Abdominal pain, Dehydration, Acute on chronic renal failure, Hypokalemia Disposition: ADMITTED IP TO THIS [facility] Condition: Serious Decision to Admit Reason: Admit from EC Decision Date: 07/01/21 Decision Time: 19:51
[2021-07-01 18:41] LABS: Glucose,Whole Blood 126 mg/dL (75-99)
--- NOTE | 2021-07-01 19:18 | CT ---
EXAMINATION TYPE: CT abdomen pelvis wo con DATE OF EXAM: 07/01/2021 COMPARISON: None HISTORY: 75-year-old female Lower abdominal pain. History of ileus and peritonitis. CT DLP: 594.5 mGycm. Automated exposure control for dose reduction was used. TECHNIQUE: Contiguous axial scanning of the abdomen and pelvis without IV contrast. Coronal and sagit rc reconstructions performed. FINDINGS: Median sternotomy wires. Retained epicardial pacer leads. Right ventricular pacer lead also noted. He art upper limits of normal in size. Small right pleural effusion with some mild adjacent atelectasis. Strandy atelectasis left base. Diffuse arterial calcification suggesting underlying chronic medical renal disease. Noncontrast appearance of the liver, adrenal glands, and pancreas show no gross abnormal body. Multiple surgical clips in the region of the gastrohepatic ligament and gallbladder fossa. Multiple cortical lesions of the bilateral kidneys measuring up to 1.0 cm, too small for accurate CT characterization probable renal cortical cysts. No hydronephrosis. A couple small splenules are noted in the left upper quadrant but the spleen otherwise is absent. Circumaortic left renal vein. A peritoneal dialysis catheter is looped in the pelvis. There is scattered mild to moderate stool. Mild pelvic ascites. Sigmoid diverticulosis. No clear foca l area of pericolonic inflammatory change. Scattered mild free intraperitoneal air is present especially left subphrenic region but also along t he transverse colon. Fluid-filled small bowel loops in the lower abdomen and pelvis are closely apposed. Bladder partially distended. Pelvic phleboliths. Uterus is anteverted. Left ovary visualized. Right o vary not clearly delineated from adjacent bowel loops. No pelvic lymphadenopathy seen. Bones: Mild to moderate degenerative change hips. Mild at both SI joints. Moderate to advanced degene rative disc disease L2-S1 levels. Facet arthropathy. IMPRESSION: 1. Mild pelvic free fluid explained by the peritoneal dialysis catheter. However, further clinical c orrelation is needed for the source of the mild FREE AIR within the peritoneal cavity. Multiple foci are present in the left subphrenic region and additional foci are present along the transverse colon. No clear origin for the free air is seen. Correlate for the possibility of air inadvertently introdu lia by the peritoneal dialysis catheter. If signs of an acute abdomen, hollow viscus perforation shou ld be considered. 2. Small right pleural effusion. 3. Prominent fluid-filled small bowel loops in the lower abdomen and pelvis could represent an ileus or enteritis. 4. Sigmoid diverticulosis. No clear findings of acute diverticulitis.
[2021-07-01] MEDS ORDERED: PIPERACILLIN-TAZOBACTAM 3.375 GM in SODIUM CHLORIDE 0.9% 100 ML IVPB STA (19:28)
[2021-07-01] MEDS ORDERED: Potassium Replacement Protocol 1 EACH MISC MISCELLANE PRN (19:29)
[2021-07-01] MEDS ORDERED: NALOXONE 0.4 MG/ML 1 ML VIAL IV PRN (19:51)
[2021-07-01] MEDS: SODIUM CHLORIDE 0.9% 1,000 ML IV SCH (20:13)
[2021-07-01] MEDS: POTASSIUM CHLORIDE ER 20 MEQ TAB.ER PO SCH ×3 (20:14→23:34)
[2021-07-01] MEDS ORDERED: VANCOMYCIN INTRAPERIT ONE (21:00)
[2021-07-01] MEDS ORDERED: VANCOMYCIN 1,000 MG VIAL ONE (21:00)
[2021-07-01] MEDS ORDERED: DIALYSIS DEX INTRAPERIT ONE ×3 (21:00→23:00)
[2021-07-01] MEDS ORDERED: CEFTAZIDIME INTRAPERIT ONE (21:00)
[2021-07-01] MEDS: MORPHINE SULFATE 4 MG/ML SYRINGE IV PRN (22:30)
[2021-07-01] MEDS: ONDANSETRON 4 MG/2 ML VIAL IVP PRN (22:31)
[2021-07-01 23:38] LABS: Appearance,Urine Turbid (Clear); Bacteria,Urine Few /hpf; Bilirubin,Urine Negative (Negative); Blood,Urine Small (Negative); Color,Urine Yellow; Glucose,Urine (UA) 2+ (Negative); Ketones,Urine Negative (Negative); Leukocyte Esterase,Urine Large (Negative); Mucus,Urine Rare /hpf; Nitrite,Urine Negative (Negative); Protein,Urine 2+ (Negative); RBC,Urine >182 /hpf (0-5); Specific Gravity,Urine 1.017 (1.001-1.035); Urobilinogen,Urine <2.0 mg/dL (<2.0); WBC,Urine >182 /hpf (0-5)
[2021-07-02] MEDS: PIPERACILLIN-TAZOBACTAM 3.375 GM in SODIUM CHLORIDE 0.9% 100 ML IVPB SCH ×2 (04:41→23:20)
[2021-07-02 07:52] LABS: Glucose,Whole Blood 95 mg/dL (75-99)
[2021-07-02] MEDS: ONDANSETRON 4 MG/2 ML VIAL IVP PRN (08:18)
[2021-07-02] MEDS: MORPHINE SULFATE 4 MG/ML SYRINGE IV PRN (08:19)
--- NOTE | 2021-07-02 10:00 | P.NPCON ---
History of Present Illness - Reason for Consult Consult date: 07/02/21 end stage renal disease - Chief Complaint Peritonitis - History of Present Illness This 74-year-old female with ESRD on peritoneal dialysis. She came in to the hospital because of abdominal pain and peritonitis. She recently had peritonitis supposedly and was admitted to [facility] on 06/22/2021 for 2 days and discharged home after feeling better. She probably received ceftaz edema according to the patient, intraperitoneally and was given Flagyl as an outpatient. After feeling better for a few days she started to have nausea vomiting and abdominal pain and came back to the ER last night and was admitted. A PD fluid cell count cultures were ordered but not done. She was given intraperitoneal vancomycin 2 g and ceftaz edema and gram. Pain is better. She is known with congestive heart failure and atrial fibrillation coronary artery disease and diabetes mellitus history of HI, valve replacement and coronary artery bypass graft diabetic neuropathy. She is known with remote heart since lymphoma treated with radiation chemotherapy in 1982. Past Medical History Past Medical History: Atrial Fibrillation, Coronary Artery Disease (CAD), Cancer, Chest Pain / Angina, Heart Failure, Diabetes Mellitus, GI Bleed, Hyperlipidemia, Hypertension, Myocardial Infarction (HI), Osteoarthritis (OA), Renal Disease, Thyroid Disorder Additional Past Medical History / Comment(s): heart murmur, HODGKINS lymphoma with neck and chest radiation in 1977 and chemo in 1982, chronic kidney failure, IDDM type II, hypothyroid, colonic polyps, diverticulosis, GOUT bilateral feet, rare back pain, edema in legs particularly L leg, rt upper chest hemodialysis port- receives dialysis monday,monday,monday Last Myocardial Infarction Date:: 01/25/16 History of Any Multi-Drug Resistant Organisms: None Reported Past Surgical History: Cardiac Ablation, Cholecystectomy, Coronary Bypass/CABG, Heart Catheterization, Heart Catheterization With Stent, Pacemaker, Tubal Ligation Additional Past Surgical History / Comment(s): 2003 PTCA with 1 stent, 2007 CABG-2 vessel, Aortic valve replaced,bilateral CATARACT, SINUS SURGERY, sple nectomy d/t hodgkins, colonoscopy, laparoscopy, D&C Past Anesthesia/Blood Transfusion Reactions: No Reported Reaction Additional Past Anesthesia/Blood Transfusion Reaction / Comment(s): Pt states with one of her surgeries her pulse went very low. She has received blood in the past without reaction. Date of Last Stent Placement:: 2003 Type of Cardiac Device: Permanent Pacemaker Device Placement Date:: 2015 Past Psychological History: No Psychological Hx Reported Smoking Status: Never smoker - Past Family History Father Family Medical History: Myocardial Infarction (HI) Additional Family Medical History / Comment(s): Father was healthy until he of a HI at the age of 93 yrs. Mother Family Medical History: CVA/TIA Additional Family Medical History / Comment(s): Mother was healthy until the last couple yrs of her life. She of a CVA at the age of 94yrs. Medications and Allergies Home Medications Medication Instructions Recorded Confirmed Type Allopurinol [Zyloprim] 300 mg PO DAILY 01/19/16 07/01/21 History Fenofibrate Nanocrystallized 48 mg PO DAILY 01/19/16 07/01/21 History [Fenofibrate] Levothyroxine Sodium [Levoxyl] 112 mcg PO DAILY 01/19/16 07/01/21 History Ubidecarenone [Co Q-10] 100 mg PO DAILY 01/19/16 07/01/21 History Docusate [Colace] 100 mg PO DAILY PRN 02/14/16 07/01/21 History Atorvastatin [Lipitor] 20 mg PO MOWEFRSA 11/24/19 07/01/21 History Isosorbide Mononitrate ER [Imdur] 60 mg PO DAILY 11/24/19 07/01/21 History Calcium Acetate [Phoslo] 1,134 - 2,001 mg PO TID 04/14/20 07/01/21 History Insulin Glargine [Lantus Vial] 10 - 20 unit SQ DAILY 04/14/20 07/01/21 History Biotin [Biotin Disolve] 5,000 mcg PO DAILY 07/01/21 07/01/21 History Famotidine [Pepcid] 20 mg PO DAILY PRN 07/01/21 07/01/21 History Multivitamins, Thera [Multivitamin 1 tab PO DAILY 07/01/21 07/01/21 History (formulary)] Prorenal + D 1 tab PO DAILY 07/01/21 07/01/21 History Sennosides/Docusate Sodium 1 tab PO DAILY 07/01/21 07/01/21 History [Senna-S 8.6-50 mg Tablet] traMADol HCL [Ultram] 50 mg PO BID 07/01/21 07/01/21 History Allergies Allergy/AdvReac Type Severity Reaction Status Date / Time Iodinated Contrast Media AdvReac renal Verified 07/01/21 17:09 disease Physical Exam Vitals: Vital Signs Temp Pulse Pulse Resp BP BP Pulse Ox 07/02/21 08:00 97.1 F L 60 12 131/84 97 07/02/21 04:12 98.4 F 62 16 102/46 97 07/01/21 20:10 60 18 107/51 99 07/01/21 14:41 97.5 F L 62 18 96/48 98 Intake and Output 07/01/21 07/02/21 07/02/21 22:59 06:59 14:59 Intake Total 100 Balance 100 Intake: Intake, IV Titration 100 Amount Piperacillin-Tazobactam 3 100 .375 gm In Sodium Chloride 0.9% 100 ml @ 200 mls/hr IVPB ONCE STA Rx#:[id number] On examination she is awake alert oriented seems to be comfortable. HEENT exam no JVP neck is supple no facial asymmetry Lungs clear to auscultation fair air entry bilaterally Heart sounds unremarkable for any murmur rub gallop Abdomen soft nontender no rebound. PD exit site is clear Extremity exam was trace edema Neurologically awake alert oriented Results - Lab Results Most recent lab results Calcium 8.0 mg/dL (8.4-10.2) L 07/01/21 15:04 07/01/21 15:04 07/01/21 15:04 Assessment and Plan Assessment: Impression 1. CAPD on cycler, admitted with recurrence of peritonitis. Possible fungal peritonitis. He was admitted on 06/21/2021 to [facility] with peritonitis for 2 days treated there with unknown antibiotics possible ceftazidime. Improved and readmitted now with pain and cloudy bag. PD cell count cultures ordered but not done patient has been given intraperitoneal va ncomycin 2 g and cefotaxime 1 g. 2. Diabetes mellitus with diabetic nephropathy ESRD for the last 1-1/2 years. 3. Coronary artery disease, CABG, PTCA, valve replacement, atrial fibrillation 4. History of Hodgkin's lymphoma in 1982. 5. Urinalysis suggestive of urinary tract infection but she has no symptoms Recommendation 1. Will start her on peritoneal dialysis with 1.5% 2000 mL 4 exchanges a day. 2. I have asked the nursing staff to send a stat cell count Gram stain and culture. 3. I tried to call the [facility] CAPD unit and the dialysis unit but no response, she supposedly had a peritoneal dialysate culture has been sent last week before she was admitted 2 units of [place] 4. Check urine for cultures and sensitivity 5. Start her on Diflucan 100 mg by mouth daily because of possibly of fungal peritonitis
[2021-07-02] MEDS: DIALYSIS (PERIT 1.5%) 2,000 ML 30 G/2,000 ML BAG INTRAPERIT SCH ×2 (10:13→17:06)
[2021-07-02] MEDS: FLUCONAZOLE 100 MG TAB PO SCH (11:37)
[2021-07-02] MEDS ORDERED: FAMOTIDINE 20 MG TAB PO PRN (11:56)
[2021-07-02 13:01] LABS: Glucose,Whole Blood 163 mg/dL (75-99)
[2021-07-02] MEDS: INSULIN ASPART (NovoLOG) 100 UNIT/ML VIAL SQ SCH ×3 (13:08→23:21)
[2021-07-02] MEDS: FENOFIBRATE 54 MG TAB PO SCH (13:09)
[2021-07-02] MEDS: LEVOTHYROXINE 112 MCG TAB PO SCH (13:09)
--- NOTE | 2021-07-02 13:15 | P.GSCN ---
History of Present Illness Consult date: 07/02/21 Reason for Consult: Abdominal pain History of present illness: This is a 75-year-old female was admitted to the hospital complaints of abdomina l pain. Patient has history of CAPD catheter. Patient states her dog jumped on her abdomen and she developed pain after this. The patient was seen in the emergency room. She is found have elevated white count. Patient has a previous history of peritonitis. She was treated at [facility] 10 days ago. She is noted to have cloudy output through her peritoneal mass catheter fluid. Past Medical History Past Medical History: Atrial Fibrillation, Coronary Artery Disease (CAD), Cancer, Chest Pain / Angina, Heart Failure, Diabetes Mellitus, GI Bleed, Hyperlipidemia, Hypertension, Myocardial Infarction ([place]), Osteoarthritis (OA), Renal Disease, Thyroid Disorder Additional Past Medical History / Comment(s): heart murmur, HODGKINS lymphoma with neck and chest radiation in 1977 and chemo in 1982, chronic kidney failure, IDDM type II, hypothyroid, colonic polyps, diverticulosis, GOUT bilateral feet, rare back pain, edema in legs particularly L leg, rt upper chest hemodialysis port- receives dialysis monday,monday,monday Last Myocardial Infarction Date:: 01/25/16 History of Any Multi-Drug Resistant Organisms: None Reported Past Surgical History: Cardiac Ablation, Cholecystectomy, Coronary Bypass/CABG, Heart Catheterization, Heart Catheterization With Stent, Pacemaker, Tubal Ligation Additional Past Surgical History / Comment(s): 2003 PTCA with 1 stent, 2007 CABG-2 vessel, Aortic valve replaced,bilateral CATARACT, SINUS SURGERY, splenectomy d/t hodgkins, colonoscopy, laparoscopy, D&C Past Anesthesia/Blood Transfusion Reactions: No Reported Reaction Additional Past Anesthesia/Blood Transfusion Reaction / Comm: Pt states with one of her surgeries her pulse went very low. She has received blood in the past without reaction. Date of Last Stent Placement:: 2003 Type of Cardiac Device: Permanent Pacemaker Device Placement Date:: 2015 Past Psychological History: No Psychological Hx Reported Smoking Status: Never smoker - Past Family History Father Family Medical History: Myocardial Infarction ([place]) Additional Family Medical History / Comment(s): Father was healthy until he of a CO at the age of 93 yrs. Mother Family Medical History: CVA/TIA Additional Family Medical History / Comment(s): Mother was healthy until the last couple yrs of her life. She of a CVA at the age of 94yrs. Medications and Allergies Home Medications Medication Instructions Recorded Confirmed Type Allopurinol [Zyloprim] 300 mg PO DAILY 01/19/16 07/01/21 History Fenofibrate Nanocrystallized 48 mg PO DAILY 01/19/16 07/01/21 History [Fenofibrate] Levothyroxine Sodium [Levoxyl] 112 mcg PO DAILY 01/19/16 07/01/21 History Ubidecarenone [Co Q-10] 100 mg PO DAILY 01/19/16 07/01/21 History Docusate [Colace] 100 mg PO DAILY PRN 02/14/16 07/01/21 History Atorvastatin [Lipitor] 20 mg PO MOWEFRSA 11/24/19 07/01/21 History Isosorbide Mononitrate ER [Imdur] 60 mg PO DAILY 11/24/19 07/01/21 History Calcium Acetate [Phoslo] 1,134 - 2,001 mg PO TID 04/14/20 07/01/21 History Insulin Glargine [Lantus Vial] 10 - 20 unit SQ DAILY 04/14/20 07/01/21 History Biotin [Biotin Disolve] 5,000 mcg PO DAILY 07/01/21 07/01/21 History Famotidine [Pepcid] 20 mg PO DAILY PRN 07/01/21 07/01/21 History Multivitamins, Thera [Multivitamin 1 tab PO DAILY 07/01/21 07/01/21 History (formulary)] Prorenal + D 1 tab PO DAILY 07/01/21 07/01/21 History Sennosides/Docusate Sodium 1 tab PO DAILY 07/01/21 07/01/21 History [Senna-S 8.6-50 mg Tablet] traMADol HCL [Ultram] 50 mg PO BID 07/01/21 07/01/21 History Allergies Allergy/AdvReac Type Severity Reaction Status Date / Time Iodinated Contrast Media AdvReac renal Verified 07/01/21 17:09 disease Surgical - Exam Vital Signs Temp Pulse Resp BP Pulse Ox 97.5 F L 62 18 96/48 98 07/01/21 14:41 07/01/21 14:41 07/01/21 14:41 07/01/21 14:41 07/01/21 14:41 - General well developed, well nourished, no distress - Eyes PERRL - ENT normal pinna - Neck no masses - Respiratory normal expansion - Cardiovascular Rhythm: regular - Abdomen Mild tenderness Abdomen: soft Results - Labs 07/01/21 15:04 07/02/21 10:23 Abnormal Lab Results - Last 24 Hours (Table) 07/01/21 07/01/21 07/01/21 Range/Units 15:04 15:04 16:05 WBC 20.3 H (3.8-10.6) k/uL RBC 3.71 L (3.80-5.40) m/uL MCV 103.3 H (80.0-100.0) fL RDW 16.1 H (11.5-15.5) % Neutrophils # 18.9 H (1.3-7.7) k/uL Sodium 128 L (137-145) mmol/L Potassium 2.9 L (3.5-5.1) mmol/L Chloride 87 L (98-107) mmol/L BUN 37 H (7-17) mg/dL Creatinine 5.58 H (0.52-1.04) mg/dL Glucose 47 L* (74-99) mg/dL POC Glucose (mg/dL) 48 L (75-99) mg/dL Plasma Lactic Acid Ck (0.7-2.0) mmol/L Calcium 8.0 L (8.4-10.2) mg/dL AST 39 H (14-36) U/L Albumin 2.7 L (3.5-5.0) g/dL Urine Appearance (Clear) Urine Protein (Negative) Urine Glucose (UA) (Negative) Urine Blood (Negative) Ur Leukocyte Esterase (Negative) Urine RBC (0-5) /hpf Urine WBC (0-5) /hpf Urine WBC Clumps (None) /hpf Urine Bacteria (None) /hpf Urine Mucus (None) /hpf 07/01/21 07/01/21 07/01/21 Range/Units 16:33 18:40 23:20 WBC (3.8-10.6) k/uL RBC (3.80-5.40) m/uL MCV (80.0-100.0) fL RDW (11.5-15.5) % Neutrophils # (1.3-7.7) k/uL Sodium (137-145) mmol/L Potassium (3.5-5.1) mmol/L Chloride (98-107) mmol/L BUN (7-17) mg/dL Creatinine (0.52-1.04) mg/dL Glucose (74-99) mg/dL POC Glucose (mg/dL) 126 H (75-99) mg/dL Plasma Lactic Acid Ck 2.7 H* (0.7-2.0) mmol/L Calcium (8.4-10.2) mg/dL AST (14-36) U/L Albumin (3.5-5.0) g/dL Urine Appearance Turbid H (Clear) Urine Protein 2+ H (Negative) Urine Glucose (UA) 2+ H (Negative) Urine Blood Small H (Negative) Ur Leukocyte Esterase Large H (Negative) Urine RBC >182 H (0-5) /hpf Urine WBC >182 H (0-5) /hpf Urine WBC Clumps Many H (None) /hpf Urine Bacteria Few H (None) /hpf Urine Mucus Rare H (None) /hpf 07/02/21 Range/Units 12:58 WBC (3.8-10.6) k/uL RBC (3.80-5.40) m/uL MCV (80.0-100.0) fL RDW (11.5-15.5) % Neutrophils # (1.3-7.7) k/uL Sodium (137-145) mmol/L Potassium (3.5-5.1) mmol/L Chloride (98-107) mmol/L BUN (7-17) mg/dL Creatinine (0.52-1.04) mg/dL Glucose (74-99) mg/dL POC Glucose (mg/dL) 163 H (75-99) mg/dL Plasma Lactic Acid Ck (0.7-2.0) mmol/L Calcium (8.4-10.2) mg/dL AST (14-36) U/L Albumin (3.5-5.0) g/dL Urine Appearance (Clear) Urine Protein (Negative) Urine Glucose (UA) (Negative) Urine Blood (Negative) Ur Leukocyte Esterase (Negative) Urine RBC (0-5) /hpf Urine WBC (0-5) /hpf Urine WBC Clumps (None) /hpf Urine Bacteria (None) /hpf Urine Mucus (None) /hpf Diabetes panel 07/01/21 07/02/21 Range/Units 15:04 10:23 Sodium 128 L (137-145) mmol/L Potassium 2.9 L 4.6 (3.5-5.1) mmol/L Chloride 87 L (98-107) mmol/L Carbon Dioxide 27 (22-30) mmol/L BUN 37 H (7-17) mg/dL Creatinine 5.58 H (0.52-1.04) mg/dL Glucose 47 L* (74-99) mg/dL Calcium 8.0 L (8.4-10.2) mg/dL AST 39 H (14-36) U/L ALT 16 (4-34) U/L Alkaline Phosphatase 76 (38-126) U/L Total Protein 6.3 (6.3-8.2) g/dL Albumin 2.7 L (3.5-5.0) g/dL Calcium panel 07/01/21 Range/Units 15:04 Calcium 8.0 L (8.4-10.2) mg/dL Albumin 2.7 L (3.5-5.0) g/dL Pituitary panel 07/01/21 07/02/21 Range/Units 15:04 10:23 Sodium 128 L (137-145) mmol/L Potassium 2.9 L 4.6 (3.5-5.1) mmol/L Chloride 87 L (98-107) mmol/L Carbon Dioxide 27 (22-30) mmol/L BUN 37 H (7-17) mg/dL Creatinine 5.58 H (0.52-1.04) mg/dL Glucose 47 L* (74-99) mg/dL Calcium 8.0 L (8.4-10.2) mg/dL Adrenal panel 07/01/21 07/02/21 Range/Units 15:04 10:23 Sodium 128 L (137-145) mmol/L Potassium 2.9 L 4.6 (3.5-5.1) mmol/L Chloride 87 L (98-107) mmol/L Carbon Dioxide 27 (22-30) mmol/L BUN 37 H (7-17) mg/dL Creatinine 5.58 H (0.52-1.04) mg/dL Glucose 47 L* (74-99) mg/dL Calcium 8.0 L (8.4-10.2) mg/dL Total Bilirubin 0.7 (0.2-1.3) mg/dL AST 39 H (14-36) U/L ALT 16 (4-34) U/L Alkaline Phosphatase 76 (38-126) U/L Total Protein 6.3 (6.3-8.2) g/dL Albumin 2.7 L (3.5-5.0) g/dL Assessment and Plan Assessment: Patient most likely has peritonitis related to CAPD catheter system. She will be treated medically at this time. No surgical intervention is planned.
[2021-07-02] MEDS: allopurinoL 300 MG TAB PO SCH (14:15)
[2021-07-02] MEDS: MULTIVITAMINS, THERA 1 EACH TAB PO SCH (14:15)
[2021-07-02] MEDS: NON FORMULARY DRUG (Biotin [Biotin Disolve] 5,000 MCG Tablet) PO SCH (14:15)
[2021-07-02] MEDS: ISOSORBIDE MONONITRATE ER 60 MG TAB.ER.24H PO SCH (14:15)
[2021-07-02] MEDS: NON FORMULARY DRUG (Prorenal + D 1 TAB) PO SCH (14:16)
[2021-07-02] MEDS: traMADol 50 MG TAB PO SCH ×2 (14:19→23:31)
[2021-07-02 14:56] LABS: Appearance,BF Hazy; Nucleated Cells, Body Fluid 198 /uL; RBC, Body Fluid 16 /uL
[2021-07-02 15:04] LABS: Mononuclear WBC,Body Fluid 12 %; Polynuclear WBC,Body Fluid 85 %; Total Cells Counted,Body Fluid 100
--- NOTE | 2021-07-02 15:15 | P.HPIM ---
History of Present Illness H&P Date: 07/02/21 Chief Complaint: Abdominal pain This is a 74-year-old patient of Dr. Cruz. Chronic stable medical conditions include atrial fibrillation, coronary artery disease, diabetes, hyperlipidemia, hypertension, peripheral neuropathy, Hodgkin's lymphoma treated with radiation, diverticulosis, arthritis hypothyroid. End-stage kidney disease on peritoneal dialysis for last year and a half. Patient for 10 days has been having gradually worsening abdominal pain. Was having intermittent nausea and vomiting. Poor appetite. Noticed that the dialysate that was coming out was becoming cloudy. Patient gets nocturnal dialysis. Normally has a bowel movement every day. Last BM was 2 days ago. Denied any obvious fever and chills. Presents to ER. Patient recently had peritonitis and was supposedly admitted to [facility] to [place] on 06/22/2021 for 2 days and discharged home. She possibly received ceftaz intraperitoneally. Feels she has received intraperitoneal vancomycin 2 g and ceftazidime. This morning she is feeling a bit better. Laying in bed. Review of systems: GEN.: Tired, decreased appetite EYES: None HEENT: None NECK: None RESPIRATORY: None CARDIOVASCULAR: None GASTROINTESTINAL: As above GENITOURINARY: None MUSCULOSKELETAL: Joint pains LYMPHATICS: None HEMATOLOGICAL: None PSYCHIATRY: None NEUROLOGICAL: None Past medical history to include: Congestive heart failure diastolic dysfunction EF 55%, end-stage kidney disease on peritoneal dialysis for the last year and a half, moderate secondary pulmonary hypertension, moderate to severe tricuspid regurgitation, dual-chamber pacemaker, anemia CK D, hypertension, hypothyroid, diabetes, atrial fibrill ation, CAD with bypass, diabetic peripheral neuropathy, 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 No history of smoking or alcohol. Sometimes uses a cane or a walker. Family history: Unremarkable Physical examination: VITAL SIGNS: 97.1, 60, 12, 131/84, 97% GENERAL: BMI 24.2, laying in bed, awake, tired. EYES: Pupils equal. Conjunctiva normal. HEENT: External appearance of nose and ears normal, oral cavity grossly normal. NECK: JVD not raised; masses not palpable. HEART: First and second heart sounds are normal; no edema. LUNGS: Respiratory rate normal; clear to auscultation. MUSCULAR skeletal: Evidence of OA especially in the hands and knees ABDOMEN: Soft, minimal tenderness, distended, liver spleen not palpable, no masses palpable, PD catheter. PSYCH: Alert and oriented x3; mood and affect normal. NEUROLOGICAL: Cranial nerves grossly intact; no facial asymmetry, power and sensation grossly intact. LYMPHATICS: No lymph nodes palpable in the axilla and neck INVESTIGATIONS, reviewed in the clinical context: White count 20.3 hemoglobin 12.4 platelets 438 sodium 128 potassium 2.9. 37 creatinine 5.58 glucose 47 Coronavirus [PCR]: Not detected Computed tomography scan of the abdomen pelvis without contrast: Median sternotomy wires, multiple surgical clips in the gallbladder fossa, bilateral kidneys are small. PD catheter in the pelvis. Sigmoid diverticulosis. Some free intraperitoneal air and fluid. Moderate DJD changes. Assessment and plan: -Secondary bacterial peritonitis in a patient who has pericardial catheter. Patient was recently discharged from [facility] to [place] on June 22. And she received intraperitoneal antibiotics. Patient has been started on intraperitoneal ceftazidime and vancomycin. Patient counseled was to be sent off for biochemistry and culture last night. Nephrology consulted. -chronic congestive heart failure exacerbation from diastolic dysfunction EF 50- 55%, Follow clinically -End-stage kidney disease on peritoneal dialysis Patient is on nocturnal dialysis. Nephrology consulted -Moderate secondary pulmonary hypertension due to CHF Follow clinically -Moderate to severe tricuspid regurgitation, nontraumatic Follow clinically -Dual chamber pacemaker, for complete heart block Telemetry -Anemia of chronic kidney disease -Essential hypertension Controlled -Hypothyroid Levoxyl 112 g a day -Diabetes mellitus type 2 chronically on insulin Follow Accu-Cheks. 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 Peritoneal fluid to be sent off for biochemistry and culture. Home medications resumed. Diet to be addressed as tolerated. Consultation to nephrology. Care was discussed the patient and questions answered. Given the complexity and severity of patient's condition expect the patient to be in the hospital at least for 2 overnights Past Medical History Past Medical History: Atrial Fibrillation, Coronary Artery Disease (CAD), Cancer, Chest Pain / Angina, Heart Failure, Diabetes Mellitus, GI Bleed, Hyperlipidemia, Hypertension, Myocardial Infarction ([place]), Osteoarthritis (OA), Renal Disease, Thyroid Disorder Additional Past Medical History / Comment(s): heart murmur, HODGKINS lymphoma with neck and chest radiation in 1977 and chemo in 1982, chronic kidney failure, IDDM type II, hypothyroid, colonic polyps, diverticulosis, GOUT bilateral feet, rare back pain, edema in legs particularly L leg, rt upper chest hemodialysis port- receives dialysis monday,monday,monday Last Myocardial Infarction Date:: 01/25/16 History of Any Multi-Drug Resistant Organisms: None Reported Past Surgical History: Cardiac Ablation, Cholecystectomy, Coronary Bypass/CABG, Heart Catheterization, Heart Catheterization With Stent, Pacemaker, Tubal Ligation Additional Past Surgical History / Comment(s): 2003 PTCA with 1 stent, 2007 CABG-2 vessel, Aortic valve replaced,bilateral CATARACT, SINUS SURGERY, splenectomy d/t hodgkins, colonoscopy, laparoscopy, D&C Past Anesthesia/Blood Transfusion Reactions: No Reported Reaction Additional Past Anesthesia/Blood Transfusion Reaction / Comment(s): Pt states with one of her surgeries her pulse went very low. She has received blood in the past without reaction. Date of Last Stent Placement:: 2003 Type of Cardiac Device: Permanent Pacemaker Device Placement Date:: 2015 Past Psychological History: No Psychological Hx Reported Smoking Status: Never smoker - Past Family History Father Family Medical History: Myocardial Infarction ([place]) Additional Family Medical History / Comment(s): Father was healthy until he of a [place] at the age of 93 yrs. Mother Family Medical History: CVA/TIA Additional Family Medical History / Comment(s): Mother was healthy until the last couple yrs of her life. She of a CVA at the age of 94yrs. Medications and Allergies Home Medications Medication Instructions Recorded Confirmed Type Allopurinol [Zyloprim] 300 mg PO DAILY 01/19/16 07/01/21 History Fenofibrate Nanocrystallized 48 mg PO DAILY 01/19/16 07/01/21 History [Fenofibrate] Levothyroxine Sodium [Levoxyl] 112 mcg PO DAILY 01/19/16 07/01/21 History Ubidecarenone [Co Q-10] 100 mg PO DAILY 01/19/16 07/01/21 History Docusate [Colace] 100 mg PO DAILY PRN 02/14/16 07/01/21 History Atorvastatin [Lipitor] 20 mg PO MOWEFRSA 11/24/19 07/01/21 History Isosorbide Mononitrate ER [Imdur] 60 mg PO DAILY 11/24/19 07/01/21 History Calcium Acetate [Phoslo] 1,134 - 2,001 mg PO TID 04/14/20 07/01/21 History Insulin Glargine [Lantus Vial] 10 - 20 unit SQ DAILY 04/14/20 07/01/21 History Biotin [Biotin Disolve] 5,000 mcg PO DAILY 07/01/21 07/01/21 History Famotidine [Pepcid] 20 mg PO DAILY PRN 07/01/21 07/01/21 History Multivitamins, Thera [Multivitamin 1 tab PO DAILY 07/01/21 07/01/21 History (formulary)] Prorenal + D 1 tab PO DAILY 07/01/21 07/01/21 History Sennosides/Docusate Sodium 1 tab PO DAILY 07/01/21 07/01/21 History [Senna-S 8.6-50 mg Tablet] traMADol HCL [Ultram] 50 mg PO BID 07/01/21 07/01/21 History Allergies Allergy/AdvReac Type Severity Reaction Status Date / Time Iodinated Contrast Media AdvReac renal Verified 07/01/21 17:09 disease Physical Exam Vitals: Vital Signs Temp Pulse Pulse Resp BP BP Pulse Ox 07/02/21 08:00 97.1 F L 60 12 131/84 97 07/02/21 04:12 98.4 F 62 16 102/46 97 07/01/21 20:10 60 18 107/51 99 07/01/21 14:41 97.5 F L 62 18 96/48 98 Intake and Output 07/01/21 07/02/21 07/02/21 22:59 06:59 14:59 Intake Total 100 Balance 100 Intake: Intake, IV Titration 100 Amount Piperacillin-Tazobactam 3 100 .375 gm In Sodium Chloride 0.9% 100 ml @ 200 mls/hr IVPB ONCE STA Rx#:[id number] Results CBC & Chem 7: 07/01/21 15:04 07/02/21 10:23 Labs: Abnormal Lab Results - Last 24 Hours (Table) 07/01/21 07/01/21 07/01/21 Range/Units 15:04 15:04 16:05 WBC 20.3 H (3.8-10.6) k/uL RBC 3.71 L (3.80-5.40) m/uL MCV 103.3 H (80.0-100.0) fL RDW 16.1 H (11.5-15.5) % Neutrophils # 18.9 H (1.3-7.7) k/uL Sodium 128 L (137-145) mmol/L Potassium 2.9 L (3.5-5.1) mmol/L Chloride 87 L (98-107) mmol/L BUN 37 H (7-17) mg/dL Creatinine 5.58 H (0.52-1.04) mg/dL Glucose 47 L* (74-99) mg/dL POC Glucose (mg/dL) 48 L (75-99) mg/dL Plasma Lactic Acid Ck (0.7-2.0) mmol/L Calcium 8.0 L (8.4-10.2) mg/dL AST 39 H (14-36) U/L Albumin 2.7 L (3.5-5.0) g/dL Urine Appearance (Clear) Urine Protein (Negative) Urine Glucose (UA) (Negative) Urine Blood (Negative) Ur Leukocyte Esterase (Negative) Urine RBC (0-5) /hpf Urine WBC (0-5) /hpf Urine WBC Clumps (None) /hpf Urine Bacteria (None) /hpf Urine Mucus (None) /hpf 07/01/21 07/01/21 07/01/21 Range/Units 16:33 18:40 23:20 WBC (3.8-10.6) k/uL RBC (3.80-5.40) m/uL MCV (80.0-100.0) fL RDW (11.5-15.5) % Neutrophils # (1.3-7.7) k/uL Sodium (137-145) mmol/L Potassium (3.5-5.1) mmol/L Chloride (98-107) mmol/L BUN (7-17) mg/dL Creatinine (0.52-1.04) mg/dL Glucose (74-99) mg/dL POC Glucose (mg/dL) 126 H (75-99) mg/dL Plasma Lactic Acid Ck 2.7 H* (0.7-2.0) mmol/L Calcium (8.4-10.2) mg/dL AST (14-36) U/L Albumin (3.5-5.0) g/dL Urine Appearance Turbid H (Clear) Urine Protein 2+ H (Negative) Urine Glucose (UA) 2+ H (Negative) Urine Blood Small H (Negative) Ur Leukocyte Esterase Large H (Negative) Urine RBC >182 H (0-5) /hpf Urine WBC >182 H (0-5) /hpf Urine WBC Clumps Many H (None) /hpf Urine Bacteria Few H (None) /hpf Urine Mucus Rare H (None) /hpf
[2021-07-02] MEDS: SODIUM CHLORIDE 0.9% 1,000 ML IV SCH (18:25)
[2021-07-02 18:44] LABS: Glucose,Whole Blood 143 mg/dL (75-99)
[2021-07-02] MEDS ORDERED: DIALYSIS DEX INTRAPERIT ONE (22:18)
[2021-07-02] MEDS: ATORVASTATIN 20 MG TAB PO SCH (23:21)
[2021-07-02] MEDS: CEFTAZIDIME INTRAPERIT SCH (23:37)
[2021-07-02] MEDS: DIALYSIS DEX INTRAPERIT SCH (23:37)
[2021-07-03] MEDS: PIPERACILLIN-TAZOBACTAM 3.375 GM in SODIUM CHLORIDE 0.9% 100 ML IVPB SCH ×3 (00:21→20:38)
[2021-07-03] MEDS: DIALYSIS (PERIT 1.5%) 2,000 ML 30 G/2,000 ML BAG INTRAPERIT SCH ×3 (05:49→17:13)
[2021-07-03] MEDS: MORPHINE SULFATE 4 MG/ML SYRINGE IV PRN ×4 (06:23→23:22)
[2021-07-03] MEDS: ONDANSETRON 4 MG/2 ML VIAL IVP PRN ×3 (06:23→20:40)
[2021-07-03] MEDS: LEVOTHYROXINE 112 MCG TAB PO SCH (06:28)
[2021-07-03 07:02] LABS: Glucose,Whole Blood 209 mg/dL (75-99)
[2021-07-03] MEDS: NON FORMULARY DRUG (Biotin [Biotin Disolve] 5,000 MCG Tablet) PO SCH (07:47)
[2021-07-03] MEDS: NON FORMULARY DRUG (Prorenal + D 1 TAB) PO SCH (07:48)
[2021-07-03] MEDS: NON FORMULARY DRUG (Ubidecarenone [Co Q-10] 100 MG Capsule) PO SCH (08:13)
[2021-07-03] MEDS: allopurinoL 300 MG TAB PO SCH (08:18)
[2021-07-03] MEDS: FENOFIBRATE 54 MG TAB PO SCH (08:18)
[2021-07-03] MEDS: MULTIVITAMINS, THERA 1 EACH TAB PO SCH (08:18)
[2021-07-03] MEDS: traMADol 50 MG TAB PO SCH ×2 (08:18→21:46)
[2021-07-03] MEDS: ISOSORBIDE MONONITRATE ER 60 MG TAB.ER.24H PO SCH (08:19)
[2021-07-03] MEDS: FLUCONAZOLE 100 MG TAB PO SCH (08:19)
[2021-07-03] MEDS: INSULIN ASPART (NovoLOG) 100 UNIT/ML VIAL SQ SCH ×4 (08:23→20:40)
[2021-07-03 11:14] LABS: Glucose,Whole Blood 148 mg/dL (75-99)
--- NOTE | 2021-07-03 11:27 | P.PN ---
Subjective Patient is seen in follow-up for end-stage renal disease. She is maintained on peritoneal dialysis. [place] nauseous this morning but better now. Tolerating PD exchanges well. Vital signs are stable. General: The patient appeared well nourished and normally developed. HEENT: Head exam is unremarkable. LUNGS: Breath sounds decreased. HEART: Rate and Rhythm are regular. ABDOMEN: Soft, no distention. Mild diffuse tenderness. EXTREMITITES: No edema. Objective - Vital Signs Vital signs: Vital Signs Temp 97.5 F L 07/03/21 07:58 Pulse 60 07/03/21 07:58 Resp 17 07/03/21 07:58 BP 104/61 07/03/21 07:58 Pulse Ox 95 07/03/21 07:58 Intake & Output 07/02/21 07/03/21 07/03/21 18:59 06:59 18:59 Intake Total 840 Balance 840 Intake: Intake, IV Titration 600 Amount Sodium Chloride 0.9% 1, 600 000 ml @ 50 mls/hr IV . Q20H [facility] Rx#:[id number] Oral 240 Other: Voiding Method CAPD Toilet CAPD # Voids 1 - Labs CBC & Chem 7: 07/01/21 15:04 07/02/21 10:23 Labs: Abnormal Lab Results - Last 24 Hours (Table) 07/02/21 07/02/21 07/03/21 Range/Units 12:58 18:41 07:01 POC Glucose (mg/dL) 163 H 143 H 209 H (75-99) mg/dL 07/03/21 Range/Units 11:13 POC Glucose (mg/dL) 148 H (75-99) mg/dL Microbiology - Last 24 Hours (Table) 07/01/21 17:45 Blood Culture - Preliminary Blood No Growth after 24 hours 07/01/21 17:30 Blood Culture - Preliminary Blood No Growth after 24 hours 07/02/21 10:55 Body Fluid Culture - Preliminary Dialysate 07/01/21 23:20 Urine Culture - Preliminary Urine,Voided Assessment and Plan Plan: Assessment: 1. End-stage renal disease maintained on peritoneal dialysis. 2. Recent peritonitis in June 2021. Cell count this admission was 85 dated 07/02/2021 and she is receiving intraperitoneal antibiotics. Status post intraperitoneal vancomycin given 07/01/2021. Also on Diflucan. 3. Hypokalemia from PD losses. Replace. Better. 4. Diabetes mellitus. Plan: Maintain current PD changes. Maintain daily intraperitoneal Fortaz. Started 07/01/2021. Repeat dialysate cell count, culture, Gram stain today. Follow-up cultures.
[2021-07-03] MEDS: SODIUM CHLORIDE 0.9% 1,000 ML IV SCH (13:27)
[2021-07-03 13:43] LABS: African American GFR (CKD) 8 (>60 ml/min/1.73 sqM); Anion Gap 15 mmol/L; Blood Urea Nitrogen 38 mg/dL (7-17); Calcium 7.2 mg/dL (8.4-10.2); Carbon Dioxide 23 mmol/L (22-30); Chloride 88 mmol/L (98-107); Glucose 144 mg/dL (74-99); Magnesium 1.3 mg/dL (1.6-2.3); Non-African American GFR(CKD) 7 (>60 ml/min/1.73 sqM); Potassium 3.4 mmol/L (3.5-5.1); Sodium 126 mmol/L (137-145)
--- NOTE | 2021-07-03 15:09 | P.PN ---
Progress Note - Text Progress Note Date: 07/03/21 Chief Complaint: Abdominal pain This is a 74-year-old patient of Dr. Cruz. Chronic stable medical conditions include atrial fibrillation, coronary artery disease, diabetes, hyperlipidemia, hypertension, peripheral neuropathy, Hodgkin's lymphoma treated with radiation, diverticulosis, arthritis hypothyroid. End-stage kidney disease on peritoneal dialysis for last year and a half. Patient for 10 days has been having gradually worsening abdominal pain. Was having intermittent nausea and vomiting. Poor appetite. Noticed that the dialysate that was coming out was becoming cloudy. Patient gets nocturnal dialysis. Normally has a bowel movement every day. Last BM was 2 days ago. Denied any obvious fever and chills. Presents to ER. Patient recently had peritonitis and was supposedly admitted to [facility] to [place] on 06/22/2021 for 2 days and discharged home. She possibly received ceftaz intraperitoneally. Feels she has received intraperitoneal vancomycin 2 g and ceftazidime. This morning she is feeling a bit better. Laying in bed. July 03: Tired. Decreased appetite. Dialysate coming out is less cloudy. Some abdominal pain. No nausea vomiting. Review of systems: Was done for constitutional, cardiovascular, GI, pulmonary. relevant finding as above Active Medications Allopurinol (Allopurinol 300 Mg Tab) 300 mg PO DAILY [facility] Last Admin: 07/03/21 08:18 Dose: 300 mg Documented by: Atorvastatin Calcium (Atorvastatin 20 Mg Tab) 20 mg PO MOWEFRSA [facility] Last Admin: 07/02/21 23:21 Dose: 20 mg Documented by: Famotidine (Famotidine 20 Mg Tab) 20 mg PO DAILY PRN PRN Reason: GI Upset Last Admin: 07/02/21 12:21 Dose: 20 mg Documented by: Fenofibrate (Fenofibrate 54 Mg Tab) 54 mg PO DAILY [facility] Last Admin: 07/03/21 08:18 Dose: 54 mg Documented by: Fluconazole (Fluconazole 100 Mg Tab) 100 mg PO DAILY [facility] Last Admin: 07/03/21 08:19 Dose: 100 mg Documented by: Sodium Chloride (Saline 0.9%) 1,000 mls @ 50 mls/hr IV .Q20H [facility] Last Admin: 07/03/21 13:27 Dose: 20 mls/hr Documented by: Piperacillin Sod/Tazobactam (Sod 3.375 gm/ Sodium Chloride) 100 mls @ 25 mls/hr IVPB Q12HR [facility] Last Admin: 07/03/21 08:18 Dose: 25 mls/hr Documented by: Peritoneal Dialysis Solution (Delflex With 1.5% Dextrose (2,000 Ml)) 30 g in 2,000 mls @ 0 mls/hr INTRAPERIT DAILY@0500,1100,1700 [facility]; Protocol Last Admin: 07/03/21 11:55 Dose: 2,000 mls/hr Documented by: Ceftazidime 1.25 gm/ (Peritoneal Dialysis Solution) 2,500 mls @ 0 mls/hr INTRAPERIT DAILY@2300 [facility]; Protocol Last Admin: 07/02/21 23:37 Dose: 2,000 mls/hr Documented by: Insulin Aspart (Insulin Aspart (Novolog) 100 Unit/Ml Vial) 0 unit SQ ACHS [facility]; Protocol Last Admin: 07/03/21 12:07 Dose: 1 unit Documented by: Isosorbide Mononitrate (Isosorbide Mononitrate Er 60 Mg Tab.Er.24h) 60 mg PO DAILY [facility] Last Admin: 07/03/21 08:19 Dose: 60 mg Documented by: Levothyroxine Sodium (Levothyroxine 112 Mcg Tab) 112 mcg PO 0630 [facility] Last Admin: 07/03/21 06:28 Dose: 112 mcg Documented by: Miscellaneous Information (Potassium Replacement Protocol 1 Each Misc) 1 each MISCELLANE DAILY PRN; Protocol PRN Reason: Per Protocol Morphine Sulfate (Morphine Sulfate 4 Mg/Ml Syringe) 4 mg IV Q4HR PRN PRN Reason: Severe Pain Last Admin: 07/03/21 11:40 Dose: 4 mg Documented by: Multivitamins (Multivitamins, Thera 1 Each Tab) 1 each PO DAILY [facility] Last Admin: 07/03/21 08:18 Dose: 1 each Documented by: Naloxone HCl (Naloxone 0.4 Mg/Ml 1 Ml Vial) 0.2 mg IV Q2M PRN PRN Reason: Opioid Reversal Non-Formulary Medication (Biotin [Biotin Disolve]) 5,000 mcg PO DAILY [facility] Last Admin: 07/03/21 07:47 Dose: Not Given Documented by: Non-Formulary Medication (Ubidecarenone [Co Q-10]) 100 mg PO DAILY [facility] Last Admin: 07/03/21 08:13 Dose: Not Given Documented by: Non-Formulary Medication (Prorenal + D ) 1 tab PO DAILY [facility] Last Admin: 07/03/21 07:48 Dose: Not Given Documented by: Ondansetron HCl (Ondansetron 4 Mg/2 Ml Vial) 4 mg IVP Q8HR PRN PRN Reason: Nausea And Vomiting Last Admin: 07/03/21 12:39 Dose: 4 mg Documented by: Tramadol HCl (Tramadol 50 Mg Tab) 50 mg PO BID [facility] Last Admin: 07/03/21 08:18 Dose: 50 mg Documented by: Past medical history to include: Congestive heart failure diastolic dysfunction EF 55%, end-stage kidney disease on peritoneal dialysis for the last year and a half, moderate secondary pulmonary hypertension, moderate to severe tricuspid regurgitation, dual-chamber pacemaker, anemia CK D, hypertension, hypothyroid, diabetes, atrial fibrillation, CAD with bypass, diabetic peripheral neuropathy, 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 No history of smoking or alcohol. Sometimes uses a cane or a walker. Family history: Unremarkable Physical examination: VITAL SIGNS: 97.5, 16, 17, 104/61, 95% room air GENERAL: laying in bed, awake, tired. EYES: Pupils equal. Conjunctiva normal. HEENT: External appearance of nose and ears normal, oral cavity grossly normal. NECK: JVD not raised; masses not palpable. HEART: First and second heart sounds are normal; no edema. LUNGS: Respiratory rate normal; clear to auscultation. MUSCULAR skeletal: Evidence of OA especially in the hands and knees ABDOMEN: Soft, mild tenderness, distended, liver spleen not palpable, no masses palpable, PD catheter. PSYCH: Alert and oriented x3; mood and affect anxious. INVESTIGATIONS, reviewed in the clinical context: July 03, sodium 126 potassium 3.4 creatinine 5.7 White count 20.3 hemoglobin 12.4 platelets 438 sodium 128 potassium 2.9. 37 creatinine 5.58 glucose 47 Coronavirus [PCR]: Not detected Computed tomography scan of the abdomen pelvis without contrast: Median sternotomy wires, multiple surgical clips in the gallbladder fossa, bilateral kidneys are small. PD catheter in the pelvis. Sigmoid diverticulosis. Some free intraperitoneal air and fluid. Moderate DJD changes. Assessment and plan: -Secondary bacterial peritonitis in a patient who has pericardial catheter. Patient was recently discharged from [facility] to [place] on June 22. And she received intraperitoneal antibiotics. Patient has been started on intraperitoneal ceftazidime and vancomycin. : Slow to respond -chronic congestive heart failure exacerbation from diastolic dysfunction EF 50- 55%, Follow clinically -End-stage kidney disease on peritoneal dialysis Patient is on nocturnal dialysis. Nephrology consulted -Moderate secondary pulmonary hypertension due to CHF Follow clinically -Moderate to severe tricuspid regurgitation, nontraumatic Follow clinically -Dual chamber pacemaker, for complete heart block Telemetry -Anemia of chronic kidney disease -Essential hypertension Controlled -Hypothyroid Levoxyl 112 g a day -Diabetes mellitus type 2 chronically on insulin Follow Accu-Cheks. 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 Continue supportive care. Encoura ge oral intake. Changed to a soft diet.
[2021-07-03 16:18] LABS: Glucose,Whole Blood 183 mg/dL (75-99)
[2021-07-03] MEDS ORDERED: POTASSIUM CHLORIDE ER 20 MEQ TAB.ER PO STA (16:35)
[2021-07-03] MEDS: MAGNESIUM SULFATE-D5W PMX 1 GM in DEXTROSE/WATER 1 100ML.BAG IVPB SCH ×2 (17:00→18:07)
[2021-07-03] MEDS: SENNOSIDES 8.6 MG TAB PO SCH (17:32)
[2021-07-03] MEDS: DOCUSATE 100 MG CAP PO SCH (17:32)
[2021-07-03 19:27] LABS: Appearance,BF Hazy; Color,BF Colorless; Nucleated Cells, Body Fluid 198 /uL; RBC, Body Fluid 13 /uL
[2021-07-03 19:45] LABS: Mononuclear WBC,Body Fluid 3 %; Polynuclear WBC,Body Fluid 95 %; Total Cells Counted,Body Fluid 100
[2021-07-03 20:21] LABS: Glucose,Whole Blood 205 mg/dL (75-99)
[2021-07-03] MEDS: ATORVASTATIN 20 MG TAB PO SCH (21:45)
[2021-07-03] MEDS: CEFTAZIDIME INTRAPERIT SCH (23:28)
[2021-07-03] MEDS: DIALYSIS DEX INTRAPERIT SCH (23:28)
[2021-07-03] MEDS ORDERED: DIALYSIS DEX INTRAPERIT ONE (23:29)
[2021-07-04] MEDS: IPRATROPIUM-ALBUTEROL 3 ML NEB INHALATION PRN ×3 (04:04→22:03)
[2021-07-04] MEDS: DIALYSIS (PERIT 1.5%) 2,000 ML 30 G/2,000 ML BAG INTRAPERIT SCH ×3 (05:47→17:45)
[2021-07-04] MEDS: MORPHINE SULFATE 4 MG/ML SYRINGE IV PRN ×3 (05:52→17:39)
[2021-07-04] MEDS: ONDANSETRON 4 MG/2 ML VIAL IVP PRN ×4 (05:52→23:03)
[2021-07-04] MEDS: LEVOTHYROXINE 112 MCG TAB PO SCH (05:53)
[2021-07-04 07:05] LABS: Glucose,Whole Blood 164 mg/dL (75-99)
[2021-07-04] MEDS: INSULIN ASPART (NovoLOG) 100 UNIT/ML VIAL SQ SCH ×4 (09:38→21:22)
[2021-07-04] MEDS: NON FORMULARY DRUG (Biotin [Biotin Disolve] 5,000 MCG Tablet) PO SCH (09:50)
[2021-07-04] MEDS: traMADol 50 MG TAB PO SCH ×2 (09:58→21:24)
[2021-07-04] MEDS: ISOSORBIDE MONONITRATE ER 60 MG TAB.ER.24H PO SCH (09:58)
[2021-07-04] MEDS: FLUCONAZOLE 100 MG TAB PO SCH (09:58)
[2021-07-04] MEDS: DOCUSATE 100 MG CAP PO SCH (09:58)
[2021-07-04] MEDS: FENOFIBRATE 54 MG TAB PO SCH (09:58)
[2021-07-04] MEDS: MULTIVITAMINS, THERA 1 EACH TAB PO SCH (09:59)
[2021-07-04] MEDS: SENNOSIDES 8.6 MG TAB PO SCH (09:59)
[2021-07-04] MEDS: allopurinoL 300 MG TAB PO SCH (09:59)
[2021-07-04] MEDS: SODIUM CHLORIDE 0.9% 1,000 ML IV SCH (09:59)
[2021-07-04] MEDS: NON FORMULARY DRUG (Prorenal + D 1 TAB) PO SCH (10:05)
[2021-07-04] MEDS: NON FORMULARY DRUG (Ubidecarenone [Co Q-10] 100 MG Capsule) PO SCH (10:06)
[2021-07-04 11:23] LABS: African American GFR (CKD) 9 (>60 ml/min/1.73 sqM); Anion Gap 13 mmol/L; Blood Urea Nitrogen 34 mg/dL (7-17); Calcium 7.5 mg/dL (8.4-10.2); Carbon Dioxide 21 mmol/L (22-30); Chloride 88 mmol/L (98-107); Glucose 175 mg/dL (74-99); Non-African American GFR(CKD) 7 (>60 ml/min/1.73 sqM); Sodium 122 mmol/L (137-145)
--- NOTE | 2021-07-04 11:28 | P.PN ---
Progress Note - Text Progress Note Date: 07/04/21 Patient has complaints of abdominal pain and nausea. On exam vital signs are stable. Abdomen soft. There is minimal abdominal pain. There is no peritoneal signs. Patient will continue medical management of her COPD related peritonitis. We will increase her Zofran.
--- NOTE | 2021-07-04 11:29 | P.PN ---
Progress Note - Text Progress Note Date: 07/03/21 Patient remains stable. She's had some nausea. Her abdominal pain remained stable. On exam vital signs are stable. Abdomen soft. CV related peritonitis. Patient continue medical management.
--- NOTE | 2021-07-04 11:42 | P.PN ---
Subjective Patient is seen in follow-up for end-stage renal disease. She is maintained on peritoneal dialysis. Feels nauseous again today. Tolerating PD exchanges well. Fluid has been clear per the nurse. Vital signs are stable. General: The patient appeared well nourished and normally developed. HEENT: Head exam is unremarkable. LUNGS: Breath sounds decreased. HEART: Rate and Rhythm are regular. ABDOMEN: Soft, no distention. Mild diffuse tenderness. EXTREMITITES: No edema. Objective - Vital Signs Vital signs: Vital Signs Temp 97.4 F L 07/04/21 08:00 Pulse 60 07/04/21 08:00 Resp 16 07/04/21 08:00 BP 126/57 07/04/21 08:00 Pulse Ox 100 07/04/21 08:00 Intake & Output 07/03/21 07/04/21 07/04/21 18:59 06:59 18:59 Intake Total 260 Balance 260 Intake: Intake, IV Titration 260 Amount Piperacillin-Tazobactam 3 100 .375 gm In Sodium Chloride 0.9% 100 ml @ 25 mls/hr IVPB Q12HR [facility] Rx #:[id number] Sodium Chloride 0.9% 1, 160 000 ml @ 50 mls/hr IV . Q20H [facility] Rx#:[id number] Other: Voiding Method CAPD # Bowel Movements 0 0 - Labs CBC & Chem 7: 07/01/21 15:04 07/03/21 13:03 Labs: Abnormal Lab Results - Last 24 Hours (Table) 07/03/21 07/03/21 07/03/21 Range/Units 13:03 16:16 20:19 Sodium 126 L (137-145) mmol/L Potassium 3.4 L (3.5-5.1) mmol/L Chloride 88 L (98-107) mmol/L BUN 38 H (7-17) mg/dL Creatinine 5.70 H (0.52-1.04) mg/dL Glucose 144 H (74-99) mg/dL POC Glucose (mg/dL) 183 H 205 H (75-99) mg/dL Calcium 7.2 L (8.4-10.2) mg/dL Magnesium 1.3 L (1.6-2.3) mg/dL 07/04/21 Range/Units 07:04 Sodium (137-145) mmol/L Potassium (3.5-5.1) mmol/L Chloride (98-107) mmol/L BUN (7-17) mg/dL Creatinine (0.52-1.04) mg/dL Glucose (74-99) mg/dL POC Glucose (mg/dL) 164 H (75-99) mg/dL Calcium (8.4-10.2) mg/dL Magnesium (1.6-2.3) mg/dL Microbiology - Last 24 Hours (Table) 07/03/21 17:25 Gram Stain - Preliminary Dialysate Body Fluid Culture - Preliminary 07/01/21 17:30 Blood Culture - Preliminary Blood No Growth after 48 hours 07/01/21 17:45 Blood Culture - Preliminary Blood No Growth after 48 hours 07/02/21 10:55 Gram Stain - Preliminary Dialysate Body Fluid Culture - Preliminary 07/01/21 23:20 Urine Culture - Final Urine,Voided Assessment and Plan Plan: Assessment: 1. End-stage renal disease maintained on peritoneal dialysis. 2. Recent peritonitis in June 2021. Cell count this admission was 198 with 85% PMNs dated 07/02/2021; cell count 198 with 95% PMNs dated 07/03/21 - she is receiving intraperitoneal antibiotics. Status post intraperitoneal vancomycin given 07/01/2021. Also on Diflucan. 3. Hypokalemia from PD losses. Replaced. Better. 4. Diabetes mellitus. 5. Constipation. 6. Hyponatremia secondary to chronic kidney disease. Plan: Maintain current PD changes. Maintain daily intraperitoneal Fortaz. Started 07/01/2021. Repeat dialysate cell count, culture, Gram stain again today. Follow-up cultures. Consult infectious disease. Discussed transitioning over to hemodialysis due to persistent peritonitis. Patient agreeable. Surgery will be notified to schedule for PD catheter removal. Vascular surgery will be consulted for permacath insertion. Lactulose as needed for constipation.
[2021-07-04 11:47] LABS: Magnesium 1.9 mg/dL (1.6-2.3); Potassium 4.3 mmol/L (3.5-5.1)
[2021-07-04] MEDS: LACTULOSE 20 GM/30 ML CUP PO SCH ×3 (11:51→21:24)
[2021-07-04] MEDS: PIPERACILLIN-TAZOBACTAM 3.375 GM in SODIUM CHLORIDE 0.9% 100 ML IVPB SCH ×2 (11:52→21:24)
[2021-07-04 11:57] LABS: Glucose,Whole Blood 173 mg/dL (75-99)
[2021-07-04 15:46] LABS: Appearance,BF Clear; Nucleated Cells, Body Fluid 75 /uL; RBC, Body Fluid 10 /uL
[2021-07-04] MEDS ORDERED: FLUCONAZOLE 100 MG TAB PO STA (15:47)
[2021-07-04 15:51] LABS: Mononuclear WBC,Body Fluid 7 %; Polynuclear WBC,Body Fluid 93 %; Total Cells Counted,Body Fluid 100
[2021-07-04 16:24] LABS: Glucose,Whole Blood 214 mg/dL (75-99)
--- NOTE | 2021-07-04 18:51 | P.PN ---
Progress Note - Text Progress Note Date: 07/04/21 Chief Complaint: Abdominal pain This is a 74-year-old patient of Dr. Cruz. Chronic stable medical conditions include atrial fibrillation, coronary artery disease, diabetes, hyperlipidemia, hypertension, peripheral neuropathy, Hodgkin's lymphoma treated with radiation, diverticulosis, arthritis hypothyroid. End-stage kidney disease on peritoneal dialysis for last year and a half. Patient for 10 days has been having gradually worsening abdominal pain. Was having intermittent nausea and vomiting. Poor appetite. Noticed that the dialysate that was coming out was becoming cloudy. Patient gets nocturnal dialysis. Normally has a bowel movement every day. Last BM was 2 days ago. Denied any obvious fever and chills. Presents to ER. Patient recently had peritonitis and was supposedly admitted to [facility] to [place] on 06/22/2021 for 2 days and discharged home. She possibly received ceftaz intraperitoneally. Feels she has received intraperitoneal vancomycin 2 g and ceftazidime. This morning she is feeling a bit better. Laying in bed. July 03: Tired. Decreased appetite. Dialysate coming out is less cloudy. Some abdominal pain. No nausea vomiting. July 04: Abdominal pain better. Dialysis is clearing up. Having some throat congestion. Poor appetite. Plan is for hemodialysis catheter replaced tomorrow. Review of systems: Was done for constitutional, cardiovascular, GI, pulmonary. relevant finding as above Active Medications Albuterol/Ipratropium (Ipratropium-Albuterol 3 Ml Neb) 3 ml INHALATION RT-QID PRN PRN Reason: Shortness Of Breath Or Wheezing Last Admin: 07/04/21 14:36 Dose: 3 ml Documented by: Allopurinol (Allopurinol 300 Mg Tab) 300 mg PO DAILY [facility] Last Admin: 07/04/21 09:59 Dose: 300 mg Documented by: Atorvastatin Calcium (Atorvastatin 20 Mg Tab) 20 mg PO MOWEFRSA [facility] Last Admin: 07/03/21 21:45 Dose: Not Given Documented by: Docusate Sodium (Docusate 100 Mg Cap) 100 mg PO DAILY [facility] Last Admin: 07/04/21 09:58 Dose: 100 mg Documented by: Famotidine (Famotidine 20 Mg Tab) 20 mg PO DAILY PRN PRN Reason: GI Upset Last Admin: 07/02/21 12:21 Dose: 20 mg Documented by: Fenofibrate (Fenofibrate 54 Mg Tab) 54 mg PO DAILY [facility] Last Admin: 07/04/21 09:58 Dose: 54 mg Documented by: Fluconazole (Fluconazole 100 Mg Tab) 100 mg PO DAILY [facility] Last Admin: 07/04/21 09:58 Dose: 100 mg Documented by: Piperacillin Sod/Tazobactam (Sod 3.375 gm/ Sodium Chloride) 100 mls @ 25 mls/hr IVPB Q12HR [facility] Last Admin: 07/04/21 11:52 Dose: 25 mls/hr Documented by: Insulin Aspart (Insulin Aspart (Novolog) 100 Unit/Ml Vial) 0 unit SQ ACHS [facility]; Protocol Last Admin: 07/04/21 16:55 Dose: 3 unit Documented by: Isosorbide Mononitrate (Isosorbide Mononitrate Er 60 Mg Tab.Er.24h) 60 mg PO DAILY [facility] Last Admin: 07/04/21 09:58 Dose: 60 mg Documented by: Lactulose (Lactulose 20 Gm/30 Ml Cup) 15 gm PO TID [facility] Last Admin: 07/04/21 16:55 Dose: 15 gm Documented by: Levothyroxine Sodium (Levothyroxine 112 Mcg Tab) 112 mcg PO 0630 [facility] Last Admin: 07/04/21 05:53 Dose: 112 mcg Documented by: Miscellaneous Information (Potassium Replacement Protocol 1 Each Misc) 1 each MISCELLANE DAILY PRN; Protocol PRN Reason: Per Protocol Morphine Sulfate (Morphine Sulfate 4 Mg/Ml Syringe) 4 mg IV Q4HR PRN PRN Reason: Severe Pain Last Admin: 07/04/21 17:39 Dose: 4 mg Documented by: Multivitamins (Multivitamins, Thera 1 Each Tab) 1 each PO DAILY [facility] Last Admin: 07/04/21 09:59 Dose: 1 each Documented by: Naloxone HCl (Naloxone 0.4 Mg/Ml 1 Ml Vial) 0.2 mg IV Q2M PRN PRN Reason: Opioid Reversal Non-Formulary Medication (Biotin [Biotin Disolve]) 5,000 mcg PO DAILY [facility] Last Admin: 07/04/21 09:50 Dose: Not Given Documented by: Non-Formulary Medication (Ubidecarenone [Co Q-10]) 100 mg PO DAILY [facility] Last Admin: 07/04/21 10:06 Dose: Not Given Documented by: Non-Formulary Medication (Prorenal + D ) 1 tab PO DAILY [facility] Last Admin: 07/04/21 10:05 Dose: Not Given Documented by: Ondansetron HCl (Ondansetron 4 Mg/2 Ml Vial) 4 mg IVP Q6HR PRN PRN Reason: Nausea And Vomiting Last Admin: 07/04/21 17:39 Dose: 4 mg Documented by: Senna (Sennosides 8.6 Mg Tab) 8.6 mg PO DAILY [facility] Last Admin: 07/04/21 09:59 Dose: 8.6 mg Documented by: Tramadol HCl (Tramadol 50 Mg Tab) 50 mg PO BID [facility] Last Admin: 07/04/21 09:58 Dose: 50 mg Documented by: Past medical history to include: Congestive heart failure diastolic dysfunction EF 55%, end-stage kidney disease on peritoneal dialysis for the last year and a half, moderate secondary pulmonary hypertension, moderate to severe tricuspid regurgitation, dual-chamber pacemaker, anemia CK D, hypertension, hypothyroid, diabetes, atrial fibrillation, CAD with bypass, diabetic peripheral neuropathy, 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 No history of smoking or alcohol. Sometimes uses a cane or a walker. Family history: Unremarkable Physical examination: VITAL SIGNS: 97.6, 59, 20, 133 with 95, 100% on 3 L GENERAL: Sitting up in bed awake, tired. EYES: Pupils equal. Conjunctiva normal. HEENT: External appearance of nose and ears normal, oral cavity grossly normal. NECK: JVD not raised; masses not palpable. HEART: First and second heart sounds are normal; no edema. LUNGS: Respiratory rate normal; clear to auscultation. MUSCULAR skeletal: Evidence of OA especially in the hands and knees ABDOMEN: Soft, no tenderness, distended, liver spleen not palpable, no masses palpable, PD catheter. PSYCH: Alert and oriented x3; mood and affect anxious. INVESTIGATIONS, reviewed in the clinical context: July 04: Sodium 122 potassium 4.3 creatinine 5.16. Darvocet fluid: Nucleated cells 75 WBC 93 July 03, sodium 126 potassium 3.4 creatinine 5.7 White count 20.3 hemoglobin 12.4 platelets 438 sodium 128 potassium 2.9. 37 creatinine 5.58 glucose 47 Coronavirus [PCR]: Not detected Computed tomography scan of the abdomen pelvis without contrast: Median sternotomy wires, multiple surgical clips in the gallbladder fossa, bilateral kidneys are small. PD catheter in the pelvis. Sigmoid diverticulosis. Some free intraperitoneal air and fluid. Moderate DJD changes. Assessment and plan: -Secondary bacterial peritonitis in a patient who has pericardial catheter. Patient was recently discharged from [facility] to [place] on June 22. And she received intraperitoneal antibiotics. Patient has been started on intraperitoneal ceftazidime and vancomycin. : Improving slowly -End-stage kidney disease on peritoneal dialysis. Not being very effective. Uremic symptoms. Decreased appetite. Plan for hemodialysis catheter placement tomorrow. -chronic congestive heart failure exacerbation from diastolic dysfunction EF 50- 55%, Follow clinically -End-stage kidney disease on peritoneal dialysis Patient is on nocturnal dialysis. Nephrology consulted -Moderate secondary pulmonary hypertension due to CHF Follow clinically -Moderate to severe tricuspid regurgitation, nontraumatic Follow clinically -Dual chamber pacemaker, for complete heart block Telemetry -Anemia of chronic kidney disease -Essential hypertension Controlled -Hypothyroid Levoxyl 112 g a day -Diabetes mellitus type 2 chronically on insulin Follow Accu-Cheks. 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 Continue supportive care. Encourage oral intake. Changed to a soft diet.
[2021-07-04 21:07] LABS: Glucose,Whole Blood 99 mg/dL (75-99)
[2021-07-05] MEDS: LEVOTHYROXINE 112 MCG TAB PO SCH (05:23)
[2021-07-05] MEDS: ONDANSETRON 4 MG/2 ML VIAL IVP PRN (05:56)
[2021-07-05 06:54] LABS: Glucose,Whole Blood 98 mg/dL (75-99)
[2021-07-05] MEDS: DOCUSATE 100 MG CAP PO SCH (07:09)
[2021-07-05] MEDS: ISOSORBIDE MONONITRATE ER 60 MG TAB.ER.24H PO SCH (07:09)
[2021-07-05] MEDS: allopurinoL 300 MG TAB PO SCH (07:09)
[2021-07-05] MEDS: MULTIVITAMINS, THERA 1 EACH TAB PO SCH (07:09)
[2021-07-05] MEDS: FENOFIBRATE 54 MG TAB PO SCH (07:09)
[2021-07-05] MEDS: NON FORMULARY DRUG (Biotin [Biotin Disolve] 5,000 MCG Tablet) PO SCH (07:09)
[2021-07-05] MEDS: NON FORMULARY DRUG (Prorenal + D 1 TAB) PO SCH (07:10)
[2021-07-05] MEDS: NON FORMULARY DRUG (Ubidecarenone [Co Q-10] 100 MG Capsule) PO SCH (07:10)
[2021-07-05] MEDS ORDERED: SCOPOLAMINE 1.5MG/72HR PATCH TRANSDERM STA (07:33)
[2021-07-05] MEDS: INSULIN ASPART (NovoLOG) 100 UNIT/ML VIAL SQ SCH ×4 (07:36→21:04)
[2021-07-05] MEDS: IPRATROPIUM-ALBUTEROL 3 ML NEB INHALATION PRN ×2 (08:08→21:01)
[2021-07-05 08:45] LABS: African American GFR (CKD) 7 (>60 ml/min/1.73 sqM); Anion Gap 14 mmol/L; Blood Urea Nitrogen 40 mg/dL (7-17); Calcium 7.7 mg/dL (8.4-10.2); Carbon Dioxide 25 mmol/L (22-30); Chloride 87 mmol/L (98-107); Glucose 109 mg/dL (74-99); Magnesium 1.9 mg/dL (1.6-2.3); Non-African American GFR(CKD) 6 (>60 ml/min/1.73 sqM); Sodium 126 mmol/L (137-145)
[2021-07-05] MEDS: METOCLOPRAMIDE 5 MG/ML 2 ML VIAL IVP PRN ×2 (08:51→16:00)
[2021-07-05] MEDS: PIPERACILLIN-TAZOBACTAM 3.375 GM in SODIUM CHLORIDE 0.9% 100 ML IVPB SCH ×2 (08:52→20:12)
[2021-07-05] MEDS ORDERED: IV FLUID CONTINUATION 1,000 ML IV ONE (09:16)
[2021-07-05] MEDS ORDERED: ONDANSETRON 4 MG/2 ML VIAL ONE (09:22)
[2021-07-05 09:27] LABS: Glucose,Whole Blood 113 mg/dL (75-99)
[2021-07-05] MEDS ORDERED: LIDOCAINE 1% INJ 10MG/ML (20 ML MDV) ONE ×2 (09:41→16:33)
[2021-07-05] MEDS ORDERED: fentaNYL (PF) 50 MCG/ML 2 ML AMP ONE (09:41)
[2021-07-05] MEDS ORDERED: ePHEDrine 50 MG/ML 1 ML AMP ONE (09:41)
[2021-07-05] MEDS ORDERED: SUCCINYLCHOLINE CHLORIDE 100 MG/5 ML SYR IV ONE (09:41)
[2021-07-05] MEDS ORDERED: PROPOFOL 10 MG/ML 20 ML VIAL IV ONE (09:41)
[2021-07-05] MEDS ORDERED: HEPARIN SODIUM,PORCINE/PF 5,000 UNIT/0.5 ML SYRINGE SQ ONE (09:43)
--- NOTE | 2021-07-05 09:45 | P.PN ---
Progress Note - Text Progress Note Date: 07/05/21 Patient will undergo removal of CAPD catheter today. Her peritonitis is not improving.
[2021-07-05] MEDS ORDERED: HEPARIN SODIUM,PORCINE 5,000 UNIT/ML 1 ML VIAL SQ ONE (09:46)
[2021-07-05] MEDS ORDERED: BUPIVACAIN-EPI 0.25%-1:200,000 30 ML VIAL SQ ONE (10:10)
--- NOTE | 2021-07-05 10:18 | P.PN ---
Subjective Patient is seen in follow-up for end-stage renal disease. She is maintained on peritoneal dialysis. Complaining of abdominal discomfort. No chest pain or shortness of breath. Vital signs are stable. General: The patient appeared well nourished and normally developed. HEENT: Head exam is unremarkable. LUNGS: Breath sounds decreased. HEART: Rate and Rhythm are regular. ABDOMEN: Soft, no distention. Mild diffuse tenderness. EXTREMITITES: No edema. Objective - Vital Signs Vital signs: Vital Signs Temp 97.9 F 07/05/21 09:21 Pulse 91 07/05/21 09:21 Resp 16 07/05/21 09:21 BP 114/45 07/05/21 09:21 Pulse Ox 97 07/05/21 09:21 Intake & Output 07/04/21 07/05/21 07/05/21 18:59 06:59 18:59 Intake Total 180 200 Balance 180 200 Intake: IV 180 200 Piperacillin-Tazobactam 3 100 .375 gm In Sodium Chloride 0.9% 100 ml @ 25 mls/hr IVPB Q12HR [facility] Rx #:[id number] Sodium Chloride 0.9% 1, 80 000 ml @ 50 mls/hr IV . Q20H [facility] Rx#:[id number] Other: # Bowel Movements 0 - Labs CBC & Chem 7: 07/01/21 15:04 07/05/21 08:04 Labs: Abnormal Lab Results - Last 24 Hours (Table) 07/04/21 07/04/21 07/04/21 Range/Units 10:45 11:55 16:23 Sodium 122 L (137-145) mmol/L Chloride 88 L (98-107) mmol/L Carbon Dioxide 21 L (22-30) mmol/L BUN 34 H (7-17) mg/dL Creatinine 5.16 H (0.52-1.04) mg/dL Glucose 175 H (74-99) mg/dL POC Glucose (mg/dL) 173 H 214 H (75-99) mg/dL Calcium 7.5 L (8.4-10.2) mg/dL 07/05/21 07/05/21 Range/Units 08:04 09:25 Sodium 126 L (137-145) mmol/L Chloride 87 L (98-107) mmol/L Carbon Dioxide (22-30) mmol/L BUN 40 H (7-17) mg/dL Creatinine 6.24 H (0.52-1.04) mg/dL Glucose 109 H (74-99) mg/dL POC Glucose (mg/dL) 113 H (75-99) mg/dL Calcium 7.7 L (8.4-10.2) mg/dL Microbiology - Last 24 Hours (Table) 07/02/21 10:55 Gram Stain - Final Dialysate Body Fluid Culture - Final Nayely albicans 07/04/21 12:35 Gram Stain - Preliminary Dialysate Body Fluid Culture - Preliminary 07/03/21 17:25 Gram Stain - Preliminary Dialysate Body Fluid Culture - Preliminary Yeast species 07/01/21 17:45 Blood Culture - Preliminary Blood No Growth after 72 hours 07/01/21 17:30 Blood Culture - Preliminary Blood No Growth after 72 hours Assessment and Plan Plan: Assessment: 1. End-stage renal disease maintained on peritoneal dialysis. 2. Recent peritonitis in June 2021. Cell count this admission was 198 with 85% PMNs dated 07/02/2021; cell count 198 with 95% PMNs dated 07/03/21; cell count 75. 93% PMNs dated 07/04/2021. She is receiving intraperitoneal antibiotics. Status post intraperitoneal vancomycin given 07/01/2021. Also on Diflucan. Fluid culture positive for Nayely albicans. 3. Hypokalemia from PD losses. Replaced. Better. 4. Diabetes mellitus. 5. Constipation. 6. Hyponatremia secondary to chronic kidney disease. Better. Plan: PD exchanges were stopped yesterday. PD catheter will be removed today due to fungal peritonitis. Maintain Diflucan 100 mg daily - started 07/02/2021. She received 200 mg dose on 07/04/2021. Follow-up cultures. Infectious disease has been consulted. Lactulose as needed for constipation. Will transition over to hemodialysis. Scheduled for permacath insertion this afternoon.
[2021-07-05] MEDS ORDERED: HYDROmorphone 1 MG/ML 1 ML SYRINGE IVP PRN (10:24)
--- NOTE | 2021-07-05 10:24 | P.OP ---
Date of Procedure: 07/05/21 Preoperative Diagnosis: Colitis Postoperative Diagnosis: Peritonitis Procedure(s) Performed: Removal of CAPD catheter Anesthesia: SUZANNE Surgeon: Darian Lawrence Estimated Blood Loss (ml): 5 Pathology: other (CAPD catheter for culture) Condition: stable Disposition: PACU Description of Procedure: The patient's placed on the operative table in supine position. She received general trach tube anesthesia. Her abdomen was prepped and draped usual fashion. The patient is CAPD catheter exiting the left lower quadrant. The subcutaneous felt cuff was palpated. A skin incision was made over the cuff. The cuff was dissected free. The fascial umbilical cuff was then dissected free such cautery. The peritoneal portion of the CEE catheter was then removed and cut and sent to pathology for culture. The remaining safety catheter was removed. The fascial defect was closed using 2-0 Vicryl suture. The skin was closed interrupted 3-0 Monocryl suture. Dermabond was applied. Patient top she will she was sent to recovery room in stable condition.
[2021-07-05] MEDS: SENNOSIDES 8.6 MG TAB PO SCH (12:13)
[2021-07-05] MEDS: traMADol 50 MG TAB PO SCH ×2 (12:13→23:09)
[2021-07-05] MEDS: LACTULOSE 20 GM/30 ML CUP PO SCH ×3 (12:13→20:11)
[2021-07-05 12:15] LABS: Glucose,Whole Blood 137 mg/dL (75-99)
--- NOTE | 2021-07-05 12:35 | P.GSCN ---
History of Present Illness History of present illness: 75-year-old white female, patient has history of for acute chronic renal failure patient is on peritoneal dialysis. Patient has developed some peritonitis an infected peritoneal dialysis catheter. The catheter has been removed today. I was consulted for placement of a dialysis catheter. Neck examination neck is supple no bruit appreciated Chest normal breath sounds first and second sound normal Abdomen patient has a mild tenderness catheter has been removed Vascular femorals are 1+ bilateral Plan is placement of the dialysis catheter risk and complication discussed Past Medical History Past Medical History: Atrial Fibrillation, Coronary Artery Disease (CAD), Cancer, Chest Pain / Angina, Heart Failure, Diabetes Mellitus, GI Bleed, Hy perlipidemia, Hypertension, Myocardial Infarction (NH), Osteoarthritis (OA), Renal Disease, Thyroid Disorder Additional Past Medical History / Comment(s): heart murmur, HODGKINS lymphoma with neck and chest radiation in 1977 and chemo in 1982, chronic kidney failure, IDDM type II, hypothyroid, colonic polyps, diverticulosis, GOUT bilateral feet, rare back pain, edema in legs particularly L leg, rt upper chest hemodialysis port- receives dialysis monday,monday,monday Last Myocardial Infarction Date:: 01/25/16 History of Any Multi-Drug Resistant Organisms: None Reported Past Surgical History: Cardiac Ablation, Cholecystectomy, Coronary Bypass/CABG, Heart Catheterization, Heart Catheterization With Stent, Pacemaker, Tubal Ligation Additional Past Surgical History / Comment(s): 2003 PTCA with 1 stent, 2007 CABG-2 vessel, Aortic valve replaced,bilateral CATARACT, SINUS SURGERY, splenectomy d/t hodgkins, colonoscopy, laparoscopy, D&C Past Anesthesia/Blood Transfusion Reactions: No Reported Reaction Additional Past Anesthesia/Blood Transfusion Reaction / Comm: Pt states with one of her surgeries her pulse went very low. She has received blood in the past without reaction. Date of Last Stent Placement:: 2003 Type of Cardiac Device: Permanent Pacemaker Device Placement Date:: 2015 Past Psychological History: No Psychological Hx Reported Smoking Status: Never smoker - Past Family History Father Family Medical History: Myocardial Infarction (NH) Additional Family Medical History / Comment(s): Father was healthy until he of a NH at the age of 93 yrs. Mother Family Medical History: CVA/TIA Additional Family Medical History / Comment(s): Mother was healthy until the last couple yrs of her life. She of a CVA at the age of 94yrs. Medications and Allergies Home Medications Medication Instructions Recorded Confirmed Type Allopurinol [Zyloprim] 300 mg PO DAILY 01/19/16 07/01/21 History Fenofibrate Nanocrystallized 48 mg PO DAILY 01/19/16 07/01/21 History [Fenofibrate] Levothyroxine Sodium [Levoxyl] 112 mcg PO DAILY 01/19/16 07/01/21 History Ubidecarenone [Co Q-10] 100 mg PO DAILY 01/19/16 07/01/21 History Docusate [Colace] 100 mg PO DAILY PRN 02/14/16 07/01/21 History Atorvastatin [Lipitor] 20 mg PO MOWEFRSA 11/24/19 07/01/21 History Isosorbide Mononitrate ER [Imdur] 60 mg PO DAILY 11/24/19 07/01/21 History Calcium Acetate [Phoslo] 1,134 - 2,001 mg PO TID 04/14/20 07/01/21 History Insulin Glargine [Lantus Vial] 10 - 20 unit SQ DAILY 04/14/20 07/01/21 History Biotin [Biotin Disolve] 5,000 mcg PO DAILY 07/01/21 07/01/21 History Famotidine [Pepcid] 20 mg PO DAILY PRN 07/01/21 07/01/21 History Multivitamins, Thera [Multivitamin 1 tab PO DAILY 07/01/21 07/01/21 History (formulary)] Prorenal + D 1 tab PO DAILY 07/01/21 07/01/21 History Sennosides/Docusate Sodium 1 tab PO DAILY 07/01/21 07/01/21 History [Senna-S 8.6-50 mg Tablet] traMADol HCL [Ultram] 50 mg PO BID 07/01/21 07/01/21 History Allergies Allergy/AdvReac Type Severity Reaction Status Date / Time Iodinated Contrast Media AdvReac renal Verified 07/01/21 17:09 disease Surgical - Exam Vital Signs Temp Pulse Resp BP Pulse Ox 97.5 F L 62 18 96/48 98 07/01/21 14:41 07/01/21 14:41 07/01/21 14:41 07/01/21 14:41 07/01/21 14:41 Results - Labs 07/01/21 15:04 07/05/21 08:04 Abnormal Lab Results - Last 24 Hours (Table) 07/04/21 07/05/21 07/05/21 Range/Units 16:23 08:04 09:25 Sodium 126 L (137-145) mmol/L Chloride 87 L (98-107) mmol/L BUN 40 H (7-17) mg/dL Creatinine 6.24 H (0.52-1.04) mg/dL Glucose 109 H (74-99) mg/dL POC Glucose (mg/dL) 214 H 113 H (75-99) mg/dL Calcium 7.7 L (8.4-10.2) mg/dL 07/05/21 Range/Units 12:14 Sodium (137-145) mmol/L Chloride (98-107) mmol/L BUN (7-17) mg/dL Creatinine (0.52-1.04) mg/dL Glucose (74-99) mg/dL POC Glucose (mg/dL) 137 H (75-99) mg/dL Calcium (8.4-10.2) mg/dL Microbiology - Last 24 Hours (Table) 07/02/21 10:55 Gram Stain - Final Dialysate Body Fluid Culture - Final Nayely albicans 07/04/21 12:35 Gram Stain - Preliminary Dialysate Body Fluid Culture - Preliminary 07/03/21 17:25 Gram Stain - Preliminary Dialysate Body Fluid Culture - Preliminary Yeast species 07/01/21 17:45 Blood Culture - Preliminary Blood No Growth after 72 hours 07/01/21 17:30 Blood Culture - Preliminary Blood No Growth after 72 hours Diabetes panel 07/05/21 Range/Units 08:04 Sodium 126 L (137-145) mmol/L Potassium 5.0 (3.5-5.1) mmol/L Chloride 87 L (98-107) mmol/L Carbon Dioxide 25 (22-30) mmol/L BUN 40 H (7-17) mg/dL Creatinine 6.24 H (0.52-1.04) mg/dL Glucose 109 H (74-99) mg/dL Calcium 7.7 L (8.4-10.2) mg/dL Calcium panel 07/05/21 Range/Units 08:04 Calcium 7.7 L (8.4-10.2) mg/dL Pituitary panel 07/05/21 Range/Units 08:04 Sodium 126 L (137-145) mmol/L Potassium 5.0 (3.5-5.1) mmol/L Chloride 87 L (98-107) mmol/L Carbon Dioxide 25 (22-30) mmol/L BUN 40 H (7-17) mg/dL Creatinine 6.24 H (0.52-1.04) mg/dL Glucose 109 H (74-99) mg/dL Calcium 7.7 L (8.4-10.2) mg/dL Adrenal panel 07/05/21 Range/Units 08:04 Sodium 126 L (137-145) mmol/L Potassium 5.0 (3.5-5.1) mmol/L Chloride 87 L (98-107) mmol/L Carbon Dioxide 25 (22-30) mmol/L BUN 40 H (7-17) mg/dL Creatinine 6.24 H (0.52-1.04) mg/dL Glucose 109 H (74-99) mg/dL Calcium 7.7 L (8.4-10.2) mg/dL
[2021-07-05] MEDS ORDERED: HEPARIN SODIUM 1,000 UN/ML (10ML VL) ONE (16:33)
[2021-07-05] MEDS ORDERED: LIDOCAINE 1% INJ 10MG/ML (20 ML MDV) SQ ONE (16:54)
[2021-07-05] MEDS ORDERED: MIDAZOLAM 2 MG/2 ML VIAL IV ONE (16:56)
[2021-07-05] MEDS ORDERED: SODIUM CHLORIDE 0.9% 100 ML IV ONE (16:57)
[2021-07-05] MEDS ORDERED: SODIUM CHLORIDE 0.9% 500 ML 500 ML IV ONE (16:57)
[2021-07-05] MEDS ORDERED: HEPARIN SODIUM 1,000 UN/ML (10ML VL) IV ONE (17:10)
--- NOTE | 2021-07-05 17:42 | P.PN ---
Progress Note - Text Progress Note Date: 07/05/21 Chief Complaint: Abdominal pain This is a 74-year-old patient of Dr. Cruz. Chronic stable medical conditions include atrial fibrillation, coronary artery disease, diabetes, hyperlipidemia, hypertension, peripheral neuropathy, Hodgkin's lymphoma treated with radiation, diverticulosis, arthritis hypothyroid. End-stage kidney disease on peritoneal dialysis for last year and a half. Patient for 10 days has been having gradually worsening abdominal pain. Was having intermittent nausea and vomiting. Poor appetite. Noticed that the dialysate that was coming out was becoming cloudy. Patient gets nocturnal dialysis. Normally has a bowel movement every day. Last BM was 2 days ago. Denied any obvious fever and chills. Presents to ER. Patient recently had peritonitis and was supposedly admitted to [facility] to [place] on 06/22/2021 for 2 days and discharged home. She possibly received ceftaz intraperitoneally. Feels she has received intraperitoneal vancomycin 2 g and ceftazidime. This morning she is feeling a bit better. Laying in bed. July 03: Tired. Decreased appetite. Dialysate coming out is less cloudy. Some abdominal pain. No nausea vomiting. July 04: Abdominal pain better. Dialysis is clearing up. Having some throat congestion. Poor appetite. Plan is for hemodialysis catheter replaced tomorrow. July 05: Soft the patient this afternoon. Peritoneal dialysis catheter removed by Dr. Lawrence. Later today will have a hemodialysis catheter placed Dr. Ortiz. Was having significant nausea this morning. Zofran discontinued. Care was cup olamine patch and Reglan. Feeling a bit better. Tired. Symptoms felt to be all uremic. Review of systems: Was done for constitutional, cardiovascular, GI, pulmonary. relevant finding as above Active Medications Albuterol/Ipratropium (Ipratropium-Albuterol 3 Ml Neb) 3 ml INHALATION RT-QID PRN PRN Reason: Shortness Of Breath Or Wheezing Last Admin: 07/05/21 08:08 Dose: 3 ml Documented by: Allopurinol (Allopurinol 300 Mg Tab) 300 mg PO DAILY [facility] Last Admin: 07/05/21 07:09 Dose: Not Given Documented by: Atorvastatin Calcium (Atorvastatin 20 Mg Tab) 20 mg PO MOWEFRSA [facility] Last Admin: 07/03/21 21:45 Dose: Not Given Documented by: Docusate Sodium (Docusate 100 Mg Cap) 100 mg PO DAILY [facility] Last Admin: 07/05/21 07:09 Dose: Not Given Documented by: Famotidine (Famotidine 20 Mg Tab) 20 mg PO DAILY PRN PRN Reason: GI Upset Last Admin: 07/02/21 12:21 Dose: 20 mg Documented by: Fenofibrate (Fenofibrate 54 Mg Tab) 54 mg PO DAILY [facility] Last Admin: 07/05/21 07:09 Dose: Not Given Documented by: Fluconazole (Fluconazole 100 Mg Tab) 100 mg PO DAILY [facility] Last Admin: 07/04/21 09:58 Dose: 100 mg Documented by: Hydromorphone HCl (Hydromorphone 1 Mg/Ml 1 Ml Syringe) 1 mg IVP Q3HR PRN PRN Reason: Pain Piperacillin Sod/Tazobactam (Sod 3.375 gm/ Sodium Chloride) 100 mls @ 25 mls/hr IVPB Q12HR [facility] Last Admin: 07/05/21 08:52 Dose: 25 mls/hr Documented by: Insulin Aspart (Insulin Aspart (Novolog) 100 Unit/Ml Vial) 0 unit SQ ACHS [facility]; Protocol Last Admin: 07/05/21 13:35 Dose: Not Given Documented by: Isosorbide Mononitrate (Isosorbide Mononitrate Er 60 Mg Tab.Er.24h) 60 mg PO DAILY [facility] Last Admin: 07/05/21 07:09 Dose: Not Given Documented by: Lactulose (Lactulose 20 Gm/30 Ml Cup) 15 gm PO TID [facility] Last Admin: 07/05/21 16:37 Dose: Not Given Documented by: Levothyroxine Sodium (Levothyroxine 112 Mcg Tab) 112 mcg PO 0630 [facility] Last Admin: 07/05/21 05:23 Dose: Not Given Documented by: Metoclopramide HCl (Metoclopramide 5 Mg/Ml 2 Ml Vial) 10 mg IVP Q8HR PRN PRN Reason: Nausea Last Admin: 07/05/21 16:00 Dose: 10 mg Documented by: Miscellaneous Information (Potassium Replacement Protocol 1 Each Misc) 1 each MISCELLANE DAILY PRN; Protocol PRN Reason: Per Protocol Morphine Sulfate (Morphine Sulfate 4 Mg/Ml Syringe) 4 mg IV Q4HR PRN PRN Reason: Severe Pain Last Admin: 07/04/21 17:39 Dose: 4 mg Documented by: Multivitamins (Multivitamins, Thera 1 Each Tab) 1 each PO DAILY [facility] Last Admin: 07/05/21 07:09 Dose: Not Given Documented by: Naloxone HCl (Naloxone 0.4 Mg/Ml 1 Ml Vial) 0.2 mg IV Q2M PRN PRN Reason: Opioid Reversal Non-Formulary Medication (Biotin [Biotin Disolve]) 5,000 mcg PO DAILY [facility] Last Admin: 07/05/21 07:09 Dose: Not Given Documented by: Non-Formulary Medication (Ubidecarenone [Co Q-10]) 100 mg PO DAILY [facility] Last Admin: 07/05/21 07:10 Dose: Not Given Documented by: Non-Formulary Medication (Prorenal + D ) 1 tab PO DAILY [facility] Last Admin: 07/05/21 07:10 Dose: Not Given Documented by: Senna (Sennosides 8.6 Mg Tab) 8.6 mg PO DAILY [facility] Last Admin: 07/05/21 12:13 Dose: Not Given Documented by: Tramadol HCl (Tramadol 50 Mg Tab) 50 mg PO BID [facility] Last Admin: 07/05/21 12:13 Dose: Not Given Documented by: Past medical history to include: Congestive heart failure diastolic dysfunction EF 55%, end-stage kidney disease on peritoneal dialysis for the last year and a half, moderate secondary pulmonary hypertension, moderate to severe tricuspid regurgitation, dual-chamber pacemaker, anemia CK D, hypertension, hypothyroid, diabetes, atrial fibrillation, CAD with bypass, diabetic peripheral neuropathy, 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 No history of smoking or alcohol. Sometimes uses a cane or a walker. Family history: Unremarkable Physical examination: VITAL SIGNS: 97.5, 65, 14, 1 45 x 66, 98% on 2 L GENERAL: Reclining bed awake, tired. EYES: Pupils equal. Conjunctiva normal. HEENT: External appearance of nose and ears normal, oral cavity grossly normal. NECK: JVD not raised; masses not palpable. HEART: First and second heart sounds are normal; no edema. LUNGS: Respiratory rate normal; clear to auscultation. MUSCULAR skeletal: Evidence of OA especially in the hands and knees ABDOMEN: Soft, no tenderness, distended, liver spleen not palpable, no masses palpable, PD catheter. PSYCH: Alert and oriented x3; mood and affect anxious. INVESTIGATIONS, reviewed in the clinical context: July 05: Sodium 126 potassium 5. 40 creatinine 6.24 July 04: Sodium 122 potassium 4.3 creatinine 5.16. Darvocet fluid: Nucleated cells 75 WBC 93 July 03, sodium 126 potassium 3.4 creatinine 5.7 White count 20.3 hemoglobin 12.4 platelets 438 sodium 128 potassium 2.9. 37 creatinine 5.58 glucose 47 Coronavirus [PCR]: Not detected Computed tomography scan of the abdomen pelvis without contrast: Median sternotomy wires, multiple surgical clips in the gallbladder fossa, bilateral kidneys are small. PD catheter in the pelvis. Sigmoid diverticulosis. Some free intraperitoneal air and fluid. Moderate DJD changes. Assessment and plan: -Secondary bacterial peritonitis in a patient who has pericardial catheter. Kimo anderson was recently discharged from [facility] to [place] on June 22. And she received intraperitoneal antibiotics. Patient has been started on intraperitoneal ceftazidime and vancomycin. : Improving slowly -End-stage kidney disease on peritoneal dialysis. Not being very effective. Uremic symptoms. Decreased appetite.: Worsening PD catheter removed today by Dr. Lawrence. Pending hemodialysis catheter placement by Dr. Ortiz -chronic congestive heart failure exacerbation from diastolic dysfunction EF 50- 55%, Follow clinically -End-stage kidney disease on peritoneal dialysis Patient is on nocturnal dialysis. Nephrology consulted -Moderate secondary pulmonary hypertension due to CHF Follow clinically -Moderate to severe tricuspid regurgitation, nontraumatic Follow clinically -Dual chamber pacemaker, for complete heart block Telemetry -Anemia of chronic kidney disease -Essential hypertension Controlled -Hypothyroid Levoxyl 112 g a day -Diabetes mellitus type 2 chronically on insulin Follow Accu-Cheks. 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 Scopolamine patch with IV Reglan Intraperitoneal vancomycin and ceftazidime. PD catheter removed today. Pending HD catheter placement. Hemodialysis should improve patient's symptoms. Scopolamine patch. Reglan. ALFONSO Guaman. Discussed with patient.
--- NOTE | 2021-07-05 18:32 | XR ---
EXAMINATION TYPE: XR chest 1V confirm line [facility] DATE OF EXAM: 07/05/2021 COMPARISON: 12/30/2019 HISTORY: Pleural effusion TECHNIQUE: Single view FINDINGS: Heart is enlarged. There is some pulmonary vascular congestion. There is right central veno us catheter with tip in the superior vena cava. There is left axillary pacemaker. There are sternal w ires. There is slight blunting of the costophrenic angles. IMPRESSION: There is some congestive heart failure with pleural effusions. There is improvement nereyda red to old exam.
[2021-07-05 18:59] LABS: African American GFR (CKD) 6 (>60 ml/min/1.73 sqM); Anion Gap 17 mmol/L; Blood Urea Nitrogen 42 mg/dL (7-17); Calcium 7.4 mg/dL (8.4-10.2); Carbon Dioxide 23 mmol/L (22-30); Chloride 87 mmol/L (98-107); Glucose 137 mg/dL (74-99); Non-African American GFR(CKD) 5 (>60 ml/min/1.73 sqM); Potassium 4.3 mmol/L (3.5-5.1); Sodium 127 mmol/L (137-145)
[2021-07-05] MEDS: ATORVASTATIN 20 MG TAB PO SCH (20:11)
[2021-07-05] MEDS: FLUCONAZOLE 100 MG TAB PO SCH (20:11)
[2021-07-05 20:35] LABS: Glucose,Whole Blood 124 mg/dL (75-99)
[2021-07-05 22:07] LABS: Hepatitis B Surface AB- Quant 3.5 mIU/mL; Hepatitis B Surface Antibody Nonreactive (Nonreactive); Hepatitis B Surface Antigen Nonreactive (Nonreactive)
--- NOTE | 2021-07-05 22:27 | PN ---
PROGRESS NOTE DATE OF SERVICE: 07/05/2021 REASON FOR FOLLOWUP: CAPD catheter-associated peritonitis. INTERVAL HISTORY: The patient is afebrile. The patient is status post removal of the CAPD catheter. Patient tolerated the procedure and placement of a hemodialysis catheter. The patient denies having any chest pain or shortness of breath or cough. No nausea, vomiting or diarrhea. PHYSICAL EXAMINATION: Blood pressure 108/47 with a pulse of 80, temperature 97.5. She is 98% on 2 L nasal cannula. General description is an elderly female lying in bed in no distress. Respiratory system: Unlabored breathing. Clear to auscultation anteriorly. Heart S1, S2. Regular rate and rhythm. Abdomen soft, mildly tender. No guarding or rigidity. LABS: BUN of 42, creatinine 7.01. CBC was not done today. Catheter cultures are pending. showing Nayely albicans. Blood culture negative. DIAGNOSTIC IMPRESSION AND PLAN: Patient with a PD catheter-associated peritonitis, culture positive for Nayely albicans, for which the patient is covered with Diflucan. With no evidence of any Gram- negative infection, Zosyn will be discontinued. Infected catheter has already been removed. Monitor clinical course closely. MMODL / IJN: [id number] /
[2021-07-05] MEDS ORDERED: FUROSEMIDE 10 MG/ML 10 ML VIAL IV STA (22:56)
--- NOTE | 2021-07-05 23:48 | OP ---
OPERATIVE REPORT PREOPERATIVE DIAGNOSIS: Acute on chronic renal failure, infected peritoneal dialysis catheter. POSTOPERATIVE DIAGNOSIS: Acute on chronic renal failure, infected peritoneal dialysis catheter. PROCEDURE PERFORMED: Ultrasound-guided 19 cm dialysis catheter placement, right jugular approach. Sedation time of 25 minutes. PROCEDURE DESCRIPTION: This patient was brought to the [facility]. Right side of the neck and chest was prepped and draped in sterile manner. 1% lidocaine was infiltrated into the neck and chest area. Under IV sedation, ultrasound-guided micropuncture was introduced into the right jugular vein. Micropuncture guide was passed and 4-Burmese dilator advanced on top of the guidewire. This patient had a pacemaker from the left side. A tunnel was created. Through the tunnel we brought a 19 cm dialysis catheter. Then we passed a regular guidewire through the sheath which was parked in the inferior vena cava. Dilator was advanced and sheath as was advanced on top of the guidewire. Through the sheath we introduced dialysis catheter superior vena cava and atrium, flushed with heparin saline and hep-locked, secured with 3-0 nylon. Dressing applied. Patient tolerated the procedure well. MMODL / IJN: [id number] /
--- NOTE | 2021-07-06 00:14 | XR ---
EXAMINATION TYPE: XR chest 1V DATE OF EXAM: 07/05/2021 COMPARISON: 07/05/2021 HISTORY: Increased congestion TECHNIQUE: Single view FINDINGS: There is right central venous catheter with tip in the superior vena cava. There is some ki nking at the right lung apex. There are sternal wires. There is left axillary pacemaker. There is some pulmonary vascular congestion. Heart appears enlarged. There is slight blunting of the costophrenic angles. IMPRESSION: There is evidence for congestive heart failure and small pleural effusions. Pulmonary con gestion slightly increased compared to exam this morning.
[2021-07-06 02:47] LABS: Anisocytosis Slight; Basophils % (A) 0 %; Eosinophils # (A) 0.1 k/uL (0-0.7); Eosinophils % (A) 1 %; HCT 35.8 % (34.0-46.0); HGB 11.8 gm/dL (11.4-16.0); Hypochromasia Slight; Lymphocytes # (A) 0.7 k/uL (1.0-4.8); Lymphocytes % (A) 3 %; MCH 34.3 pg (25.0-35.0); MCHC 32.8 g/dL (31.0-37.0); MCV 104.4 fL (80.0-100.0); Macrocytosis Moderate; Mean Platelet Volume 9.6; Monocytes # (A) 0.4 k/uL (0-1.0); Monocytes % (A) 2 %; Neutrophils # (A) 21.9 k/uL (1.3-7.7); Neutrophils % (A) 93 %; Platelet Count 457 k/uL (150-450); Poikilocytosis Slight; RBC 3.43 m/uL (3.80-5.40); RDW 16.7 % (11.5-15.5); WBC 23.4 k/uL (3.8-10.6)
[2021-07-06] MEDS: LEVOTHYROXINE 112 MCG TAB PO SCH (06:00)
[2021-07-06 07:23] LABS: Glucose,Whole Blood 120 mg/dL (75-99)
[2021-07-06] MEDS: INSULIN ASPART (NovoLOG) 100 UNIT/ML VIAL SQ SCH ×4 (07:47→20:13)
[2021-07-06] MEDS ORDERED: MIDODRINE 5 MG TAB PO STA ×2 (08:30→14:46)
[2021-07-06] MEDS: NON FORMULARY DRUG (Biotin [Biotin Disolve] 5,000 MCG Tablet) PO SCH (08:38)
--- NOTE | 2021-07-06 09:08 | IR ---
EXAMINATION TYPE: IR cvc insert central tunneled DATE OF EXAM: 07/05/2021 COMPARISON: NONE HISTORY: Hemodialysis catheter placement, renal failure Fluoroscopy support supplied to the referring clinician. See dictated report from gastric surgery, 2 minutes fluoroscopy time, 94 intraoperative images document the procedure
--- NOTE | 2021-07-06 10:14 | P.PN ---
Subjective Patient is seen in follow-up for end-stage renal disease. PD catheter discontinued 07/05/2021 due to fungal peritonitis. Started on hemodialysis 0 07/06/2021. Tolerating dialysis well. Abdominal pain improved. Feels tired. Vital signs are stable. General: The patient appeared well nourished and normally developed. HEENT: Head exam is unremarkable. LUNGS: Breath sounds decreased. HEART: Rate and Rhythm are regular. ABDOMEN: Soft, no distention. Mild diffuse tenderness. EXTREMITITES: No edema. Objective - Vital Signs Vital signs: Vital Signs Temp 97.8 F 07/06/21 08:00 Pulse 60 07/06/21 08:00 Resp 14 07/06/21 08:00 BP 131/42 07/06/21 08:00 Pulse Ox 95 07/06/21 08:00 Intake & Output 07/05/21 07/06/21 07/06/21 18:59 06:59 18:59 Intake Total 350 Output Total 5 Balance 345 Intake: IV 350 Output: Estimated Blood Loss 5 - Labs CBC & Chem 7: 07/06/21 02:24 07/05/21 18:01 Labs: Abnormal Lab Results - Last 24 Hours (Table) 07/05/21 07/05/21 07/05/21 Range/Units 12:14 18:01 20:34 WBC (3.8-10.6) k/uL RBC (3.80-5.40) m/uL MCV (80.0-100.0) fL RDW (11.5-15.5) % Plt Count (150-450) k/uL Neutrophils # (1.3-7.7) k/uL Lymphocytes # (1.0-4.8) k/uL Sodium 127 L (137-145) mmol/L Chloride 87 L (98-107) mmol/L BUN 42 H (7-17) mg/dL Creatinine 7.01 H* (0.52-1.04) mg/dL Glucose 137 H (74-99) mg/dL POC Glucose (mg/dL) 137 H 124 H (75-99) mg/dL Calcium 7.4 L (8.4-10.2) mg/dL 07/06/21 07/06/21 Range/Units 02:24 07:21 WBC 23.4 H (3.8-10.6) k/uL RBC 3.43 L (3.80-5.40) m/uL MCV 104.4 H (80.0-100.0) fL RDW 16.7 H (11.5-15.5) % Plt Count 457 H (150-450) k/uL Neutrophils # 21.9 H (1.3-7.7) k/uL Lymphocytes # 0.7 L (1.0-4.8) k/uL Sodium (137-145) mmol/L Chloride (98-107) mmol/L BUN (7-17) mg/dL Creatinine (0.52-1.04) mg/dL Glucose (74-99) mg/dL POC Glucose (mg/dL) 120 H (75-99) mg/dL Calcium (8.4-10.2) mg/dL Microbiology - Last 24 Hours (Table) 07/04/21 12:35 Gram Stain - Preliminary Dialysate Body Fluid Culture - Preliminary Yeast species 07/03/21 17:25 Gram Stain - Preliminary Dialysate Body Fluid Culture - Preliminary Nayely albicans 07/01/21 17:30 Blood Culture - Preliminary Blood No Growth after 96 hours 07/05/21 10:15 Catheter Tip Culture - Preliminary Catheter Tip 07/05/21 10:15 Fungal Culture - Preliminary Catheter Tip 07/01/21 17:45 Blood Culture - Preliminary Blood No Growth after 96 hours 07/02/21 10:55 Gram Stain - Final Dialysate Body Fluid Culture - Final Nayely albicans Assessment and Plan Plan: Assessment: 1. End-stage renal disease - transitioned from peritoneal to hemodialysis 07/06/2021. Has a permacath. 2. Recent peritonitis in June 2021. Cell count this admission was 198 with 85% PMNs dated 07/02/2021; cell count 198 with 95% PMNs dated 07/03/21; cell count 75. 93% PMNs dated 07/04/2021. She also received intraperitoneal antibiotics. Status post intraperitoneal vancomycin given 07/01/2021. Also on Diflucan. Fluid culture positive for Nayely albicans. PD catheter discontinued 07/05/2021. 3. Hypokalemia from PD losses. Replaced. Better. 4. Diabetes mellitus. 5. Constipation. On lactulose as needed. 6. Hyponatremia secondary to chronic kidney disease. Better. 7. Volume overload. Plan: Currently seen while undergoing hemodialysis. Another treatment tomorrow. Maintain Diflucan 100 mg daily - started 07/02/2021. She received 200 mg dose on 07/04/2021. Infectious disease following as well. Midodrine as needed for hypotension during dialysis.
--- NOTE | 2021-07-06 11:28 | P.PN ---
Subjective Progress Note Date: 07/06/21 CHIEF COMPLAINT: Peritonitis HISTORY OF PRESENT ILLNESS: Patient is status post removal of CAPD catheter. She is currently receiving hemodialysis. Patient still reporting abdominal pain. Pain controlled pain medication. Denies any nausea or vomiting. Afebrile. WBC 23.4 PHYSICAL EXAM: VITAL SIGNS: Reviewed. GENERAL: Well-developed in no acute distress. HEENT: No sclera icterus. Extraocular movements grossly intact. Moist buccal mucosa. Head is atraumatic, normocephalic. ABDOMEN: Soft. Nondistended. Diffuse tenderness. Incisional dressing on the left abdomen clean dry and intact. Patient does have laceration next to the dressing that is scabbed. NEUROLOGIC: Alert and oriented. Cranial nerves II through XII grossly intact. ASSESSMENT: 1. Peritonitis status post removal of peritoneal dialysis catheter PLAN: -Continue supportive care -Continue antibiotics per ID service -Resume carb consistent diet Physician Head Sulfide Operator note has been reviewed by physician. Signing provider agrees with the documented findings, assessment, and plan of care. Objective - Vital Signs Vital signs: Vital Signs Temp 97.8 F 07/06/21 08:00 Pulse 60 07/06/21 08:00 Resp 14 07/06/21 08:00 BP 131/42 07/06/21 08:00 Pulse Ox 95 07/06/21 08:00 Intake & Output 07/05/21 07/06/21 07/06/21 18:59 06:59 18:59 Intake Total 350 Output Total 5 Balance 345 Intake: IV 350 Output: Estimated Blood Loss 5 - Labs CBC & Chem 7: 07/06/21 02:24 07/05/21 18:01 Labs: Abnormal Lab Results - Last 24 Hours (Table) 07/05/21 07/05/21 07/05/21 Range/Units 12:14 18:01 20:34 WBC (3.8-10.6) k/uL RBC (3.80-5.40) m/uL MCV (80.0-100.0) fL RDW (11.5-15.5) % Plt Count (150-450) k/uL Neutrophils # (1.3-7.7) k/uL Lymphocytes # (1.0-4.8) k/uL Sodium 127 L (137-145) mmol/L Chloride 87 L (98-107) mmol/L BUN 42 H (7-17) mg/dL Creatinine 7.01 H* (0.52-1.04) mg/dL Glucose 137 H (74-99) mg/dL POC Glucose (mg/dL) 137 H 124 H (75-99) mg/dL Calcium 7.4 L (8.4-10.2) mg/dL 07/06/21 07/06/21 Range/Units 02:24 07:21 WBC 23.4 H (3.8-10.6) k/uL RBC 3.43 L (3.80-5.40) m/uL MCV 104.4 H (80.0-100.0) fL RDW 16.7 H (11.5-15.5) % Plt Count 457 H (150-450) k/uL Neutrophils # 21.9 H (1.3-7.7) k/uL Lymphocytes # 0.7 L (1.0-4.8) k/uL Sodium (137-145) mmol/L Chloride (98-107) mmol/L BUN (7-17) mg/dL Creatinine (0.52-1.04) mg/dL Glucose (74-99) mg/dL POC Glucose (mg/dL) 120 H (75-99) mg/dL Calcium (8.4-10.2) mg/dL Microbiology - Last 24 Hours (Table) 07/04/21 12:35 Gram Stain - Preliminary Dialysate Body Fluid Culture - Preliminary Yeast species 07/03/21 17:25 Gram Stain - Preliminary Dialysate Body Fluid Culture - Preliminary Nayely albicans 07/01/21 17:30 Blood Culture - Preliminary Blood No Growth after 96 hours 07/05/21 10:15 Catheter Tip Culture - Preliminary Catheter Tip 07/05/21 10:15 Fungal Culture - Preliminary Catheter Tip 07/01/21 17:45 Blood Culture - Preliminary Blood No Growth after 96 hours 07/02/21 10:55 Gram Stain - Final Dialysate Body Fluid Culture - Final Nayely albicans
[2021-07-06 11:31] LABS: Glucose,Whole Blood 141 mg/dL (75-99)
[2021-07-06] MEDS: NON FORMULARY DRUG (Ubidecarenone [Co Q-10] 100 MG Capsule) PO SCH (11:37)
[2021-07-06] MEDS: ISOSORBIDE MONONITRATE ER 60 MG TAB.ER.24H PO SCH (12:28)
[2021-07-06] MEDS: SENNOSIDES 8.6 MG TAB PO SCH (12:28)
[2021-07-06] MEDS: allopurinoL 300 MG TAB PO SCH (12:28)
[2021-07-06] MEDS: DOCUSATE 100 MG CAP PO SCH (12:28)
[2021-07-06] MEDS: MULTIVITAMINS, THERA 1 EACH TAB PO SCH (12:28)
[2021-07-06] MEDS: FLUCONAZOLE 100 MG TAB PO SCH (12:29)
[2021-07-06] MEDS: LACTULOSE 20 GM/30 ML CUP PO SCH ×3 (12:29→20:13)
[2021-07-06] MEDS: NON FORMULARY DRUG (Prorenal + D 1 TAB) PO SCH (12:47)
[2021-07-06] MEDS: traMADol 50 MG TAB PO SCH ×2 (12:47→20:13)
[2021-07-06] MEDS: FENOFIBRATE 54 MG TAB PO SCH (12:47)
[2021-07-06 16:39] LABS: Glucose,Whole Blood 77 mg/dL (75-99)
[2021-07-06] MEDS ORDERED: DEXTROSE 50% SYRINGE 50 ML IVP ONE (16:50)
[2021-07-06 16:58] LABS: Glucose,Whole Blood 239 mg/dL (75-99)
--- NOTE | 2021-07-06 19:29 | P.PN ---
Progress Note - Text Progress Note Date: 07/06/21 Chief Complaint: Abdominal pain This is a 74-year-old patient of Dr. Cruz. Chronic stable medical conditions include atrial fibrillation, coronary artery disease, diabetes, hyperlipidemia, hypertension, peripheral neuropathy, Hodgkin's lymphoma treated with radiation, diverticulosis, arthritis hypothyroid. End-stage kidney disease on peritoneal dialysis for last year and a half. Patient for 10 days has been having gradually worsening abdominal pain. Was having intermittent nausea and vomiting. Poor appetite. Noticed that the dialysate that was coming out was becoming cloudy. Patient gets nocturnal dialysis. Normally has a bowel movement every day. Last BM was 2 days ago. Denied any obvious fever and chills. Presents to ER. Patient recently had peritonitis and was supposedly admitted to [facility] to [place] on 06/22/2021 for 2 days and discharged home. She possibly received ceftaz intraperitoneally. Feels she has received intraperitoneal vancomycin 2 g and ceftazidime. This morning she is feeling a bit better. Laying in bed. Dialysis fluid came back positive with Nayely albicans. Started on Diflucan. July 03: Tired. Decreased appetite. Dialysate coming out is less cloudy. Some abdominal pain. No nausea vomiting. July 04: Abdominal pain better. Dialysis is clearing up. Having some throat congestion. Poor appetite. Plan is for hemodialysis catheter replaced tomorrow. July 05: Soft the patient this afternoon. Peritoneal dialysis catheter removed by Dr. Lawrence. Later today will have a hemodialysis catheter placed Dr. Ortiz. Was having significant nausea this morning. Zofran discontinued. Care was cup olamine patch and Reglan. Feeling a bit better. Tired. Symptoms felt to be all uremic. July 06: Weight is short of breath. Had 2 L of fluid removed with hemodialysis. Patient still significantly short of breath. Lethargic. Just about able to answer questions. Rather uremic. at the bedside. Spoke to Dr. Rodriguez. Patient not making much urine. One benefit to my from Lasix. Ultrafiltration will be tried later this afternoon. I spoke to patient's son over the phone. Was the POA. Patient's been made DO NOT RESUSCITATE. Rather tired Review of systems: Was done for constitutional, cardiovascular, GI, pulmonary. relevant finding as above Active Medications Albuterol/Ipratropium (Ipratropium-Albuterol 3 Ml Neb) 3 ml INHALATION RT-QID PRN PRN Reason: Shortness Of Breath Or Wheezing Last Admin: 07/05/21 21:01 Dose: 3 ml Documented by: Allopurinol (Allopurinol 300 Mg Tab) 300 mg PO DAILY [facility] Last Admin: 07/06/21 12:28 Dose: 300 mg Documented by: Atorvastatin Calcium (Atorvastatin 20 Mg Tab) 20 mg PO MOWEFRSA [facility] Last Admin: 07/05/21 20:11 Dose: Not Given Documented by: Docusate Sodium (Docusate 100 Mg Cap) 100 mg PO DAILY [facility] Last Admin: 07/06/21 12:28 Dose: 100 mg Documented by: Famotidine (Famotidine 20 Mg Tab) 20 mg PO DAILY PRN PRN Reason: GI Upset Last Admin: 07/02/21 12:21 Dose: 20 mg Documented by: Fenofibrate (Fenofibrate 54 Mg Tab) 54 mg PO DAILY [facility] Last Admin: 07/06/21 12:47 Dose: Not Given Documented by: Fluconazole (Fluconazole 100 Mg Tab) 100 mg PO DAILY [facility] Last Admin: 07/06/21 12:29 Dose: 100 mg Documented by: Hydromorphone HCl (Hydromorphone 1 Mg/Ml 1 Ml Syringe) 1 mg IVP Q3HR PRN PRN Reason: Pain Insulin Aspart (Insulin Aspart (Novolog) 100 Unit/Ml Vial) 0 unit SQ ACHS [facility]; Protocol Last Admin: 07/06/21 17:31 Dose: Not Given Documented by: Isosorbide Mononitrate (Isosorbide Mononitrate Er 60 Mg Tab.Er.24h) 60 mg PO DAILY [facility] Last Admin: 07/06/21 12:28 Dose: 60 mg Documented by: Lactulose (Lactulose 20 Gm/30 Ml Cup) 15 gm PO TID [facility] Last Admin: 07/06/21 17:19 Dose: Not Given Documented by: Levothyroxine Sodium (Levothyroxine 112 Mcg Tab) 112 mcg PO 0630 [facility] Last Admin: 07/06/21 06:00 Dose: Not Given Documented by: Metoclopramide HCl (Metoclopramide 5 Mg/Ml 2 Ml Vial) 10 mg IVP Q8HR PRN PRN Reason: Nausea Last Admin: 07/05/21 16:00 Dose: 10 mg Documented by: Miscellaneous Information (Potassium Replacement Protocol 1 Each Misc) 1 each MISCELLANE DAILY PRN; Protocol PRN Reason: Per Protocol Morphine Sulfate (Morphine Sulfate 4 Mg/Ml Syringe) 4 mg IV Q4HR PRN PRN Reason: Severe Pain Last Admin: 07/04/21 17:39 Dose: 4 mg Documented by: Multivitamins (Multivitamins, Thera 1 Each Tab) 1 each PO DAILY [facility] Last Admin: 07/06/21 12:28 Dose: 1 each Documented by: Naloxone HCl (Naloxone 0.4 Mg/Ml 1 Ml Vial) 0.2 mg IV Q2M PRN PRN Reason: Opioid Reversal Non-Formulary Medication (Biotin [Biotin Disolve]) 5,000 mcg PO DAILY [facility] Last Admin: 07/06/21 08:38 Dose: Not Given Documented by: Non-Formulary Medication (Ubidecarenone [Co Q-10]) 100 mg PO DAILY [facility] Last Admin: 07/06/21 11:37 Dose: Not Given Documented by: Non-Formulary Medication (Prorenal + D ) 1 tab PO DAILY [facility] Last Admin: 07/06/21 12:47 Dose: Not Given Documented by: Senna (Sennosides 8.6 Mg Tab) 8.6 mg PO DAILY [facility] Last Admin: 07/06/21 12:28 Dose: 8.6 mg Documented by: Tramadol HCl (Tramadol 50 Mg Tab) 50 mg PO BID [facility] Last Admin: 07/06/21 12:47 Dose: Not Given Documented by: Past medical history to include: Congestive heart failure diastolic dysfunction EF 55%, end-stage kidney disease on peritoneal dialysis for the last year and a half, moderate secondary pulmonary hypertension, moderate to severe tricuspid regurgitation, dual-chamber pacemaker, anemia CK D, hypertension, hypothyroid, diabetes, atrial fibrillation, CAD with bypass, diabetic peripheral neuropathy, 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 No history of smoking or alcohol. Sometimes uses a cane or a walker. Family history: Unremarkable Physical examination: VITAL SIGNS: 98.2, 61, 26, 1 23 x 34, 93% on 2 L GENERAL: Reclining bed lethargic, tired, short of breath EYES: Pupils equal. Conjunctiva pale HEENT: External appearance of nose and ears normal, oral cavity grossly normal. NECK: JVD not raised; masses not palpable. HEART: First and second heart sounds are normal; no edema. LUNGS: Respiratory rate increased; not able to speak in full sentences, bi lateral crackles MUSCULAR skeletal: Evidence of OA especially in the hands and knees ABDOMEN: Soft, no tenderness, distended, liver spleen not palpable, no masses palpable, PD catheter. PSYCH: Answering occasional questions, tired, lethargic. INVESTIGATIONS, reviewed in the clinical context: July 06: White count 23.4 hemoglobin 11.8 platelets 457 July 05: Sodium 126 potassium 5. 40 creatinine 6.24 July 04: Sodium 122 potassium 4.3 creatinine 5.16. Darvocet fluid: Nucleated cells 75 WBC 93 July 03, sodium 126 potassium 3.4 creatinine 5.7 White count 20.3 hemoglobin 12.4 platelets 438 sodium 128 potassium 2.9. 37 creatinine 5.58 glucose 47 Coronavirus [PCR]: Not detected Computed tomography scan of the abdomen pelvis without contrast: Median sternotomy wires, multiple surgical clips in the gallbladder fossa, bilateral kidneys are small. PD catheter in the pelvis. Sigmoid diverticulosis. Some free intraperitoneal air and fluid. Moderate DJD changes. Assessment and plan: -Secondary fungal peritonitis [positive for Nayely albicans] in a patient who has paratonia catheter. Patient was recently discharged from [facility] to [place] on June 22. And she received intraperitoneal antibiotics. Patient has been started on July 05. Pericardial catheter removal by Dr. Lawrence. July 05 hemodialysis catheter placed by Dr. Ortiz -End-stage kidney disease on peritoneal dialysis. Not being very effective. Uremic symptoms. Decreased appetite.: Worsening PD catheter removed by Dr. Lawrence. hemodialysis catheter placement by Dr. Ortiz. Patient had first hemodialysis today. -Acute on chronic congestive heart failure exacerbation from diastolic dysfunction EF 50-55%,: Worsening Follow clinically -Acute metabolic/uremic encephalopathy from worsening renal function -End-stage kidney disease on peritoneal dialysis Patient is on nocturnal dialysis. Nephrology consulted -Moderate secondary pulmonary hypertension due to CHF Follow clinically -Moderate to severe tricuspid regurgitation, nontraumatic Follow clinically -Dual chamber pacemaker, for complete heart block Telemetry -Anemia of chronic kidney disease -Essential hypertension Controlled -Hypothyroid Levoxyl 112 g a day -Diabetes mellitus type 2 chronically on insulin Follow Accu-Cheks. 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 Scopolamine patch with IV Reglan -DO NOT RESUSCITATE Patient had hemodialysis done earlier today and about 2 L was removed. Still short of breath. Fluid overload. Discussed with Dr. Rodriguez. We will repeat and tried to ultrafiltration. Spoke to the of the bed to the bedside. Prognosis guarded. Patient be made DO NOT RESUSCITATE. Advanced care planning: Spoke to patient's son over the phone. Clinical condition updated. He understand the patient now doing well. Today's clinical course was also described. He is gone ahead to make the patient DO NOT RESUSCITATE. No other heroic measures at this point. Will try ultrafiltration. Time spent for this about 20 minutes.
[2021-07-06 20:05] LABS: Glucose,Whole Blood 190 mg/dL (75-99)
--- NOTE | 2021-07-06 23:36 | PN ---
PROGRESS NOTE DATE OF SERVICE: 07/06/2021 REASON FOR FOLLOWUP: PD catheter associated peritonitis. INTERVAL HISTORY: The patient is afebrile. The patient is feeling weak and some shortness of breath. Denies any chest pain. No worsening abdominal pain. No vomiting or diarrhea. PHYSICAL EXAMINATION: Blood pressure 105/57, pulse of 60. Temperature is 97.4. She is 98% on 4 L nasal cannula. General description is a middle-aged female lying in bed in no distress. Respiratory system: Unlabored breathing. Coarse breath sounds bilaterally. No wheeze. Heart S1, S2. Regular rate and rhythm. Abdomen soft. No tenderness. LABS: Hemoglobin is 11.1, white count 23.4. B catheter tip culture showing yeast. DIAGNOSTIC IMPRESSION AND PLAN: Patient with Nayely albicans dialysis catheter associated peritonitis, status post removal of the dialysis catheter. Patient to continue with Diflucan. White count will be monitored closely. Continue supportive care thank. FATMATAL / IJN: [id number] /
[2021-07-07] MEDS: LEVOTHYROXINE 112 MCG TAB PO SCH (04:35)
[2021-07-07 07:01] LABS: Glucose,Whole Blood 199 mg/dL (75-99)
[2021-07-07 07:43] LABS: Glucose,Whole Blood 176 mg/dL (75-99)
[2021-07-07] MEDS: INSULIN ASPART (NovoLOG) 100 UNIT/ML VIAL SQ SCH ×4 (08:39→21:10)
[2021-07-07] MEDS ORDERED: LEVOTHYROXINE IVP 100 MCG/5 ML VIAL IV SCH (09:00)
[2021-07-07] MEDS ORDERED: FLUCONAZOLE 100 MG TAB PO SCH (09:00)
[2021-07-07] MEDS ORDERED: FLUCONAZOLE IN NACL,ISO-OSM 200 MG in SALINE 1 100ML.BAG IVPB SCH (09:00)
--- NOTE | 2021-07-07 09:52 | P.PN ---
Subjective Patient is seen in follow-up for end-stage renal disease. PD catheter discontinued 07/05/2021 due to fungal peritonitis. Started on hemodialysis 0 07/06/2021. Abdominal pain improved. Patient is quite lethargic. She tolerated 4 L ultrafiltration yesterday. Vital signs are stable. General: Patient quite lethargic. HEENT: Head exam is unremarkable. LUNGS: Breath sounds decreased. HEART: Rate and Rhythm are regular. ABDOMEN: Soft, no distention. EXTREMITITES: No edema. Objective - Vital Signs Vital signs: Vital Signs Temp 98.5 F 07/07/21 08:00 Pulse 60 07/07/21 08:00 Resp 20 07/07/21 08:00 BP 107/50 07/07/21 08:00 Pulse Ox 99 07/07/21 08:00 Intake & Output 07/06/21 07/07/21 07/07/21 18:59 06:59 18:59 Intake Total 300 Output Total 4500 Balance -4200 Intake: Hemodialysis 300 Output: Urine 0 Hemodialysis 4500 Other: Voiding Method Diaper Incontinent - Labs CBC & Chem 7: 07/06/21 02:24 07/05/21 18:01 Labs: Abnormal Lab Results - Last 24 Hours (Table) 07/06/21 07/06/21 07/06/21 Range/Units 11:27 16:56 20:03 POC Glucose (mg/dL) 141 H 239 H 190 H (75-99) mg/dL 07/07/21 07/07/21 Range/Units 06:59 07:42 POC Glucose (mg/dL) 199 H 176 H (75-99) mg/dL Microbiology - Last 24 Hours (Table) 07/03/21 17:25 Gram Stain - Final Dialysate Body Fluid Culture - Final Nayely albicans 07/01/21 17:45 Blood Culture - Preliminary Blood No Growth after 120 hours 07/01/21 17:30 Blood Culture - Preliminary Blood No Growth after 120 hours 07/05/21 10:15 Catheter Tip Culture - Preliminary Catheter Tip Yeast species 07/04/21 12:35 Gram Stain - Preliminary Dialysate Body Fluid Culture - Preliminary Yeast species Assessment and Plan Plan: Assessment: 1. End-stage renal disease - transitioned from peritoneal to hemodialysis 07/06/2021. Has a permacath. 2. Recent peritonitis in June 2021. Cell count this admission was 198 with 85% PMNs dated 07/02/2021; cell count 198 with 95% PMNs dated 07/03/21; cell count 75. 93% PMNs dated 07/04/2021. She also received intraperitoneal antibiotics. Status post intraperitoneal vancomycin given 07/01/2021. Also on Diflucan. Fluid culture positive for Nayely albicans. PD catheter discontinued 07/05/2021. 3. Hypokalemia from PD losses. Replaced. Better. 4. Diabetes mellitus. 5. Constipation. On lactulose as needed. 6. Hyponatremia secondary to chronic kidney disease. Better. 7. Volume overload. Plan: Hemodialysis today. Maintain Diflucan - started 07/02/2021. Currently on IV per infectious disease. She will be maintained on Monday schedule outpatient for hemodialysis. Add midodrine - to be held for systolic blood pressure greater than 110.
[2021-07-07] MEDS: LACTULOSE 20 GM/30 ML CUP PO SCH ×3 (10:47→21:10)
[2021-07-07] MEDS: NON FORMULARY DRUG (Biotin [Biotin Disolve] 5,000 MCG Tablet) PO SCH (10:47)
[2021-07-07] MEDS: allopurinoL 300 MG TAB PO SCH (10:47)
[2021-07-07] MEDS: FENOFIBRATE 54 MG TAB PO SCH (10:47)
[2021-07-07] MEDS: ISOSORBIDE MONONITRATE ER 60 MG TAB.ER.24H PO SCH (10:47)
[2021-07-07] MEDS: DOCUSATE 100 MG CAP PO SCH (10:47)
[2021-07-07] MEDS: MULTIVITAMINS, THERA 1 EACH TAB PO SCH (10:47)
[2021-07-07] MEDS: traMADol 50 MG TAB PO SCH ×2 (10:48→21:10)
[2021-07-07] MEDS: NON FORMULARY DRUG (Ubidecarenone [Co Q-10] 100 MG Capsule) PO SCH (10:48)
[2021-07-07] MEDS: NON FORMULARY DRUG (Prorenal + D 1 TAB) PO SCH (10:48)
[2021-07-07] MEDS: SENNOSIDES 8.6 MG TAB PO SCH (10:48)
[2021-07-07 10:58] LABS: Anion Gap 16 mmol/L; Blood Urea Nitrogen 51 mg/dL (7-17); Carbon Dioxide 22 mmol/L (22-30); Chloride 96 mmol/L (98-107); Glucose 188 mg/dL (74-99); Magnesium 2.2 mg/dL (1.6-2.3); Potassium 4.7 mmol/L (3.5-5.1); Sodium 134 mmol/L (137-145)
[2021-07-07 11:05] LABS: African American GFR (CKD) 6 (>60 ml/min/1.73 sqM); Non-African American GFR(CKD) 6 (>60 ml/min/1.73 sqM)
[2021-07-07 11:50] LABS: Glucose,Whole Blood 133 mg/dL (75-99)
--- NOTE | 2021-07-07 13:21 | P.PN ---
Subjective Progress Note Date: 07/07/21 CHIEF COMPLAINT: Peritonitis HISTORY OF PRESENT ILLNESS: Patient is status post removal of CAPD catheter. Patient is lethargic. Denies any nausea or vomiting. Afebrile. WBC 23.4 yesterday. PHYSICAL EXAM: VITAL SIGNS: Reviewed. GENERAL: Well-developed in no acute distress. HEENT: No sclera icterus. Extraocular movements grossly intact. Moist buccal mucosa. Head is atraumatic, normocephalic. ABDOMEN: Soft. Mildly distended. Nontender Incisional dressing on the left abdomen clean dry and intact. Patient does have laceration next to the dressing that is scabbed. NEUROLOGIC: Lethargic ASSESSMENT: 1. Nayely albicans Peritonitis status post removal of peritoneal dialysis catheter PLAN: -Continue supportive care -Continue antibiotics per ID service Physician Tourist Escort note has been reviewed by physician. Signing provider agrees with the documented findings, assessment, and plan of care. Objective - Vital Signs Vital signs: Vital Signs Temp 98.5 F 07/07/21 08:00 Pulse 60 07/07/21 08:00 Resp 20 07/07/21 08:00 BP 107/50 07/07/21 08:00 Pulse Ox 99 07/07/21 08:00 Intake & Output 07/06/21 07/07/21 07/07/21 18:59 06:59 18:59 Intake Total 300 Output Total 4500 Balance -4200 Intake: Hemodialysis 300 Output: Urine 0 Hemodialysis 4500 Other: Voiding Method Diaper Incontinent - Labs CBC & Chem 7: 07/06/21 02:24 07/07/21 10:18 Labs: Abnormal Lab Results - Last 24 Hours (Table) 07/06/21 07/06/21 07/07/21 Range/Units 16:56 20:03 06:59 Sodium (137-145) mmol/L Chloride (98-107) mmol/L BUN (7-17) mg/dL Creatinine (0.52-1.04) mg/dL Glucose (74-99) mg/dL POC Glucose (mg/dL) 239 H 190 H 199 H (75-99) mg/dL Calcium (8.4-10.2) mg/dL Phosphorus (2.5-4.5) mg/dL 07/07/21 07/07/21 07/07/21 Range/Units 07:42 10:18 11:48 Sodium 134 L (137-145) mmol/L Chloride 96 L (98-107) mmol/L BUN 51 H (7-17) mg/dL Creatinine 6.56 H (0.52-1.04) mg/dL Glucose 188 H (74-99) mg/dL POC Glucose (mg/dL) 176 H 133 H (75-99) mg/dL Calcium 7.0 L (8.4-10.2) mg/dL Phosphorus 8.0 H (2.5-4.5) mg/dL Microbiology - Last 24 Hours (Table) 07/05/21 10:15 Catheter Tip Culture - Final Catheter Tip Nayely albicans 07/03/21 17:25 Gram Stain - Final Dialysate Body Fluid Culture - Final Nayely albicans 07/01/21 17:45 Blood Culture - Preliminary Blood No Growth after 120 hours 07/01/21 17:30 Blood Culture - Preliminary Blood No Growth after 120 hours 07/04/21 12:35 Gram Stain - Preliminary Dialysate Body Fluid Culture - Preliminary Yeast species
[2021-07-07] MEDS: MIDODRINE 5 MG TAB PO SCH ×2 (13:49→15:10)
[2021-07-07] MEDS ORDERED: LIDOCAINE 1% INJ 10MG/ML (20 ML MDV) ONE (14:43)
[2021-07-07 15:56] VITALS: BMI 24.2
--- NOTE | 2021-07-07 15:58 | P.PN ---
Progress Note - Text Progress Note Date: 07/07/21 Chief Complaint: Abdominal pain This is a 74-year-old patient of Dr. Cruz. Chronic stable medical conditions include atrial fibrillation, coronary artery disease, diabetes, hyperlipidemia, hypertension, peripheral neuropathy, Hodgkin's lymphoma treated with radiation, diverticulosis, arthritis hypothyroid. End-stage kidney disease on peritoneal dialysis for last year and a half. Patient for 10 days has been having gradually worsening abdominal pain. Was having intermittent nausea and vomiting. Poor appetite. Noticed that the dialysate that was coming out was becoming cloudy. Patient gets nocturnal dialysis. Normally has a bowel movement every day. Last BM was 2 days ago. Denied any obvious fever and chills. Presents to ER. Patient recently had peritonitis and was supposedly admitted to [facility] to [place] on 06/22/2021 for 2 days and discharged home. She possibly received ceftaz intraperitoneally. Feels she has received intraperitoneal vancomycin 2 g and ceftazidime. This morning she is feeling a bit better. Laying in bed. Dialysis fluid came back positive with Nayely albicans. Started on Diflucan. July 03: Tired. Decreased appetite. Dialysate coming out is less cloudy. Some abdominal pain. No nausea vomiting. July 04: Abdominal pain better. Dialysis is clearing up. Having some throat congestion. Poor appetite. Plan is for hemodialysis catheter replaced tomorrow. July 05: Soft the patient this afternoon. Peritoneal dialysis catheter removed by Dr. Lawrence. Later today will have a hemodialysis catheter placed Dr. Ortiz. Was having significant nausea this morning. Zofran discontinued. Care was cup olamine patch and Reglan. Feeling a bit better. Tired. Symptoms felt to be all uremic. July 06: Weight is short of breath. Had 2 L of fluid removed with hemodialysis. Patient still significantly short of breath. Lethargic. Just about able to answer questions. Rather uremic. at the bedside. Spoke to Dr. Rodriguez. Patient not making much urine. One benefit to my from Lasix. Ultrafiltration will be tried later this afternoon. I spoke to patient's son over the phone. Was the POA. Patient's been made DO NOT RESUSCITATE. Rather tired July 07: Patient yesterday at 2 L removed of fluid by hemodialysis and then 4 L with ultrafiltration. Tired. at the bedside. Some shortness of breath. Getting hemodialysis today. Attempting about 3 L to be removed. Not able to eat Review of systems: Attempted for constitutional, cardiovascular, GI, pulmonary. relevant finding as above Active Medications Albuterol/Ipratropium (Ipratropium-Albuterol 3 Ml Neb) 3 ml INHALATION RT-QID PRN PRN Reason: Shortness Of Breath Or Wheezing Last Admin: 07/05/21 21:01 Dose: 3 ml Documented by: Allopurinol (Allopurinol 300 Mg Tab) 300 mg PO DAILY [facility] Last Admin: 07/07/21 10:47 Dose: Not Given Documented by: Atorvastatin Calcium (Atorvastatin 20 Mg Tab) 20 mg PO MOWEFRSA [facility] Last Admin: 07/05/21 20:11 Dose: Not Given Documented by: Docusate Sodium (Docusate 100 Mg Cap) 100 mg PO DAILY [facility] Last Admin: 07/07/21 10:47 Dose: Not Given Documented by: Famotidine (Famotidine 20 Mg Tab) 20 mg PO DAILY PRN PRN Reason: GI Upset Last Admin: 07/02/21 12:21 Dose: 20 mg Documented by: Fenofibrate (Fenofibrate 54 Mg Tab) 54 mg PO DAILY [facility] Last Admin: 07/07/21 10:47 Dose: Not Given Documented by: Hydromorphone HCl (Hydromorphone 1 Mg/Ml 1 Ml Syringe) 1 mg IVP Q3HR PRN PRN Reason: Pain Fluconazole/Sodium Chloride (200 mg/ IV Solution) 100 mls @ 100 mls/hr IVPB DAILY [facility] Last Admin: 07/07/21 13:50 Dose: 100 mls/hr Documented by: Insulin Aspart (Insulin Aspart (Novolog) 100 Unit/Ml Vial) 0 unit SQ ACHS [facility]; Protocol Last Admin: 07/07/21 15:09 Dose: Not Given Documented by: Isosorbide Mononitrate (Isosorbide Mononitrate Er 60 Mg Tab.Er.24h) 60 mg PO DAILY [facility] Last Admin: 07/07/21 10:47 Dose: Not Given Documented by: Lactulose (Lactulose 20 Gm/30 Ml Cup) 15 gm PO TID [facility] Last Admin: 07/07/21 15:09 Dose: Not Given Documented by: Levothyroxine Sodium (Levothyroxine Ivp 100 Mcg/5 Ml Vial) 84 mcg IV DAILY [facility] Last Admin: 07/07/21 13:50 Dose: 84 mcg Documented by: Metoclopramide HCl (Metoclopramide 5 Mg/Ml 2 Ml Vial) 10 mg IVP Q8HR PRN PRN Reason: Nausea Last Admin: 07/05/21 16:00 Dose: 10 mg Documented by: Midodrine (Midodrine 5 Mg Tab) 5 mg PO AC-TID [facility] Last Admin: 07/07/21 15:10 Dose: Not Given Documented by: Miscellaneous Information (Potassium Replacement Protocol 1 Each Misc) 1 each MISCELLANE DAILY PRN; Protocol PRN Reason: Per Protocol Multivitamins (Multivitamins, Thera 1 Each Tab) 1 each PO DAILY [facility] Last Admin: 07/07/21 10:47 Dose: Not Given Documented by: Naloxone HCl (Naloxone 0.4 Mg/Ml 1 Ml Vial) 0.2 mg IV Q2M PRN PRN Reason: Opioid Reversal Non-Formulary Medication (Biotin [Biotin Disolve]) 5,000 mcg PO DAILY [facility] Last Admin: 07/07/21 10:47 Dose: Not Given Documented by: Non-Formulary Medication (Ubidecarenone [Co Q-10]) 100 mg PO DAILY [facility] Last Admin: 07/07/21 10:48 Dose: Not Given Documented by: Non-Formulary Medication (Prorenal + D ) 1 tab PO DAILY [facility] Last Admin: 07/07/21 10:48 Dose: Not Given Documented by: Senna (Sennosides 8.6 Mg Tab) 8.6 mg PO DAILY [facility] Last Admin: 07/07/21 10:48 Dose: Not Given Documented by: Tramadol HCl (Tramadol 50 Mg Tab) 50 mg PO BID [facility] Last Admin: 07/07/21 10:48 Dose: Not Given Documented by: Past medical history to include: Congestive heart failure diastolic dysfunction EF 55%, end-stage kidney disease on peritoneal dialysis for the last year and a half, moderate secondary pulmonary hypertension, moderate to severe tricuspid regurgitation, dual-chamber pacemaker, anemia CK D, hypertension, hypothyroid, diabetes, atrial fibrillation, CAD with bypass, diabetic peripheral neuropathy, 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 No history of smoking or alcohol. Sometimes uses a cane or a walker. Family history: Unremarkable Physical examination: VITAL SIGNS: 97.1, 68, 21, 1 10 x 58, 99% on 5 L GENERAL: Reclining bed , tired, short of breath EYES: Pupils equal. Conjunctiva pale HEENT: External appearance of nose and ears normal, oral cavity grossly normal. NECK: JVD not raised; masses not palpable. HEART: First and second heart sounds are normal; no edema. LUNGS: Respiratory rate increased; , bilateral crackles MUSCULAR skeletal: Evidence of OA especially in the hands and knees ABDOMEN: Soft, no tenderness, distended, liver spleen not palpable, no masses palpable, PD catheter. PSYCH: Just about able to answer occasional question.. INVESTIGATIONS, reviewed in the clinical context: July 07: Potassium 4.7 BUN 51 creatinine 6.56 July 06: White count 23.4 hemoglobin 11.8 platelets 457 July 05: Sodium 126 potassium 5. 40 creatinine 6.24 July 04: Sodium 122 potassium 4.3 creatinine 5.16. Darvocet fluid: Nucleated cells 75 WBC 93 July 03, sodium 126 potassium 3.4 creatinine 5.7 White count 20.3 hemoglobin 12.4 platelets 438 sodium 128 potassium 2.9. 37 creatinine 5.58 glucose 47 Coronavirus [PCR]: Not detected Computed tomography scan of the abdomen pelvis without contrast: Median sternotomy wires, multiple surgical clips in the gallbladder fossa, bilateral kidneys are small. PD catheter in the pelvis. Sigmoid diverticulosis. Some free intraperitoneal air and fluid. Moderate DJD changes. Assessment and plan: -Secondary fungal peritonitis [positive for Nayely albicans] in a patient who has paratonia catheter. Patient was recently discharged from [facility] to [place] on June 22. And she received intraperitoneal antibiotics. Patient has been started on July 05. Pericardial catheter removal by Dr. Lawrence. July 05 hemodialysis catheter placed by Dr. Ortiz -End-stage kidney disease on peritoneal dialysis. Not being very effective. Uremic symptoms. Decreased appetite.: Slow to respond PD catheter removed by Dr. Lawrence. hemodialysis catheter placement by Dr. Ortiz. On hemodialysis -Acute on chronic congestive heart failure exacerbation from diastolic dysfunction EF 50-55%,: Not improving Getting hemodialysis -Acute metabolic/uremic encephalopathy from worsening renal function: Slow to respond -Moderate secondary pulmonary hypertension due to CHF Follow clinically -Moderate to severe tricuspid regurgitation, nontraumatic Follow clinically -Dual chamber pacemaker, for complete heart block Telemetry -Anemia of chronic kidney disease -Essential hypertension Controlled -Hypothyroid Levoxyl 112 g a day -Diabetes mellitus type 2 chronically on insulin Follow Accu-Cheks. 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 Scopolamine patch with IV Reglan -DO NOT RESUSCITATE Hemodialysis today. She continues to do poorly. Spoke to the the bedside. Prognosis guarded. Not able to eat
[2021-07-07 16:47] LABS: Glucose,Whole Blood 125 mg/dL (75-99)
[2021-07-07 21:05] LABS: Glucose,Whole Blood 169 mg/dL (75-99)
[2021-07-07] MEDS: ATORVASTATIN 20 MG TAB PO SCH (21:10)
--- NOTE | 2021-07-07 23:10 | PN ---
PROGRESS NOTE DATE OF SERVICE: 07/07/2021 REASON FOR FOLLOW UP: PD catheter associated peritonitis. INTERVAL HISTORY: The patient is afebrile. The patient is more lethargic today and is requiring supplemental oxygen. She was unable to provide any history . No vomiting, diarrhea or any other changes reported by the nursing staff. PHYSICAL EXAMINATION: Blood pressure 118/43 with a pulse of 69, temperature 97.5. She is 94% on . General description is an elderly female lying in bed in no distress. Respiratory system: Unlabored breathing, decreased intensity of breath sounds. No wheeze. Heart S1, S2. Regular rate and rhythm. Abdomen soft, no tenderness. LABS: BUN of 51, creatinine 6.56. Catheter tip has been Nayely albicans. DIAGNOSTIC IMPRESSION AND PLAN: This patient with PD catheter associated peritonitis. Culture positive for yeast. Patient to continue with Diflucan, switched to IV because of her lethargy. We will repeat her CBC, and obtain a chest x-ray. Continue with Diflucan. Prognosis remains to be guarded. MMODL / IJN: [id number] /
[2021-07-08] MEDS ORDERED: ACETAMINOPHEN SUPPOSITORY 650 MG SUPP RECTAL PRN (02:11)
[2021-07-08 02:55] VITALS: BP 95/37; PULSE 61
[2021-07-08] MEDS ORDERED: MORPHINE SULFATE (100 MG/2 ML) 100 MG in SODIUM CHLORIDE 0.9% 100 ML IV SCH (03:00)
[2021-07-08] MEDS ORDERED: LORazepam 2 MG/ML INJ IV PRN (03:00)
[2021-07-08] MEDS ORDERED: ATROPINE OPHTH SOLN 1% 5ML BTL SUBLINGUAL PRN (03:00)
[2021-07-08] MEDS ORDERED: SCOPOLAMINE 1.5MG/72HR PATCH TRANSDERM SCH (03:00)
[2021-07-08 03:01] VITALS: TEMP 100.7
[2021-07-08 05:35] VITALS: RESP 34
--- NOTE | 2021-07-08 07:27 | XR ---
EXAMINATION TYPE: XR chest 1V portable DATE OF EXAM: 07/08/2021 Comparison: 07/05/2021 Clinical History: 75-year-old female pneumonia Findings: Right-sided double-lumen hemodialysis catheter tips at the lower SVC level. We note that the inferior lumen at the superior loop is kinked. Clinically correlate. Endovascular aortic valve replacement. Zaheer hathaway sternotomy wires and post-CABG clips the mediastinum. Retained epicardial pacer leads. Addition al surgical clips in the upper abdomen. Left anterior chest wall pacemaker generator with right atria l and right ventricular leads. Heart remains borderline enlarged. Interstitial opacities persist. No pleural effusion. Impression: 1. Similar mild pulmonary vascular congestion. 2. Right-sided double lumen hemodialysis catheter. Along the superior turn, the inferior lumen is kin ked. Clinically correlate.
--- NOTE | 2021-07-09 17:28 | P.DS ---
Providers Date of admission: 07/01/21 19:40 Expected date of discharge: 07/08/21 Attending physician: Ramakrishna Hill Consults: 07/01/21 19:52 Consult Physician Routine Consulting Provider: Darian Lawrence Consult Reason/Comments: Free intraperitoneal air; abdominal pain Do you want consulting provider notified?: Already Contacted 07/01/21 20:39 Consult Physician Routine Consulting Provider: Tom Poon Consult Reason/Comments: Peritonitis?; Acute on chronic renal failure Do you want consulting provider notified?: Already Contacted 07/04/21 11:35 Consult Physician Routine Consulting Provider: Jaime Noriega Consult Reason/Comments: needs permacath for hemodialysis. Do you want consulting provider notified?: Yes 07/04/21 11:36 Consult Physician Routine Consulting Provider: Katarina Gamez Consult Reason/Comments: peritonitis Do you want consulting provider notified?: Yes Primary care physician: [facility] Course: Chief Complaint: Abdominal pain This is a 74-year-old patient of Dr. Cruz. Chronic stable medical conditions include atrial fibrillation, coronary artery disease, diabetes, hyperlipidemia, hypertension, peripheral neuropathy, Hodgkin's lymphoma treated with radiation, diverticulosis, arthritis hypothyroid. End-stage kidney disease on peritoneal dialysis for last year and a half. Patient for 10 days has been having gradually worsening abdominal pain. Was having intermittent nausea and vomiting. Poor appetite. Noticed that the dialysate that was coming out was becoming cloudy. Patient gets nocturnal dialysis. Normally has a bowel movement every day. Last BM was 2 days ago. Denied any obvious fever and chills. Presents to ER. Patient recently had peritonitis and was supposedly admitted to [facility] to [place] on 06/22/2021 for 2 days and discharged home. She possibly received ceftaz intraperitoneally. Feels she has received intraperitoneal vancomycin 2 g and ceftazidime. This morning she is feeling a bit better. Laying in bed. Dialysis fluid came back positive with Nayely albicans. Started on Diflucan. July 03: Tired. Decreased appetite. Dialysate coming out is less cloudy. Some abdominal pain. No nausea vomiting. July 04: Abdominal pain better. Dialysis is clearing up. Having some throat congestion. Poor appetite. Plan is for hemodialysis catheter replaced tomorrow. July 05: Soft the patient this afternoon. Peritoneal dialysis catheter removed by Dr. Lawrence. Later today will have a hemodialysis catheter placed Dr. Ortiz. Was having significant nausea this morning. Zofran discontinued. Care was cup olamine patch and Reglan. Feeling a bit better. Tired. Symptoms felt to be all uremic. July 06: Weight is short of breath. Had 2 L of fluid removed with hemodialysis. Patient still significantly short of breath. Lethargic. Just about able to answer questions. Rather uremic. at the bedside. Spoke to Dr. Rodriguez. Patient not making much urine. One benefit to my from Lasix. Ultrafiltration will be tried later this afternoon. I spoke to patient's son over the phone. Was the POA. Patient's been made DO NOT RESUSCITATE. Rather tired July 07: Patient yesterday at 2 L removed of fluid by hemodialysis and then 4 L with ultrafiltration. Tired. at the bedside. Some shortness of breath. Getting hemodialysis today. Attempting about 3 L to be removed. Not able to eat July 08: Patient continued to go downhill. Patient was made comfortable and patient Consultation: Dr. Rodriguez from nephrology Dr. Gamez from ID Dr. Lawrence from general surgery Dr. 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 No history of smoking or alcohol. Sometimes uses a cane or a walker. Family history: Unremarkable INVESTIGATIONS, reviewed in the clinical context: July 07: Potassium 4.7 BUN 51 creatinine 6.56 July 06: White count 23.4 hemoglobin 11.8 platelets 457 July 05: Sodium 126 potassium 5. 40 creatinine 6.24 July 04: Sodium 122 potassium 4.3 creatinine 5.16. Darvocet fluid: Nucleated cells 75 WBC 93 July 03, sodium 126 potassium 3.4 creatinine 5.7 White count 20.3 hemoglobin 12.4 platelets 438 sodium 128 potassium 2.9. 37 creatinine 5.58 glucose 47 Coronavirus [PCR]: Not detected Computed tomography scan of the abdomen pelvis without contrast: Median sternotomy wires, multiple surgical clips in the gallbladder fossa, bilateral kidneys are small. PD catheter in the pelvis. Sigmoid diverticulosis. Some free intraperitoneal air and fluid. Moderate DJD changes. Cause of : Secondary fungal peritonitis secondary to peritoneal dialysis catheter Assessment and plan: -Secondary fungal peritonitis [positive for Nayely albicans] in a patient who has pretty toenail catheter. Patient was recently discharged from [facility] on June 22. And she received intraperitoneal antibiotics. Patient has been started on July 05. Pretty toenail catheter removal by Dr. Lawrence. July 05 hemodialysis catheter placed by Dr. Ortiz -End-stage kidney disease on peritoneal dialysis. Not being very effective. Uremic symptoms. Decreased appetite.: Slow to respond PD catheter removed by Dr. Lawrence. hemodialysis catheter placement by Dr. Ortiz. On hemodialysis -Acute on chronic congestive heart failure exacerbation from diastolic dysfunction EF 50-55%,: Not improving Getting hemodialysis -Acute metabolic/uremic encephalopathy from worsening renal function: Slow to respond -Moderate secondary pulmonary hypertension due to CHF Follow clinically -Moderate to severe tricuspid regurgitation, nontraumatic Follow clinically -Dual chamber pacemaker, for complete heart block Telemetry -Anemia of chronic kidney disease -Essential hypertension Controlled -Hypothyroid Levoxyl 112 g a day -Diabetes mellitus type 2 chronically on insulin Follow Accu-Cheks. 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 Scopolamine patch with IV Reglan -DO NOT RESUSCITATE Disposition: Patient Plan - Discharge Summary New Discharge Prescriptions: No Action Levothyroxine Sodium [Levoxyl] 112 mcg PO DAILY Fenofibrate Nanocrystallized [Fenofibrate] 48 mg PO DAILY Ubidecarenone [Co Q-10] 100 mg PO DAILY Allopurinol [Zyloprim] 300 mg PO DAILY Docusate [Colace] 100 mg PO DAILY PRN PRN Reason: Constipation Atorvastatin [Lipitor] 20 mg PO MOWEFRSA Isosorbide Mononitrate ER [Imdur] 60 mg PO DAILY Calcium Acetate [Phoslo] 1,134 - 2,001 mg PO TID Insulin Glargine [Lantus Vial] 10 - 20 unit SQ DAILY Prorenal + D 1 tab PO DAILY traMADol HCL [Ultram] 50 mg PO BID Famotidine [Pepcid] 20 mg PO DAILY PRN PRN Reason: Gi Upset Biotin [Biotin Disolve] 5,000 mcg PO DAILY Sennosides/Docusate Sodium [Senna-S 8.6-50 mg Tablet] 1 tab PO DAILY Multivitamins, Thera [Multivitamin (formulary)] 1 tab PO DAILY Discharge Medication List Allopurinol [Zyloprim] 300 mg PO DAILY 01/19/16 [History] Fenofibrate Nanocrystallized [Fenofibrate] 48 mg PO DAILY 01/19/16 [History] Levothyroxine Sodium [Levoxyl] 112 mcg PO DAILY 01/19/16 [History] Ubidecarenone [Co Q-10] 100 mg PO DAILY 01/19/16 [History] Docusate [Colace] 100 mg PO DAILY PRN 02/14/16 [History] Atorvastatin [Lipitor] 20 mg PO MOWEFRSA 11/24/19 [History] Isosorbide Mononitrate ER [Imdur] 60 mg PO DAILY 11/24/19 [History] Calcium Acetate [Phoslo] 1,134 - 2,001 mg PO TID 04/14/20 [History] Insulin Glargine [Lantus Vial] 10 - 20 unit SQ DAILY 04/14/20 [History] Biotin [Biotin Disolve] 5,000 mcg PO DAILY 07/01/21 [History] Famotidine [Pepcid] 20 mg PO DAILY PRN 07/01/21 [History] Multivitamins, Thera [Multivitamin (formulary)] 1 tab PO DAILY 07/01/21 [History] Prorenal + D 1 tab PO DAILY 07/01/21 [History] Sennosides/Docusate Sodium [Senna-S 8.6-50 mg Tablet] 1 tab PO DAILY 07/01/21 [History] traMADol HCL [Ultram] 50 mg PO BID 07/01/21 [History] Discharge Disposition: - Preliminary Cause of Preliminary Cause of : Secondary fungal peritonitis
== END 2021-07-08 14:37 | disposition expired | DRG 907 ==
LOC: EC 13:52 → 4SSUR 19:40
PROVIDERS: ADMIT Hospitalist; ATTEND Hospitalist
PROC: 5A1D70Z Performance of Urinary Filtration, Intermittent, Less than 6 Hours Per Day (ICD-10-PCS; 2021-07-01)
PROC: 3E1M39Z Irrigation of Peritoneal Cavity using Dialysate, Percutaneous Approach (ICD-10-PCS; 2021-07-01)
PROC: 0WPG03Z Removal of Infusion Device from Peritoneal Cavity, Open Approach (ICD-10-PCS; principal; 2021-07-05 08:25)
PROC: 02HV33Z Insertion of Infusion Device into Superior Vena Cava, Percutaneous Approach (ICD-10-PCS; 2021-07-05 08:25)
PROC: 02HV33Z Insertion of Infusion Device into Superior Vena Cava, Percutaneous Approach (ICD-10-PCS; 2021-07-06)
DX: T85.71XA Infection and inflammatory reaction due to peritoneal dialysis catheter, initial encounter (principal); K65.8 Other peritonitis; G93.41 Metabolic encephalopathy; I50.33 Acute on chronic diastolic (congestive) heart failure; N18.6 End stage renal disease; B49 Unspecified mycosis; C81.90 Hodgkin lymphoma, unspecified, unspecified site; E87.1 Hypo-osmolality and hyponatremia; I13.2 Hypertensive heart and chronic kidney disease with heart failure and with stage 5 chronic kidney disease, or end stage renal disease; I44.2 Atrioventricular block, complete; N17.9 Acute kidney failure, unspecified; G93.49 Other encephalopathy; D63.1 Anemia in chronic kidney disease; E03.9 Hypothyroidism, unspecified; Z66 Do not resuscitate; E11.22 Type 2 diabetes mellitus with diabetic chronic kidney disease; Z20.822 Contact with and (suspected) exposure to COVID-19; E11.42 Type 2 diabetes mellitus with diabetic polyneuropathy; E78.5 Hyperlipidemia, unspecified; E86.0 Dehydration; E87.6 Hypokalemia; I07.1 Rheumatic tricuspid insufficiency; Z51.5 Encounter for palliative care; I25.2 Old myocardial infarction; I25.10 Atherosclerotic heart disease of native coronary artery without angina pectoris; I27.29 Other secondary pulmonary hypertension; I48.91 Unspecified atrial fibrillation; J44.9 Chronic obstructive pulmonary disease, unspecified; K52.9 Noninfective gastroenteritis and colitis, unspecified; K57.30 Diverticulosis of large intestine without perforation or abscess without bleeding; K59.00 Constipation, unspecified; K66.9 Disorder of peritoneum, unspecified; M19.91 Primary osteoarthritis, unspecified site; M1A.9XX0 Chronic gout, unspecified, without tophus (tophi); W54.1XXA Struck by dog, initial encounter; Z79.4 Long term (current) use of insulin; Z79.890 Hormone replacement therapy; Z79.899 Other long term (current) drug therapy; Z82.3 Family history of stroke; Z82.49 Family history of ischemic heart disease and other diseases of the circulatory system; Z87.19 Personal history of other diseases of the digestive system; Z90.49 Acquired absence of other specified parts of digestive tract; Z90.81 Acquired absence of spleen; Z92.21 Personal history of antineoplastic chemotherapy; Z92.3 Personal history of irradiation; Z95.1 Presence of aortocoronary bypass graft; Z95.2 Presence of prosthetic heart valve; Z99.2 Dependence on renal dialysis; Y83.8 Other surgical procedures as the cause of abnormal reaction of the patient, or of later complication, without mention of misadventure at the time of the procedure
CPT/HCPCS: 36415; 36558; 71045; 74176; 76937; 77001; 80048; 80053; 81001; 83605; 83735; 84100; 84132; 85025; 86704; 86706; 87040; 87070; 87075; 87086; 87102; 87205; 87340; 87635; 89050; 90935; 94640; 96361; 96374; 96375; 99285